=== PATIENT | male | born 1960 | race Caucasian/White ===

== ENCOUNTER 2017-10-22 02:28 | Inpatient (IN) | payer OTHER ==
[~2017-10-22] VITALS: Ht 177.8 cm; Wt 85.7 kg
--- NOTE | 2017-10-22 02:41 | PHYS DOC ---
Adult General Chief Complaint Chief Complaint: MECHANICAL FALL HPI HPI Patient is a 57-year-old male who presents with complaint of pain and injury to his right knee and hip after falling at home. Patient has obvious deformity to his right knee around the patella. Patient states that he has severe pain with motion of either the knee or the hip. He rates the pain currently an 8 out of 10. He denies any chest pain or shortness of breath. He also denies any nausea or vomiting. She indicates that he did not sustain a head injury and denies loss of consciousness. Review of Systems Review of Systems Constitutional: Denies fever or chills [] Respiratory: Denies cough or shortness of breath [] Cardiovascular: Denies chest pain[] GI: Denies abdominal pain, nausea, vomiting[] Musculoskeletal: Complains of right knee and hip pain[] Integument: Denies rash or skin lesions [] All other systems were reviewed and found to be within normal limits, except as documented in this note. Current Medications Current Medications Current Medications Medications (Trade) Dose Ordered Sig/Derrick Start Time Stop Time Status Last Admin Dose Admin Fentanyl Citrate (Fentanyl 2ml Vial) 50 mcg 1X ONCE 10/22/17 03:30 10/22/17 03:31 UNV Ondansetron HCl (Zofran) 4 mg 1X ONCE 10/22/17 02:45 10/22/17 02:46 DC 10/22/17 02:58 4 MG Allergies Allergies Allergies Coded Allergies Type Severity Reaction Last Updated Verified codeine Allergy Unknown 10/22/17 Yes Physical Exam Physical Exam Constitutional: Well developed, well nourished, appears uncomfortable. [] HENT: Normocephalic, atraumatic, bilateral external ears normal, oropharynx moist, no oral exudates, nose normal. [] Eyes: PERRLA, EOMI, conjunctiva normal, no discharge. [] Neck: Normal range of motion, no tenderness, supple, no stridor. [] Cardiovascular:Heart rate regular rhythm, no murmur [] Lungs & Thorax: Bilateral breath sounds clear to auscultation [] Abdomen: Bowel sounds normal, soft. [] Skin: Warm, dry, no erythema, no rash. [] Extremities: Right knee demonstrates deformity with lateral displacement of the patella. Unable to assess range of motion of right hip or knee due to pain. [] Neurologic: Alert and oriented X 3, normal motor function, normal sensory function, no focal deficits noted. [] Current Patient Data Vital Signs Vital Signs Date Time Temp Pulse Resp B/P (MAP) Pulse Ox O2 Delivery O2 Flow Rate FiO2 10/22/17 03:00 Room Air 10/22/17 02:28 98.8 108 20 183/84 (117) 96 98.8 EKG EKG [] Radiology/Procedures Radiology/Procedures [] Impressions: X-ray of the right knee demonstrates comminuted patellar fracture with hematoma. X-ray of the right hip demonstrates an intertrochanteric hip fracture Course & Med Decision Making Course & Med Decision Making Pertinent Labs and Imaging studies reviewed. (See chart for details) [] Dragon Disclaimer Dragon Disclaimer This electronic medical record was generated, in whole or in part, using a voice recognition dictation system. Departure Departure Impression: Primary Impression: Intertrochanteric fracture of right hip Additional Impression: Comminuted fracture of right patella Disposition: ADMITTED INPATIENT Admitting Physician: Xie. Rodriguez Condition: IMPROVED Problem Qualifiers Primary Impression: Intertrochanteric fracture of right hip Encounter type: initial encounter Fracture type: closed Fracture alignment : nondisplaced Qualified Codes: S72.144A - Nondisplaced intertrochanteric fracture of right femur, initial encounter for closed fracture Additional Impression: Comminuted fracture of right patella Encounter type: initial encounter Fracture type: closed Fracture alignment : displaced Qualified Codes: S82.041A - Displaced comminuted fracture of right patella, initial encounter for closed fracture MIRIAN VERGARA Jr. DO Oct 22, 2017 02:41
[2017-10-22] MEDS ORDERED: ONDANSETRON PF 4 MG/2 ML VIAL. IV ONE (02:45)
[2017-10-22] MEDS ORDERED: fentaNYL PF VIAL 100 MCG/2 ML VIAL IV ONE ×2 (02:45→03:30)
[2017-10-22] MEDS ORDERED: ONDANSETRON PF 4 MG/2 ML VIAL. IV PRN ×2 (03:45→08:00)
[2017-10-22] MEDS: IV NORMAL SALINE 1000ML BAG 1,000 ML IV SCH ×4 (03:57→22:48)
[2017-10-22 04:00] LABS: BASO % 0 % (0-3); EOS % 0 % (0-3); HEMATOCRIT 36.3 % (39.0-53.0); HEMOGLOBIN 12.8 g/dL (13.0-17.5); LYMPH % 13 % (24-48); MEAN CORPUSCULAR HEMOGLOBIN 35 pg (25-35); MEAN CORPUSCULAR HGB CONC 35 g/dL (31-37); MEAN CORPUSCULAR VOLUME 100 fL (79-100); MONO # 0.8 x10^3/uL (0.0-1.1); MONO % 10 % (0-9); NEUT # 5.9 x10^3uL (1.8-7.7); NEUT % 76 % (31-73); PLATELET COUNT 123 x10^3/uL (140-400); RED BLOOD COUNT 3.65 x10^6/uL (4.30-5.70); RED CELL DISTRIBUTION WIDTH 14.3 % (11.5-14.5); WHITE BLOOD COUNT 7.7 x10^3/uL (4.0-11.0)
[2017-10-22 04:05] LABS: CALCIUM 8.4 mg/dL (8.5-10.1); GFR 76.7; POTASSIUM 3.4 mmol/L (3.5-5.1)
[2017-10-22 04:06] LABS: PROTHROMBIN TIME PATIENT 14.2 SEC (11.7-14.0)
[2017-10-22 04:11] LABS: ALBUMIN 3.4 g/dL (3.4-5.0); TOTAL BILIRUBIN 0.6 mg/dL (0.2-1.0); TOTAL PROTEIN 6.9 g/dL (6.4-8.2)
[2017-10-22 04:38] VITALS: BP 159/80
[2017-10-22] MEDS: fentaNYL PF VIAL 100 MCG/2 ML VIAL IV PRN ×2 (06:17→09:17)
--- NOTE | 2017-10-22 06:41 | EKG ---
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
[2017-10-22 07:00] VITALS: BP 158/84
[2017-10-22] MEDS ORDERED: ACETAMINOPHEN 500 MG TABLET PO PRN (08:00)
[2017-10-22] MEDS ORDERED: POTASSIUM CHLORIDE 20 MEQ TABLET.ER. PO ONE (08:00)
[2017-10-22] MEDS ORDERED: LABETALOL 20 MG/4 ML DISP.SYRIN. IVP PRN (08:00)
[2017-10-22] MEDS ORDERED: magic mouthwash (08:14)
[2017-10-22] MEDS ORDERED: MULT1TAB52 PO (08:14)
[2017-10-22] MEDS ORDERED: CYCL10TA2 PO (08:14)
[2017-10-22] MEDS ORDERED: NALO0.4V14 IJ (08:14)
[2017-10-22] MEDS ORDERED: LACT20SO PO (08:14)
[2017-10-22] MEDS ORDERED: lidoderm (08:14)
[2017-10-22] MEDS ORDERED: MAG360OR24 PO (08:14)
[2017-10-22] MEDS ORDERED: TRAZ-86 PO (08:14)
[2017-10-22] MEDS ORDERED: GABA-585 PO (08:14)
[2017-10-22] MEDS ORDERED: SENN-82 PO (08:14)
[2017-10-22] MEDS ORDERED: MAGN400T22 PO (08:14)
[2017-10-22] MEDS ORDERED: LOPE2CAP88 PO (08:14)
[2017-10-22] MEDS ORDERED: CALC-304 PO (08:14)
[2017-10-22] MEDS ORDERED: ONDA8TAB9 PO (08:14)
[2017-10-22] MEDS ORDERED: DULO60CA6 PO (08:14)
[2017-10-22] MEDS ORDERED: METH10TA2 PO (08:14)
[2017-10-22] MEDS ORDERED: CYAN10005 PO (08:14)
[2017-10-22] MEDS ORDERED: HYDR-963 PO (08:14)
[2017-10-22] MEDS ORDERED: REGO40TA PO (08:14)
[2017-10-22] MEDS ORDERED: CYAN10005 SL (08:14)
--- NOTE | 2017-10-22 08:27 | RAD ---
AP portable chest radiograph 10/22/2017 Clinical History: Preoperative evaluation. Hip fracture. An AP erect portable digital radiograph of the chest was obtained. No previous studies are available for comparison. A left subclavian Mhenqe-a-Ymih catheter is seen extending to overlie the superior vena cava. The cardiac silhouette is normal in size. Atherosclerotic calcification of the thoracic aorta is seen. Patchy left lower lobe atelectasis and/or infiltrate is noted. No pneumothorax or pleural effusion is seen. Degenerative changes are seen involving the thoracic spine and both shoulders. IMPRESSION: Patchy left lower lobe atelectasis and/or infiltrate. Electronically signed by: Harjinder Pride MD (10/22/2017 8:24 AM) [id number]
--- NOTE | 2017-10-22 08:33 | RAD ---
Examination: 2 views of the right hip and 2 views of the right knee HISTORY: History of right hip pain, right knee pain after fall. COMPARISON: None available. FINDINGS: There is mild displaced oblique fracture of the intertrochanteric portion of the right femur. The femoral heads within the acetabulum. There is moderate joint space loss identified in the right hip joint. There is a faint subtle questionable lucency identified in the lateral aspect of the right acetabulum seen on the AP view. There is mild displaced midbody fracture of the right patella. Moderate soft tissue swelling identified anterior to the right patella. Small knee joint effusion is identified. IMPRESSION: 1. Mild displaced oblique intertrochanteric fracture of the right femur. 2. Questionable lucency identified in the lateral aspect of the right acetabulum could be due to osteophyte or fracture. Recommend CT for further evaluation. 3. Mild displaced midbody fracture of the right patella. Electronically signed by: Cristian Partida MD (10/22/2017 8:29 AM) [id number]
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
[2017-10-22] MEDS ORDERED: ROPIVacaine 0.75% PF 53.3 ML, EPINEPHrine 0.6 MG, MORPHINE PF 5 MG in IV NORMAL SALINE ... INT ART SCH (10:00)
[2017-10-22 11:00] VITALS: BP 138/76
[2017-10-22] MEDS: LOPERAMIDE 2 MG CAPSULE PO PRN ×3 (11:35→21:25)
[2017-10-22] MEDS: CYCLOBENZAPRINE 10 MG TABLET. PO PRN ×3 (11:36→22:44)
[2017-10-22] MEDS: cloNIDine HCL 0.1 MG TABLET PO SCH ×3 (11:36→20:53)
[2017-10-22] MEDS: HYDROcodone/APAP 10/325 1 TAB TABLET PO PRN ×3 (11:37→20:52)
[2017-10-22 15:00] VITALS: BP 131/84
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
[2017-10-22 19:00] VITALS: BP 125/82
[2017-10-22] MEDS ORDERED: traZODone 100 MG TABLET. PO ONE (22:45)
[2017-10-22 23:00] VITALS: BP 152/85
[2017-10-23] VITALS (12 sets, daily range): BP systolic 125–163; BP diastolic 75–89
[2017-10-23] MEDS: LOPERAMIDE 2 MG CAPSULE PO PRN (02:57)
[2017-10-23 04:21] LABS: BASO % 0 % (0-3); EOS % 0 % (0-3); HEMATOCRIT 32.1 % (39.0-53.0); HEMOGLOBIN 11.4 g/dL (13.0-17.5); LYMPH # 1.2 x10^3/uL (1.0-4.8); LYMPH % 16 % (24-48); MEAN CORPUSCULAR HEMOGLOBIN 35 pg (25-35); MEAN CORPUSCULAR HGB CONC 36 g/dL (31-37); MEAN CORPUSCULAR VOLUME 100 fL (79-100); MONO % 14 % (0-9); NEUT # 5.2 x10^3uL (1.8-7.7); NEUT % 70 % (31-73); PLATELET COUNT 101 x10^3/uL (140-400); RED BLOOD COUNT 3.22 x10^6/uL (4.30-5.70); RED CELL DISTRIBUTION WIDTH 14.8 % (11.5-14.5); WHITE BLOOD COUNT 7.4 x10^3/uL (4.0-11.0)
[2017-10-23 04:39] LABS: CALCIUM 8.3 mg/dL (8.5-10.1); CREATININE 0.8 mg/dL (0.7-1.3); GFR 99.3
[2017-10-23] MEDS: cloNIDine HCL 0.1 MG TABLET PO SCH ×3 (05:26→20:53)
[2017-10-23] MEDS ORDERED: LIDOCAINE 1% PF 2 ML VIAL. ID PRN (07:00)
[2017-10-23] MEDS ORDERED: fentaNYL PF VIAL 100 MCG/2 ML VIAL IV PRN ×2 (07:00→12:45)
[2017-10-23] MEDS ORDERED: IV RINGERS,LACTATED 1000ML 1,000 ML IV SCH (07:00)
[2017-10-23] MEDS ORDERED: PROCHLORPERAZINE 10 MG/2 ML VIAL. IV PRN (07:00)
[2017-10-23] MEDS: HYDROcodone/APAP 10/325 1 TAB TABLET PO PRN (07:58)
[2017-10-23] MEDS ORDERED: MIDAZOLAM HCL/PF 2 MG/2 ML VIAL. ONE (09:01)
[2017-10-23] MEDS ORDERED: PROPOFOL 20 ML IV ONE (09:01)
[2017-10-23] MEDS ORDERED: LIDOCAINE 2% PF Vial for OR 5 ML VIAL. ONE (09:01)
[2017-10-23] MEDS ORDERED: fentaNYL PF VIAL 100 MCG/2 ML VIAL ONE ×4 (09:01→13:40)
[2017-10-23] MEDS ORDERED: ROCURONIUM 50 MG/5 ML VIAL. ONE (09:04)
[2017-10-23] MEDS ORDERED: ePHEDrine PF IN SALINE 50 MG/5 ML DISP.SYRIN IV ONE (09:38)
[2017-10-23] MEDS ORDERED: PHENYLEPHRINE in 0.9% NACL PF 1 MG/10 ML SYRINGE. IV ONE (10:04)
[2017-10-23] MEDS ORDERED: ceFAZolin SODIUM 1 GM VIAL ONE (11:01)
[2017-10-23] MEDS ORDERED: ONDANSETRON PF 4 MG/2 ML VIAL. ONE (11:44)
[2017-10-23] MEDS ORDERED: SEVOFLURANE > 120 MINUTES. IH ONE (12:04)
[2017-10-23] MEDS ORDERED: MORPHINE SULFATE 4 MG/ML VIAL. IV PRN (12:45)
[2017-10-23] MEDS ORDERED: ceFAZolin SODIUM 1 GM in IV DEXTROSE 5% 50 ML IV SCH (12:45)
[2017-10-23] MEDS ORDERED: POLYETHYLENE GLYCOL 3350 17 GM PACKET. PO PRN (12:45)
[2017-10-23] MEDS ORDERED: MORPHINE SULFATE 2 MG/ML VIAL. IV PRN (12:45)
[2017-10-23] MEDS ORDERED: DEXTROSE 50% 25 GM / 50ML DISP.SYRIN. IV PRN (12:45)
[2017-10-23] MEDS ORDERED: ONDANSETRON PF 4 MG/2 ML VIAL. IV PRN (12:45)
[2017-10-23] MEDS ORDERED: HYDROcodone/APAP 7.5/325MG 1 TAB TABLET PO PRN ×2 (12:45)
[2017-10-23] MEDS ORDERED: CHOLECALCIFEROL (VITAMIN D3) 1,000 UNIT TABLET PO SCH (13:00)
--- NOTE | 2017-10-23 13:00 | PDOC ---
BRIEF OPERATIVE NOTE Date: Oct 23, 2017 Pre-Op Diagnosis Right hip fracture, right patella fracture Post-Op Diagnosis Same Procedure Performed Intramedullary nail right hip. ORIF right patella Surgeon Bryanna Smith Anesthesia Type: General Blood Loss 250 mL Specimens Obtained None Findings Tourniquet time 63 minutes Complications None AMAN RAMIREZ MD Oct 23, 2017 13:00
[2017-10-23] MEDS: fentaNYL PF VIAL 100 MCG/2 ML VIAL IV PRN ×4 (13:23→14:15)
[2017-10-23] MEDS: oxyCODONE/APAP 10/325 1 TAB TABLET PO PRN (15:33)
[2017-10-23] MEDS ORDERED: WARFARIN 7.5 MG TABLET. PO ONE (16:00)
[2017-10-23] MEDS: ceFAZolin SODIUM IV Push 1 GM VIAL. IVP SCH (16:48)
[2017-10-23] MEDS: traZODone 100 MG TABLET. PO SCH (20:46)
[2017-10-23] MEDS: CYCLOBENZAPRINE 10 MG TABLET. PO PRN (20:47)
--- NOTE | 2017-10-23 21:12 | EKG ---
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
[2017-10-24] MEDS: ceFAZolin SODIUM IV Push 1 GM VIAL. IVP SCH ×2 (00:29→09:10)
[2017-10-24] MEDS: oxyCODONE/APAP 10/325 1 TAB TABLET PO PRN ×5 (00:37→23:05)
[2017-10-24 03:00] VITALS: BP 141/79
[2017-10-24 05:17] LABS: HEMATOCRIT 25.1 % (39.0-53.0); HEMOGLOBIN 8.9 g/dL (13.0-17.5)
[2017-10-24] MEDS: cloNIDine HCL 0.1 MG TABLET PO SCH ×2 (05:54→14:09)
[2017-10-24] MEDS: CYCLOBENZAPRINE 10 MG TABLET. PO PRN (05:54)
[2017-10-24] MEDS ORDERED: MAGNESIUM HYDROXIDE 2,400 MG/30 ML ORAL.SUSP. PO PRN (06:00)
[2017-10-24 07:00] VITALS: BP 125/67
--- NOTE | 2017-10-24 08:21 | RAD ---
EXAM: 15 intraoperative fluoroscopic images of the right hip and right knee DATE: 10/23/2017 9:42 AM INDICATION: COMPARISON: No Prior FINDINGS/ IMPRESSION: 15 very limited intraoperative fluoroscopic views of the right hip and right knee submitted from the OR. Exam shows steps toward reduction and fixation of a patellar fracture as well as IM nail fixation of the right hip fracture. Note, this does not constitute a diagnostic quality exam. Please see operative report for full details. Electronically signed by: Chauncey Flores MD (10/24/2017 8:17 AM) [facility]
[2017-10-24] MEDS: SENNOSIDES/DOCUSATE 8.6/50MG TABLET. PO SCH (09:00)
[2017-10-24] MEDS: ERGOCALCIFEROL (VITAMIN D2) 50,000 UNIT CAPSULE. PO SCH (09:08)
[2017-10-24] MEDS ORDERED: MAG HYDROX/ALUMINUM HYD/SIMETH 30 ML ORAL.SUSP PO PRN (10:00)
[2017-10-24] MEDS: LIDOCAINE (700MG/PATCH) PATCH. TD SCH (10:00)
[2017-10-24] MEDS ORDERED: LOPERAMIDE 2 MG CAPSULE PO PRN (10:00)
[2017-10-24] MEDS ORDERED: LACTULOSE 20 GM/30 ML SOLUTION. PO PRN (10:00)
[2017-10-24] MEDS ORDERED: ALPRAZolam 0.25 MG TABLET PO PRN (10:00)
--- NOTE | 2017-10-24 10:03 | PDOC ---
PROGRESS NOTES Chief Complaint Chief Complaint RT Patellar fracture, traumatic, closed s/p sx 8/14 - POD # 1 Right hip fracture s/p sx 8/14 - POD # 1 Mechanical fall at home, Colon CA with mets to lungs on daily chemo ANemia of Cancer History of Present Illness History of Present Illness POD day #1 He came with a hemoglobin of 12, it did drop to 8 POD day #1 Seemingly no pain when not moving, but he does complain of electrical shocks on slight movement Cannot lay flat because of the pain Still has to work yet with PT OT He did fall prior to admission, he requests a CT of the head. But he cannot lay flat hence we will not do it and there are no FNDs or need to do it in my clinical opinion LOTS of requests today: First he did not want to take the warfarin because he did not like the inconvenience of getting an INR-after discussing with him that he will go to rehabilitation and nurses will do the INR check he seemed agreeable to take the warfarin today He requests Flexeril to be 20 mg, it is only when necessary, I stuck with a 10 mg dose and keep it 3 times a day scheduled He requests some Xanax when necessary I have reconciled home meds To hold his cancer meds up until October 29 as per his cancer doctor Plan: PT OT today Home meds have been reconciled Xanax when necessary No need for CT head Change Flexeril to schedule Discussed with RN at bedside and family Recheck HH ceferino, transfuse if < 7 time in room, 30 mins Vitals Vitals Vital Signs Date Time Temp Pulse Resp B/P (MAP) Pulse Ox O2 Delivery O2 Flow Rate FiO2 10/24/17 09:27 94 Room Air 10/24/17 07:00 97.5 107 18 125/67 (86) 97.5 10/23/17 21:22 3.0 Physical Exam General: Alert, Oriented X3, Cooperative, No acute distress Heart: Regular rate Lungs: Clear Abdomen: Soft Extremities: No clubbing, No cyanosis, Normal pulses Skin: No rashes, No breakdown, No significant lesion Labs LABS Laboratory Tests Test 10/24/17 03:40 Hemoglobin 8.9 g/dL (13.0-17.5) Hematocrit 25.1 % (39.0-53.0) Mean Corpuscular Hemoglobin Concent 36 g/dL (31-37) Review of Systems Review of Systems left hip pain otherwise ROS negative Assessment and Plan Assessmemt and Plan Problems Medical Problems: (1) Comminuted fracture of right patella Status: Acute (2) Intertrochanteric fracture of right hip Status: Acute Comment Review of Relevant I have reviewed the following items francisco (where applicable) has been applied. Labs Laboratory Tests Test 10/23/17 03:05 10/24/17 03:40 White Blood Count 7.4 x10^3/uL (4.0-11.0) Red Blood Count 3.22 x10^6/uL (4.30-5.70) Hemoglobin 11.4 g/dL (13.0-17.5) 8.9 g/dL (13.0-17.5) Hematocrit 32.1 % (39.0-53.0) 25.1 % (39.0-53.0) Mean Corpuscular Volume 100 fL (79-100) Mean Corpuscular Hemoglobin 35 pg (25-35) Mean Corpuscular Hemoglobin Concent 36 g/dL (31-37) 36 g/dL (31-37) Red Cell Distribution Width 14.8 % (11.5-14.5) Platelet Count 101 x10^3/uL (140-400) Neutrophils (%) (Auto) 70 % (31-73) Lymphocytes (%) (Auto) 16 % (24-48) Monocytes (%) (Auto) 14 % (0-9) Eosinophils (%) (Auto) 0 % (0-3) Basophils (%) (Auto) 0 % (0-3) Neutrophils # (Auto) 5.2 x10^3uL (1.8-7.7) Lymphocytes # (Auto) 1.2 x10^3/uL (1.0-4.8) Monocytes # (Auto) 1.0 x10^3/uL (0.0-1.1) Eosinophils # (Auto) 0.0 x10^3/uL (0.0-0.7) Basophils # (Auto) 0.0 x10^3/uL (0.0-0.2) Sodium Level 138 mmol/L (136-145) Potassium Level 4.0 mmol/L (3.5-5.1) Chloride Level 105 mmol/L (98-107) Carbon Dioxide Level 27 mmol/L (21-32) Anion Gap 6 (6-14) Blood Urea Nitrogen 11 mg/dL (8-26) Creatinine 0.8 mg/dL (0.7-1.3) Estimated GFR (Cockcroft-Gault) 99.3 Glucose Level 118 mg/dL (70-99) Calcium Level 8.3 mg/dL (8.5-10.1) Laboratory Tests Test 10/24/17 03:40 Hemoglobin 8.9 g/dL (13.0-17.5) Hematocrit 25.1 % (39.0-53.0) Mean Corpuscular Hemoglobin Concent 36 g/dL (31-37) Medications Current Medications Fentanyl Citrate (Fentanyl 2ml Vial) 75 mcg 1X ONCE IV Last administered on at 03:00; Start 10/22/17 at 02:45; Stop 10/22/17 at 02:46; Status DC Ondansetron HCl (Zofran) 4 mg 1X ONCE IV Last administered on 10/22/17at 02:58 ; Start 10/22/17 at 02:45; Stop 10/22/17 at 02:46; Status DC Fentanyl Citrate (Fentanyl 2ml Vial) 50 mcg 1X ONCE IV Last administered on at 03:48; Start 10/22/17 at 03:30; Stop 10/22/17 at 03:31; Status DC Ondansetron HCl (Zofran) 4 mg PRN Q8HRS PRN IV NAUSEA/VOMITING; Start 10/22/17 at 03:45; Stop 10/22/17 at 07:53; Status DC Fentanyl Citrate (Fentanyl 2ml Vial) 50 mcg PRN Q1HR PRN IV PAIN Last administered on 10/22/17at 09:17; Start 10/22/17 at 03:45; Stop 10/23/17 at 03:44 ; Status DC Sodium Chloride 1,000 ml @ 125 mls/hr Q8H IV Last administered on 10/22/17at 22 :48; Start 10/22/17 at 03:33; Stop 10/23/17 at 03:32; Status DC Ondansetron HCl (Zofran) 4 mg PRN Q6HRS PRN IV NAUSEA/VOMITING; Start 10/22/17 at 08:00; Stop 10/23/17 at 12:52; Status DC Acetaminophen (Tylenol) 500 mg PRN Q6HRS PRN PO MILD PAIN / TEMP Last administered on 10/22/17at 11:36; Start 10/22/17 at 08:00 Labetalol HCl (Normodyne) 10 mg PRN Q2HR PRN IVP HYPERTENSION, SEE COMMENTS; Start 10/22/17 at 08:00 Potassium Chloride (Klor-Con) 40 meq 1X ONCE PO Last administered on at 11:35; Start 10/22/17 at 08:00; Stop 10/22/17 at 08:19; Status DC Clonidine HCl (Catapres) 0.1 mg Q8HRS PO Last administered on 10/24/17at 05:54; Start 10/22/17 at 10:00 Ropivacaine 53.3 ml/Epinephrine HCl 0.6 mg/ Morphine Sulfate 5 mg/Sodium Chloride 100 ml @ 100 mls/hr 1X PERIOP INT ART Last administered on at 09:57; Start 10/22/17 at 10:00 Clonidine HCl (Catapres) 0.1 mg PRN Q1HR PRN PO HYPERTENSION, SEE COMMENTS; Start 10/22/17 at 11:00 Oxycodone/ Acetaminophen (Percocet 10/325) 1 tab PRN Q4HRS PRN PO SEVERE PAIN 1ST CHOICE Last administered on 10/24/17at 09:27; Start 10/22/17 at 11:00 Acetaminophen/ Hydrocodone Bitart (Lortab 10/325) 1 tab PRN Q4HRS PRN PO MODERATE PAIN Last administered on 10/23/17at 07:58; Start 10/22/17 at 11:00; Stop 10/23/17 at 13:45; Status DC Cyclobenzaprine HCl (Flexeril) 10 mg PRN TID PRN PO MUSCLE SPASMS Last administered on 10/24/17at 05:54; Start 10/22/17 at 11:00; Stop 10/24/17 at 09:55 ; Status DC Loperamide HCl (Imodium) 2 mg TID PRN PRN PO DIARRHEA Last administered on 10/23at 02:57; Start 10/22/17 at 11:00 Fentanyl Citrate (Fentanyl 2ml Vial) 25 mcg PRN Q5MIN PRN IV MILD PAIN; Start 10/23/17 at 07:00; Stop 10/23/17 at 18:00; Status DC Fentanyl Citrate (Fentanyl 2ml Vial) 50 mcg PRN Q5MIN PRN IV MODERATE TO SEVERE PAIN Last administered on 10/23/17at 14:15; Start 10/23/17 at 07:00; Stop 10/23/17 at 18:00; Status DC Ringer's Solution 1,000 ml @ 30 mls/hr Q24H IV ; Start 10/23/17 at 07:00; Stop 10/23/17 at 18:59; Status DC Lidocaine HCl (Xylocaine-Mpf 1% Vial) 2 ml PRN 1X PRN ID IV START; Start at 07:00; Stop 10/23/17 at 18:00; Status DC Prochlorperazine Edisylate (Compazine) 5 mg PACU PRN PRN IV NAUSEA, MRX1; Start 10/23/17 at 07:00; Stop 10/23/17 at 18:00; Status DC Trazodone HCl (Desyrel) 100 mg QHS PO Last administered on 10/23/17at 20:46; Start 10/23/17 at 21:00 Trazodone HCl (Desyrel) 100 mg 1X ONCE PO Last administered on 10/22/17at 22:44 ; Start 10/22/17 at 22:45; Stop 10/22/17 at 22:46; Status DC Cefazolin Sodium/ Dextrose 50 ml @ 100 mls/hr 1X PREOP IV Last administered on 10/23/17at 10:34; Start 10/23/17 at 09:00 Lidocaine HCl (Lidocaine Pf 2% Vial) 5 ml STK-MED ONCE .ROUTE ; Start 10/23/17 at 09:01; Stop 10/23/17 at 09:02; Status DC Propofol 20 ml @ As Directed STK-MED ONCE IV ; Start 10/23/17 at 09:01; Stop at 09:02; Status DC Midazolam HCl (Versed) 2 mg STK-MED ONCE .ROUTE ; Start 10/23/17 at 09:01; Stop 10/23/17 at 09:02; Status DC Fentanyl Citrate (Fentanyl 2ml Vial) 100 mcg STK-MED ONCE .ROUTE ; Start at 09:01; Stop 10/23/17 at 09:02; Status DC Rocuronium Mozier (Zemuron) 50 mg STK-MED ONCE .ROUTE ; Start 10/23/17 at 09:04 ; Stop 10/23/17 at 09:05; Status DC Ephedrine Sulfate (ePHEDrine PF IN SALINE SYRINGE) 50 mg STK-MED ONCE IV ; Start 10/23/17 at 09:38; Stop 10/23/17 at 09:39; Status DC Phenylephrine HCl (PHENYLEPHRINE in 0.9% NACL PF) 1 mg STK-MED ONCE IV ; Start 10/23/17 at 10:04; Stop 10/23/17 at 10:06; Status DC Cefazolin Sodium (Ancef) 1 gm STK-MED ONCE .ROUTE ; Start 10/23/17 at 11:01; Stop 10/23/17 at 11:03; Status DC Ondansetron HCl (Zofran) 4 mg STK-MED ONCE .ROUTE ; Start 10/23/17 at 11:44; Stop 10/23/17 at 11:45; Status DC Fentanyl Citrate (Fentanyl 2ml Vial) 100 mcg STK-MED ONCE .ROUTE ; Start at 11:58; Stop 10/23/17 at 11:59; Status DC Sevoflurane (Ultane) 90 ml STK-MED ONCE IH ; Start 10/23/17 at 12:04; Stop 10/23 at 12:05; Status DC Oxycodone HCl (Roxicodone) 5 mg PRN Q3HRS PRN PO MODERATE PAIN 1ST CHOICE; Start 10/23/17 at 12:45 Morphine Sulfate (Morphine Sulfate) 2 mg PRN Q1HR PRN IV PAIN Last administered on 10/23/17at 20:52; Start 10/23/17 at 12:45 Fentanyl Citrate (Fentanyl 2ml Vial) 25 mcg PRN Q1HR PRN IV PAIN Last administered on 10/23/17at 15:31; Start 10/23/17 at 12:45 Senna/Docusate Sodium (Senna Plus) 1 tab DAILY PO ; Start 10/24/17 at 09:00 Polyethylene Glycol (miraLAX PACKET) 17 gm PRN DAILY PRN PO CONSTIPATION; Start 10/23/17 at 12:45 Vitamin D (Vitamin D3) 5,000 unit DAILY PO Last administered on 10/23/17at 14:46 ; Start 10/23/17 at 13:00; Stop 10/24/17 at 08:39; Status DC Ondansetron HCl (Zofran) 4 mg PRN Q4HRS PRN IV NAUSEA/VOMITING; Start 10/23/17 at 12:45 Warfarin Sodium (Coumadin) 7.5 mg 1X ONCE PO ; Start 10/23/17 at 16:00; Stop at 16:01; Status DC Warfarin Sodium (Coumadin Per Pharmacy) 1 each PRN DAILY PRN MC SEE COMMENTS; Start 10/24/17 at 12:45 Magnesium Hydroxide (Milk Of Magnesia) 2,400 mg 1X PRN PRN PO CONSTIPATION; Start 10/24/17 at 06:00; Stop 10/25/17 at 05:59 Bisacodyl (Dulcolax Supp) 10 mg 1X PRN PRN MA CONSTIPATION; Start 10/24/17 at 16:00; Stop 10/25/17 at 15:59 Acetaminophen/ Hydrocodone Bitart (Lortab 7.5/325) 1 tab PRN Q4HRS PRN PO MODERATE PAIN 2ND CHOICE; Start 10/23/17 at 12:45 Morphine Sulfate (Morphine Sulfate) 4 mg PRN Q2HR PRN IV PAIN; Start 10/23/17 at 12:45 Acetaminophen/ Hydrocodone Bitart (Lortab 7.5/325) 2 tab PRN Q4HRS PRN PO SEVERE PAIN 2ND CHOICE; Start 10/23/17 at 12:45 Dextrose (Dextrose 50%-Water Syringe) 12.5 gm PRN Q15MIN PRN IV SEE COMMENTS; Start 10/23/17 at 12:45 Cefazolin Sodium 1 gm/Dextrose 50 ml @ 100 mls/hr Q6H IV ; Start 10/23/17 at 12 :45; Stop 10/23/17 at 12:54; Status DC Cefazolin Sodium (Ancef) 1 gm Q8H IVP Last administered on 10/24/17at 09:10; Start 10/23/17 at 16:00; Stop 10/24/17 at 08:01; Status DC Fentanyl Citrate (Fentanyl 2ml Vial) 100 mcg STK-MED ONCE .ROUTE ; Start at 13:19; Stop 10/23/17 at 13:20; Status DC Fentanyl Citrate (Fentanyl 2ml Vial) 100 mcg STK-MED ONCE .ROUTE ; Start at 13:40; Stop 10/23/17 at 13:41; Status DC Ergocalciferol (Vitamin D2) 50,000 unit WEEKLY PO Last administered on at 09:08; Start 10/24/17 at 09:00 Cyanocobalamin (Vitamin B-12) 1,000 mcg DAILY PO ; Start 10/24/17 at 11:00 Cyclobenzaprine HCl (Flexeril) 10 mg TID PO ; Start 10/24/17 at 14:00 Gabapentin (Neurontin) 100 mg Q8HRS PO ; Start 10/24/17 at 14:00 Duloxetine HCl (Cymbalta) 60 mg DAILY PO ; Start 10/24/17 at 11:00 Multivitamins (Thera M Plus) 1 tab DAILY PO ; Start 10/24/17 at 11:00 Cyclobenzaprine HCl (Flexeril) 10 mg TID PO ; Start 10/24/17 at 14:00 Cyanocobalamin (Vitamin B-12) 1,000 mcg DAILY PO ; Start 10/24/17 at 11:00 Active Scripts Active Reported Alum-Mag Hydroxide-Simeth Liq (Mag Hydrox/Al Hydrox/Simeth) 360 Ml Oral.susp 5 Ml PO PRN Vitamin B-12 (Cyanocobalamin (Vitamin B-12)) 1,000 Mcg Tablet 1,250 Mcg SL DAILY Vitamin B-12 (Cyanocobalamin (Vitamin B-12)) 1,000 Mcg Tablet 1,000 Mcg PO Trazodone Hcl 100 Mg Tablet 1 Tab PO QHS Stivarga (Regorafenib) 40 Mg Tablet 40 Mg PO DAILY Senna S Tablet (Sennosides/Docusate Sodium) 1 Each Tablet 1 Each PO Multivitamins (Multivitamin) 1 Each Tablet 1 Tab PO DAILY Zofran (Ondansetron Hcl) 8 Mg Tablet 1 Tab PO Q8HRS PRN Naloxone Hcl 0.4 Mg/1 Ml Vial 0.4 Mg IJ Methadone Hcl 10 Mg Tablet 1 Tab PO Q12HR Mag-Oxide (Magnesium Oxide) 400 Mg Tablet 250 Mg PO BID [lidoderm] 5 Q12HR Lactulose 20 Gm/30 Ml Solution 20 Gm PO PRN Q3HRS PRN Imodium A-D (Loperamide HCl) 2 Mg Capsule 2 Mg PO PRN [place] 10-325 Tablet (Acetaminophen/Hydrocodone Bitart) 1 Each Tablet 1-2 Tab PO Q4-6HRS PRN Gabapentin 100 Mg Capsule 100 Mg PO Q8HRS Cymbalta (Duloxetine Hcl) 60 Mg Capsule. 1 Cap PO DAILY [magic mouthwash] 30 Ml TID PRN Cyclobenzaprine Hcl 10 Mg Tablet 1 Tab PO TID [place] Calcium-Vit D Tab (Calcium Carbonate/Vitamin D2) 1 Each Tablet 1 Each PO BID Vitals/I & O Vital Sign - Last 24 Hours 10/23/17 10/23/17 10/23/17 10/23/17 12:33 12:48 12:48 13:03 Temp 99.7 99.7 Pulse 99 103 110 Resp 18 18 18 B/P (MAP) 113/62 120/69 140/77 Pulse Ox 97 100 96 O2 Delivery Simple Mask Room Air Nasal Cannula Room Air O2 Flow Rate 10 3 10/23/17 10/23/17 10/23/17 10/23/17 13:18 13:23 13:33 13:33 Temp 99.1 99.1 Pulse 107 105 Resp 18 18 18 18 B/P (MAP) 122/80 132/69 Pulse Ox 99 98 98 O2 Delivery Room Air Room Air Room Air 10/23/17 10/23/17 10/23/17 10/23/17 13:43 13:48 14:03 14:05 Pulse 105 104 Resp 18 16 18 B/P (MAP) 144/82 129/69 Pulse Ox 98 97 97 96 O2 Delivery Room Air Room Air Room Air Room Air 10/23/17 10/23/17 10/23/17 10/23/17 14:15 14:45 14:51 15:00 Pulse 119 119 123 Resp 18 B/P (MAP) 128/85 (99) 128/85 148/87 (107) Pulse Ox 96 96 96 O2 Delivery Room Air 10/23/17 10/23/17 10/23/17 10/23/17 15:15 15:30 15:31 15:33 Pulse 123 115 B/P (MAP) 153/87 (109) 156/84 (108) Pulse Ox 96 95 96 96 O2 Delivery Room Air Room Air 10/23/17 10/23/17 10/23/17 10/23/17 15:45 16:00 16:15 16:30 Pulse 116 117 117 B/P (MAP) 163/89 (113) 150/88 (108) 143/85 (104) Pulse Ox 95 96 96 96 O2 Delivery Room Air 10/23/17 10/23/17 10/23/17 10/23/17 17:00 18:00 20:00 20:52 Pulse 123 117 B/P (MAP) 147/77 (100) 144/86 (105) Pulse Ox 96 97 97 O2 Delivery Room Air Room Air O2 Flow Rate 3.0 10/23/17 10/23/17 10/23/17 10/24/17 20:53 21:22 23:00 03:00 Temp 97.1 97.5 97.1 97.5 Pulse 117 114 103 Resp 18 18 B/P (MAP) 144/86 128/75 (92) 141/79 (99) Pulse Ox 94 94 94 O2 Delivery Room Air Room Air Room Air O2 Flow Rate 3.0 10/24/17 10/24/17 10/24/17 10/24/17 05:54 07:00 07:11 09:27 Temp 97.5 97.5 Pulse 103 107 Resp 18 B/P (MAP) 141/79 125/67 (86) Pulse Ox 97 94 94 O2 Delivery Room Air Room Air Room Air Intake and Output 10/23/17 10/23/17 10/24/17 15:00 23:00 07:00 Intake Total 1860 ml 720 ml Output Total 900 ml 1500 ml Balance 1860 ml -900 ml -780 ml WES HAWKINS MD Oct 24, 2017 10:03
[2017-10-24] MEDS ORDERED: LIDO:MAALOX:BENADRYL 1:1:1 180 ML BOTTLE. PO PRN (10:30)
[2017-10-24] MEDS ORDERED: ONDANSETRON ODT 4 MG TAB.RAPDIS. PO PRN (10:30)
[2017-10-24 11:00] VITALS: BP 126/72
[2017-10-24] MEDS ORDERED: CYANOCOBALAMIN (VITAMIN B-12) 1,000 MCG TABLET. PO SCH (11:00)
[2017-10-24] MEDS ORDERED: SENNOSIDES/DOCUSATE 8.6/50MG TABLET. PO SCH (11:00)
[2017-10-24] MEDS: METHADONE 10 MG TABLET. PO SCH ×2 (11:00→21:00)
[2017-10-24] MEDS: MAGNESIUM OXIDE 400 MG TABLET PO SCH ×2 (11:40→21:05)
[2017-10-24] MEDS: CYANOCOBALAMIN (VITAMIN B-12) 1,000 MCG TABLET. PO SCH (11:40)
[2017-10-24] MEDS: DULoxetine HCL 30 MG CAPSULE.DR PO SCH (11:41)
[2017-10-24] MEDS: MULTIVITAMIN with MINERAL TABLET. PO SCH (11:41)
[2017-10-24 12:19] LABS: PROTHROMBIN TIME PATIENT 14.6 SEC (11.7-14.0)
--- NOTE | 2017-10-24 13:50 | PDOC ---
PROGRESS NOTES Subjective Subjective Better today. States pain is about a 5/10 now. He tried getting up with therapy but had a shooting pain and got lightheaded. He said Xanax was started, which helps. Objective Vital Signs Vital Signs Date Time Temp Pulse Resp B/P (MAP) Pulse Ox O2 Delivery O2 Flow Rate FiO2 10/24/17 11:00 97.7 110 18 126/72 (90) 97 Room Air 97.7 10/23/17 21:22 3.0 Physical Exam Lying in bed. Right hip and knee dressing c/d/i. Knee immobilizer intact. Thigh and calf soft and nontender with negative El's sign. Good df/pf at foot. NVI. Labs Laboratory Tests Test 10/23/17 03:05 10/24/17 03:40 10/24/17 12:00 White Blood Count 7.4 x10^3/uL (4.0-11.0) Red Blood Count 3.22 x10^6/uL (4.30-5.70) Hemoglobin 11.4 g/dL (13.0-17.5) 8.9 g/dL (13.0-17.5) Hematocrit 32.1 % (39.0-53.0) 25.1 % (39.0-53.0) Mean Corpuscular Volume 100 fL (79-100) Mean Corpuscular Hemoglobin 35 pg (25-35) Mean Corpuscular Hemoglobin Concent 36 g/dL (31-37) 36 g/dL (31-37) Red Cell Distribution Width 14.8 % (11.5-14.5) Platelet Count 101 x10^3/uL (140-400) Neutrophils (%) (Auto) 70 % (31-73) Lymphocytes (%) (Auto) 16 % (24-48) Monocytes (%) (Auto) 14 % (0-9) Eosinophils (%) (Auto) 0 % (0-3) Basophils (%) (Auto) 0 % (0-3) Neutrophils # (Auto) 5.2 x10^3uL (1.8-7.7) Lymphocytes # (Auto) 1.2 x10^3/uL (1.0-4.8) Monocytes # (Auto) 1.0 x10^3/uL (0.0-1.1) Eosinophils # (Auto) 0.0 x10^3/uL (0.0-0.7) Basophils # (Auto) 0.0 x10^3/uL (0.0-0.2) Sodium Level 138 mmol/L (136-145) Potassium Level 4.0 mmol/L (3.5-5.1) Chloride Level 105 mmol/L (98-107) Carbon Dioxide Level 27 mmol/L (21-32) Anion Gap 6 (6-14) Blood Urea Nitrogen 11 mg/dL (8-26) Creatinine 0.8 mg/dL (0.7-1.3) Estimated GFR (Cockcroft-Gault) 99.3 Glucose Level 118 mg/dL (70-99) Calcium Level 8.3 mg/dL (8.5-10.1) Prothrombin Time 14.6 SEC (11.7-14.0) Prothromb Time International Ratio 1.2 (0.8-1.1) Laboratory Tests Test 10/24/17 03:40 10/24/17 12:00 Hemoglobin 8.9 g/dL (13.0-17.5) Hematocrit 25.1 % (39.0-53.0) Mean Corpuscular Hemoglobin Concent 36 g/dL (31-37) Prothrombin Time 14.6 SEC (11.7-14.0) Prothromb Time International Ratio 1.2 (0.8-1.1) Assessment Assessment POD #1 right hip intramedullary nail and right patella ORIF Plan Plan of Care I provided education about the surgical procedure. Continue PT/OT and DVT ppx with warfarin. He may WBAT with a walker with the knee immobilizer intact. SUSHIL TAYLOR Oct 24, 2017 13:50
[2017-10-24] MEDS ORDERED: CYCLOBENZAPRINE 10 MG TABLET. PO SCH (14:00)
[2017-10-24] MEDS: GABAPENTIN 100 MG CAPSULE. PO SCH ×2 (14:09→22:08)
[2017-10-24] MEDS: CYCLOBENZAPRINE 10 MG TABLET. PO SCH ×2 (14:09→21:05)
[2017-10-24 15:00] VITALS: BP 118/57
[2017-10-24] MEDS ORDERED: WARFARIN 5 MG TABLET. PO ONE (16:00)
[2017-10-24] MEDS ORDERED: BISACODYL 10 MG SUPP.RECT. PR PRN (16:00)
--- NOTE | 2017-10-24 16:10 | PDOC4 ---
Operative Note Operative Note Date of Procedure: October 23, 2017 Pre-Op Diagnosis: 1. closed right intertrochanteric hip fracture 2. closed right comminuted patella fracture Post-Op Diagnosis: same Procedure/Anesthesia: 1. Treatment of intertrochanteric right femur fracture with intramedullary implant (CPT 50824) 2. Open treatment of patella fracture with internal fixation (CPT 49788) Surgeon: Aman Gould MD Basket Grader: Lyly Smith PA-C Anesthesia Type: General EBL: 250 mL Specimens Obtained: none Complications: None Implant: 1. Heaters Gamma Nail 2. Synthes 4.0 mm cannulated screws in the patella bone, Synthes 4.5 mm cancellous screws in the tibia for cerclage fixation INDICATION FOR PROCEDURE: The patient is a 57 Year old, who fell, sustaining a right hip fracture and right patella fracture, both of which are displaced. He has a history of cancer and is on chemotherapy. We discussed the risks benefits and alternatives of surgical treatment of his patella fracture and hip fracture. We discussed the increased surgical risk due to recent chemotherapy. He has low vitamin D and probable poor bone quality due to chemotherapy. The alternative for treatment is bedrest until the hip fracture feels, which is generally not well tolerated due to the risks of bedsores, blood clots, pneumonia and deconditioning. The patella fracture could possibly be treated nonoperatively in extension with bracing or casting but would likely lose extension power and cause permanent limping. I recommended intramedullary nailing of hip fracture and internal fixation of the patella fracture, and I talked to him about the potential risks of this including risks of bleeding, infection, blood clots, malunion, nonunion, need for further surgery, possible need for hardware removal particularly at the patella, or other potential surgical or anesthetic complications. We discussed the increased risks of poor healing, infection, nonunion, due to his chemotherapy, and he is in agreement. The chemotherapy for a few weeks to help lessen those risks. All of his questions were answered about surgery and they desired to proceed. A written consent was obtained. PROCEDURE IN DETAIL: The patient was identified in the preoperative holding area. The correct right hip was marked by me. The patient was taken to the operating room, where a general anesthetic was used. Preoperative antibiotics were given intravenously. The HANA table was used and the well leg was placed in a padded lithotomy leg sanford while the foot of the fractured right leg was placed in a traction foot boot. A time-out procedure was performed. The image intensifier was used, and a preliminary reduction performed and the fracture site confirmed. The image intensifier large C-arm was used The hip area was prepped sterilely with ChloraPrep solution and a sterile barrier Ioban hip drape was used. A periarticular injection of ropivacaine, epinephrine and morphine was used. An incision was made over the superior aspect of the greater trochanter. A guide pin was placed at the tip of the greater trochanter, and an entry reamer was used. Reaming was performed over the guide wire, for preparation of the canal for insertion of the nail. The intramedullary nail was attached to a guide and then was placed down the canal, and positioned using the image intensifier. A second incision was now used over the lower part of the greater trochanter, to place a guide pin through the guide and the sleeves, close to the center-center position of the femoral head, and the guide wire was measured. The tunnel for the lag screw was reamed. The lag screw was placed through the nail using the guide. A proximal locking screw was now placed to lock the lag screw. Finally, a distal cross lock screw was placed using the triple sleeve device through the guide. Screw position was confirmed with the image intensifier. Satisfactory reduction and fixation was confirmed using image intensifier views in multiple planes. Copious irrigation was used and the incision was now closed in layers by Ms. Smith, with #2 Vicryl, 2-0 Vicryl and corinna. A bulky sterile dressing was applied. The surgical drapes from the hip surgery were removed. The patient was gently transferred from [facility] to a standard operating table with diving board extension for later visualization of the patella using the large C-arm. The patient was completely repositioned and redraped. A tourniquet was placed on the upper thigh by Lyly. The limb was prepared in sterile fashion circumferentially, and sterile drapes were applied. An impervious stockinette was used over the lower limb. The lower limb was exsanguinated with an Esmarch bandage and the tourniquet was inflated to 350 mmHg. A midline longitudinal incision was performed. Extensive fracture hematoma was noted. Careful dissection was performed at the level of the patella, to expose the fracture. This was a more comminuted fracture than I had initially appreciated on x-rays, and includes the upper portion of the patella being broken and two fragments in a vertical fashion involving the articular surface. The lower portion also has some comminution, but the lower portion comminution does not involve the articular surface. Copious irrigation was used. Fracture hematoma was cleared with threads, rongeurs, and irrigation. A small medial arthrotomy was performed for palpation of the articular surface. I had Lyly hold the superior pole reduced with a bone clamp, and I used the 4.0 mm cannulated screw set to place a guidewire transversely through the upper two fragments, and then applied a screw to achieve compression across the upper pole vertical fracture site. The upper pole joint surface remained anatomically reduced. Next the upper pole to the lower pole repair was performed. Guidewires were placed into the fracture site, antegrade through the tip of the distal patella, and then retrograde back into the patella, with repositioning of the guidewires needed to avoid the previously placed transverse screw. The large image intensifier was used, and all of the images were interpreted intraoperatively by me. AP and lateral planes were used, to confirm satisfactory positioning of the guidewires. A cannulated drill bit was used, for preparation of the bone for accepting the screw, and then partially threaded cannulated cancellous screws were placed from inferior to superior, with a washer on each, achieving compression across the horizontal portion of the fracture. Finally a #5 FiberWire suture was placed in a pursestring fashion around the patella for additional cerclage fixation. Image intensifier views in AP lateral plane showed satisfactory reduction and fixation, and digital palpation of the articular surface showed anatomic reduction. Despite uncomplicated screw fixation, I'm concerned that the bone quality would not tolerate weightbearing. I believe I could have easily stripped the screws due to the poor bone quality. I did augmentation fixation due to the poor bone quality, so that most of the stress of the weightbearing will be held away from the patella. I used two #5 FiberWire sutures in a Krakw fashion in the distal quadriceps tendon, above the patella fracture. I then brought all four tails down to the tibia, two medial and two lateral, and placed screws in the tibia, below the fracture, which I used as posts to secure the fiber wire. Each of these is a 4.5 mm cancellous screw with a washer, and secure fixation was obtained with both of those screws, so that most of the tension of weightbearing or knee flexion is distributed to the quadriceps tendon and the tibia, with much less stress across the patella fracture. This should allow the patella to heal without displacement during weightbearing or flexion. The knee was taken through a range of motion to confirm that the augmentation fixation was not too tight, and at the patella fracture did not displace. All of the fixation appears satisfactory. The tourniquet was released. Bovie electrocautery was used for hemostasis. Needle and sponge counts were correct. Deep subcutaneous tissue was closed with #1 Vicryl [id number] sutures. I had Lyly closed subcutaneous tissue with 2-0 Vicryl, and placed corinna in the skin. She then applied and knee immobilizer. The patient will be allowed to weight bear with the knee in full extension in the knee immobilizer. There were no apparent complications. AMAN GOULD MD Oct 24, 2017 16:10
[2017-10-24] MEDS: CALCIUM CARB/VIT D3 500/200 TABLET. PO SCH (16:52)
[2017-10-24] MEDS: ALPRAZolam 0.5 MG TABLET PO SCH (16:53)
[2017-10-24 19:00] VITALS: BP 110/66
[2017-10-24] MEDS: traZODone 100 MG TABLET. PO SCH (21:05)
[2017-10-24] MEDS: cloNIDine HCL 0.2 MG TABLET PO SCH (21:06)
[2017-10-24] MEDS ORDERED: cloNIDine HCL 0.2 MG TABLET PO SCH (22:00)
[2017-10-24 23:00] VITALS: BP 111/57
[2017-10-25] VITALS (9 sets, daily range): BP systolic 85–118; BP diastolic 56–66
[2017-10-25 04:51] LABS: HEMOGLOBIN 7.4 g/dL (13.0-17.5)
[2017-10-25 05:01] LABS: PROTHROMBIN TIME PATIENT 17.1 SEC (11.7-14.0)
[2017-10-25] MEDS: GABAPENTIN 100 MG CAPSULE. PO SCH ×3 (06:09→22:12)
[2017-10-25] MEDS: oxyCODONE/APAP 10/325 1 TAB TABLET PO PRN ×2 (06:09→15:45)
[2017-10-25] MEDS: cloNIDine HCL 0.2 MG TABLET PO SCH ×3 (06:10→22:13)
[2017-10-25] MEDS: CALCIUM CARB/VIT D3 500/200 TABLET. PO SCH ×2 (07:46→16:54)
[2017-10-25] MEDS: MAGNESIUM OXIDE 400 MG TABLET PO SCH ×2 (08:53→21:04)
[2017-10-25] MEDS: DULoxetine HCL 30 MG CAPSULE.DR PO SCH (08:53)
[2017-10-25] MEDS: SENNOSIDES/DOCUSATE 8.6/50MG TABLET. PO SCH (08:53)
[2017-10-25] MEDS: MULTIVITAMIN with MINERAL TABLET. PO SCH (08:53)
[2017-10-25] MEDS: LIDOCAINE (700MG/PATCH) PATCH. TD SCH (08:54)
[2017-10-25] MEDS: CYCLOBENZAPRINE 10 MG TABLET. PO SCH ×3 (08:54→21:04)
[2017-10-25] MEDS: METHADONE 10 MG TABLET. PO SCH ×2 (08:54→21:00)
[2017-10-25] MEDS: ALPRAZolam 0.5 MG TABLET PO SCH ×2 (08:54→21:05)
[2017-10-25] MEDS: CYANOCOBALAMIN (VITAMIN B-12) 1,000 MCG TABLET. PO SCH (08:54)
--- NOTE | 2017-10-25 09:54 | PDOC ---
PROGRESS NOTES Chief Complaint Chief Complaint RT Patellar fracture, traumatic, closed s/p sx 814 - POD # 1 Right hip fracture s/p sx 8 - POD # 1 Mechanical fall at home, Colon CA with mets to lungs on daily chemo ANemia of Cancer History of Present Illness History of Present Illness Pt seen and examined, resting in bed NAD Receiving blood transfusion for low Hgb Said that his heart rate had been high earlier, likely due to anemia, fluids + transfusion should ameliorate discussed treatment plan with pt and he requested rehab at [facility] upon DC also requested a CEA level and follow-up with oncology for Colon CA DW RN Vitals Vitals Vital Signs Date Time Temp Pulse Resp B/P (MAP) Pulse Ox O2 Delivery O2 Flow Rate FiO2 10/25/17 09:05 98.9 100 16 100/58 98.9 10/25/17 07:09 Room Air 10/25/17 07:00 98 Physical Exam General: Alert, Oriented X3, Cooperative, No acute distress Heart: Regular rate Lungs: Clear Abdomen: Soft Extremities: No clubbing, No cyanosis, Normal pulses Skin: No rashes, No breakdown, No significant lesion Labs LABS Laboratory Tests Test 10/24/17 12:00 10/25/17 04:05 Prothrombin Time 14.6 SEC (11.7-14.0) 17.1 SEC (11.7-14.0) Prothromb Time International Ratio 1.2 (0.8-1.1) 1.5 (0.8-1.1) Hemoglobin 7.4 g/dL (13.0-17.5) Hematocrit 21.0 % (39.0-53.0) Mean Corpuscular Hemoglobin Concent 35 g/dL (31-37) Thyroid Stimulating Hormone (TSH) 0.945 uIU/mL (0.358-3.74) Review of Systems Review of Systems CO of hip pain Denies N/V Assessment and Plan Assessmemt and Plan RT Patellar fracture, traumatic, closed s/p sx 814 - POD # 1 Right hip fracture s/p sx 814 - POD # 1 Mechanical fall at home, Colon CA with mets to lungs on daily chemo ANemia of Cancer Plan: IVF Labs, continue to monitor Hgb levels PT/OT Continue home meds Oncology consult Probable DC to SNU in AM Comment Review of Relevant I have reviewed the following items francisco (where applicable) has been applied. Labs Laboratory Tests Test 10/24/17 03:40 10/24/17 12:00 10/25/17 04:05 Hemoglobin 8.9 g/dL (13.0-17.5) 7.4 g/dL (13.0-17.5) Hematocrit 25.1 % (39.0-53.0) 21.0 % (39.0-53.0) Mean Corpuscular Hemoglobin Concent 36 g/dL (31-37) 35 g/dL (31-37) Prothrombin Time 14.6 SEC (11.7-14.0) 17.1 SEC (11.7-14.0) Prothromb Time International Ratio 1.2 (0.8-1.1) 1.5 (0.8-1.1) Thyroid Stimulating Hormone (TSH) 0.945 uIU/mL (0.358-3.74) Laboratory Tests Test 10/24/17 12:00 10/25/17 04:05 Prothrombin Time 14.6 SEC (11.7-14.0) 17.1 SEC (11.7-14.0) Prothromb Time International Ratio 1.2 (0.8-1.1) 1.5 (0.8-1.1) Hemoglobin 7.4 g/dL (13.0-17.5) Hematocrit 21.0 % (39.0-53.0) Mean Corpuscular Hemoglobin Concent 35 g/dL (31-37) Thyroid Stimulating Hormone (TSH) 0.945 uIU/mL (0.358-3.74) Medications Current Medications Fentanyl Citrate (Fentanyl 2ml Vial) 75 mcg 1X ONCE IV Last administered on at 03:00; Start 10/22/17 at 02:45; Stop 10/22/17 at 02:46; Status DC Ondansetron HCl (Zofran) 4 mg 1X ONCE IV Last administered on 10/22/17at 02:58 ; Start 10/22/17 at 02:45; Stop 10/22/17 at 02:46; Status DC Fentanyl Citrate (Fentanyl 2ml Vial) 50 mcg 1X ONCE IV Last administered on at 03:48; Start 10/22/17 at 03:30; Stop 10/22/17 at 03:31; Status DC Ondansetron HCl (Zofran) 4 mg PRN Q8HRS PRN IV NAUSEA/VOMITING; Start 10/22/17 at 03:45; Stop 10/22/17 at 07:53; Status DC Fentanyl Citrate (Fentanyl 2ml Vial) 50 mcg PRN Q1HR PRN IV PAIN Last administered on 10/22/17at 09:17; Start 10/22/17 at 03:45; Stop 10/23/17 at 03:44 ; Status DC Sodium Chloride 1,000 ml @ 125 mls/hr Q8H IV Last administered on 10/22/17at 22 :48; Start 10/22/17 at 03:33; Stop 10/23/17 at 03:32; Status DC Ondansetron HCl (Zofran) 4 mg PRN Q6HRS PRN IV NAUSEA/VOMITING; Start 10/22/17 at 08:00; Stop 10/23/17 at 12:52; Status DC Acetaminophen (Tylenol) 500 mg PRN Q6HRS PRN PO MILD PAIN / TEMP Last administered on 10/22/17at 11:36; Start 10/22/17 at 08:00 Labetalol HCl (Normodyne) 10 mg PRN Q2HR PRN IVP HYPERTENSION, SEE COMMENTS; Start 10/22/17 at 08:00 Potassium Chloride (Klor-Con) 40 meq 1X ONCE PO Last administered on at 11:35; Start 10/22/17 at 08:00; Stop 10/22/17 at 08:19; Status DC Clonidine HCl (Catapres) 0.1 mg Q8HRS PO Last administered on 10/24/17at 14:09; Start 10/22/17 at 10:00; Stop 10/24/17 at 15:22; Status DC Ropivacaine 53.3 ml/Epinephrine HCl 0.6 mg/ Morphine Sulfate 5 mg/Sodium Chloride 100 ml @ 100 mls/hr 1X PERIOP INT ART Last administered on at 09:57; Start 10/22/17 at 10:00 Clonidine HCl (Catapres) 0.1 mg PRN Q1HR PRN PO HYPERTENSION, SEE COMMENTS; Start 10/22/17 at 11:00 Oxycodone/ Acetaminophen (Percocet 10/325) 1 tab PRN Q4HRS PRN PO SEVERE PAIN 1ST CHOICE Last administered on 10/25/17at 06:09; Start 10/22/17 at 11:00 Acetaminophen/ Hydrocodone Bitart (Lortab 10/325) 1 tab PRN Q4HRS PRN PO MODERATE PAIN Last administered on 10/23/17at 07:58; Start 10/22/17 at 11:00; Stop 10/23/17 at 13:45; Status DC Cyclobenzaprine HCl (Flexeril) 10 mg PRN TID PRN PO MUSCLE SPASMS Last administered on 10/24/17at 05:54; Start 10/22/17 at 11:00; Stop 10/24/17 at 09:55 ; Status DC Loperamide HCl (Imodium) 2 mg TID PRN PRN PO DIARRHEA Last administered on 10/23at 02:57; Start 10/22/17 at 11:00; Stop 10/24/17 at 10:10; Status DC Fentanyl Citrate (Fentanyl 2ml Vial) 25 mcg PRN Q5MIN PRN IV MILD PAIN; Start 10/23/17 at 07:00; Stop 10/23/17 at 18:00; Status DC Fentanyl Citrate (Fentanyl 2ml Vial) 50 mcg PRN Q5MIN PRN IV MODERATE TO SEVERE PAIN Last administered on 10/23/17at 14:15; Start 10/23/17 at 07:00; Stop 10/23/17 at 18:00; Status DC Ringer's Solution 1,000 ml @ 30 mls/hr Q24H IV ; Start 10/23/17 at 07:00; Stop 10/23/17 at 18:59; Status DC Lidocaine HCl (Xylocaine-Mpf 1% Vial) 2 ml PRN 1X PRN ID IV START; Start at 07:00; Stop 10/23/17 at 18:00; Status DC Prochlorperazine Edisylate (Compazine) 5 mg PACU PRN PRN IV NAUSEA, MRX1; Start 10/23/17 at 07:00; Stop 10/23/17 at 18:00; Status DC Trazodone HCl (Desyrel) 100 mg QHS PO Last administered on 10/24/17at 21:05; Start 10/23/17 at 21:00 Trazodone HCl (Desyrel) 100 mg 1X ONCE PO Last administered on 10/22/17at 22:44 ; Start 10/22/17 at 22:45; Stop 10/22/17 at 22:46; Status DC Cefazolin Sodium/ Dextrose 50 ml @ 100 mls/hr 1X PREOP IV Last administered on 10/23/17at 10:34; Start 10/23/17 at 09:00 Lidocaine HCl (Lidocaine Pf 2% Vial) 5 ml STK-MED ONCE .ROUTE ; Start 10/23/17 at 09:01; Stop 10/23/17 at 09:02; Status DC Propofol 20 ml @ As Directed STK-MED ONCE IV ; Start 10/23/17 at 09:01; Stop at 09:02; Status DC Midazolam HCl (Versed) 2 mg STK-MED ONCE .ROUTE ; Start 10/23/17 at 09:01; Stop 10/23/17 at 09:02; Status DC Fentanyl Citrate (Fentanyl 2ml Vial) 100 mcg STK-MED ONCE .ROUTE ; Start at 09:01; Stop 10/23/17 at 09:02; Status DC Rocuronium [place] (Zemuron) 50 mg STK-MED ONCE .ROUTE ; Start 10/23/17 at 09:04 ; Stop 10/23/17 at 09:05; Status DC Ephedrine Sulfate (ePHEDrine PF IN SALINE SYRINGE) 50 mg STK-MED ONCE IV ; Start 10/23/17 at 09:38; Stop 10/23/17 at 09:39; Status DC Phenylephrine HCl (PHENYLEPHRINE in 0.9% NACL PF) 1 mg STK-MED ONCE IV ; Start 10/23/17 at 10:04; Stop 10/23/17 at 10:06; Status DC Cefazolin Sodium (Ancef) 1 gm STK-MED ONCE .ROUTE ; Start 10/23/17 at 11:01; Stop 10/23/17 at 11:03; Status DC Ondansetron HCl (Zofran) 4 mg STK-MED ONCE .ROUTE ; Start 10/23/17 at 11:44; Stop 10/23/17 at 11:45; Status DC Fentanyl Citrate (Fentanyl 2ml Vial) 100 mcg STK-MED ONCE .ROUTE ; Start at 11:58; Stop 10/23/17 at 11:59; Status DC Sevoflurane (Ultane) 90 ml STK-MED ONCE IH ; Start 10/23/17 at 12:04; Stop 10/23 at 12:05; Status DC Oxycodone HCl (Roxicodone) 5 mg PRN Q3HRS PRN PO MODERATE PAIN 1ST CHOICE; Start 10/23/17 at 12:45 Morphine Sulfate (Morphine Sulfate) 2 mg PRN Q1HR PRN IV PAIN SEVERE 1ST CHOICE Last administered on 10/23/17at 20:52; Start 10/23/17 at 12:45 Fentanyl Citrate (Fentanyl 2ml Vial) 25 mcg PRN Q1HR PRN IV PAIN SEVERE 3RD CHOICE Last administered on 10/23/17at 15:31; Start 10/23/17 at 12:45 Senna/Docusate Sodium (Senna Plus) 1 tab DAILY PO ; Start 10/24/17 at 09:00 Polyethylene Glycol (miraLAX PACKET) 17 gm PRN DAILY PRN PO CONSTIPATION; Start 10/23/17 at 12:45 Vitamin D (Vitamin D3) 5,000 unit DAILY PO Last administered on 10/23/17at 14:46 ; Start 10/23/17 at 13:00; Stop 10/24/17 at 08:39; Status DC Ondansetron HCl (Zofran) 4 mg PRN Q4HRS PRN IV NAUSEA/VOMITING; Start 10/23/17 at 12:45 Warfarin Sodium (Coumadin) 7.5 mg 1X ONCE PO ; Start 10/23/17 at 16:00; Stop at 16:01; Status DC Warfarin Sodium (Coumadin Per Pharmacy) 1 each PRN DAILY PRN MC SEE COMMENTS Last administered on 10/24/17at 13:37; Start 10/24/17 at 12:45 Magnesium Hydroxide (Milk Of Magnesia) 2,400 mg 1X PRN PRN PO CONSTIPATION; Start 10/24/17 at 06:00; Stop 10/25/17 at 05:59; Status DC Bisacodyl (Dulcolax Supp) 10 mg 1X PRN PRN DC CONSTIPATION; Start 10/24/17 at 16:00; Stop 10/25/17 at 15:59 Acetaminophen/ Hydrocodone Bitart (Lortab 7.5/325) 1 tab PRN Q4HRS PRN PO MODERATE PAIN 2ND CHOICE; Start 10/23/17 at 12:45 Morphine Sulfate (Morphine Sulfate) 4 mg PRN Q2HR PRN IV PAIN SEVERE 2ND CHOICE Last administered on 10/24/17at 14:08; Start 10/23/17 at 12:45 Acetaminophen/ Hydrocodone Bitart (Lortab 7.5/325) 2 tab PRN Q4HRS PRN PO SEVERE PAIN 2ND CHOICE; Start 10/23/17 at 12:45 Dextrose (Dextrose 50%-Water Syringe) 12.5 gm PRN Q15MIN PRN IV SEE COMMENTS; Start 10/23/17 at 12:45 Cefazolin Sodium 1 gm/Dextrose 50 ml @ 100 mls/hr Q6H IV ; Start 10/23/17 at 12 :45; Stop 10/23/17 at 12:54; Status DC Cefazolin Sodium (Ancef) 1 gm Q8H IVP Last administered on 10/24/17at 09:10; Start 10/23/17 at 16:00; Stop 10/24/17 at 08:01; Status DC Fentanyl Citrate (Fentanyl 2ml Vial) 100 mcg STK-MED ONCE .ROUTE ; Start at 13:19; Stop 10/23/17 at 13:20; Status DC Fentanyl Citrate (Fentanyl 2ml Vial) 100 mcg STK-MED ONCE .ROUTE ; Start at 13:40; Stop 10/23/17 at 13:41; Status DC Ergocalciferol (Vitamin D2) 50,000 unit WEEKLY PO Last administered on at 09:08; Start 10/24/17 at 09:00 Cyanocobalamin (Vitamin B-12) 1,000 mcg DAILY PO ; Start 10/24/17 at 11:00; Stop 10/24/17 at 11:00; Status DC Cyclobenzaprine HCl (Flexeril) 10 mg TID PO ; Start 10/24/17 at 14:00; Stop at 14:00; Status DC Gabapentin (Neurontin) 100 mg Q8HRS PO Last administered on 10/25/17at 06:09; Start 10/24/17 at 14:00 Duloxetine HCl (Cymbalta) 60 mg DAILY PO Last administered on 10/25/17at 08:53; Start 10/24/17 at 11:00 Multivitamins (Thera M Plus) 1 tab DAILY PO Last administered on 10/25/17at 08: 53; Start 10/24/17 at 11:00 Cyclobenzaprine HCl (Flexeril) 10 mg TID PO Last administered on 10/25/17at 08: 54; Start 10/24/17 at 14:00 Cyanocobalamin (Vitamin B-12) 1,000 mcg DAILY PO Last administered on at 08:54; Start 10/24/17 at 11:00 Lactulose (Lactulose) 20 gm PRN Q3HRS PRN PO CONSTIPATION; Start 10/24/17 at 10 :00 Senna/Docusate Sodium (Senna Plus) 1 tab DAILY PO ; Start 10/24/17 at 11:00; Stop 10/24/17 at 13:41; Status DC Calcium/Vitamin D (Oscal D 500mg/ 200uts) 1 tab BIDWMEALS PO Last administered on 10/25/17at 07:46; Start 10/24/17 at 17:00 Acetaminophen/ Hydrocodone Bitart (Lortab 10/325) 1 tab PRN Q4HRS PRN PO SEVERE PAIN, 3RD CHOICE; Start 10/24/17 at 10:15 Magnesium Oxide (Magnesium Oxide) 400 mg BID PO Last administered on 10/25/17at 08:53; Start 10/24/17 at 11:00 Methadone HCl (Dolophine) 10 mg BID PO ; Start 10/24/17 at 11:00 Ondansetron HCl (Zofran Odt) 8 mg PRN Q8HRS PRN PO NAUSEA/VOMITING; Start 10/24 at 10:30 Lidocaine (Lidoderm) 1 patch DAILY TD ; Start 10/24/17 at 10:00 Multi-Ingredient Mouthwash/Gargle (Magic Mouthwash) 30 ml PRN TID PRN PO MOUTH PAIN; Start 10/24/17 at 10:30 Loperamide HCl (Imodium) 2 mg PRN Q15MIN PRN PO DIARRHEA; Start 10/24/17 at 10: 00 Al Hydroxide/Mg Hydroxide (Mylanta Plus Xs) 30 ml PRN Q2HR PRN PO HEARTBURN / GAS; Start 10/24/17 at 10:00 Alprazolam (Xanax) 0.25 mg PRN Q8HRS PRN PO ANXIETY / AGITATION Last administered on 10/24/17at 11:41; Start 10/24/17 at 10:00 Warfarin Sodium (Coumadin) 5 mg 1X WARF ONCE PO Last administered on at 16:52; Start 10/24/17 at 16:00; Stop 10/24/17 at 16:01; Status DC Clonidine HCl (Catapres) 0.2 mg Q8HRS PO ; Start 10/24/17 at 22:00; Stop at 22:00; Status DC Alprazolam (Xanax) 0.5 mg BID PO Last administered on 10/25/17at 08:54; Start at 16:00 Clonidine HCl (Catapres) 0.2 mg Q8HRS PO Last administered on 10/25/17at 06:10; Start 10/24/17 at 20:35 Active Scripts Active Reported Alum-Mag Hydroxide-Simeth Liq (Mag Hydrox/Al Hydrox/Simeth) 360 Ml Oral.susp 5 Ml PO PRN Vitamin B-12 (Cyanocobalamin (Vitamin B-12)) 1,000 Mcg Tablet 1,250 Mcg SL DAILY Vitamin B-12 (Cyanocobalamin (Vitamin B-12)) 1,000 Mcg Tablet 1,000 Mcg PO Trazodone Hcl 100 Mg Tablet 1 Tab PO QHS Stivarga (Regorafenib) 40 Mg Tablet 40 Mg PO DAILY Senna S Tablet (Sennosides/Docusate Sodium) 1 Each Tablet 1 Each PO Multivitamins (Multivitamin) 1 Each Tablet 1 Tab PO DAILY Zofran (Ondansetron Hcl) 8 Mg Tablet 1 Tab PO Q8HRS PRN Naloxone Hcl 0.4 Mg/1 Ml Vial 0.4 Mg IJ Methadone Hcl 10 Mg Tablet 1 Tab PO Q12HR Mag-Oxide (Magnesium Oxide) 400 Mg Tablet 250 Mg PO BID [lidoderm] 5 Q12HR Lactulose 20 Gm/30 Ml Solution 20 Gm PO PRN Q3HRS PRN Imodium A-D (Loperamide HCl) 2 Mg Capsule 2 Mg PO PRN [place] 10-325 Tablet (Acetaminophen/Hydrocodone Bitart) 1 Each Tablet 1-2 Tab PO Q4-6HRS PRN Gabapentin 100 Mg Capsule 100 Mg PO Q8HRS Cymbalta (Duloxetine Hcl) 60 Mg Capsule. 1 Cap PO DAILY [magic mouthwash] 30 Ml TID PRN Cyclobenzaprine Hcl 10 Mg Tablet 1 Tab PO TID Oyster Shell Calcium-Vit D Tab (Calcium Carbonate/Vitamin D2) 1 Each Tablet 1 Each PO BID Vitals/I & O Vital Sign - Last 24 Hours 10/24/17 10/24/17 10/24/17 10/24/17 11:00 14:08 14:09 15:00 Temp 97.7 99.0 97.7 99.0 Pulse 110 110 113 Resp 18 18 B/P (MAP) 126/72 (90) 126/72 118/57 (77) Pulse Ox 97 97 97 O2 Delivery Room Air Room Air Room Air 10/24/17 10/24/17 10/24/17 10/24/17 15:01 15:03 19:00 20:00 Temp 97.9 97.9 Pulse 100 Resp 18 B/P (MAP) 110/66 (81) Pulse Ox 97 97 99 O2 Delivery Room Air Room Air Room Air Room Air 10/24/17 10/24/17 10/24/17 10/25/17 21:06 23:00 23:05 00:05 Temp 97.9 97.9 Pulse 101 97 Resp 18 20 B/P (MAP) 134/58 111/57 (75) Pulse Ox 98 99 99 O2 Delivery Room Air Room Air 10/25/17 10/25/17 10/25/17 10/25/17 03:00 06:09 06:10 07:00 Temp 97.7 98.8 97.7 98.8 Pulse 94 97 113 Resp 18 20 18 B/P (MAP) 112/57 (75) 100/63 100/57 (71) Pulse Ox 97 97 98 O2 Delivery Room Air Room Air Room Air 10/25/17 10/25/17 10/25/17 07:09 08:49 09:05 Temp 97.8 98.9 97.8 98.9 Pulse 90 100 Resp 18 16 16 B/P (MAP) 98/57 100/58 O2 Delivery Room Air Intake and Output 10/24/17 10/24/17 10/25/17 15:00 23:00 07:00 Intake Total 120 ml Output Total 100 ml 700 ml Balance -100 ml -580 ml MARY DELGADILLO III DO Oct 25, 2017 09:54
[2017-10-25] MEDS ORDERED: WARFARIN 4 MG TABLET. PO ONE (16:00)
[2017-10-25] MEDS: traZODone 100 MG TABLET. PO SCH (21:05)
[2017-10-26 02:58] VITALS: BP 109/69
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
[2017-10-26] MEDS: cloNIDine HCL 0.2 MG TABLET PO SCH ×3 (06:00→21:17)
[2017-10-26] MEDS: GABAPENTIN 100 MG CAPSULE. PO SCH ×3 (06:23→21:16)
[2017-10-26 07:00] VITALS: BP 103/63
[2017-10-26 07:37] LABS: BASO % 1 % (0-3); EOS # 0.1 x10^3/uL (0.0-0.7); EOS % 1 % (0-3); HEMATOCRIT 23.8 % (39.0-53.0); HEMOGLOBIN 8.5 g/dL (13.0-17.5); LYMPH # 1.4 x10^3/uL (1.0-4.8); LYMPH % 17 % (24-48); MEAN CORPUSCULAR HEMOGLOBIN 34 pg (25-35); MEAN CORPUSCULAR HGB CONC 36 g/dL (31-37); MEAN CORPUSCULAR VOLUME 94 fL (79-100); MONO # 1.1 x10^3/uL (0.0-1.1); MONO % 13 % (0-9); NEUT # 5.5 x10^3uL (1.8-7.7); NEUT % 69 % (31-73); PLATELET COUNT 125 x10^3/uL (140-400); RED BLOOD COUNT 2.53 x10^6/uL (4.30-5.70); RED CELL DISTRIBUTION WIDTH 17.8 % (11.5-14.5)
[2017-10-26 07:59] LABS: CALCIUM 7.9 mg/dL (8.5-10.1); CREATININE 0.8 mg/dL (0.7-1.3); GFR 99.3
[2017-10-26 08:05] LABS: PROTHROMBIN TIME PATIENT 30.1 SEC (11.7-14.0)
[2017-10-26] MEDS: MAGNESIUM OXIDE 400 MG TABLET PO SCH ×2 (08:49→21:16)
[2017-10-26] MEDS: CALCIUM CARB/VIT D3 500/200 TABLET. PO SCH ×2 (08:49→17:22)
[2017-10-26] MEDS: DULoxetine HCL 30 MG CAPSULE.DR PO SCH (08:49)
[2017-10-26] MEDS: CYANOCOBALAMIN (VITAMIN B-12) 1,000 MCG TABLET. PO SCH (08:49)
[2017-10-26] MEDS: CYCLOBENZAPRINE 10 MG TABLET. PO SCH ×3 (08:50→21:15)
--- NOTE | 2017-10-26 08:50 | PDOC ---
PROGRESS NOTES Subjective Subjective HPI - f/u of Stage 4 colon cancer ROS - leg pain better Objective Objective Vital Signs Date Time Temp Pulse Resp B/P (MAP) Pulse Ox O2 Delivery O2 Flow Rate FiO2 10/26/17 07:00 98.3 95 16 103/63 (76) 99 Room Air 98.3 10/23/17 21:22 3.0 Intake and Output 10/26/17 07:00 Intake Total 874 ml Output Total 3550 ml Balance -2676 ml Intake Oral 180 ml Blood Product IV Normal Saline Flush 694 ml Output Urine Total 3550 ml # Voids 3 Physical Exam Heart: Normal S1, Normal S2 General: Alert, Oriented X3, No acute distress Lungs: Clear to auscultation Neuro: Normal speech Psych/Mental Status: Mental status NL Assessment Assessment Problems Medical Problems: (1) Comminuted fracture of right patella Status: Acute (2) Intertrochanteric fracture of right hip Status: Acute IMPRESSION AND PLAN: 1. Stage 4 colon cancer with progressively worsening lung metastases. He was recently started on a new medication called regorafenib on 10/15/2017 at 80 mg daily. He took it until 10/22/2017 and then he stopped because of a fall acquiring fracture as described above. I have advised him to continue to hold this medication until he recovers from the recent surgery. I have advised him to follow up with Dr. Cortney Harris who is his primary oncologist upon discharge. I have notified Dr Harris. 2. Anemia due to malignancy. Continue to monitor hemoglobin, currently worse due to recent surgery. Hb 8.5 today. 3. Right hip and right patellar fracture, status post surgery on 10/23/2017. Continue management per Orthopedics. Comment Review of Relevant I have reviewed the following items francisco (where applicable) has been applied. Labs Laboratory Tests Test 10/24/17 12:00 10/25/17 04:05 10/26/17 06:10 Prothrombin Time 14.6 SEC (11.7-14.0) 17.1 SEC (11.7-14.0) 30.1 SEC (11.7-14.0) Prothromb Time International Ratio 1.2 (0.8-1.1) 1.5 (0.8-1.1) 3.0 (0.8-1.1) Hemoglobin 7.4 g/dL (13.0-17.5) 8.5 g/dL (13.0-17.5) Hematocrit 21.0 % (39.0-53.0) 23.8 % (39.0-53.0) Mean Corpuscular Hemoglobin Concent 35 g/dL (31-37) 36 g/dL (31-37) Thyroid Stimulating Hormone (TSH) 0.945 uIU/mL (0.358-3.74) White Blood Count 8.0 x10^3/uL (4.0-11.0) Red Blood Count 2.53 x10^6/uL (4.30-5.70) Mean Corpuscular Volume 94 fL (79-100) Mean Corpuscular Hemoglobin 34 pg (25-35) Red Cell Distribution Width 17.8 % (11.5-14.5) Platelet Count 125 x10^3/uL (140-400) Neutrophils (%) (Auto) 69 % (31-73) Lymphocytes (%) (Auto) 17 % (24-48) Monocytes (%) (Auto) 13 % (0-9) Eosinophils (%) (Auto) 1 % (0-3) Basophils (%) (Auto) 1 % (0-3) Neutrophils # (Auto) 5.5 x10^3uL (1.8-7.7) Lymphocytes # (Auto) 1.4 x10^3/uL (1.0-4.8) Monocytes # (Auto) 1.1 x10^3/uL (0.0-1.1) Eosinophils # (Auto) 0.1 x10^3/uL (0.0-0.7) Basophils # (Auto) 0.0 x10^3/uL (0.0-0.2) Sodium Level 138 mmol/L (136-145) Potassium Level 4.0 mmol/L (3.5-5.1) Chloride Level 104 mmol/L (98-107) Carbon Dioxide Level 31 mmol/L (21-32) Anion Gap 3 (6-14) Blood Urea Nitrogen 12 mg/dL (8-26) Creatinine 0.8 mg/dL (0.7-1.3) Estimated GFR (Cockcroft-Gault) 99.3 Glucose Level 119 mg/dL (70-99) Calcium Level 7.9 mg/dL (8.5-10.1) Laboratory Tests Test 10/26/17 06:10 White Blood Count 8.0 x10^3/uL (4.0-11.0) Red Blood Count 2.53 x10^6/uL (4.30-5.70) Hemoglobin 8.5 g/dL (13.0-17.5) Hematocrit 23.8 % (39.0-53.0) Mean Corpuscular Volume 94 fL (79-100) Mean Corpuscular Hemoglobin 34 pg (25-35) Mean Corpuscular Hemoglobin Concent 36 g/dL (31-37) Red Cell Distribution Width 17.8 % (11.5-14.5) Platelet Count 125 x10^3/uL (140-400) Neutrophils (%) (Auto) 69 % (31-73) Lymphocytes (%) (Auto) 17 % (24-48) Monocytes (%) (Auto) 13 % (0-9) Eosinophils (%) (Auto) 1 % (0-3) Basophils (%) (Auto) 1 % (0-3) Neutrophils # (Auto) 5.5 x10^3uL (1.8-7.7) Lymphocytes # (Auto) 1.4 x10^3/uL (1.0-4.8) Monocytes # (Auto) 1.1 x10^3/uL (0.0-1.1) Eosinophils # (Auto) 0.1 x10^3/uL (0.0-0.7) Basophils # (Auto) 0.0 x10^3/uL (0.0-0.2) Prothrombin Time 30.1 SEC (11.7-14.0) Prothromb Time International Ratio 3.0 (0.8-1.1) Sodium Level 138 mmol/L (136-145) Potassium Level 4.0 mmol/L (3.5-5.1) Chloride Level 104 mmol/L (98-107) Carbon Dioxide Level 31 mmol/L (21-32) Anion Gap 3 (6-14) Blood Urea Nitrogen 12 mg/dL (8-26) Creatinine 0.8 mg/dL (0.7-1.3) Estimated GFR (Cockcroft-Gault) 99.3 Glucose Level 119 mg/dL (70-99) Calcium Level 7.9 mg/dL (8.5-10.1) Medications Current Medications Fentanyl Citrate (Fentanyl 2ml Vial) 75 mcg 1X ONCE IV Last administered on at 03:00; Start 10/22/17 at 02:45; Stop 10/22/17 at 02:46; Status DC Ondansetron HCl (Zofran) 4 mg 1X ONCE IV Last administered on 10/22/17at 02:58 ; Start 10/22/17 at 02:45; Stop 10/22/17 at 02:46; Status DC Fentanyl Citrate (Fentanyl 2ml Vial) 50 mcg 1X ONCE IV Last administered on at 03:48; Start 10/22/17 at 03:30; Stop 10/22/17 at 03:31; Status DC Ondansetron HCl (Zofran) 4 mg PRN Q8HRS PRN IV NAUSEA/VOMITING; Start 10/22/17 at 03:45; Stop 10/22/17 at 07:53; Status DC Fentanyl Citrate (Fentanyl 2ml Vial) 50 mcg PRN Q1HR PRN IV PAIN Last administered on 10/22/17at 09:17; Start 10/22/17 at 03:45; Stop 10/23/17 at 03:44 ; Status DC Sodium Chloride 1,000 ml @ 125 mls/hr Q8H IV Last administered on 10/22/17at 22 :48; Start 10/22/17 at 03:33; Stop 10/23/17 at 03:32; Status DC Ondansetron HCl (Zofran) 4 mg PRN Q6HRS PRN IV NAUSEA/VOMITING; Start 10/22/17 at 08:00; Stop 10/23/17 at 12:52; Status DC Acetaminophen (Tylenol) 500 mg PRN Q6HRS PRN PO MILD PAIN / TEMP Last administered on 10/22/17at 11:36; Start 10/22/17 at 08:00 Labetalol HCl (Normodyne) 10 mg PRN Q2HR PRN IVP HYPERTENSION, SEE COMMENTS; Start 10/22/17 at 08:00 Potassium Chloride (Klor-Con) 40 meq 1X ONCE PO Last administered on at 11:35; Start 10/22/17 at 08:00; Stop 10/22/17 at 08:19; Status DC Clonidine HCl (Catapres) 0.1 mg Q8HRS PO Last administered on 10/24/17at 14:09; Start 10/22/17 at 10:00; Stop 10/24/17 at 15:22; Status DC Ropivacaine 53.3 ml/Epinephrine HCl 0.6 mg/ Morphine Sulfate 5 mg/Sodium Chloride 100 ml @ 100 mls/hr 1X PERIOP INT ART Last administered on at 09:57; Start 10/22/17 at 10:00; Stop 10/25/17 at 13:43; Status DC Clonidine HCl (Catapres) 0.1 mg PRN Q1HR PRN PO HYPERTENSION, SEE COMMENTS; Start 10/22/17 at 11:00 Oxycodone/ Acetaminophen (Percocet 10/325) 1 tab PRN Q4HRS PRN PO SEVERE PAIN 1ST CHOICE Last administered on 10/25/17at 15:45; Start 10/22/17 at 11:00 Acetaminophen/ Hydrocodone Bitart (Lortab 10/325) 1 tab PRN Q4HRS PRN PO MODERATE PAIN Last administered on 10/23/17at 07:58; Start 10/22/17 at 11:00; Stop 10/23/17 at 13:45; Status DC Cyclobenzaprine HCl (Flexeril) 10 mg PRN TID PRN PO MUSCLE SPASMS Last administered on 10/24/17at 05:54; Start 10/22/17 at 11:00; Stop 10/24/17 at 09:55 ; Status DC Loperamide HCl (Imodium) 2 mg TID PRN PRN PO DIARRHEA Last administered on 10/23at 02:57; Start 10/22/17 at 11:00; Stop 10/24/17 at 10:10; Status DC Fentanyl Citrate (Fentanyl 2ml Vial) 25 mcg PRN Q5MIN PRN IV MILD PAIN; Start 10/23/17 at 07:00; Stop 10/23/17 at 18:00; Status DC Fentanyl Citrate (Fentanyl 2ml Vial) 50 mcg PRN Q5MIN PRN IV MODERATE TO SEVERE PAIN Last administered on 10/23/17at 14:15; Start 10/23/17 at 07:00; Stop 10/23/17 at 18:00; Status DC Ringer's Solution 1,000 ml @ 30 mls/hr Q24H IV ; Start 10/23/17 at 07:00; Stop 10/23/17 at 18:59; Status DC Lidocaine HCl (Xylocaine-Mpf 1% Vial) 2 ml PRN 1X PRN ID IV START; Start at 07:00; Stop 10/23/17 at 18:00; Status DC Prochlorperazine Edisylate (Compazine) 5 mg PACU PRN PRN IV NAUSEA, MRX1; Start 10/23/17 at 07:00; Stop 10/23/17 at 18:00; Status DC Trazodone HCl (Desyrel) 100 mg QHS PO Last administered on 10/25/17at 21:05; Start 10/23/17 at 21:00 Trazodone HCl (Desyrel) 100 mg 1X ONCE PO Last administered on 10/22/17at 22:44 ; Start 10/22/17 at 22:45; Stop 10/22/17 at 22:46; Status DC Cefazolin Sodium/ Dextrose 50 ml @ 100 mls/hr 1X PREOP IV Last administered on 10/23/17at 10:34; Start 10/23/17 at 09:00; Stop 10/25/17 at 13:30; Status DC Lidocaine HCl (Lidocaine Pf 2% Vial) 5 ml STK-MED ONCE .ROUTE ; Start 10/23/17 at 09:01; Stop 10/23/17 at 09:02; Status DC Propofol 20 ml @ As Directed STK-MED ONCE IV ; Start 10/23/17 at 09:01; Stop at 09:02; Status DC Midazolam HCl (Versed) 2 mg STK-MED ONCE .ROUTE ; Start 10/23/17 at 09:01; Stop 10/23/17 at 09:02; Status DC Fentanyl Citrate (Fentanyl 2ml Vial) 100 mcg STK-MED ONCE .ROUTE ; Start at 09:01; Stop 10/23/17 at 09:02; Status DC Rocuronium [place] (Zemuron) 50 mg STK-MED ONCE .ROUTE ; Start 10/23/17 at 09:04 ; Stop 10/23/17 at 09:05; Status DC Ephedrine Sulfate (ePHEDrine PF IN SALINE SYRINGE) 50 mg STK-MED ONCE IV ; Start 10/23/17 at 09:38; Stop 10/23/17 at 09:39; Status DC Phenylephrine HCl (PHENYLEPHRINE in 0.9% NACL PF) 1 mg STK-MED ONCE IV ; Start 10/23/17 at 10:04; Stop 10/23/17 at 10:06; Status DC Cefazolin Sodium (Ancef) 1 gm STK-MED ONCE .ROUTE ; Start 10/23/17 at 11:01; Stop 10/23/17 at 11:03; Status DC Ondansetron HCl (Zofran) 4 mg STK-MED ONCE .ROUTE ; Start 10/23/17 at 11:44; Stop 10/23/17 at 11:45; Status DC Fentanyl Citrate (Fentanyl 2ml Vial) 100 mcg STK-MED ONCE .ROUTE ; Start at 11:58; Stop 10/23/17 at 11:59; Status DC Sevoflurane (Ultane) 90 ml STK-MED ONCE IH ; Start 10/23/17 at 12:04; Stop 10/23 at 12:05; Status DC Oxycodone HCl (Roxicodone) 5 mg PRN Q3HRS PRN PO MODERATE PAIN 1ST CHOICE; Start 10/23/17 at 12:45 Morphine Sulfate (Morphine Sulfate) 2 mg PRN Q1HR PRN IV PAIN SEVERE 1ST CHOICE Last administered on 10/23/17at 20:52; Start 10/23/17 at 12:45 Fentanyl Citrate (Fentanyl 2ml Vial) 25 mcg PRN Q1HR PRN IV PAIN SEVERE 3RD CHOICE Last administered on 10/23/17at 15:31; Start 10/23/17 at 12:45 Senna/Docusate Sodium (Senna Plus) 1 tab DAILY PO ; Start 10/24/17 at 09:00 Polyethylene Glycol (miraLAX PACKET) 17 gm PRN DAILY PRN PO CONSTIPATION, 1ST CHOICE; Start 10/23/17 at 12:45 Vitamin D (Vitamin D3) 5,000 unit DAILY PO Last administered on 10/23/17at 14:46 ; Start 10/23/17 at 13:00; Stop 10/24/17 at 08:39; Status DC Ondansetron HCl (Zofran) 4 mg PRN Q4HRS PRN IV NAUSEA/VOMITING; Start 10/23/17 at 12:45 Warfarin Sodium (Coumadin) 7.5 mg 1X ONCE PO ; Start 10/23/17 at 16:00; Stop at 16:01; Status DC Warfarin Sodium (Coumadin Per Pharmacy) 1 each PRN DAILY PRN MC SEE COMMENTS Last administered on 10/25/17at 13:31; Start 10/24/17 at 12:45 Magnesium Hydroxide (Milk Of Magnesia) 2,400 mg 1X PRN PRN PO CONSTIPATION; Start 10/24/17 at 06:00; Stop 10/25/17 at 05:59; Status DC Bisacodyl (Dulcolax Supp) 10 mg 1X PRN PRN MO CONSTIPATION; Start 10/24/17 at 16:00; Stop 10/25/17 at 15:59; Status DC Acetaminophen/ Hydrocodone Bitart (Lortab 7.5/325) 1 tab PRN Q4HRS PRN PO MODERATE PAIN 2ND CHOICE; Start 10/23/17 at 12:45 Morphine Sulfate (Morphine Sulfate) 4 mg PRN Q2HR PRN IV PAIN SEVERE 2ND CHOICE Last administered on 10/24/17at 14:08; Start 10/23/17 at 12:45 Acetaminophen/ Hydrocodone Bitart (Lortab 7.5/325) 2 tab PRN Q4HRS PRN PO SEVERE PAIN 2ND CHOICE; Start 10/23/17 at 12:45 Dextrose (Dextrose 50%-Water Syringe) 12.5 gm PRN Q15MIN PRN IV SEE COMMENTS; Start 10/23/17 at 12:45 Cefazolin Sodium 1 gm/Dextrose 50 ml @ 100 mls/hr Q6H IV ; Start 10/23/17 at 12 :45; Stop 10/23/17 at 12:54; Status DC Cefazolin Sodium (Ancef) 1 gm Q8H IVP Last administered on 10/24/17at 09:10; Start 10/23/17 at 16:00; Stop 10/24/17 at 08:01; Status DC Fentanyl Citrate (Fentanyl 2ml Vial) 100 mcg STK-MED ONCE .ROUTE ; Start at 13:19; Stop 10/23/17 at 13:20; Status DC Fentanyl Citrate (Fentanyl 2ml Vial) 100 mcg STK-MED ONCE .ROUTE ; Start at 13:40; Stop 10/23/17 at 13:41; Status DC Ergocalciferol (Vitamin D2) 50,000 unit WEEKLY PO Last administered on at 09:08; Start 10/24/17 at 09:00 Cyanocobalamin (Vitamin B-12) 1,000 mcg DAILY PO ; Start 10/24/17 at 11:00; Stop 10/24/17 at 11:00; Status DC Cyclobenzaprine HCl (Flexeril) 10 mg TID PO ; Start 10/24/17 at 14:00; Stop at 14:00; Status DC Gabapentin (Neurontin) 100 mg Q8HRS PO Last administered on 10/26/17at 06:23; Start 10/24/17 at 14:00 Duloxetine HCl (Cymbalta) 60 mg DAILY PO Last administered on 10/25/17at 08:53; Start 10/24/17 at 11:00 Multivitamins (Thera M Plus) 1 tab DAILY PO Last administered on 10/25/17at 08: 53; Start 10/24/17 at 11:00 Cyclobenzaprine HCl (Flexeril) 10 mg TID PO Last administered on 10/25/17at 21: 04; Start 10/24/17 at 14:00 Cyanocobalamin (Vitamin B-12) 1,000 mcg DAILY PO Last administered on at 08:54; Start 10/24/17 at 11:00 Lactulose (Lactulose) 20 gm PRN Q3HRS PRN PO CONSTIPATION, 2ND CHOICE; Start at 10:00 Senna/Docusate Sodium (Senna Plus) 1 tab DAILY PO ; Start 10/24/17 at 11:00; Stop 10/24/17 at 13:41; Status DC Calcium/Vitamin D (Oscal D 500mg/ 200uts) 1 tab BIDWMEALS PO Last administered on 10/25/17at 16:54; Start 10/24/17 at 17:00 Acetaminophen/ Hydrocodone Bitart (Lortab 10/325) 1 tab PRN Q4HRS PRN PO SEVERE PAIN, 3RD CHOICE; Start 10/24/17 at 10:15 Magnesium Oxide (Magnesium Oxide) 400 mg BID PO Last administered on 10/25/17at 21:04; Start 10/24/17 at 11:00 Methadone HCl (Dolophine) 10 mg BID PO ; Start 10/24/17 at 11:00 Ondansetron HCl (Zofran Odt) 8 mg PRN Q8HRS PRN PO NAUSEA/VOMITING; Start 10/24 at 10:30 Lidocaine (Lidoderm) 1 patch DAILY TD ; Start 10/24/17 at 10:00 Multi-Ingredient Mouthwash/Gargle (Magic Mouthwash) 30 ml PRN TID PRN PO MOUTH PAIN; Start 10/24/17 at 10:30 Loperamide HCl (Imodium) 2 mg PRN Q15MIN PRN PO DIARRHEA; Start 10/24/17 at 10: 00 Al Hydroxide/Mg Hydroxide (Mylanta Plus Xs) 30 ml PRN Q2HR PRN PO HEARTBURN / GAS; Start 10/24/17 at 10:00 Alprazolam (Xanax) 0.25 mg PRN Q8HRS PRN PO ANXIETY / AGITATION Last administered on 10/24/17at 11:41; Start 10/24/17 at 10:00 Warfarin Sodium (Coumadin) 5 mg 1X WARF ONCE PO Last administered on at 16:52; Start 10/24/17 at 16:00; Stop 10/24/17 at 16:01; Status DC Clonidine HCl (Catapres) 0.2 mg Q8HRS PO ; Start 10/24/17 at 22:00; Stop at 22:00; Status DC Alprazolam (Xanax) 0.5 mg BID PO Last administered on 10/25/17at 21:05; Start at 16:00 Clonidine HCl (Catapres) 0.2 mg Q8HRS PO Last administered on 10/25/17at 22:13; Start 10/24/17 at 20:35 Warfarin Sodium (Coumadin) 4 mg 1X WARF ONCE PO Last administered on at 16:54; Start 10/25/17 at 16:00; Stop 10/25/17 at 16:01; Status DC Active Scripts Active Reported Alum-Mag Hydroxide-Simeth Liq (Mag Hydrox/Al Hydrox/Simeth) 360 Ml Oral.susp 5 Ml PO PRN Vitamin B-12 (Cyanocobalamin (Vitamin B-12)) 1,000 Mcg Tablet 1,250 Mcg SL DAILY Vitamin B-12 (Cyanocobalamin (Vitamin B-12)) 1,000 Mcg Tablet 1,000 Mcg PO Trazodone Hcl 100 Mg Tablet 1 Tab PO QHS Stivarga (Regorafenib) 40 Mg Tablet 40 Mg PO DAILY Senna S Tablet (Sennosides/Docusate Sodium) 1 Each Tablet 1 Each PO Multivitamins (Multivitamin) 1 Each Tablet 1 Tab PO DAILY Zofran (Ondansetron Hcl) 8 Mg Tablet 1 Tab PO Q8HRS PRN Naloxone Hcl 0.4 Mg/1 Ml Vial 0.4 Mg IJ Methadone Hcl 10 Mg Tablet 1 Tab PO Q12HR Mag-Oxide (Magnesium Oxide) 400 Mg Tablet 250 Mg PO BID [lidoderm] 5 Q12HR Lactulose 20 Gm/30 Ml Solution 20 Gm PO PRN Q3HRS PRN Imodium A-D (Loperamide HCl) 2 Mg Capsule 2 Mg PO PRN [place] 10-325 Tablet (Acetaminophen/Hydrocodone Bitart) 1 Each Tablet 1-2 Tab PO Q4-6HRS PRN Gabapentin 100 Mg Capsule 100 Mg PO Q8HRS Cymbalta (Duloxetine Hcl) 60 Mg Capsule.dr 1 Cap PO DAILY [magic mouthwash] 30 Ml TID PRN Cyclobenzaprine Hcl 10 Mg Tablet 1 Tab PO TID Oyster [place] Calcium-Vit D Tab (Calcium Carbonate/Vitamin D2) 1 Each Tablet 1 Each PO BID Vitals/I & O Vital Sign - Last 24 Hours 10/25/17 10/25/17 10/25/17 10/25/17 08:49 09:05 10:05 11:00 Temp 97.8 98.9 97.7 98.1 97.8 98.9 97.7 98.1 Pulse 90 100 95 85 Resp 16 16 16 16 B/P (MAP) 98/57 100/58 94/56 85/60 (68) Pulse Ox 97 O2 Delivery Room Air 10/25/17 10/25/17 10/25/17 10/25/17 11:00 15:00 15:45 16:00 Temp 98.1 97.9 98.1 97.9 Pulse 87 98 98 Resp 16 16 16 B/P (MAP) 85/60 118/63 (81) 111/65 Pulse Ox 99 O2 Delivery Room Air Room Air 10/25/17 10/25/17 10/25/17 10/25/17 16:55 19:00 20:00 22:13 Temp 97.7 97.7 Pulse 99 93 Resp 16 16 B/P (MAP) 117/66 (83) 121/64 Pulse Ox 100 O2 Delivery Room Air Room Air Room Air 10/25/17 10/26/17 10/26/17 10/26/17 23:00 02:58 06:00 07:00 Temp 98.1 98.9 98.3 98.1 98.9 98.3 Pulse 98 99 85 95 Resp 16 16 16 B/P (MAP) 104/56 (72) 109/69 (82) 114/64 103/63 (76) Pulse Ox 100 100 99 O2 Delivery Room Air Room Air Room Air Intake and Output 10/25/17 10/25/17 10/26/17 15:00 23:00 07:00 Intake Total 694 ml 180 ml Output Total 2000 ml 1550 ml Balance 694 ml -2000 ml -1370 ml HALYEY LESTER MD Oct 26, 2017 08:50
[2017-10-26] MEDS: MULTIVITAMIN with MINERAL TABLET. PO SCH (08:51)
[2017-10-26] MEDS: METHADONE 10 MG TABLET. PO SCH ×2 (09:04→21:00)
[2017-10-26] MEDS: SENNOSIDES/DOCUSATE 8.6/50MG TABLET. PO SCH (09:04)
[2017-10-26] MEDS: LIDOCAINE (700MG/PATCH) PATCH. TD SCH (09:05)
[2017-10-26] MEDS: ALPRAZolam 0.5 MG TABLET PO SCH ×2 (09:13→21:16)
[2017-10-26] MEDS: HYDROcodone/APAP 10/325 1 TAB TABLET PO PRN (10:53)
[2017-10-26 11:00] VITALS: BP 120/67
--- NOTE | 2017-10-26 13:08 | PDOC ---
PROGRESS NOTES Chief Complaint Chief Complaint RT Patellar fracture, traumatic, closed s/p sx 814 - POD # 3 Right hip fracture s/p sx 10/23 - POD # 3 Mechanical fall at home, Colon CA with mets to lungs on daily chemo Anemia of Cancer History of Present Illness History of Present Illness Pt seen and examined, resting in bed NAD pt looks better clinically today VSS DW RN Vitals Vitals Vital Signs Date Time Temp Pulse Resp B/P (MAP) Pulse Ox O2 Delivery O2 Flow Rate FiO2 10/26/17 11:00 98.8 105 18 120/67 (84) 98 Room Air 98.8 Physical Exam General: Alert, Oriented X3, No acute distress Heart: Regular rate, Normal S1, Normal S2, No murmurs Lungs: Clear Abdomen: Soft Extremities: No clubbing, No cyanosis, Normal pulses Skin: No rashes, No breakdown, No significant lesion Labs LABS Laboratory Tests Test 10/26/17 06:10 White Blood Count 8.0 x10^3/uL (4.0-11.0) Red Blood Count 2.53 x10^6/uL (4.30-5.70) Hemoglobin 8.5 g/dL (13.0-17.5) Hematocrit 23.8 % (39.0-53.0) Mean Corpuscular Volume 94 fL (79-100) Mean Corpuscular Hemoglobin 34 pg (25-35) Mean Corpuscular Hemoglobin Concent 36 g/dL (31-37) Red Cell Distribution Width 17.8 % (11.5-14.5) Platelet Count 125 x10^3/uL (140-400) Neutrophils (%) (Auto) 69 % (31-73) Lymphocytes (%) (Auto) 17 % (24-48) Monocytes (%) (Auto) 13 % (0-9) Eosinophils (%) (Auto) 1 % (0-3) Basophils (%) (Auto) 1 % (0-3) Neutrophils # (Auto) 5.5 x10^3uL (1.8-7.7) Lymphocytes # (Auto) 1.4 x10^3/uL (1.0-4.8) Monocytes # (Auto) 1.1 x10^3/uL (0.0-1.1) Eosinophils # (Auto) 0.1 x10^3/uL (0.0-0.7) Basophils # (Auto) 0.0 x10^3/uL (0.0-0.2) Prothrombin Time 30.1 SEC (11.7-14.0) Prothromb Time International Ratio 3.0 (0.8-1.1) Sodium Level 138 mmol/L (136-145) Potassium Level 4.0 mmol/L (3.5-5.1) Chloride Level 104 mmol/L (98-107) Carbon Dioxide Level 31 mmol/L (21-32) Anion Gap 3 (6-14) Blood Urea Nitrogen 12 mg/dL (8-26) Creatinine 0.8 mg/dL (0.7-1.3) Estimated GFR (Cockcroft-Gault) 99.3 Glucose Level 119 mg/dL (70-99) Calcium Level 7.9 mg/dL (8.5-10.1) Review of Systems Review of Systems no co SOB no co HANEY Assessment and Plan Assessmemt and Plan Assessment: RT Patellar fracture, traumatic, closed s/p sx 8/14 - POD # 3 Right hip fracture s/p sx 8/14 - POD # 3 Mechanical fall at home, Colon CA with mets to lungs on daily chemo Anemia of Cancer Plan: fluids labs home meds consult with Heme/Onc Probable DC today if ok with subspecialist Comment Review of Relevant I have reviewed the following items francisco (where applicable) has been applied. Labs Laboratory Tests Test 10/25/17 04:05 10/26/17 06:10 Hemoglobin 7.4 g/dL (13.0-17.5) 8.5 g/dL (13.0-17.5) Hematocrit 21.0 % (39.0-53.0) 23.8 % (39.0-53.0) Mean Corpuscular Hemoglobin Concent 35 g/dL (31-37) 36 g/dL (31-37) Prothrombin Time 17.1 SEC (11.7-14.0) 30.1 SEC (11.7-14.0) Prothromb Time International Ratio 1.5 (0.8-1.1) 3.0 (0.8-1.1) Thyroid Stimulating Hormone (TSH) 0.945 uIU/mL (0.358-3.74) White Blood Count 8.0 x10^3/uL (4.0-11.0) Red Blood Count 2.53 x10^6/uL (4.30-5.70) Mean Corpuscular Volume 94 fL (79-100) Mean Corpuscular Hemoglobin 34 pg (25-35) Red Cell Distribution Width 17.8 % (11.5-14.5) Platelet Count 125 x10^3/uL (140-400) Neutrophils (%) (Auto) 69 % (31-73) Lymphocytes (%) (Auto) 17 % (24-48) Monocytes (%) (Auto) 13 % (0-9) Eosinophils (%) (Auto) 1 % (0-3) Basophils (%) (Auto) 1 % (0-3) Neutrophils # (Auto) 5.5 x10^3uL (1.8-7.7) Lymphocytes # (Auto) 1.4 x10^3/uL (1.0-4.8) Monocytes # (Auto) 1.1 x10^3/uL (0.0-1.1) Eosinophils # (Auto) 0.1 x10^3/uL (0.0-0.7) Basophils # (Auto) 0.0 x10^3/uL (0.0-0.2) Sodium Level 138 mmol/L (136-145) Potassium Level 4.0 mmol/L (3.5-5.1) Chloride Level 104 mmol/L (98-107) Carbon Dioxide Level 31 mmol/L (21-32) Anion Gap 3 (6-14) Blood Urea Nitrogen 12 mg/dL (8-26) Creatinine 0.8 mg/dL (0.7-1.3) Estimated GFR (Cockcroft-Gault) 99.3 Glucose Level 119 mg/dL (70-99) Calcium Level 7.9 mg/dL (8.5-10.1) Laboratory Tests Test 10/26/17 06:10 White Blood Count 8.0 x10^3/uL (4.0-11.0) Red Blood Count 2.53 x10^6/uL (4.30-5.70) Hemoglobin 8.5 g/dL (13.0-17.5) Hematocrit 23.8 % (39.0-53.0) Mean Corpuscular Volume 94 fL (79-100) Mean Corpuscular Hemoglobin 34 pg (25-35) Mean Corpuscular Hemoglobin Concent 36 g/dL (31-37) Red Cell Distribution Width 17.8 % (11.5-14.5) Platelet Count 125 x10^3/uL (140-400) Neutrophils (%) (Auto) 69 % (31-73) Lymphocytes (%) (Auto) 17 % (24-48) Monocytes (%) (Auto) 13 % (0-9) Eosinophils (%) (Auto) 1 % (0-3) Basophils (%) (Auto) 1 % (0-3) Neutrophils # (Auto) 5.5 x10^3uL (1.8-7.7) Lymphocytes # (Auto) 1.4 x10^3/uL (1.0-4.8) Monocytes # (Auto) 1.1 x10^3/uL (0.0-1.1) Eosinophils # (Auto) 0.1 x10^3/uL (0.0-0.7) Basophils # (Auto) 0.0 x10^3/uL (0.0-0.2) Prothrombin Time 30.1 SEC (11.7-14.0) Prothromb Time International Ratio 3.0 (0.8-1.1) Sodium Level 138 mmol/L (136-145) Potassium Level 4.0 mmol/L (3.5-5.1) Chloride Level 104 mmol/L (98-107) Carbon Dioxide Level 31 mmol/L (21-32) Anion Gap 3 (6-14) Blood Urea Nitrogen 12 mg/dL (8-26) Creatinine 0.8 mg/dL (0.7-1.3) Estimated GFR (Cockcroft-Gault) 99.3 Glucose Level 119 mg/dL (70-99) Calcium Level 7.9 mg/dL (8.5-10.1) Medications Current Medications Fentanyl Citrate (Fentanyl 2ml Vial) 75 mcg 1X ONCE IV Last administered on at 03:00; Start 10/22/17 at 02:45; Stop 10/22/17 at 02:46; Status DC Ondansetron HCl (Zofran) 4 mg 1X ONCE IV Last administered on 10/22/17at 02:58 ; Start 10/22/17 at 02:45; Stop 10/22/17 at 02:46; Status DC Fentanyl Citrate (Fentanyl 2ml Vial) 50 mcg 1X ONCE IV Last administered on at 03:48; Start 10/22/17 at 03:30; Stop 10/22/17 at 03:31; Status DC Ondansetron HCl (Zofran) 4 mg PRN Q8HRS PRN IV NAUSEA/VOMITING; Start 10/22/17 at 03:45; Stop 10/22/17 at 07:53; Status DC Fentanyl Citrate (Fentanyl 2ml Vial) 50 mcg PRN Q1HR PRN IV PAIN Last administered on 10/22/17at 09:17; Start 10/22/17 at 03:45; Stop 10/23/17 at 03:44 ; Status DC Sodium Chloride 1,000 ml @ 125 mls/hr Q8H IV Last administered on 10/22/17at 22 :48; Start 10/22/17 at 03:33; Stop 10/23/17 at 03:32; Status DC Ondansetron HCl (Zofran) 4 mg PRN Q6HRS PRN IV NAUSEA/VOMITING; Start 10/22/17 at 08:00; Stop 10/23/17 at 12:52; Status DC Acetaminophen (Tylenol) 500 mg PRN Q6HRS PRN PO MILD PAIN / TEMP Last administered on 10/22/17at 11:36; Start 10/22/17 at 08:00 Labetalol HCl (Normodyne) 10 mg PRN Q2HR PRN IVP HYPERTENSION, SEE COMMENTS; Start 10/22/17 at 08:00 Potassium Chloride (Klor-Con) 40 meq 1X ONCE PO Last administered on at 11:35; Start 10/22/17 at 08:00; Stop 10/22/17 at 08:19; Status DC Clonidine HCl (Catapres) 0.1 mg Q8HRS PO Last administered on 10/24/17at 14:09; Start 10/22/17 at 10:00; Stop 10/24/17 at 15:22; Status DC Ropivacaine 53.3 ml/Epinephrine HCl 0.6 mg/ Morphine Sulfate 5 mg/Sodium Chloride 100 ml @ 100 mls/hr 1X PERIOP INT ART Last administered on at 09:57; Start 10/22/17 at 10:00; Stop 10/25/17 at 13:43; Status DC Clonidine HCl (Catapres) 0.1 mg PRN Q1HR PRN PO HYPERTENSION, SEE COMMENTS; Start 10/22/17 at 11:00 Oxycodone/ Acetaminophen (Percocet 10/325) 1 tab PRN Q4HRS PRN PO SEVERE PAIN 1ST CHOICE Last administered on 10/25/17at 15:45; Start 10/22/17 at 11:00 Acetaminophen/ Hydrocodone Bitart (Lortab 10/325) 1 tab PRN Q4HRS PRN PO MODERATE PAIN Last administered on 10/23/17at 07:58; Start 10/22/17 at 11:00; Stop 10/23/17 at 13:45; Status DC Cyclobenzaprine HCl (Flexeril) 10 mg PRN TID PRN PO MUSCLE SPASMS Last administered on 10/24/17at 05:54; Start 10/22/17 at 11:00; Stop 10/24/17 at 09:55 ; Status DC Loperamide HCl (Imodium) 2 mg TID PRN PRN PO DIARRHEA Last administered on 10/23at 02:57; Start 10/22/17 at 11:00; Stop 10/24/17 at 10:10; Status DC Fentanyl Citrate (Fentanyl 2ml Vial) 25 mcg PRN Q5MIN PRN IV MILD PAIN; Start 10/23/17 at 07:00; Stop 10/23/17 at 18:00; Status DC Fentanyl Citrate (Fentanyl 2ml Vial) 50 mcg PRN Q5MIN PRN IV MODERATE TO SEVERE PAIN Last administered on 10/23/17at 14:15; Start 10/23/17 at 07:00; Stop 10/23/17 at 18:00; Status DC Ringer's Solution 1,000 ml @ 30 mls/hr Q24H IV ; Start 10/23/17 at 07:00; Stop 10/23/17 at 18:59; Status DC Lidocaine HCl (Xylocaine-Mpf 1% Vial) 2 ml PRN 1X PRN ID IV START; Start at 07:00; Stop 10/23/17 at 18:00; Status DC Prochlorperazine Edisylate (Compazine) 5 mg PACU PRN PRN IV NAUSEA, MRX1; Start 10/23/17 at 07:00; Stop 10/23/17 at 18:00; Status DC Trazodone HCl (Desyrel) 100 mg QHS PO Last administered on 10/25/17at 21:05; Start 10/23/17 at 21:00 Trazodone HCl (Desyrel) 100 mg 1X ONCE PO Last administered on 10/22/17at 22:44 ; Start 10/22/17 at 22:45; Stop 10/22/17 at 22:46; Status DC Cefazolin Sodium/ Dextrose 50 ml @ 100 mls/hr 1X PREOP IV Last administered on 10/23/17at 10:34; Start 10/23/17 at 09:00; Stop 10/25/17 at 13:30; Status DC Lidocaine HCl (Lidocaine Pf 2% Vial) 5 ml STK-MED ONCE .ROUTE ; Start 10/23/17 at 09:01; Stop 10/23/17 at 09:02; Status DC Propofol 20 ml @ As Directed STK-MED ONCE IV ; Start 10/23/17 at 09:01; Stop at 09:02; Status DC Midazolam HCl (Versed) 2 mg STK-MED ONCE .ROUTE ; Start 10/23/17 at 09:01; Stop 10/23/17 at 09:02; Status DC Fentanyl Citrate (Fentanyl 2ml Vial) 100 mcg STK-MED ONCE .ROUTE ; Start at 09:01; Stop 10/23/17 at 09:02; Status DC Rocuronium [place] (Zemuron) 50 mg STK-MED ONCE .ROUTE ; Start 10/23/17 at 09:04 ; Stop 10/23/17 at 09:05; Status DC Ephedrine Sulfate (ePHEDrine PF IN SALINE SYRINGE) 50 mg STK-MED ONCE IV ; Start 10/23/17 at 09:38; Stop 10/23/17 at 09:39; Status DC Phenylephrine HCl (PHENYLEPHRINE in 0.9% NACL PF) 1 mg STK-MED ONCE IV ; Start 10/23/17 at 10:04; Stop 10/23/17 at 10:06; Status DC Cefazolin Sodium (Ancef) 1 gm STK-MED ONCE .ROUTE ; Start 10/23/17 at 11:01; Stop 10/23/17 at 11:03; Status DC Ondansetron HCl (Zofran) 4 mg STK-MED ONCE .ROUTE ; Start 10/23/17 at 11:44; Stop 10/23/17 at 11:45; Status DC Fentanyl Citrate (Fentanyl 2ml Vial) 100 mcg STK-MED ONCE .ROUTE ; Start at 11:58; Stop 10/23/17 at 11:59; Status DC Sevoflurane (Ultane) 90 ml STK-MED ONCE IH ; Start 10/23/17 at 12:04; Stop 10/23 at 12:05; Status DC Oxycodone HCl (Roxicodone) 5 mg PRN Q3HRS PRN PO MODERATE PAIN 1ST CHOICE; Start 10/23/17 at 12:45 Morphine Sulfate (Morphine Sulfate) 2 mg PRN Q1HR PRN IV PAIN SEVERE 1ST CHOICE Last administered on 10/23/17at 20:52; Start 10/23/17 at 12:45 Fentanyl Citrate (Fentanyl 2ml Vial) 25 mcg PRN Q1HR PRN IV PAIN SEVERE 3RD CHOICE Last administered on 10/23/17at 15:31; Start 10/23/17 at 12:45 Senna/Docusate Sodium (Senna Plus) 1 tab DAILY PO ; Start 10/24/17 at 09:00 Polyethylene Glycol (miraLAX PACKET) 17 gm PRN DAILY PRN PO CONSTIPATION, 1ST CHOICE; Start 10/23/17 at 12:45 Vitamin D (Vitamin D3) 5,000 unit DAILY PO Last administered on 10/23/17at 14:46 ; Start 10/23/17 at 13:00; Stop 10/24/17 at 08:39; Status DC Ondansetron HCl (Zofran) 4 mg PRN Q4HRS PRN IV NAUSEA/VOMITING; Start 10/23/17 at 12:45 Warfarin Sodium (Coumadin) 7.5 mg 1X ONCE PO ; Start 10/23/17 at 16:00; Stop at 16:01; Status DC Warfarin Sodium (Coumadin Per Pharmacy) 1 each PRN DAILY PRN MC SEE COMMENTS Last administered on 10/26/17at 11:26; Start 10/24/17 at 12:45 Magnesium Hydroxide (Milk Of Magnesia) 2,400 mg 1X PRN PRN PO CONSTIPATION; Start 10/24/17 at 06:00; Stop 10/25/17 at 05:59; Status DC Bisacodyl (Dulcolax Supp) 10 mg 1X PRN PRN ME CONSTIPATION; Start 10/24/17 at 16:00; Stop 10/25/17 at 15:59; Status DC Acetaminophen/ Hydrocodone Bitart (Lortab 7.5/325) 1 tab PRN Q4HRS PRN PO MODERATE PAIN 2ND CHOICE; Start 10/23/17 at 12:45 Morphine Sulfate (Morphine Sulfate) 4 mg PRN Q2HR PRN IV PAIN SEVERE 2ND CHOICE Last administered on 10/24/17at 14:08; Start 10/23/17 at 12:45 Acetaminophen/ Hydrocodone Bitart (Lortab 7.5/325) 2 tab PRN Q4HRS PRN PO SEVERE PAIN 2ND CHOICE; Start 10/23/17 at 12:45 Dextrose (Dextrose 50%-Water Syringe) 12.5 gm PRN Q15MIN PRN IV SEE COMMENTS; Start 10/23/17 at 12:45 Cefazolin Sodium 1 gm/Dextrose 50 ml @ 100 mls/hr Q6H IV ; Start 10/23/17 at 12 :45; Stop 10/23/17 at 12:54; Status DC Cefazolin Sodium (Ancef) 1 gm Q8H IVP Last administered on 10/24/17at 09:10; Start 10/23/17 at 16:00; Stop 10/24/17 at 08:01; Status DC Fentanyl Citrate (Fentanyl 2ml Vial) 100 mcg STK-MED ONCE .ROUTE ; Start at 13:19; Stop 10/23/17 at 13:20; Status DC Fentanyl Citrate (Fentanyl 2ml Vial) 100 mcg STK-MED ONCE .ROUTE ; Start at 13:40; Stop 10/23/17 at 13:41; Status DC Ergocalciferol (Vitamin D2) 50,000 unit WEEKLY PO Last administered on at 09:08; Start 10/24/17 at 09:00 Cyanocobalamin (Vitamin B-12) 1,000 mcg DAILY PO ; Start 10/24/17 at 11:00; Stop 10/24/17 at 11:00; Status DC Cyclobenzaprine HCl (Flexeril) 10 mg TID PO ; Start 10/24/17 at 14:00; Stop at 14:00; Status DC Gabapentin (Neurontin) 100 mg Q8HRS PO Last administered on 10/26/17at 06:23; Start 10/24/17 at 14:00 Duloxetine HCl (Cymbalta) 60 mg DAILY PO Last administered on 10/26/17at 08:49; Start 10/24/17 at 11:00 Multivitamins (Thera M Plus) 1 tab DAILY PO Last administered on 10/26/17 08: 51; Start 10/24/17 at 11:00 Cyclobenzaprine HCl (Flexeril) 10 mg TID PO Last administered on 10/26/17at 08: 50; Start 10/24/17 at 14:00 Cyanocobalamin (Vitamin B-12) 1,000 mcg DAILY PO Last administered on at 08:49; Start 10/24/17 at 11:00 Lactulose (Lactulose) 20 gm PRN Q3HRS PRN PO CONSTIPATION, 2ND CHOICE; Start at 10:00 Senna/Docusate Sodium (Senna Plus) 1 tab DAILY PO ; Start 10/24/17 at 11:00; Stop 10/24/17 at 13:41; Status DC Calcium/Vitamin D (Oscal D 500mg/ 200uts) 1 tab BIDWMEALS PO Last administered on 10/26/17at 08:49; Start 10/24/17 at 17:00 Acetaminophen/ Hydrocodone Bitart (Lortab 10/325) 1 tab PRN Q4HRS PRN PO SEVERE PAIN, 3RD CHOICE Last administered on 10/26/17at 10:53; Start 10/24/17 at 10:15 Magnesium Oxide (Magnesium Oxide) 400 mg BID PO Last administered on 10/26/17 08:49; Start 10/24/17 at 11:00 Methadone HCl (Dolophine) 10 mg BID PO ; Start 10/24/17 at 11:00 Ondansetron HCl (Zofran Odt) 8 mg PRN Q8HRS PRN PO NAUSEA/VOMITING; Start 10/24 at 10:30 Lidocaine (Lidoderm) 1 patch DAILY TD ; Start 10/24/17 at 10:00 Multi-Ingredient Mouthwash/Gargle (Magic Mouthwash) 30 ml PRN TID PRN PO MOUTH PAIN; Start 10/24/17 at 10:30 Loperamide HCl (Imodium) 2 mg PRN Q15MIN PRN PO DIARRHEA; Start 10/24/17 at 10: 00 Al Hydroxide/Mg Hydroxide (Mylanta Plus Xs) 30 ml PRN Q2HR PRN PO HEARTBURN / GAS; Start 10/24/17 at 10:00 Alprazolam (Xanax) 0.25 mg PRN Q8HRS PRN PO ANXIETY / AGITATION Last administered on 10/24/17at 11:41; Start 10/24/17 at 10:00 Warfarin Sodium (Coumadin) 5 mg 1X WARF ONCE PO Last administered on at 16:52; Start 10/24/17 at 16:00; Stop 10/24/17 at 16:01; Status DC Clonidine HCl (Catapres) 0.2 mg Q8HRS PO ; Start 10/24/17 at 22:00; Stop at 22:00; Status DC Alprazolam (Xanax) 0.5 mg BID PO Last administered on 10/26/17at 09:13; Start at 16:00 Clonidine HCl (Catapres) 0.2 mg Q8HRS PO Last administered on 10/25/17at 22:13; Start 10/24/17 at 20:35 Warfarin Sodium (Coumadin) 4 mg 1X WARF ONCE PO Last administered on at 16:54; Start 10/25/17 at 16:00; Stop 10/25/17 at 16:01; Status DC Warfarin Sodium (Coumadin - No Dose Today) 1 each 1X WARF ONCE MC ; Start 10/26 at 16:00; Stop 10/26/17 at 16:01 Active Scripts Active Reported Alum-Mag Hydroxide-Simeth Liq (Mag Hydrox/Al Hydrox/Simeth) 360 Ml Oral.susp 5 Ml PO PRN Vitamin B-12 (Cyanocobalamin (Vitamin B-12)) 1,000 Mcg Tablet 1,250 Mcg SL DAILY Vitamin B-12 (Cyanocobalamin (Vitamin B-12)) 1,000 Mcg Tablet 1,000 Mcg PO Trazodone Hcl 100 Mg Tablet 1 Tab PO QHS Stivarga (Regorafenib) 40 Mg Tablet 40 Mg PO DAILY Senna S Tablet (Sennosides/Docusate Sodium) 1 Each Tablet 1 Each PO Multivitamins (Multivitamin) 1 Each Tablet 1 Tab PO DAILY Zofran (Ondansetron Hcl) 8 Mg Tablet 1 Tab PO Q8HRS PRN Naloxone Hcl 0.4 Mg/1 Ml Vial 0.4 Mg IJ Methadone Hcl 10 Mg Tablet 1 Tab PO Q12HR Mag-Oxide (Magnesium Oxide) 400 Mg Tablet 250 Mg PO BID [lidoderm] 5 Q12HR Lactulose 20 Gm/30 Ml Solution 20 Gm PO PRN Q3HRS PRN Imodium A-D (Loperamide HCl) 2 Mg Capsule 2 Mg PO PRN [place] 10-325 Tablet (Acetaminophen/Hydrocodone Bitart) 1 Each Tablet 1-2 Tab PO Q4-6HRS PRN Gabapentin 100 Mg Capsule 100 Mg PO Q8HRS Cymbalta (Duloxetine Hcl) 60 Mg Capsule.dr 1 Cap PO DAILY [magic mouthwash] 30 Ml TID PRN Cyclobenzaprine Hcl 10 Mg Tablet 1 Tab PO TID Oyster Shell Calcium-Vit D Tab (Calcium Carbonate/Vitamin D2) 1 Each Tablet 1 Each PO BID Vitals/I & O Vital Sign - Last 24 Hours 10/25/17 10/25/17 10/25/17 10/25/17 15:00 15:45 16:00 16:55 Temp 97.9 97.9 Pulse 98 98 Resp 16 16 16 B/P (MAP) 118/63 (81) 111/65 Pulse Ox 99 O2 Delivery Room Air Room Air Room Air 10/25/17 10/25/17 10/25/17 10/25/17 19:00 20:00 22:13 23:00 Temp 97.7 98.1 97.7 98.1 Pulse 99 93 98 Resp 16 16 B/P (MAP) 117/66 (83) 121/64 104/56 (72) Pulse Ox 100 100 O2 Delivery Room Air Room Air Room Air 10/26/17 10/26/17 10/26/17 10/26/17 02:58 06:00 07:00 07:55 Temp 98.9 98.3 98.9 98.3 Pulse 99 85 95 Resp 16 16 B/P (MAP) 109/69 (82) 114/64 103/63 (76) Pulse Ox 100 99 O2 Delivery Room Air Room Air Room Air 10/26/17 10/26/17 10:53 11:00 Temp 98.8 98.8 Pulse 105 Resp 18 18 B/P (MAP) 120/67 (84) Pulse Ox 98 O2 Delivery Room Air Room Air Intake and Output 10/25/17 10/25/17 10/26/17 15:00 23:00 07:00 Intake Total 694 ml 180 ml Output Total 2000 ml 1550 ml Balance 694 ml -2000 ml -1370 ml MARY DELGADILLO III DO Oct 26, 2017 13:08
--- NOTE | 2017-10-26 13:11 | PDOC ---
PROGRESS NOTES Subjective Subjective Hip pain and knee pain controlled and gradually improving Objective Vital Signs Vital Signs Date Time Temp Pulse Resp B/P (MAP) Pulse Ox O2 Delivery O2 Flow Rate FiO2 10/26/17 11:00 98.8 105 18 120/67 (84) 98 Room Air 98.8 10/23/17 21:22 3.0 Physical Exam dressing dry right hip and right knee. Immobilizer in place. Good AROM ankle and intact LT sensation. Overall alignment of RLE is normal. Labs Laboratory Tests Test 10/25/17 04:05 10/26/17 06:10 Hemoglobin 7.4 g/dL (13.0-17.5) 8.5 g/dL (13.0-17.5) Hematocrit 21.0 % (39.0-53.0) 23.8 % (39.0-53.0) Mean Corpuscular Hemoglobin Concent 35 g/dL (31-37) 36 g/dL (31-37) Prothrombin Time 17.1 SEC (11.7-14.0) 30.1 SEC (11.7-14.0) Prothromb Time International Ratio 1.5 (0.8-1.1) 3.0 (0.8-1.1) Thyroid Stimulating Hormone (TSH) 0.945 uIU/mL (0.358-3.74) White Blood Count 8.0 x10^3/uL (4.0-11.0) Red Blood Count 2.53 x10^6/uL (4.30-5.70) Mean Corpuscular Volume 94 fL (79-100) Mean Corpuscular Hemoglobin 34 pg (25-35) Red Cell Distribution Width 17.8 % (11.5-14.5) Platelet Count 125 x10^3/uL (140-400) Neutrophils (%) (Auto) 69 % (31-73) Lymphocytes (%) (Auto) 17 % (24-48) Monocytes (%) (Auto) 13 % (0-9) Eosinophils (%) (Auto) 1 % (0-3) Basophils (%) (Auto) 1 % (0-3) Neutrophils # (Auto) 5.5 x10^3uL (1.8-7.7) Lymphocytes # (Auto) 1.4 x10^3/uL (1.0-4.8) Monocytes # (Auto) 1.1 x10^3/uL (0.0-1.1) Eosinophils # (Auto) 0.1 x10^3/uL (0.0-0.7) Basophils # (Auto) 0.0 x10^3/uL (0.0-0.2) Sodium Level 138 mmol/L (136-145) Potassium Level 4.0 mmol/L (3.5-5.1) Chloride Level 104 mmol/L (98-107) Carbon Dioxide Level 31 mmol/L (21-32) Anion Gap 3 (6-14) Blood Urea Nitrogen 12 mg/dL (8-26) Creatinine 0.8 mg/dL (0.7-1.3) Estimated GFR (Cockcroft-Gault) 99.3 Glucose Level 119 mg/dL (70-99) Calcium Level 7.9 mg/dL (8.5-10.1) Laboratory Tests Test 10/26/17 06:10 White Blood Count 8.0 x10^3/uL (4.0-11.0) Red Blood Count 2.53 x10^6/uL (4.30-5.70) Hemoglobin 8.5 g/dL (13.0-17.5) Hematocrit 23.8 % (39.0-53.0) Mean Corpuscular Volume 94 fL (79-100) Mean Corpuscular Hemoglobin 34 pg (25-35) Mean Corpuscular Hemoglobin Concent 36 g/dL (31-37) Red Cell Distribution Width 17.8 % (11.5-14.5) Platelet Count 125 x10^3/uL (140-400) Neutrophils (%) (Auto) 69 % (31-73) Lymphocytes (%) (Auto) 17 % (24-48) Monocytes (%) (Auto) 13 % (0-9) Eosinophils (%) (Auto) 1 % (0-3) Basophils (%) (Auto) 1 % (0-3) Neutrophils # (Auto) 5.5 x10^3uL (1.8-7.7) Lymphocytes # (Auto) 1.4 x10^3/uL (1.0-4.8) Monocytes # (Auto) 1.1 x10^3/uL (0.0-1.1) Eosinophils # (Auto) 0.1 x10^3/uL (0.0-0.7) Basophils # (Auto) 0.0 x10^3/uL (0.0-0.2) Prothrombin Time 30.1 SEC (11.7-14.0) Prothromb Time International Ratio 3.0 (0.8-1.1) Sodium Level 138 mmol/L (136-145) Potassium Level 4.0 mmol/L (3.5-5.1) Chloride Level 104 mmol/L (98-107) Carbon Dioxide Level 31 mmol/L (21-32) Anion Gap 3 (6-14) Blood Urea Nitrogen 12 mg/dL (8-26) Creatinine 0.8 mg/dL (0.7-1.3) Estimated GFR (Cockcroft-Gault) 99.3 Glucose Level 119 mg/dL (70-99) Calcium Level 7.9 mg/dL (8.5-10.1) Assessment Assessment s/p IMN right hip fx and ORIF right patella fx, doing as expected Plan Plan of Care Continue DVT prophylaxis and PT. WBAT in knee immobilizer. Agree with plan for rehab. Office followup in 2 weeks. AMAN RAMIREZ MD Oct 26, 2017 13:11
[2017-10-26] MEDS: cloNIDine HCL 0.1 MG TABLET PO PRN (14:29)
[2017-10-26] MEDS: oxyCODONE/APAP 10/325 1 TAB TABLET PO PRN ×2 (14:30→21:15)
[2017-10-26 15:00] VITALS: BP 109/64
[2017-10-26 19:20] VITALS: BP 107/58
[2017-10-26] MEDS: traZODone 100 MG TABLET. PO SCH (21:16)
[2017-10-26 23:14] VITALS: BP 134/54
[2017-10-27 03:24] VITALS: BP 110/61
[2017-10-27 04:19] LABS: BASO % 0 % (0-3); EOS # 0.1 x10^3/uL (0.0-0.7); EOS % 1 % (0-3); HEMATOCRIT 23.3 % (39.0-53.0); HEMOGLOBIN 8.3 g/dL (13.0-17.5); LYMPH # 1.4 x10^3/uL (1.0-4.8); LYMPH % 18 % (24-48); MEAN CORPUSCULAR HEMOGLOBIN 34 pg (25-35); MEAN CORPUSCULAR HGB CONC 36 g/dL (31-37); MEAN CORPUSCULAR VOLUME 94 fL (79-100); MONO # 1.2 x10^3/uL (0.0-1.1); MONO % 15 % (0-9); NEUT # 5.1 x10^3uL (1.8-7.7); NEUT % 65 % (31-73); PLATELET COUNT 135 x10^3/uL (140-400); RED BLOOD COUNT 2.46 x10^6/uL (4.30-5.70); RED CELL DISTRIBUTION WIDTH 17.5 % (11.5-14.5); WHITE BLOOD COUNT 7.8 x10^3/uL (4.0-11.0)
[2017-10-27 04:40] LABS: CREATININE 0.8 mg/dL (0.7-1.3); GFR 99.3; POTASSIUM 3.6 mmol/L (3.5-5.1)
[2017-10-27 04:43] LABS: PROTHROMBIN TIME PATIENT 26.4 SEC (11.7-14.0)
[2017-10-27] MEDS: GABAPENTIN 100 MG CAPSULE. PO SCH ×3 (06:00→20:32)
[2017-10-27] MEDS: cloNIDine HCL 0.2 MG TABLET PO SCH ×3 (06:00→20:32)
[2017-10-27 07:00] VITALS: BP 124/61
[2017-10-27] MEDS: METHADONE 10 MG TABLET. PO SCH ×2 (09:00→20:28)
[2017-10-27] MEDS: LIDOCAINE (700MG/PATCH) PATCH. TD SCH (09:00)
[2017-10-27] MEDS: oxyCODONE/APAP 10/325 1 TAB TABLET PO PRN ×2 (09:52→20:31)
[2017-10-27] MEDS: oxyCODONE IR 5 MG TABLET PO PRN (09:52)
[2017-10-27] MEDS: MULTIVITAMIN with MINERAL TABLET. PO SCH (09:52)
[2017-10-27] MEDS: CYANOCOBALAMIN (VITAMIN B-12) 1,000 MCG TABLET. PO SCH (09:53)
[2017-10-27] MEDS: SENNOSIDES/DOCUSATE 8.6/50MG TABLET. PO SCH (09:53)
[2017-10-27] MEDS: MAGNESIUM OXIDE 400 MG TABLET PO SCH ×2 (09:53→20:31)
[2017-10-27] MEDS: CALCIUM CARB/VIT D3 500/200 TABLET. PO SCH ×2 (09:53→17:52)
[2017-10-27] MEDS: DULoxetine HCL 30 MG CAPSULE.DR PO SCH (09:53)
[2017-10-27] MEDS: ALPRAZolam 0.5 MG TABLET PO SCH ×2 (09:54→20:31)
[2017-10-27] MEDS: CYCLOBENZAPRINE 10 MG TABLET. PO SCH ×3 (09:54→20:32)
[2017-10-27 11:00] VITALS: BP 110/72
--- NOTE | 2017-10-27 11:20 | PDOC ---
PROGRESS NOTES Chief Complaint Chief Complaint RT Patellar fracture, traumatic, closed s/p sx 8 - POD # 3 Right hip fracture s/p sx 10/23 - POD # 3 Mechanical fall at home, Colon CA with mets to lungs on daily chemo Anemia of Cancer History of Present Illness History of Present Illness Visited and examined pt Resting in bed NAD His CEA level came in at 7.5, lower than he predicted, but care will be followed by oncology DW RN Vitals Vitals Vital Signs Date Time Temp Pulse Resp B/P (MAP) Pulse Ox O2 Delivery O2 Flow Rate FiO2 10/27/17 09:52 20 Room Air 10/27/17 07:00 98.4 98 124/61 (82) 100 98.4 10/26/17 20:22 3.0 Physical Exam General: Alert, Oriented X3, No acute distress Heart: Regular rate, Normal S1, Normal S2, No murmurs Lungs: Clear Abdomen: Soft Extremities: No clubbing, No cyanosis, Normal pulses Skin: No rashes, No breakdown, No significant lesion Labs LABS Laboratory Tests Test 10/27/17 03:25 White Blood Count 7.8 x10^3/uL (4.0-11.0) Red Blood Count 2.46 x10^6/uL (4.30-5.70) Hemoglobin 8.3 g/dL (13.0-17.5) Hematocrit 23.3 % (39.0-53.0) Mean Corpuscular Volume 94 fL (79-100) Mean Corpuscular Hemoglobin 34 pg (25-35) Mean Corpuscular Hemoglobin Concent 36 g/dL (31-37) Red Cell Distribution Width 17.5 % (11.5-14.5) Platelet Count 135 x10^3/uL (140-400) Neutrophils (%) (Auto) 65 % (31-73) Lymphocytes (%) (Auto) 18 % (24-48) Monocytes (%) (Auto) 15 % (0-9) Eosinophils (%) (Auto) 1 % (0-3) Basophils (%) (Auto) 0 % (0-3) Neutrophils # (Auto) 5.1 x10^3uL (1.8-7.7) Lymphocytes # (Auto) 1.4 x10^3/uL (1.0-4.8) Monocytes # (Auto) 1.2 x10^3/uL (0.0-1.1) Eosinophils # (Auto) 0.1 x10^3/uL (0.0-0.7) Basophils # (Auto) 0.0 x10^3/uL (0.0-0.2) Prothrombin Time 26.4 SEC (11.7-14.0) Prothromb Time International Ratio 2.5 (0.8-1.1) Sodium Level 139 mmol/L (136-145) Potassium Level 3.6 mmol/L (3.5-5.1) Chloride Level 105 mmol/L (98-107) Carbon Dioxide Level 33 mmol/L (21-32) Anion Gap 1 (6-14) Blood Urea Nitrogen 12 mg/dL (8-26) Creatinine 0.8 mg/dL (0.7-1.3) Estimated GFR (Cockcroft-Gault) 99.3 Glucose Level 123 mg/dL (70-99) Calcium Level 8.0 mg/dL (8.5-10.1) Review of Systems Review of Systems Denied N/V CO leg and hip pain Assessment and Plan Assessmemt and Plan RT Patellar fracture, traumatic, closed s/p sx 8/14 - POD # 3 Right hip fracture s/p sx 8/14 - POD # 3 Mechanical fall at home, Colon CA with mets to lungs on daily chemo Anemia of Cancer Plan: Labs PT/OT home meds anticoagulation management per Pharmacy Analgesics PRN Discharge disposition pending Comment Review of Relevant I have reviewed the following items francisco (where applicable) has been applied. Labs Laboratory Tests Test 10/26/17 06:10 10/27/17 03:25 White Blood Count 8.0 x10^3/uL (4.0-11.0) 7.8 x10^3/uL (4.0-11.0) Red Blood Count 2.53 x10^6/uL (4.30-5.70) 2.46 x10^6/uL (4.30-5.70) Hemoglobin 8.5 g/dL (13.0-17.5) 8.3 g/dL (13.0-17.5) Hematocrit 23.8 % (39.0-53.0) 23.3 % (39.0-53.0) Mean Corpuscular Volume 94 fL (79-100) 94 fL (79-100) Mean Corpuscular Hemoglobin 34 pg (25-35) 34 pg (25-35) Mean Corpuscular Hemoglobin Concent 36 g/dL (31-37) 36 g/dL (31-37) Red Cell Distribution Width 17.8 % (11.5-14.5) 17.5 % (11.5-14.5) Platelet Count 125 x10^3/uL (140-400) 135 x10^3/uL (140-400) Neutrophils (%) (Auto) 69 % (31-73) 65 % (31-73) Lymphocytes (%) (Auto) 17 % (24-48) 18 % (24-48) Monocytes (%) (Auto) 13 % (0-9) 15 % (0-9) Eosinophils (%) (Auto) 1 % (0-3) 1 % (0-3) Basophils (%) (Auto) 1 % (0-3) 0 % (0-3) Neutrophils # (Auto) 5.5 x10^3uL (1.8-7.7) 5.1 x10^3uL (1.8-7.7) Lymphocytes # (Auto) 1.4 x10^3/uL (1.0-4.8) 1.4 x10^3/uL (1.0-4.8) Monocytes # (Auto) 1.1 x10^3/uL (0.0-1.1) 1.2 x10^3/uL (0.0-1.1) Eosinophils # (Auto) 0.1 x10^3/uL (0.0-0.7) 0.1 x10^3/uL (0.0-0.7) Basophils # (Auto) 0.0 x10^3/uL (0.0-0.2) 0.0 x10^3/uL (0.0-0.2) Prothrombin Time 30.1 SEC (11.7-14.0) 26.4 SEC (11.7-14.0) Prothromb Time International Ratio 3.0 (0.8-1.1) 2.5 (0.8-1.1) Sodium Level 138 mmol/L (136-145) 139 mmol/L (136-145) Potassium Level 4.0 mmol/L (3.5-5.1) 3.6 mmol/L (3.5-5.1) Chloride Level 104 mmol/L (98-107) 105 mmol/L (98-107) Carbon Dioxide Level 31 mmol/L (21-32) 33 mmol/L (21-32) Anion Gap 3 (6-14) 1 (6-14) Blood Urea Nitrogen 12 mg/dL (8-26) 12 mg/dL (8-26) Creatinine 0.8 mg/dL (0.7-1.3) 0.8 mg/dL (0.7-1.3) Estimated GFR (Cockcroft-Gault) 99.3 99.3 Glucose Level 119 mg/dL (70-99) 123 mg/dL (70-99) Calcium Level 7.9 mg/dL (8.5-10.1) 8.0 mg/dL (8.5-10.1) Laboratory Tests Test 10/27/17 03:25 White Blood Count 7.8 x10^3/uL (4.0-11.0) Red Blood Count 2.46 x10^6/uL (4.30-5.70) Hemoglobin 8.3 g/dL (13.0-17.5) Hematocrit 23.3 % (39.0-53.0) Mean Corpuscular Volume 94 fL (79-100) Mean Corpuscular Hemoglobin 34 pg (25-35) Mean Corpuscular Hemoglobin Concent 36 g/dL (31-37) Red Cell Distribution Width 17.5 % (11.5-14.5) Platelet Count 135 x10^3/uL (140-400) Neutrophils (%) (Auto) 65 % (31-73) Lymphocytes (%) (Auto) 18 % (24-48) Monocytes (%) (Auto) 15 % (0-9) Eosinophils (%) (Auto) 1 % (0-3) Basophils (%) (Auto) 0 % (0-3) Neutrophils # (Auto) 5.1 x10^3uL (1.8-7.7) Lymphocytes # (Auto) 1.4 x10^3/uL (1.0-4.8) Monocytes # (Auto) 1.2 x10^3/uL (0.0-1.1) Eosinophils # (Auto) 0.1 x10^3/uL (0.0-0.7) Basophils # (Auto) 0.0 x10^3/uL (0.0-0.2) Prothrombin Time 26.4 SEC (11.7-14.0) Prothromb Time International Ratio 2.5 (0.8-1.1) Sodium Level 139 mmol/L (136-145) Potassium Level 3.6 mmol/L (3.5-5.1) Chloride Level 105 mmol/L (98-107) Carbon Dioxide Level 33 mmol/L (21-32) Anion Gap 1 (6-14) Blood Urea Nitrogen 12 mg/dL (8-26) Creatinine 0.8 mg/dL (0.7-1.3) Estimated GFR (Cockcroft-Gault) 99.3 Glucose Level 123 mg/dL (70-99) Calcium Level 8.0 mg/dL (8.5-10.1) Medications Current Medications Fentanyl Citrate (Fentanyl 2ml Vial) 75 mcg 1X ONCE IV Last administered on at 03:00; Start 10/22/17 at 02:45; Stop 10/22/17 at 02:46; Status DC Ondansetron HCl (Zofran) 4 mg 1X ONCE IV Last administered on 10/22/17at 02:58 ; Start 10/22/17 at 02:45; Stop 10/22/17 at 02:46; Status DC Fentanyl Citrate (Fentanyl 2ml Vial) 50 mcg 1X ONCE IV Last administered on 03:48; Start 10/22/17 at 03:30; Stop 10/22/17 at 03:31; Status DC Ondansetron HCl (Zofran) 4 mg PRN Q8HRS PRN IV NAUSEA/VOMITING; Start 10/22/17 at 03:45; Stop 10/22/17 at 07:53; Status DC Fentanyl Citrate (Fentanyl 2ml Vial) 50 mcg PRN Q1HR PRN IV PAIN Last administered on 10/22/17at 09:17; Start 10/22/17 at 03:45; Stop 10/23/17 at 03:44 ; Status DC Sodium Chloride 1,000 ml @ 125 mls/hr Q8H IV Last administered on 10/22/17at 22 :48; Start 10/22/17 at 03:33; Stop 10/23/17 at 03:32; Status DC Ondansetron HCl (Zofran) 4 mg PRN Q6HRS PRN IV NAUSEA/VOMITING; Start 10/22/17 at 08:00; Stop 10/23/17 at 12:52; Status DC Acetaminophen (Tylenol) 500 mg PRN Q6HRS PRN PO MILD PAIN / TEMP Last administered on 10/22/17at 11:36; Start 10/22/17 at 08:00 Labetalol HCl (Normodyne) 10 mg PRN Q2HR PRN IVP HYPERTENSION, SEE COMMENTS; Start 10/22/17 at 08:00 Potassium Chloride (Klor-Con) 40 meq 1X ONCE PO Last administered on at 11:35; Start 10/22/17 at 08:00; Stop 10/22/17 at 08:19; Status DC Clonidine HCl (Catapres) 0.1 mg Q8HRS PO Last administered on 10/24/17at 14:09; Start 10/22/17 at 10:00; Stop 10/24/17 at 15:22; Status DC Ropivacaine 53.3 ml/Epinephrine HCl 0.6 mg/ Morphine Sulfate 5 mg/Sodium Chloride 100 ml @ 100 mls/hr 1X PERIOP INT ART Last administered on at 09:57; Start 10/22/17 at 10:00; Stop 10/25/17 at 13:43; Status DC Clonidine HCl (Catapres) 0.1 mg PRN Q1HR PRN PO HYPERTENSION, SEE COMMENTS Last administered on 10/26/17at 14:29; Start 10/22/17 at 11:00 Oxycodone/ Acetaminophen (Percocet 10/325) 1 tab PRN Q4HRS PRN PO SEVERE PAIN 1ST CHOICE Last administered on 10/27/17at 09:52; Start 10/22/17 at 11:00 Acetaminophen/ Hydrocodone Bitart (Lortab 10/325) 1 tab PRN Q4HRS PRN PO MODERATE PAIN Last administered on 10/23/17at 07:58; Start 10/22/17 at 11:00; Stop 10/23/17 at 13:45; Status DC Cyclobenzaprine HCl (Flexeril) 10 mg PRN TID PRN PO MUSCLE SPASMS Last administered on 10/24/17at 05:54; Start 10/22/17 at 11:00; Stop 10/24/17 at 09:55 ; Status DC Loperamide HCl (Imodium) 2 mg TID PRN PRN PO DIARRHEA Last administered on 10/23at 02:57; Start 10/22/17 at 11:00; Stop 10/24/17 at 10:10; Status DC Fentanyl Citrate (Fentanyl 2ml Vial) 25 mcg PRN Q5MIN PRN IV MILD PAIN; Start 10/23/17 at 07:00; Stop 10/23/17 at 18:00; Status DC Fentanyl Citrate (Fentanyl 2ml Vial) 50 mcg PRN Q5MIN PRN IV MODERATE TO SEVERE PAIN Last administered on 10/23/17at 14:15; Start 10/23/17 at 07:00; Stop 10/23/17 at 18:00; Status DC Ringer's Solution 1,000 ml @ 30 mls/hr Q24H IV ; Start 10/23/17 at 07:00; Stop 10/23/17 at 18:59; Status DC Lidocaine HCl (Xylocaine-Mpf 1% Vial) 2 ml PRN 1X PRN ID IV START; Start at 07:00; Stop 10/23/17 at 18:00; Status DC Prochlorperazine Edisylate (Compazine) 5 mg PACU PRN PRN IV NAUSEA, MRX1; Start 10/23/17 at 07:00; Stop 10/23/17 at 18:00; Status DC Trazodone HCl (Desyrel) 100 mg QHS PO Last administered on 10/26/17at 21:16; Start 10/23/17 at 21:00 Trazodone HCl (Desyrel) 100 mg 1X ONCE PO Last administered on 10/22/17at 22:44 ; Start 10/22/17 at 22:45; Stop 10/22/17 at 22:46; Status DC Cefazolin Sodium/ Dextrose 50 ml @ 100 mls/hr 1X PREOP IV Last administered on 10/23/17at 10:34; Start 10/23/17 at 09:00; Stop 10/25/17 at 13:30; Status DC Lidocaine HCl (Lidocaine Pf 2% Vial) 5 ml STK-MED ONCE .ROUTE ; Start 10/23/17 at 09:01; Stop 10/23/17 at 09:02; Status DC Propofol 20 ml @ As Directed STK-MED ONCE IV ; Start 10/23/17 at 09:01; Stop at 09:02; Status DC Midazolam HCl (Versed) 2 mg STK-MED ONCE .ROUTE ; Start 10/23/17 at 09:01; Stop 10/23/17 at 09:02; Status DC Fentanyl Citrate (Fentanyl 2ml Vial) 100 mcg STK-MED ONCE .ROUTE ; Start at 09:01; Stop 10/23/17 at 09:02; Status DC Rocuronium Mccoy (Zemuron) 50 mg STK-MED ONCE .ROUTE ; Start 10/23/17 at 09:04 ; Stop 10/23/17 at 09:05; Status DC Ephedrine Sulfate (ePHEDrine PF IN SALINE SYRINGE) 50 mg STK-MED ONCE IV ; Start 10/23/17 at 09:38; Stop 10/23/17 at 09:39; Status DC Phenylephrine HCl (PHENYLEPHRINE in 0.9% NACL PF) 1 mg STK-MED ONCE IV ; Start 10/23/17 at 10:04; Stop 10/23/17 at 10:06; Status DC Cefazolin Sodium (Ancef) 1 gm STK-MED ONCE .ROUTE ; Start 10/23/17 at 11:01; Stop 10/23/17 at 11:03; Status DC Ondansetron HCl (Zofran) 4 mg STK-MED ONCE .ROUTE ; Start 10/23/17 at 11:44; Stop 10/23/17 at 11:45; Status DC Fentanyl Citrate (Fentanyl 2ml Vial) 100 mcg STK-MED ONCE .ROUTE ; Start at 11:58; Stop 10/23/17 at 11:59; Status DC Sevoflurane (Ultane) 90 ml STK-MED ONCE IH ; Start 10/23/17 at 12:04; Stop 10/23 at 12:05; Status DC Oxycodone HCl (Roxicodone) 5 mg PRN Q3HRS PRN PO MODERATE PAIN 1ST CHOICE Last administered on 10/27/17at 09:52; Start 10/23/17 at 12:45 Morphine Sulfate (Morphine Sulfate) 2 mg PRN Q1HR PRN IV PAIN SEVERE 1ST CHOICE Last administered on 10/23/17at 20:52; Start 10/23/17 at 12:45 Fentanyl Citrate (Fentanyl 2ml Vial) 25 mcg PRN Q1HR PRN IV PAIN SEVERE 3RD CHOICE Last administered on 10/23/17at 15:31; Start 10/23/17 at 12:45 Senna/Docusate Sodium (Senna Plus) 1 tab DAILY PO Last administered on at 09:53; Start 10/24/17 at 09:00 Polyethylene Glycol (miraLAX PACKET) 17 gm PRN DAILY PRN PO CONSTIPATION, 1ST CHOICE; Start 10/23/17 at 12:45 Vitamin D (Vitamin D3) 5,000 unit DAILY PO Last administered on 10/23/17at 14:46 ; Start 10/23/17 at 13:00; Stop 10/24/17 at 08:39; Status DC Ondansetron HCl (Zofran) 4 mg PRN Q4HRS PRN IV NAUSEA/VOMITING; Start 10/23/17 at 12:45 Warfarin Sodium (Coumadin) 7.5 mg 1X ONCE PO ; Start 10/23/17 at 16:00; Stop at 16:01; Status DC Warfarin Sodium (Coumadin Per Pharmacy) 1 each PRN DAILY PRN MC SEE COMMENTS Last administered on 10/26/17at 11:26; Start 10/24/17 at 12:45 Magnesium Hydroxide (Milk Of Magnesia) 2,400 mg 1X PRN PRN PO CONSTIPATION; Start 10/24/17 at 06:00; Stop 10/25/17 at 05:59; Status DC Bisacodyl (Dulcolax Supp) 10 mg 1X PRN PRN [place] CONSTIPATION; Start 10/24/17 at 16:00; Stop 10/25/17 at 15:59; Status DC Acetaminophen/ Hydrocodone Bitart (Lortab 7.5/325) 1 tab PRN Q4HRS PRN PO MODERATE PAIN 2ND CHOICE; Start 10/23/17 at 12:45 Morphine Sulfate (Morphine Sulfate) 4 mg PRN Q2HR PRN IV PAIN SEVERE 2ND CHOICE Last administered on 10/24/17at 14:08; Start 10/23/17 at 12:45 Acetaminophen/ Hydrocodone Bitart (Lortab 7.5/325) 2 tab PRN Q4HRS PRN PO SEVERE PAIN 2ND CHOICE; Start 10/23/17 at 12:45 Dextrose (Dextrose 50%-Water Syringe) 12.5 gm PRN Q15MIN PRN IV SEE COMMENTS; Start 10/23/17 at 12:45 Cefazolin Sodium 1 gm/Dextrose 50 ml @ 100 mls/hr Q6H IV ; Start 10/23/17 at 12 :45; Stop 10/23/17 at 12:54; Status DC Cefazolin Sodium (Ancef) 1 gm Q8H IVP Last administered on 10/24/17at 09:10; Start 10/23/17 at 16:00; Stop 10/24/17 at 08:01; Status DC Fentanyl Citrate (Fentanyl 2ml Vial) 100 mcg STK-MED ONCE .ROUTE ; Start at 13:19; Stop 10/23/17 at 13:20; Status DC Fentanyl Citrate (Fentanyl 2ml Vial) 100 mcg STK-MED ONCE .ROUTE ; Start at 13:40; Stop 10/23/17 at 13:41; Status DC Ergocalciferol (Vitamin D2) 50,000 unit WEEKLY PO Last administered on at 09:08; Start 10/24/17 at 09:00 Cyanocobalamin (Vitamin B-12) 1,000 mcg DAILY PO ; Start 10/24/17 at 11:00; Stop 10/24/17 at 11:00; Status DC Cyclobenzaprine HCl (Flexeril) 10 mg TID PO ; Start 10/24/17 at 14:00; Stop at 14:00; Status DC Gabapentin (Neurontin) 100 mg Q8HRS PO Last administered on 10/27/17at 06:00; Start 10/24/17 at 14:00 Duloxetine HCl (Cymbalta) 60 mg DAILY PO Last administered on 10/27/17at 09:53; Start 10/24/17 at 11:00 Multivitamins (Thera M Plus) 1 tab DAILY PO Last administered on 10/27/17at 09: 52; Start 10/24/17 at 11:00 Cyclobenzaprine HCl (Flexeril) 10 mg TID PO Last administered on 10/27/17 09: 54; Start 10/24/17 at 14:00 Cyanocobalamin (Vitamin B-12) 1,000 mcg DAILY PO Last administered on 09:53; Start 10/24/17 at 11:00 Lactulose (Lactulose) 20 gm PRN Q3HRS PRN PO CONSTIPATION, 2ND CHOICE; Start at 10:00 Senna/Docusate Sodium (Senna Plus) 1 tab DAILY PO ; Start 10/24/17 at 11:00; Stop 10/24/17 at 13:41; Status DC Calcium/Vitamin D (Oscal D 500mg/ 200uts) 1 tab BIDWMEALS PO Last administered on 10/27/17 09:53; Start 10/24/17 at 17:00 Acetaminophen/ Hydrocodone Bitart (Lortab 10/325) 1 tab PRN Q4HRS PRN PO SEVERE PAIN, 3RD CHOICE Last administered on 10/26/17at 10:53; Start 10/24/17 at 10:15 Magnesium Oxide (Magnesium Oxide) 400 mg BID PO Last administered on 10/27/17 09:53; Start 10/24/17 at 11:00 Methadone HCl (Dolophine) 10 mg BID PO ; Start 10/24/17 at 11:00 Ondansetron HCl (Zofran Odt) 8 mg PRN Q8HRS PRN PO NAUSEA/VOMITING; Start 10/24 at 10:30 Lidocaine (Lidoderm) 1 patch DAILY TD ; Start 10/24/17 at 10:00 Multi-Ingredient Mouthwash/Gargle (Magic Mouthwash) 30 ml PRN TID PRN PO MOUTH PAIN; Start 10/24/17 at 10:30 Loperamide HCl (Imodium) 2 mg PRN Q15MIN PRN PO DIARRHEA; Start 10/24/17 at 10: 00 Al Hydroxide/Mg Hydroxide (Mylanta Plus Xs) 30 ml PRN Q2HR PRN PO HEARTBURN / GAS; Start 10/24/17 at 10:00 Alprazolam (Xanax) 0.25 mg PRN Q8HRS PRN PO ANXIETY / AGITATION Last administered on 10/24/17at 11:41; Start 10/24/17 at 10:00 Warfarin Sodium (Coumadin) 5 mg 1X WARF ONCE PO Last administered on at 16:52; Start 10/24/17 at 16:00; Stop 10/24/17 at 16:01; Status DC Clonidine HCl (Catapres) 0.2 mg Q8HRS PO ; Start 10/24/17 at 22:00; Stop at 22:00; Status DC Alprazolam (Xanax) 0.5 mg BID PO Last administered on 10/27/17at 09:54; Start at 16:00 Clonidine HCl (Catapres) 0.2 mg Q8HRS PO Last administered on 10/25/17at 22:13; Start 10/24/17 at 20:35 Warfarin Sodium (Coumadin) 4 mg 1X WARF ONCE PO Last administered on at 16:54; Start 10/25/17 at 16:00; Stop 10/25/17 at 16:01; Status DC Warfarin Sodium (Coumadin - No Dose Today) 1 each 1X WARF ONCE MC Last administered on 10/26/17at 16:00; Start 10/26/17 at 16:00; Stop 10/26/17 at 16:01 ; Status DC Active Scripts Active Reported Alum-Mag Hydroxide-Simeth Liq (Mag Hydrox/Al Hydrox/Simeth) 360 Ml Oral.susp 5 Ml PO PRN Vitamin B-12 (Cyanocobalamin (Vitamin B-12)) 1,000 Mcg Tablet 1,250 Mcg SL DAILY Vitamin B-12 (Cyanocobalamin (Vitamin B-12)) 1,000 Mcg Tablet 1,000 Mcg PO Trazodone Hcl 100 Mg Tablet 1 Tab PO QHS Stivarga (Regorafenib) 40 Mg Tablet 40 Mg PO DAILY Senna S Tablet (Sennosides/Docusate Sodium) 1 Each Tablet 1 Each PO Multivitamins (Multivitamin) 1 Each Tablet 1 Tab PO DAILY Zofran (Ondansetron Hcl) 8 Mg Tablet 1 Tab PO Q8HRS PRN Naloxone Hcl 0.4 Mg/1 Ml Vial 0.4 Mg IJ Methadone Hcl 10 Mg Tablet 1 Tab PO Q12HR Mag-Oxide (Magnesium Oxide) 400 Mg Tablet 250 Mg PO BID [lidoderm] 5 Q12HR Lactulose 20 Gm/30 Ml Solution 20 Gm PO PRN Q3HRS PRN Imodium A-D (Loperamide HCl) 2 Mg Capsule 2 Mg PO PRN Pyatt 10-325 Tablet (Acetaminophen/Hydrocodone Bitart) 1 Each Tablet 1-2 Tab PO Q4-6HRS PRN Gabapentin 100 Mg Capsule 100 Mg PO Q8HRS Cymbalta (Duloxetine Hcl) 60 Mg Capsule. 1 Cap PO DAILY [magic mouthwash] 30 Ml TID PRN Cyclobenzaprine Hcl 10 Mg Tablet 1 Tab PO TID Oyster Shell Calcium-Vit D Tab (Calcium Carbonate/Vitamin D2) 1 Each Tablet 1 Each PO BID Vitals/I & O Vital Sign - Last 24 Hours 10/26/17 10/26/17 10/26/17 10/26/17 11:55 14:29 14:30 15:00 Temp 98.3 98.3 Pulse 100 100 Resp 16 16 16 B/P (MAP) 123/64 109/64 (79) Pulse Ox 99 O2 Delivery Room Air Room Air Room Air 10/26/17 10/26/17 10/26/17 10/26/17 19:20 20:22 21:17 22:15 Temp 98.4 98.4 Pulse 92 92 Resp 18 B/P (MAP) 107/58 (74) 107/58 Pulse Ox 99 99 O2 Delivery Room Air Room Air Room Air O2 Flow Rate 3.0 10/26/17 10/27/17 10/27/17 10/27/17 23:14 03:24 06:00 07:00 Temp 98.2 98.0 98.4 98.2 98.0 98.4 Pulse 91 85 85 98 Resp 18 16 16 B/P (MAP) 134/54 (80) 110/61 (77) 110/61 124/61 (82) Pulse Ox 98 98 100 O2 Delivery Room Air Room Air Room Air 10/27/17 10/27/17 09:52 09:52 Resp 20 20 O2 Delivery Room Air Room Air Intake and Output 10/26/17 10/26/17 10/27/17 15:00 23:00 07:00 Intake Total 680 ml 920 ml Output Total 1225 ml Balance 680 ml -305 ml MARY DELGADILLO III DO Oct 27, 2017 11:20
[2017-10-27 15:00] VITALS: BP 113/65
[2017-10-27] MEDS ORDERED: WARFARIN 3 MG TABLET. PO ONE (16:00)
[2017-10-27 19:00] VITALS: BP 114/52
[2017-10-27] MEDS: traZODone 100 MG TABLET. PO SCH (20:32)
[2017-10-27 23:00] VITALS: BP 96/54
[2017-10-28 03:00] VITALS: BP 101/61
[2017-10-28] MEDS: cloNIDine HCL 0.2 MG TABLET PO SCH ×3 (06:00→21:25)
[2017-10-28] MEDS: GABAPENTIN 100 MG CAPSULE. PO SCH ×3 (06:06→21:25)
[2017-10-28 07:00] VITALS: BP 109/64
[2017-10-28 07:00] LABS: CALCIUM 8.1 mg/dL (8.5-10.1); CREATININE 0.9 mg/dL (0.7-1.3); GFR 86.7; POTASSIUM 3.3 mmol/L (3.5-5.1)
[2017-10-28 07:07] LABS: BASO % 1 % (0-3); EOS # 0.1 x10^3/uL (0.0-0.7); EOS % 2 % (0-3); HEMATOCRIT 23.1 % (39.0-53.0); HEMOGLOBIN 7.9 g/dL (13.0-17.5); LYMPH # 1.1 x10^3/uL (1.0-4.8); LYMPH % 17 % (24-48); MEAN CORPUSCULAR HEMOGLOBIN 32 pg (25-35); MEAN CORPUSCULAR HGB CONC 35 g/dL (31-37); MEAN CORPUSCULAR VOLUME 94 fL (79-100); MONO % 15 % (0-9); NEUT # 4.4 x10^3uL (1.8-7.7); NEUT % 66 % (31-73); PLATELET COUNT 169 x10^3/uL (140-400); RED BLOOD COUNT 2.45 x10^6/uL (4.30-5.70); RED CELL DISTRIBUTION WIDTH 17.4 % (11.5-14.5); WHITE BLOOD COUNT 6.7 x10^3/uL (4.0-11.0)
[2017-10-28 07:40] LABS: PROTHROMBIN TIME PATIENT 24.6 SEC (11.7-14.0)
[2017-10-28] MEDS: CYCLOBENZAPRINE 10 MG TABLET. PO SCH ×3 (08:08→21:26)
[2017-10-28] MEDS: MAGNESIUM OXIDE 400 MG TABLET PO SCH ×2 (08:08→21:25)
[2017-10-28] MEDS: CYANOCOBALAMIN (VITAMIN B-12) 1,000 MCG TABLET. PO SCH (08:08)
[2017-10-28] MEDS: HYDROcodone/APAP 10/325 1 TAB TABLET PO PRN (08:08)
[2017-10-28] MEDS: ALPRAZolam 0.5 MG TABLET PO SCH ×2 (08:09→21:26)
[2017-10-28] MEDS: SENNOSIDES/DOCUSATE 8.6/50MG TABLET. PO SCH (08:09)
[2017-10-28] MEDS: CALCIUM CARB/VIT D3 500/200 TABLET. PO SCH ×2 (08:09→17:23)
[2017-10-28] MEDS: MULTIVITAMIN with MINERAL TABLET. PO SCH (08:09)
[2017-10-28] MEDS: DULoxetine HCL 30 MG CAPSULE.DR PO SCH (08:09)
[2017-10-28] MEDS: LIDOCAINE (700MG/PATCH) PATCH. TD SCH (08:10)
[2017-10-28] MEDS: METHADONE 10 MG TABLET. PO SCH (08:10)
[2017-10-28 11:00] VITALS: BP 110/63
--- NOTE | 2017-10-28 13:35 | PDOC ---
PROGRESS NOTES Chief Complaint Chief Complaint RT Patellar fracture, traumatic, closed s/p sx 814 - POD # 3 Right hip fracture s/p sx 10/23 - POD # 3 Mechanical fall at home, Colon CA with mets to lungs on daily chemo Anemia of Cancer History of Present Illness History of Present Illness Pt seen and examined He was in good spirits and looked good He was sitting in his chair with leg elevated and wearing braces Discussed treatment plan with patient and children at bedside Pt asked to have some of his pain meds D/C'd until he could meet with is pain management Dr. after discharge Vitals Vitals Vital Signs Date Time Temp Pulse Resp B/P (MAP) Pulse Ox O2 Delivery O2 Flow Rate FiO2 10/28/17 11:00 98.8 100 16 110/63 (79) 96 Room Air 98.8 10/27/17 20:08 3.0 Physical Exam General: Alert, Oriented X3, No acute distress Heart: Regular rate, Normal S1, Normal S2, No murmurs Lungs: Clear Abdomen: Soft Extremities: No clubbing, No cyanosis, Normal pulses Skin: No rashes, No breakdown, No significant lesion Labs LABS Laboratory Tests Test 10/28/17 06:30 White Blood Count 6.7 x10^3/uL (4.0-11.0) Red Blood Count 2.45 x10^6/uL (4.30-5.70) Hemoglobin 7.9 g/dL (13.0-17.5) Hematocrit 23.1 % (39.0-53.0) Mean Corpuscular Volume 94 fL (79-100) Mean Corpuscular Hemoglobin 32 pg (25-35) Mean Corpuscular Hemoglobin Concent 35 g/dL (31-37) Red Cell Distribution Width 17.4 % (11.5-14.5) Platelet Count 169 x10^3/uL (140-400) Neutrophils (%) (Auto) 66 % (31-73) Lymphocytes (%) (Auto) 17 % (24-48) Monocytes (%) (Auto) 15 % (0-9) Eosinophils (%) (Auto) 2 % (0-3) Basophils (%) (Auto) 1 % (0-3) Neutrophils # (Auto) 4.4 x10^3uL (1.8-7.7) Lymphocytes # (Auto) 1.1 x10^3/uL (1.0-4.8) Monocytes # (Auto) 1.0 x10^3/uL (0.0-1.1) Eosinophils # (Auto) 0.1 x10^3/uL (0.0-0.7) Basophils # (Auto) 0.0 x10^3/uL (0.0-0.2) Prothrombin Time 24.6 SEC (11.7-14.0) Prothromb Time International Ratio 2.3 (0.8-1.1) Sodium Level 139 mmol/L (136-145) Potassium Level 3.3 mmol/L (3.5-5.1) Chloride Level 102 mmol/L (98-107) Carbon Dioxide Level 31 mmol/L (21-32) Anion Gap 6 (6-14) Blood Urea Nitrogen 13 mg/dL (8-26) Creatinine 0.9 mg/dL (0.7-1.3) Estimated GFR (Cockcroft-Gault) 86.7 Glucose Level 141 mg/dL (70-99) Calcium Level 8.1 mg/dL (8.5-10.1) Review of Systems Review of Systems CO hip and leg pain Denies N/V denies HANEY Assessment and Plan Assessmemt and Plan RT Patellar fracture, traumatic, closed s/p sx 8/14 - POD # 3 Right hip fracture s/p sx 8/14 - POD # 3 Mechanical fall at home, Colon CA with mets to lungs on daily chemo Anemia of Cancer Plan: Labs PT/OT home meds Analgesics PRN Probable DC to SNU in AM Comment Review of Relevant I have reviewed the following items francisco (where applicable) has been applied. Labs Laboratory Tests Test 10/27/17 03:25 10/28/17 06:30 White Blood Count 7.8 x10^3/uL (4.0-11.0) 6.7 x10^3/uL (4.0-11.0) Red Blood Count 2.46 x10^6/uL (4.30-5.70) 2.45 x10^6/uL (4.30-5.70) Hemoglobin 8.3 g/dL (13.0-17.5) 7.9 g/dL (13.0-17.5) Hematocrit 23.3 % (39.0-53.0) 23.1 % (39.0-53.0) Mean Corpuscular Volume 94 fL (79-100) 94 fL (79-100) Mean Corpuscular Hemoglobin 34 pg (25-35) 32 pg (25-35) Mean Corpuscular Hemoglobin Concent 36 g/dL (31-37) 35 g/dL (31-37) Red Cell Distribution Width 17.5 % (11.5-14.5) 17.4 % (11.5-14.5) Platelet Count 135 x10^3/uL (140-400) 169 x10^3/uL (140-400) Neutrophils (%) (Auto) 65 % (31-73) 66 % (31-73) Lymphocytes (%) (Auto) 18 % (24-48) 17 % (24-48) Monocytes (%) (Auto) 15 % (0-9) 15 % (0-9) Eosinophils (%) (Auto) 1 % (0-3) 2 % (0-3) Basophils (%) (Auto) 0 % (0-3) 1 % (0-3) Neutrophils # (Auto) 5.1 x10^3uL (1.8-7.7) 4.4 x10^3uL (1.8-7.7) Lymphocytes # (Auto) 1.4 x10^3/uL (1.0-4.8) 1.1 x10^3/uL (1.0-4.8) Monocytes # (Auto) 1.2 x10^3/uL (0.0-1.1) 1.0 x10^3/uL (0.0-1.1) Eosinophils # (Auto) 0.1 x10^3/uL (0.0-0.7) 0.1 x10^3/uL (0.0-0.7) Basophils # (Auto) 0.0 x10^3/uL (0.0-0.2) 0.0 x10^3/uL (0.0-0.2) Prothrombin Time 26.4 SEC (11.7-14.0) 24.6 SEC (11.7-14.0) Prothromb Time International Ratio 2.5 (0.8-1.1) 2.3 (0.8-1.1) Sodium Level 139 mmol/L (136-145) 139 mmol/L (136-145) Potassium Level 3.6 mmol/L (3.5-5.1) 3.3 mmol/L (3.5-5.1) Chloride Level 105 mmol/L (98-107) 102 mmol/L (98-107) Carbon Dioxide Level 33 mmol/L (21-32) 31 mmol/L (21-32) Anion Gap 1 (6-14) 6 (6-14) Blood Urea Nitrogen 12 mg/dL (8-26) 13 mg/dL (8-26) Creatinine 0.8 mg/dL (0.7-1.3) 0.9 mg/dL (0.7-1.3) Estimated GFR (Cockcroft-Gault) 99.3 86.7 Glucose Level 123 mg/dL (70-99) 141 mg/dL (70-99) Calcium Level 8.0 mg/dL (8.5-10.1) 8.1 mg/dL (8.5-10.1) Laboratory Tests Test 10/28/17 06:30 White Blood Count 6.7 x10^3/uL (4.0-11.0) Red Blood Count 2.45 x10^6/uL (4.30-5.70) Hemoglobin 7.9 g/dL (13.0-17.5) Hematocrit 23.1 % (39.0-53.0) Mean Corpuscular Volume 94 fL (79-100) Mean Corpuscular Hemoglobin 32 pg (25-35) Mean Corpuscular Hemoglobin Concent 35 g/dL (31-37) Red Cell Distribution Width 17.4 % (11.5-14.5) Platelet Count 169 x10^3/uL (140-400) Neutrophils (%) (Auto) 66 % (31-73) Lymphocytes (%) (Auto) 17 % (24-48) Monocytes (%) (Auto) 15 % (0-9) Eosinophils (%) (Auto) 2 % (0-3) Basophils (%) (Auto) 1 % (0-3) Neutrophils # (Auto) 4.4 x10^3uL (1.8-7.7) Lymphocytes # (Auto) 1.1 x10^3/uL (1.0-4.8) Monocytes # (Auto) 1.0 x10^3/uL (0.0-1.1) Eosinophils # (Auto) 0.1 x10^3/uL (0.0-0.7) Basophils # (Auto) 0.0 x10^3/uL (0.0-0.2) Prothrombin Time 24.6 SEC (11.7-14.0) Prothromb Time International Ratio 2.3 (0.8-1.1) Sodium Level 139 mmol/L (136-145) Potassium Level 3.3 mmol/L (3.5-5.1) Chloride Level 102 mmol/L (98-107) Carbon Dioxide Level 31 mmol/L (21-32) Anion Gap 6 (6-14) Blood Urea Nitrogen 13 mg/dL (8-26) Creatinine 0.9 mg/dL (0.7-1.3) Estimated GFR (Cockcroft-Gault) 86.7 Glucose Level 141 mg/dL (70-99) Calcium Level 8.1 mg/dL (8.5-10.1) Medications Current Medications Fentanyl Citrate (Fentanyl 2ml Vial) 75 mcg 1X ONCE IV Last administered on at 03:00; Start 10/22/17 at 02:45; Stop 10/22/17 at 02:46; Status DC Ondansetron HCl (Zofran) 4 mg 1X ONCE IV Last administered on 10/22/17at 02:58 ; Start 10/22/17 at 02:45; Stop 10/22/17 at 02:46; Status DC Fentanyl Citrate (Fentanyl 2ml Vial) 50 mcg 1X ONCE IV Last administered on at 03:48; Start 10/22/17 at 03:30; Stop 10/22/17 at 03:31; Status DC Ondansetron HCl (Zofran) 4 mg PRN Q8HRS PRN IV NAUSEA/VOMITING; Start 10/22/17 at 03:45; Stop 10/22/17 at 07:53; Status DC Fentanyl Citrate (Fentanyl 2ml Vial) 50 mcg PRN Q1HR PRN IV PAIN Last administered on 10/22/17at 09:17; Start 10/22/17 at 03:45; Stop 10/23/17 at 03:44 ; Status DC Sodium Chloride 1,000 ml @ 125 mls/hr Q8H IV Last administered on 10/22/17at 22 :48; Start 10/22/17 at 03:33; Stop 10/23/17 at 03:32; Status DC Ondansetron HCl (Zofran) 4 mg PRN Q6HRS PRN IV NAUSEA/VOMITING; Start 10/22/17 at 08:00; Stop 10/23/17 at 12:52; Status DC Acetaminophen (Tylenol) 500 mg PRN Q6HRS PRN PO MILD PAIN / TEMP Last administered on 10/22/17at 11:36; Start 10/22/17 at 08:00 Labetalol HCl (Normodyne) 10 mg PRN Q2HR PRN IVP HYPERTENSION, SEE COMMENTS; Start 10/22/17 at 08:00 Potassium Chloride (Klor-Con) 40 meq 1X ONCE PO Last administered on at 11:35; Start 10/22/17 at 08:00; Stop 10/22/17 at 08:19; Status DC Clonidine HCl (Catapres) 0.1 mg Q8HRS PO Last administered on 10/24/17at 14:09; Start 10/22/17 at 10:00; Stop 10/24/17 at 15:22; Status DC Ropivacaine 53.3 ml/Epinephrine HCl 0.6 mg/ Morphine Sulfate 5 mg/Sodium Chloride 100 ml @ 100 mls/hr 1X PERIOP INT ART Last administered on at 09:57; Start 10/22/17 at 10:00; Stop 10/25/17 at 13:43; Status DC Clonidine HCl (Catapres) 0.1 mg PRN Q1HR PRN PO HYPERTENSION, SEE COMMENTS Last administered on 10/26/17at 14:29; Start 10/22/17 at 11:00 Oxycodone/ Acetaminophen (Percocet 10/325) 1 tab PRN Q4HRS PRN PO SEVERE PAIN 1ST CHOICE Last administered on 10/27/17at 20:31; Start 10/22/17 at 11:00 Acetaminophen/ Hydrocodone Bitart (Lortab 10/325) 1 tab PRN Q4HRS PRN PO MODERATE PAIN Last administered on 10/23/17at 07:58; Start 10/22/17 at 11:00; Stop 10/23/17 at 13:45; Status DC Cyclobenzaprine HCl (Flexeril) 10 mg PRN TID PRN PO MUSCLE SPASMS Last administered on 10/24/17at 05:54; Start 10/22/17 at 11:00; Stop 10/24/17 at 09:55 ; Status DC Loperamide HCl (Imodium) 2 mg TID PRN PRN PO DIARRHEA Last administered on 10/23at 02:57; Start 10/22/17 at 11:00; Stop 10/24/17 at 10:10; Status DC Fentanyl Citrate (Fentanyl 2ml Vial) 25 mcg PRN Q5MIN PRN IV MILD PAIN; Start 10/23/17 at 07:00; Stop 10/23/17 at 18:00; Status DC Fentanyl Citrate (Fentanyl 2ml Vial) 50 mcg PRN Q5MIN PRN IV MODERATE TO SEVERE PAIN Last administered on 10/23/17at 14:15; Start 10/23/17 at 07:00; Stop 10/23/17 at 18:00; Status DC Ringer's Solution 1,000 ml @ 30 mls/hr Q24H IV ; Start 10/23/17 at 07:00; Stop 10/23/17 at 18:59; Status DC Lidocaine HCl (Xylocaine-Mpf 1% Vial) 2 ml PRN 1X PRN ID IV START; Start at 07:00; Stop 10/23/17 at 18:00; Status DC Prochlorperazine Edisylate (Compazine) 5 mg PACU PRN PRN IV NAUSEA, MRX1; Start 10/23/17 at 07:00; Stop 10/23/17 at 18:00; Status DC Trazodone HCl (Desyrel) 100 mg QHS PO Last administered on 10/27/17at 20:32; Start 10/23/17 at 21:00 Trazodone HCl (Desyrel) 100 mg 1X ONCE PO Last administered on 10/22/17at 22:44 ; Start 10/22/17 at 22:45; Stop 10/22/17 at 22:46; Status DC Cefazolin Sodium/ Dextrose 50 ml @ 100 mls/hr 1X PREOP IV Last administered on 10/23/17at 10:34; Start 10/23/17 at 09:00; Stop 10/25/17 at 13:30; Status DC Lidocaine HCl (Lidocaine Pf 2% Vial) 5 ml STK-MED ONCE .ROUTE ; Start 10/23/17 at 09:01; Stop 10/23/17 at 09:02; Status DC Propofol 20 ml @ As Directed STK-MED ONCE IV ; Start 10/23/17 at 09:01; Stop at 09:02; Status DC Midazolam HCl (Versed) 2 mg STK-MED ONCE .ROUTE ; Start 10/23/17 at 09:01; Stop 10/23/17 at 09:02; Status DC Fentanyl Citrate (Fentanyl 2ml Vial) 100 mcg STK-MED ONCE .ROUTE ; Start at 09:01; Stop 10/23/17 at 09:02; Status DC Rocuronium [place] (Zemuron) 50 mg STK-MED ONCE .ROUTE ; Start 10/23/17 at 09:04 ; Stop 10/23/17 at 09:05; Status DC Ephedrine Sulfate (ePHEDrine PF IN SALINE SYRINGE) 50 mg STK-MED ONCE IV ; Start 10/23/17 at 09:38; Stop 10/23/17 at 09:39; Status DC Phenylephrine HCl (PHENYLEPHRINE in 0.9% NACL PF) 1 mg STK-MED ONCE IV ; Start 10/23/17 at 10:04; Stop 10/23/17 at 10:06; Status DC Cefazolin Sodium (Ancef) 1 gm STK-MED ONCE .ROUTE ; Start 10/23/17 at 11:01; Stop 10/23/17 at 11:03; Status DC Ondansetron HCl (Zofran) 4 mg STK-MED ONCE .ROUTE ; Start 10/23/17 at 11:44; Stop 10/23/17 at 11:45; Status DC Fentanyl Citrate (Fentanyl 2ml Vial) 100 mcg STK-MED ONCE .ROUTE ; Start at 11:58; Stop 10/23/17 at 11:59; Status DC Sevoflurane (Ultane) 90 ml STK-MED ONCE IH ; Start 10/23/17 at 12:04; Stop 10/23 at 12:05; Status DC Oxycodone HCl (Roxicodone) 5 mg PRN Q3HRS PRN PO MODERATE PAIN 1ST CHOICE Last administered on 10/27/17at 09:52; Start 10/23/17 at 12:45 Morphine Sulfate (Morphine Sulfate) 2 mg PRN Q1HR PRN IV PAIN SEVERE 1ST CHOICE Last administered on 10/23/17at 20:52; Start 10/23/17 at 12:45 Fentanyl Citrate (Fentanyl 2ml Vial) 25 mcg PRN Q1HR PRN IV PAIN SEVERE 3RD CHOICE Last administered on 10/23/17at 15:31; Start 10/23/17 at 12:45 Senna/Docusate Sodium (Senna Plus) 1 tab DAILY PO Last administered on at 08:09; Start 10/24/17 at 09:00 Polyethylene Glycol (miraLAX PACKET) 17 gm PRN DAILY PRN PO CONSTIPATION, 1ST CHOICE; Start 10/23/17 at 12:45 Vitamin D (Vitamin D3) 5,000 unit DAILY PO Last administered on 10/23/17at 14:46 ; Start 10/23/17 at 13:00; Stop 10/24/17 at 08:39; Status DC Ondansetron HCl (Zofran) 4 mg PRN Q4HRS PRN IV NAUSEA/VOMITING; Start 10/23/17 at 12:45 Warfarin Sodium (Coumadin) 7.5 mg 1X ONCE PO ; Start 10/23/17 at 16:00; Stop at 16:01; Status DC Warfarin Sodium (Coumadin Per Pharmacy) 1 each PRN DAILY PRN MC SEE COMMENTS Last administered on 10/28/17at 11:35; Start 10/24/17 at 12:45 Magnesium Hydroxide (Milk Of Magnesia) 2,400 mg 1X PRN PRN PO CONSTIPATION; Start 10/24/17 at 06:00; Stop 10/25/17 at 05:59; Status DC Bisacodyl (Dulcolax Supp) 10 mg 1X PRN PRN [place] CONSTIPATION; Start 10/24/17 at 16:00; Stop 10/25/17 at 15:59; Status DC Acetaminophen/ Hydrocodone Bitart (Lortab 7.5/325) 1 tab PRN Q4HRS PRN PO MODERATE PAIN 2ND CHOICE; Start 10/23/17 at 12:45 Morphine Sulfate (Morphine Sulfate) 4 mg PRN Q2HR PRN IV PAIN SEVERE 2ND CHOICE Last administered on 10/24/17at 14:08; Start 10/23/17 at 12:45 Acetaminophen/ Hydrocodone Bitart (Lortab 7.5/325) 2 tab PRN Q4HRS PRN PO SEVERE PAIN 2ND CHOICE; Start 10/23/17 at 12:45 Dextrose (Dextrose 50%-Water Syringe) 12.5 gm PRN Q15MIN PRN IV SEE COMMENTS; Start 10/23/17 at 12:45 Cefazolin Sodium 1 gm/Dextrose 50 ml @ 100 mls/hr Q6H IV ; Start 10/23/17 at 12 :45; Stop 10/23/17 at 12:54; Status DC Cefazolin Sodium (Ancef) 1 gm Q8H IVP Last administered on 10/24/17at 09:10; Start 10/23/17 at 16:00; Stop 10/24/17 at 08:01; Status DC Fentanyl Citrate (Fentanyl 2ml Vial) 100 mcg STK-MED ONCE .ROUTE ; Start at 13:19; Stop 10/23/17 at 13:20; Status DC Fentanyl Citrate (Fentanyl 2ml Vial) 100 mcg STK-MED ONCE .ROUTE ; Start at 13:40; Stop 10/23/17 at 13:41; Status DC Ergocalciferol (Vitamin D2) 50,000 unit WEEKLY PO Last administered on at 09:08; Start 10/24/17 at 09:00 Cyanocobalamin (Vitamin B-12) 1,000 mcg DAILY PO ; Start 10/24/17 at 11:00; Stop 10/24/17 at 11:00; Status DC Cyclobenzaprine HCl (Flexeril) 10 mg TID PO ; Start 10/24/17 at 14:00; Stop at 14:00; Status DC Gabapentin (Neurontin) 100 mg Q8HRS PO Last administered on 10/28/17at 06:06; Start 10/24/17 at 14:00 Duloxetine HCl (Cymbalta) 60 mg DAILY PO Last administered on 10/28/17at 08:09; Start 10/24/17 at 11:00 Multivitamins (Thera M Plus) 1 tab DAILY PO Last administered on 10/28/17at 08: 09; Start 10/24/17 at 11:00 Cyclobenzaprine HCl (Flexeril) 10 mg TID PO Last administered on 10/28/17 08: 08; Start 10/24/17 at 14:00 Cyanocobalamin (Vitamin B-12) 1,000 mcg DAILY PO Last administered on at 08:08; Start 10/24/17 at 11:00 Lactulose (Lactulose) 20 gm PRN Q3HRS PRN PO CONSTIPATION, 2ND CHOICE; Start at 10:00 Senna/Docusate Sodium (Senna Plus) 1 tab DAILY PO ; Start 10/24/17 at 11:00; Stop 10/24/17 at 13:41; Status DC Calcium/Vitamin D (Oscal D 500mg/ 200uts) 1 tab BIDWMEALS PO Last administered on 10/28/17at 08:09; Start 10/24/17 at 17:00 Acetaminophen/ Hydrocodone Bitart (Lortab 10/325) 1 tab PRN Q4HRS PRN PO SEVERE PAIN, 3RD CHOICE Last administered on 10/28/17at 08:08; Start 10/24/17 at 10:15 Magnesium Oxide (Magnesium Oxide) 400 mg BID PO Last administered on 10/28/17at 08:08; Start 10/24/17 at 11:00 Methadone HCl (Dolophine) 10 mg BID PO ; Start 10/24/17 at 11:00 Ondansetron HCl (Zofran Odt) 8 mg PRN Q8HRS PRN PO NAUSEA/VOMITING; Start 10/24 at 10:30 Lidocaine (Lidoderm) 1 patch DAILY TD ; Start 10/24/17 at 10:00 Multi-Ingredient Mouthwash/Gargle (Magic Mouthwash) 30 ml PRN TID PRN PO MOUTH PAIN; Start 10/24/17 at 10:30 Loperamide HCl (Imodium) 2 mg PRN Q15MIN PRN PO DIARRHEA; Start 10/24/17 at 10: 00 Al Hydroxide/Mg Hydroxide (Mylanta Plus Xs) 30 ml PRN Q2HR PRN PO HEARTBURN / GAS; Start 10/24/17 at 10:00 Alprazolam (Xanax) 0.25 mg PRN Q8HRS PRN PO ANXIETY / AGITATION Last administered on 10/24/17at 11:41; Start 10/24/17 at 10:00 Warfarin Sodium (Coumadin) 5 mg 1X WARF ONCE PO Last administered on at 16:52; Start 10/24/17 at 16:00; Stop 10/24/17 at 16:01; Status DC Clonidine HCl (Catapres) 0.2 mg Q8HRS PO ; Start 10/24/17 at 22:00; Stop at 22:00; Status DC Alprazolam (Xanax) 0.5 mg BID PO Last administered on 10/28/17at 08:09; Start at 16:00 Clonidine HCl (Catapres) 0.2 mg Q8HRS PO Last administered on 10/27/17at 20:32; Start 10/24/17 at 20:35 Warfarin Sodium (Coumadin) 4 mg 1X WARF ONCE PO Last administered on at 16:54; Start 10/25/17 at 16:00; Stop 10/25/17 at 16:01; Status DC Warfarin Sodium (Coumadin - No Dose Today) 1 each 1X WARF ONCE MC Last administered on 10/26/17at 16:00; Start 10/26/17 at 16:00; Stop 10/26/17 at 16:01 ; Status DC Warfarin Sodium (Coumadin) 3 mg 1X WARF ONCE PO Last administered on at 15:08; Start 10/27/17 at 16:00; Stop 10/27/17 at 16:01; Status DC Warfarin Sodium (Coumadin) 3 mg 1X WARF ONCE PO ; Start 10/28/17 at 16:00; Stop 10/28/17 at 16:01 Active Scripts Active Reported Alum-Mag Hydroxide-Simeth Liq (Mag Hydrox/Al Hydrox/Simeth) 360 Ml Oral.susp 5 Ml PO PRN Vitamin B-12 (Cyanocobalamin (Vitamin B-12)) 1,000 Mcg Tablet 1,250 Mcg SL DAILY Vitamin B-12 (Cyanocobalamin (Vitamin B-12)) 1,000 Mcg Tablet 1,000 Mcg PO Trazodone Hcl 100 Mg Tablet 1 Tab PO QHS Stivarga (Regorafenib) 40 Mg Tablet 40 Mg PO DAILY Senna S Tablet (Sennosides/Docusate Sodium) 1 Each Tablet 1 Each PO Multivitamins (Multivitamin) 1 Each Tablet 1 Tab PO DAILY Zofran (Ondansetron Hcl) 8 Mg Tablet 1 Tab PO Q8HRS PRN Naloxone Hcl 0.4 Mg/1 Ml Vial 0.4 Mg IJ Methadone Hcl 10 Mg Tablet 1 Tab PO Q12HR Mag-Oxide (Magnesium Oxide) 400 Mg Tablet 250 Mg PO BID [lidoderm] 5 Q12HR Lactulose 20 Gm/30 Ml Solution 20 Gm PO PRN Q3HRS PRN Imodium A-D (Loperamide HCl) 2 Mg Capsule 2 Mg PO PRN [place] 10-325 Tablet (Acetaminophen/Hydrocodone Bitart) 1 Each Tablet 1-2 Tab PO Q4-6HRS PRN Gabapentin 100 Mg Capsule 100 Mg PO Q8HRS Cymbalta (Duloxetine Hcl) 60 Mg Capsule.dr 1 Cap PO DAILY [magic mouthwash] 30 Ml TID PRN Cyclobenzaprine Hcl 10 Mg Tablet 1 Tab PO TID Oyster Shell Calcium-Vit D Tab (Calcium Carbonate/Vitamin D2) 1 Each Tablet 1 Each PO BID Vitals/I & O Vital Sign - Last 24 Hours 10/27/17 10/27/17 10/27/17 10/27/17 14:00 15:00 19:00 20:08 Temp 98.1 99.0 98.1 99.0 Pulse 104 98 104 Resp 18 18 B/P (MAP) 110/72 113/65 (81) 114/52 (72) Pulse Ox 99 98 O2 Delivery Room Air Room Air Room Air O2 Flow Rate 3.0 10/27/17 10/27/17 10/27/17 10/27/17 20:31 20:32 21:31 23:00 Pulse 98 98 Resp 18 B/P (MAP) 113/65 96/54 (68) Pulse Ox 98 98 O2 Delivery Room Air Room Air Room Air 10/28/17 10/28/17 10/28/17 10/28/17 03:00 06:00 07:00 08:00 Temp 98.2 96.7 98.2 96.7 Pulse 81 81 98 Resp 18 16 B/P (MAP) 101/61 (74) 101/61 109/64 (79) Pulse Ox 98 98 O2 Delivery Room Air Room Air Room Air 10/28/17 10/28/17 10/28/17 08:08 09:08 11:00 Temp 98.8 98.8 Pulse 100 Resp 20 20 16 B/P (MAP) 110/63 (79) Pulse Ox 96 O2 Delivery Room Air Room Air Room Air Intake and Output 10/27/17 10/27/17 10/28/17 15:00 23:00 07:00 Output Total 1514 ml 500 ml Balance -1514 ml -500 ml MARY DELGADILLO III DO Oct 28, 2017 13:35
[2017-10-28 14:00] VITALS: BP 134/51
[2017-10-28] MEDS ORDERED: WARFARIN 3 MG TABLET. PO ONE (16:00)
[2017-10-28] MEDS: oxyCODONE/APAP 10/325 1 TAB TABLET PO PRN (17:23)
[2017-10-28] MEDS: cloNIDine HCL 0.1 MG TABLET PO PRN (17:24)
[2017-10-28 19:00] VITALS: BP 96/55
[2017-10-28] MEDS: traZODone 100 MG TABLET. PO SCH (21:25)
[2017-10-28 23:00] VITALS: BP 89/46
[2017-10-29] VITALS (7 sets, daily range): BP systolic 88–127; BP diastolic 56–67
[2017-10-29] MEDS: cloNIDine HCL 0.2 MG TABLET PO SCH ×3 (05:12→21:36)
[2017-10-29] MEDS: GABAPENTIN 100 MG CAPSULE. PO SCH ×3 (05:12→21:36)
[2017-10-29 05:23] LABS: BASO % 1 % (0-3); EOS # 0.2 x10^3/uL (0.0-0.7); EOS % 2 % (0-3); HEMOGLOBIN 7.8 g/dL (13.0-17.5); LYMPH # 1.2 x10^3/uL (1.0-4.8); LYMPH % 16 % (24-48); MEAN CORPUSCULAR HEMOGLOBIN 33 pg (25-35); MEAN CORPUSCULAR HGB CONC 36 g/dL (31-37); MEAN CORPUSCULAR VOLUME 94 fL (79-100); MONO # 1.1 x10^3/uL (0.0-1.1); MONO % 15 % (0-9); NEUT % 67 % (31-73); PLATELET COUNT 165 x10^3/uL (140-400); RED BLOOD COUNT 2.34 x10^6/uL (4.30-5.70); RED CELL DISTRIBUTION WIDTH 16.7 % (11.5-14.5); WHITE BLOOD COUNT 7.5 x10^3/uL (4.0-11.0)
[2017-10-29 05:32] LABS: PROTHROMBIN TIME PATIENT 26.6 SEC (11.7-14.0)
[2017-10-29 06:01] LABS: CALCIUM 8.4 mg/dL (8.5-10.1); CREATININE 0.9 mg/dL (0.7-1.3); GFR 86.7; POTASSIUM 3.6 mmol/L (3.5-5.1)
[2017-10-29] MEDS: SENNOSIDES/DOCUSATE 8.6/50MG TABLET. PO SCH (08:32)
[2017-10-29] MEDS: CYCLOBENZAPRINE 10 MG TABLET. PO SCH ×3 (08:32→20:21)
[2017-10-29] MEDS: ALPRAZolam 0.5 MG TABLET PO SCH ×2 (08:32→20:27)
[2017-10-29] MEDS: MAGNESIUM OXIDE 400 MG TABLET PO SCH ×2 (08:32→20:21)
[2017-10-29] MEDS: CALCIUM CARB/VIT D3 500/200 TABLET. PO SCH ×2 (08:33→17:03)
[2017-10-29] MEDS: oxyCODONE/APAP 10/325 1 TAB TABLET PO PRN ×3 (08:33→21:37)
[2017-10-29] MEDS: DULoxetine HCL 30 MG CAPSULE.DR PO SCH (08:33)
[2017-10-29] MEDS: CYANOCOBALAMIN (VITAMIN B-12) 1,000 MCG TABLET. PO SCH (08:33)
[2017-10-29] MEDS: MULTIVITAMIN with MINERAL TABLET. PO SCH (08:34)
--- NOTE | 2017-10-29 08:52 | PDOC ---
PROGRESS NOTES Subjective Subjective HPI - f/u of Stage 4 colon cancer ROS - pain stable Objective Objective Vital Signs Date Time Temp Pulse Resp B/P (MAP) Pulse Ox O2 Delivery O2 Flow Rate FiO2 10/29/17 08:33 96 Room Air 10/29/17 08:27 88/62 (71) 10/29/17 05:12 83 10/29/17 03:00 98.5 18 98.5 10/27/17 20:08 3.0 Intake and Output 10/29/17 07:01 Intake Total 600 ml Output Total 1000 ml Balance -400 ml Intake Oral 600 ml Output Urine Total 1000 ml Physical Exam Heart: Normal S1, Normal S2 General: Alert, Oriented X3, No acute distress Lungs: Clear to auscultation Neuro: Normal speech Psych/Mental Status: Mental status NL Assessment Assessment Problems Medical Problems: (1) Comminuted fracture of right patella Status: Acute (2) Intertrochanteric fracture of right hip Status: Acute IMPRESSION AND PLAN: 1. Stage 4 colon cancer with progressively worsening lung metastases. He was recently started on a new medication called regorafenib on 10/15/2017 at 80 mg daily. He took it until 10/22/2017 and then he stopped because of a fall acquiring fracture as described above. I have advised him to continue to hold this medication until he recovers from the recent surgery. I have advised him to follow up with Dr. Cortney Harris who is his primary oncologist upon discharge. I have notified Dr Harris. CEA better at 7.5 on 10/25/17. 2. Anemia due to malignancy. Continue to monitor hemoglobin, currently worse due to recent surgery. Hb worse at 7.8 today. Monitor CBC. 3. Right hip and right patellar fracture, status post surgery on 10/23/2017. Continue management per Orthopedics. Comment Review of Relevant I have reviewed the following items francisco (where applicable) has been applied. Labs Laboratory Tests Test 10/28/17 06:30 10/29/17 04:40 White Blood Count 6.7 x10^3/uL (4.0-11.0) 7.5 x10^3/uL (4.0-11.0) Red Blood Count 2.45 x10^6/uL (4.30-5.70) 2.34 x10^6/uL (4.30-5.70) Hemoglobin 7.9 g/dL (13.0-17.5) 7.8 g/dL (13.0-17.5) Hematocrit 23.1 % (39.0-53.0) 22.0 % (39.0-53.0) Mean Corpuscular Volume 94 fL (79-100) 94 fL (79-100) Mean Corpuscular Hemoglobin 32 pg (25-35) 33 pg (25-35) Mean Corpuscular Hemoglobin Concent 35 g/dL (31-37) 36 g/dL (31-37) Red Cell Distribution Width 17.4 % (11.5-14.5) 16.7 % (11.5-14.5) Platelet Count 169 x10^3/uL (140-400) 165 x10^3/uL (140-400) Neutrophils (%) (Auto) 66 % (31-73) 67 % (31-73) Lymphocytes (%) (Auto) 17 % (24-48) 16 % (24-48) Monocytes (%) (Auto) 15 % (0-9) 15 % (0-9) Eosinophils (%) (Auto) 2 % (0-3) 2 % (0-3) Basophils (%) (Auto) 1 % (0-3) 1 % (0-3) Neutrophils # (Auto) 4.4 x10^3uL (1.8-7.7) 5.0 x10^3uL (1.8-7.7) Lymphocytes # (Auto) 1.1 x10^3/uL (1.0-4.8) 1.2 x10^3/uL (1.0-4.8) Monocytes # (Auto) 1.0 x10^3/uL (0.0-1.1) 1.1 x10^3/uL (0.0-1.1) Eosinophils # (Auto) 0.1 x10^3/uL (0.0-0.7) 0.2 x10^3/uL (0.0-0.7) Basophils # (Auto) 0.0 x10^3/uL (0.0-0.2) 0.0 x10^3/uL (0.0-0.2) Prothrombin Time 24.6 SEC (11.7-14.0) 26.6 SEC (11.7-14.0) Prothromb Time International Ratio 2.3 (0.8-1.1) 2.5 (0.8-1.1) Sodium Level 139 mmol/L (136-145) 141 mmol/L (136-145) Potassium Level 3.3 mmol/L (3.5-5.1) 3.6 mmol/L (3.5-5.1) Chloride Level 102 mmol/L (98-107) 104 mmol/L (98-107) Carbon Dioxide Level 31 mmol/L (21-32) 32 mmol/L (21-32) Anion Gap 6 (6-14) 5 (6-14) Blood Urea Nitrogen 13 mg/dL (8-26) 12 mg/dL (8-26) Creatinine 0.9 mg/dL (0.7-1.3) 0.9 mg/dL (0.7-1.3) Estimated GFR (Cockcroft-Gault) 86.7 86.7 Glucose Level 141 mg/dL (70-99) 131 mg/dL (70-99) Calcium Level 8.1 mg/dL (8.5-10.1) 8.4 mg/dL (8.5-10.1) Laboratory Tests Test 10/29/17 04:40 White Blood Count 7.5 x10^3/uL (4.0-11.0) Red Blood Count 2.34 x10^6/uL (4.30-5.70) Hemoglobin 7.8 g/dL (13.0-17.5) Hematocrit 22.0 % (39.0-53.0) Mean Corpuscular Volume 94 fL (79-100) Mean Corpuscular Hemoglobin 33 pg (25-35) Mean Corpuscular Hemoglobin Concent 36 g/dL (31-37) Red Cell Distribution Width 16.7 % (11.5-14.5) Platelet Count 165 x10^3/uL (140-400) Neutrophils (%) (Auto) 67 % (31-73) Lymphocytes (%) (Auto) 16 % (24-48) Monocytes (%) (Auto) 15 % (0-9) Eosinophils (%) (Auto) 2 % (0-3) Basophils (%) (Auto) 1 % (0-3) Neutrophils # (Auto) 5.0 x10^3uL (1.8-7.7) Lymphocytes # (Auto) 1.2 x10^3/uL (1.0-4.8) Monocytes # (Auto) 1.1 x10^3/uL (0.0-1.1) Eosinophils # (Auto) 0.2 x10^3/uL (0.0-0.7) Basophils # (Auto) 0.0 x10^3/uL (0.0-0.2) Prothrombin Time 26.6 SEC (11.7-14.0) Prothromb Time International Ratio 2.5 (0.8-1.1) Sodium Level 141 mmol/L (136-145) Potassium Level 3.6 mmol/L (3.5-5.1) Chloride Level 104 mmol/L (98-107) Carbon Dioxide Level 32 mmol/L (21-32) Anion Gap 5 (6-14) Blood Urea Nitrogen 12 mg/dL (8-26) Creatinine 0.9 mg/dL (0.7-1.3) Estimated GFR (Cockcroft-Gault) 86.7 Glucose Level 131 mg/dL (70-99) Calcium Level 8.4 mg/dL (8.5-10.1) Medications Current Medications Fentanyl Citrate (Fentanyl 2ml Vial) 75 mcg 1X ONCE IV Last administered on at 03:00; Start 10/22/17 at 02:45; Stop 10/22/17 at 02:46; Status DC Ondansetron HCl (Zofran) 4 mg 1X ONCE IV Last administered on 10/22/17at 02:58 ; Start 10/22/17 at 02:45; Stop 10/22/17 at 02:46; Status DC Fentanyl Citrate (Fentanyl 2ml Vial) 50 mcg 1X ONCE IV Last administered on at 03:48; Start 10/22/17 at 03:30; Stop 10/22/17 at 03:31; Status DC Ondansetron HCl (Zofran) 4 mg PRN Q8HRS PRN IV NAUSEA/VOMITING; Start 10/22/17 at 03:45; Stop 10/22/17 at 07:53; Status DC Fentanyl Citrate (Fentanyl 2ml Vial) 50 mcg PRN Q1HR PRN IV PAIN Last administered on 10/22/17 09:17; Start 10/22/17 at 03:45; Stop 10/23/17 at 03:44 ; Status DC Sodium Chloride 1,000 ml @ 125 mls/hr Q8H IV Last administered on 10/22/17at 22 :48; Start 10/22/17 at 03:33; Stop 10/23/17 at 03:32; Status DC Ondansetron HCl (Zofran) 4 mg PRN Q6HRS PRN IV NAUSEA/VOMITING; Start 10/22/17 at 08:00; Stop 10/23/17 at 12:52; Status DC Acetaminophen (Tylenol) 500 mg PRN Q6HRS PRN PO MILD PAIN / TEMP Last administered on 10/22/17at 11:36; Start 10/22/17 at 08:00 Labetalol HCl (Normodyne) 10 mg PRN Q2HR PRN IVP HYPERTENSION, SEE COMMENTS; Start 10/22/17 at 08:00 Potassium Chloride (Klor-Con) 40 meq 1X ONCE PO Last administered on at 11:35; Start 10/22/17 at 08:00; Stop 10/22/17 at 08:19; Status DC Clonidine HCl (Catapres) 0.1 mg Q8HRS PO Last administered on 10/24/17at 14:09; Start 10/22/17 at 10:00; Stop 10/24/17 at 15:22; Status DC Ropivacaine 53.3 ml/Epinephrine HCl 0.6 mg/ Morphine Sulfate 5 mg/Sodium Chloride 100 ml @ 100 mls/hr 1X PERIOP INT ART Last administered on at 09:57; Start 10/22/17 at 10:00; Stop 10/25/17 at 13:43; Status DC Clonidine HCl (Catapres) 0.1 mg PRN Q1HR PRN PO HYPERTENSION, SEE COMMENTS Last administered on 10/26/17at 14:29; Start 10/22/17 at 11:00 Oxycodone/ Acetaminophen (Percocet 10/325) 1 tab PRN Q4HRS PRN PO SEVERE PAIN 1ST CHOICE Last administered on 10/29/17at 08:33; Start 10/22/17 at 11:00 Acetaminophen/ Hydrocodone Bitart (Lortab 10/325) 1 tab PRN Q4HRS PRN PO MODERATE PAIN Last administered on 10/23/17at 07:58; Start 10/22/17 at 11:00; Stop 10/23/17 at 13:45; Status DC Cyclobenzaprine HCl (Flexeril) 10 mg PRN TID PRN PO MUSCLE SPASMS Last administered on 10/24/17at 05:54; Start 10/22/17 at 11:00; Stop 10/24/17 at 09:55 ; Status DC Loperamide HCl (Imodium) 2 mg TID PRN PRN PO DIARRHEA Last administered on 10/23at 02:57; Start 10/22/17 at 11:00; Stop 10/24/17 at 10:10; Status DC Fentanyl Citrate (Fentanyl 2ml Vial) 25 mcg PRN Q5MIN PRN IV MILD PAIN; Start 10/23/17 at 07:00; Stop 10/23/17 at 18:00; Status DC Fentanyl Citrate (Fentanyl 2ml Vial) 50 mcg PRN Q5MIN PRN IV MODERATE TO SEVERE PAIN Last administered on 10/23/17at 14:15; Start 10/23/17 at 07:00; Stop 10/23/17 at 18:00; Status DC Ringer's Solution 1,000 ml @ 30 mls/hr Q24H IV ; Start 10/23/17 at 07:00; Stop 10/23/17 at 18:59; Status DC Lidocaine HCl (Xylocaine-Mpf 1% Vial) 2 ml PRN 1X PRN ID IV START; Start at 07:00; Stop 10/23/17 at 18:00; Status DC Prochlorperazine Edisylate (Compazine) 5 mg PACU PRN PRN IV NAUSEA, MRX1; Start 10/23/17 at 07:00; Stop 10/23/17 at 18:00; Status DC Trazodone HCl (Desyrel) 100 mg QHS PO Last administered on 10/28/17at 21:25; Start 10/23/17 at 21:00 Trazodone HCl (Desyrel) 100 mg 1X ONCE PO Last administered on 10/22/17at 22:44 ; Start 10/22/17 at 22:45; Stop 10/22/17 at 22:46; Status DC Cefazolin Sodium/ Dextrose 50 ml @ 100 mls/hr 1X PREOP IV Last administered on 10/23/17at 10:34; Start 10/23/17 at 09:00; Stop 10/25/17 at 13:30; Status DC Lidocaine HCl (Lidocaine Pf 2% Vial) 5 ml STK-MED ONCE .ROUTE ; Start 10/23/17 at 09:01; Stop 10/23/17 at 09:02; Status DC Propofol 20 ml @ As Directed STK-MED ONCE IV ; Start 10/23/17 at 09:01; Stop at 09:02; Status DC Midazolam HCl (Versed) 2 mg STK-MED ONCE .ROUTE ; Start 10/23/17 at 09:01; Stop 10/23/17 at 09:02; Status DC Fentanyl Citrate (Fentanyl 2ml Vial) 100 mcg STK-MED ONCE .ROUTE ; Start at 09:01; Stop 10/23/17 at 09:02; Status DC Rocuronium Kim (Zemuron) 50 mg STK-MED ONCE .ROUTE ; Start 10/23/17 at 09:04 ; Stop 10/23/17 at 09:05; Status DC Ephedrine Sulfate (ePHEDrine PF IN SALINE SYRINGE) 50 mg STK-MED ONCE IV ; Start 10/23/17 at 09:38; Stop 10/23/17 at 09:39; Status DC Phenylephrine HCl (PHENYLEPHRINE in 0.9% NACL PF) 1 mg STK-MED ONCE IV ; Start 10/23/17 at 10:04; Stop 10/23/17 at 10:06; Status DC Cefazolin Sodium (Ancef) 1 gm STK-MED ONCE .ROUTE ; Start 10/23/17 at 11:01; Stop 10/23/17 at 11:03; Status DC Ondansetron HCl (Zofran) 4 mg STK-MED ONCE .ROUTE ; Start 10/23/17 at 11:44; Stop 10/23/17 at 11:45; Status DC Fentanyl Citrate (Fentanyl 2ml Vial) 100 mcg STK-MED ONCE .ROUTE ; Start at 11:58; Stop 10/23/17 at 11:59; Status DC Sevoflurane (Ultane) 90 ml STK-MED ONCE IH ; Start 10/23/17 at 12:04; Stop 10/23 at 12:05; Status DC Oxycodone HCl (Roxicodone) 5 mg PRN Q3HRS PRN PO MODERATE PAIN 1ST CHOICE Last administered on 10/27/17at 09:52; Start 10/23/17 at 12:45 Morphine Sulfate (Morphine Sulfate) 2 mg PRN Q1HR PRN IV PAIN SEVERE 1ST CHOICE Last administered on 10/23/17at 20:52; Start 10/23/17 at 12:45 Fentanyl Citrate (Fentanyl 2ml Vial) 25 mcg PRN Q1HR PRN IV PAIN SEVERE 3RD CHOICE Last administered on 10/23/17at 15:31; Start 10/23/17 at 12:45 Senna/Docusate Sodium (Senna Plus) 1 tab DAILY PO Last administered on at 08:32; Start 10/24/17 at 09:00 Polyethylene Glycol (miraLAX PACKET) 17 gm PRN DAILY PRN PO CONSTIPATION, 1ST CHOICE Last administered on 10/29/17at 08:32; Start 10/23/17 at 12:45 Vitamin D (Vitamin D3) 5,000 unit DAILY PO Last administered on 10/23/17at 14:46 ; Start 10/23/17 at 13:00; Stop 10/24/17 at 08:39; Status DC Ondansetron HCl (Zofran) 4 mg PRN Q4HRS PRN IV NAUSEA/VOMITING; Start 10/23/17 at 12:45 Warfarin Sodium (Coumadin) 7.5 mg 1X ONCE PO ; Start 10/23/17 at 16:00; Stop at 16:01; Status DC Warfarin Sodium (Coumadin Per Pharmacy) 1 each PRN DAILY PRN MC SEE COMMENTS Last administered on 10/28/17at 11:35; Start 10/24/17 at 12:45 Magnesium Hydroxide (Milk Of Magnesia) 2,400 mg 1X PRN PRN PO CONSTIPATION; Start 10/24/17 at 06:00; Stop 10/25/17 at 05:59; Status DC Bisacodyl (Dulcolax Supp) 10 mg 1X PRN PRN MI CONSTIPATION; Start 10/24/17 at 16:00; Stop 10/25/17 at 15:59; Status DC Acetaminophen/ Hydrocodone Bitart (Lortab 7.5/325) 1 tab PRN Q4HRS PRN PO MODERATE PAIN 2ND CHOICE; Start 10/23/17 at 12:45 Morphine Sulfate (Morphine Sulfate) 4 mg PRN Q2HR PRN IV PAIN SEVERE 2ND CHOICE Last administered on 10/24/17at 14:08; Start 10/23/17 at 12:45 Acetaminophen/ Hydrocodone Bitart (Lortab 7.5/325) 2 tab PRN Q4HRS PRN PO SEVERE PAIN 2ND CHOICE; Start 10/23/17 at 12:45 Dextrose (Dextrose 50%-Water Syringe) 12.5 gm PRN Q15MIN PRN IV SEE COMMENTS; Start 10/23/17 at 12:45 Cefazolin Sodium 1 gm/Dextrose 50 ml @ 100 mls/hr Q6H IV ; Start 10/23/17 at 12 :45; Stop 10/23/17 at 12:54; Status DC Cefazolin Sodium (Ancef) 1 gm Q8H IVP Last administered on 10/24/17at 09:10; Start 10/23/17 at 16:00; Stop 10/24/17 at 08:01; Status DC Fentanyl Citrate (Fentanyl 2ml Vial) 100 mcg STK-MED ONCE .ROUTE ; Start at 13:19; Stop 10/23/17 at 13:20; Status DC Fentanyl Citrate (Fentanyl 2ml Vial) 100 mcg STK-MED ONCE .ROUTE ; Start at 13:40; Stop 10/23/17 at 13:41; Status DC Ergocalciferol (Vitamin D2) 50,000 unit WEEKLY PO Last administered on at 09:08; Start 10/24/17 at 09:00 Cyanocobalamin (Vitamin B-12) 1,000 mcg DAILY PO ; Start 10/24/17 at 11:00; Stop 10/24/17 at 11:00; Status DC Cyclobenzaprine HCl (Flexeril) 10 mg TID PO ; Start 10/24/17 at 14:00; Stop at 14:00; Status DC Gabapentin (Neurontin) 100 mg Q8HRS PO Last administered on 10/29/17at 05:12; Start 10/24/17 at 14:00 Duloxetine HCl (Cymbalta) 60 mg DAILY PO Last administered on 10/29/17 08:33; Start 10/24/17 at 11:00 Multivitamins (Thera M Plus) 1 tab DAILY PO Last administered on 10/29/17 08: 34; Start 10/24/17 at 11:00 Cyclobenzaprine HCl (Flexeril) 10 mg TID PO Last administered on 10/29/17 08: 32; Start 10/24/17 at 14:00 Cyanocobalamin (Vitamin B-12) 1,000 mcg DAILY PO Last administered on 08:33; Start 10/24/17 at 11:00 Lactulose (Lactulose) 20 gm PRN Q3HRS PRN PO CONSTIPATION, 2ND CHOICE; Start at 10:00 Senna/Docusate Sodium (Senna Plus) 1 tab DAILY PO ; Start 10/24/17 at 11:00; Stop 10/24/17 at 13:41; Status DC Calcium/Vitamin D (Oscal D 500mg/ 200uts) 1 tab BIDWMEALS PO Last administered on 10/29/17 08:33; Start 10/24/17 at 17:00 Acetaminophen/ Hydrocodone Bitart (Lortab 10/325) 1 tab PRN Q4HRS PRN PO SEVERE PAIN, 3RD CHOICE Last administered on 10/28/17 08:08; Start 10/24/17 at 10:15 Magnesium Oxide (Magnesium Oxide) 400 mg BID PO Last administered on 10/29/17at 08:32; Start 10/24/17 at 11:00 Methadone HCl (Dolophine) 10 mg BID PO ; Start 10/24/17 at 11:00; Stop 10/28/17 at 13:37; Status DC Ondansetron HCl (Zofran Odt) 8 mg PRN Q8HRS PRN PO NAUSEA/VOMITING; Start 10/24 at 10:30 Lidocaine (Lidoderm) 1 patch DAILY TD ; Start 10/24/17 at 10:00; Stop 10/28/17 at 13:37; Status DC Multi-Ingredient Mouthwash/Gargle (Magic Mouthwash) 30 ml PRN TID PRN PO MOUTH PAIN; Start 10/24/17 at 10:30 Loperamide HCl (Imodium) 2 mg PRN Q15MIN PRN PO DIARRHEA; Start 10/24/17 at 10: 00 Al Hydroxide/Mg Hydroxide (Mylanta Plus Xs) 30 ml PRN Q2HR PRN PO HEARTBURN / GAS; Start 10/24/17 at 10:00 Alprazolam (Xanax) 0.25 mg PRN Q8HRS PRN PO ANXIETY / AGITATION Last administered on 10/24/17at 11:41; Start 10/24/17 at 10:00 Warfarin Sodium (Coumadin) 5 mg 1X WARF ONCE PO Last administered on at 16:52; Start 10/24/17 at 16:00; Stop 10/24/17 at 16:01; Status DC Clonidine HCl (Catapres) 0.2 mg Q8HRS PO ; Start 10/24/17 at 22:00; Stop at 22:00; Status DC Alprazolam (Xanax) 0.5 mg BID PO Last administered on 10/29/17at 08:32; Start at 16:00 Clonidine HCl (Catapres) 0.2 mg Q8HRS PO Last administered on 10/28/17at 17:29; Start 10/24/17 at 20:35 Warfarin Sodium (Coumadin) 4 mg 1X WARF ONCE PO Last administered on at 16:54; Start 10/25/17 at 16:00; Stop 10/25/17 at 16:01; Status DC Warfarin Sodium (Coumadin - No Dose Today) 1 each 1X WARF ONCE MC Last administered on 10/26/17 16:00; Start 10/26/17 at 16:00; Stop 10/26/17 at 16:01 ; Status DC Warfarin Sodium (Coumadin) 3 mg 1X WARF ONCE PO Last administered on at 15:08; Start 10/27/17 at 16:00; Stop 10/27/17 at 16:01; Status DC Warfarin Sodium (Coumadin) 3 mg 1X WARF ONCE PO Last administered on at 17:23; Start 10/28/17 at 16:00; Stop 10/28/17 at 16:01; Status DC Active Scripts Active Reported Alum-Mag Hydroxide-Simeth Liq (Mag Hydrox/Al Hydrox/Simeth) 360 Ml Oral.susp 5 Ml PO PRN Vitamin B-12 (Cyanocobalamin (Vitamin B-12)) 1,000 Mcg Tablet 1,250 Mcg SL DAILY Vitamin B-12 (Cyanocobalamin (Vitamin B-12)) 1,000 Mcg Tablet 1,000 Mcg PO Trazodone Hcl 100 Mg Tablet 1 Tab PO QHS Stivarga (Regorafenib) 40 Mg Tablet 40 Mg PO DAILY Senna S Tablet (Sennosides/Docusate Sodium) 1 Each Tablet 1 Each PO Multivitamins (Multivitamin) 1 Each Tablet 1 Tab PO DAILY Zofran (Ondansetron Hcl) 8 Mg Tablet 1 Tab PO Q8HRS PRN Naloxone Hcl 0.4 Mg/1 Ml Vial 0.4 Mg IJ Methadone Hcl 10 Mg Tablet 1 Tab PO Q12HR Mag-Oxide (Magnesium Oxide) 400 Mg Tablet 250 Mg PO BID [lidoderm] 5 Q12HR Lactulose 20 Gm/30 Ml Solution 20 Gm PO PRN Q3HRS PRN Imodium A-D (Loperamide HCl) 2 Mg Capsule 2 Mg PO PRN Sabin 10-325 Tablet (Acetaminophen/Hydrocodone Bitart) 1 Each Tablet 1-2 Tab PO Q4-6HRS PRN Gabapentin 100 Mg Capsule 100 Mg PO Q8HRS Cymbalta (Duloxetine Hcl) 60 Mg Capsule.dr 1 Cap PO DAILY [magic mouthwash] 30 Ml TID PRN Cyclobenzaprine Hcl 10 Mg Tablet 1 Tab PO TID Oyster Shell Calcium-Vit D Tab (Calcium Carbonate/Vitamin D2) 1 Each Tablet 1 Each PO BID Vitals/I & O Vital Sign - Last 24 Hours 10/28/17 10/28/17 10/28/17 10/28/17 09:08 11:00 14:00 17:23 Temp 98.8 97.5 98.8 97.5 Pulse 100 113 Resp 20 16 18 20 B/P (MAP) 110/63 (79) 134/51 (78) Pulse Ox 96 100 O2 Delivery Room Air Room Air Room Air Room Air 10/28/17 10/28/17 10/28/17 10/28/17 17:29 18:23 19:00 20:00 Temp 98.6 98.6 Pulse 113 85 Resp 20 18 B/P (MAP) 134/51 96/55 (69) Pulse Ox 95 O2 Delivery Room Air Room Air Room Air 8/1910/28/17 10/29/17 10/29/17 21:25 23:00 03:00 05:12 Temp 97.7 98.5 97.7 98.5 Pulse 85 80 83 83 Resp 18 18 B/P (MAP) 96/55 89/46 (60) 97/56 (70) 97/56 Pulse Ox 98 96 O2 Delivery Room Air Room Air 10/29/17 10/29/17 08:27 08:33 B/P (MAP) 88/62 (71) Pulse Ox 96 O2 Delivery Room Air Intake and Output 10/28/17 10/28/17 10/29/17 15:01 23:01 07:01 Intake Total 400 ml 200 ml Output Total 1000 ml Balance -600 ml 200 ml HAYLEY LESTER MD Oct 29, 2017 08:52
--- NOTE | 2017-10-29 11:19 | PDOC ---
PROGRESS NOTES Chief Complaint Chief Complaint RT Patellar fracture, traumatic, closed s/p sx 10/23 - Right hip fracture s/p sx 10/23 Mechanical fall at home, Colon CA with mets to lungs on daily chemo Anemia of malignancy History of Present Illness History of Present Illness Pt seen and examined He was in good spirits and looked good He was sitting in his chair with leg elevated and wearing braces Discussed treatment plan with patient and children at bedside Pt asked to have some of his pain meds D/C'd until he could meet with is pain management DrKvng after discharge Vitals Vitals Vital Signs Date Time Temp Pulse Resp B/P (MAP) Pulse Ox O2 Delivery O2 Flow Rate FiO2 10/29/17 08:33 96 Room Air 10/29/17 08:27 88/62 (71) 10/29/17 07:00 98.4 92 16 98.4 Physical Exam General: Alert, Oriented X3, No acute distress Heart: Normal S1, Normal S2 Lungs: Clear Abdomen: Soft Extremities: No clubbing, No cyanosis, Normal pulses Skin: No rashes, No breakdown, No significant lesion Labs LABS Laboratory Tests Test 10/29/17 04:40 White Blood Count 7.5 x10^3/uL (4.0-11.0) Red Blood Count 2.34 x10^6/uL (4.30-5.70) Hemoglobin 7.8 g/dL (13.0-17.5) Hematocrit 22.0 % (39.0-53.0) Mean Corpuscular Volume 94 fL (79-100) Mean Corpuscular Hemoglobin 33 pg (25-35) Mean Corpuscular Hemoglobin Concent 36 g/dL (31-37) Red Cell Distribution Width 16.7 % (11.5-14.5) Platelet Count 165 x10^3/uL (140-400) Neutrophils (%) (Auto) 67 % (31-73) Lymphocytes (%) (Auto) 16 % (24-48) Monocytes (%) (Auto) 15 % (0-9) Eosinophils (%) (Auto) 2 % (0-3) Basophils (%) (Auto) 1 % (0-3) Neutrophils # (Auto) 5.0 x10^3uL (1.8-7.7) Lymphocytes # (Auto) 1.2 x10^3/uL (1.0-4.8) Monocytes # (Auto) 1.1 x10^3/uL (0.0-1.1) Eosinophils # (Auto) 0.2 x10^3/uL (0.0-0.7) Basophils # (Auto) 0.0 x10^3/uL (0.0-0.2) Prothrombin Time 26.6 SEC (11.7-14.0) Prothromb Time International Ratio 2.5 (0.8-1.1) Sodium Level 141 mmol/L (136-145) Potassium Level 3.6 mmol/L (3.5-5.1) Chloride Level 104 mmol/L (98-107) Carbon Dioxide Level 32 mmol/L (21-32) Anion Gap 5 (6-14) Blood Urea Nitrogen 12 mg/dL (8-26) Creatinine 0.9 mg/dL (0.7-1.3) Estimated GFR (Cockcroft-Gault) 86.7 Glucose Level 131 mg/dL (70-99) Calcium Level 8.4 mg/dL (8.5-10.1) Assessment and Plan Assessmemt and Plan Problems Medical Problems: (1) Comminuted fracture of right patella Status: Acute (2) Intertrochanteric fracture of right hip Status: Acute Comment Review of Relevant I have reviewed the following items francisco (where applicable) has been applied. Labs Laboratory Tests Test 10/28/17 06:30 10/29/17 04:40 White Blood Count 6.7 x10^3/uL (4.0-11.0) 7.5 x10^3/uL (4.0-11.0) Red Blood Count 2.45 x10^6/uL (4.30-5.70) 2.34 x10^6/uL (4.30-5.70) Hemoglobin 7.9 g/dL (13.0-17.5) 7.8 g/dL (13.0-17.5) Hematocrit 23.1 % (39.0-53.0) 22.0 % (39.0-53.0) Mean Corpuscular Volume 94 fL (79-100) 94 fL (79-100) Mean Corpuscular Hemoglobin 32 pg (25-35) 33 pg (25-35) Mean Corpuscular Hemoglobin Concent 35 g/dL (31-37) 36 g/dL (31-37) Red Cell Distribution Width 17.4 % (11.5-14.5) 16.7 % (11.5-14.5) Platelet Count 169 x10^3/uL (140-400) 165 x10^3/uL (140-400) Neutrophils (%) (Auto) 66 % (31-73) 67 % (31-73) Lymphocytes (%) (Auto) 17 % (24-48) 16 % (24-48) Monocytes (%) (Auto) 15 % (0-9) 15 % (0-9) Eosinophils (%) (Auto) 2 % (0-3) 2 % (0-3) Basophils (%) (Auto) 1 % (0-3) 1 % (0-3) Neutrophils # (Auto) 4.4 x10^3uL (1.8-7.7) 5.0 x10^3uL (1.8-7.7) Lymphocytes # (Auto) 1.1 x10^3/uL (1.0-4.8) 1.2 x10^3/uL (1.0-4.8) Monocytes # (Auto) 1.0 x10^3/uL (0.0-1.1) 1.1 x10^3/uL (0.0-1.1) Eosinophils # (Auto) 0.1 x10^3/uL (0.0-0.7) 0.2 x10^3/uL (0.0-0.7) Basophils # (Auto) 0.0 x10^3/uL (0.0-0.2) 0.0 x10^3/uL (0.0-0.2) Prothrombin Time 24.6 SEC (11.7-14.0) 26.6 SEC (11.7-14.0) Prothromb Time International Ratio 2.3 (0.8-1.1) 2.5 (0.8-1.1) Sodium Level 139 mmol/L (136-145) 141 mmol/L (136-145) Potassium Level 3.3 mmol/L (3.5-5.1) 3.6 mmol/L (3.5-5.1) Chloride Level 102 mmol/L (98-107) 104 mmol/L (98-107) Carbon Dioxide Level 31 mmol/L (21-32) 32 mmol/L (21-32) Anion Gap 6 (6-14) 5 (6-14) Blood Urea Nitrogen 13 mg/dL (8-26) 12 mg/dL (8-26) Creatinine 0.9 mg/dL (0.7-1.3) 0.9 mg/dL (0.7-1.3) Estimated GFR (Cockcroft-Gault) 86.7 86.7 Glucose Level 141 mg/dL (70-99) 131 mg/dL (70-99) Calcium Level 8.1 mg/dL (8.5-10.1) 8.4 mg/dL (8.5-10.1) Laboratory Tests Test 10/29/17 04:40 White Blood Count 7.5 x10^3/uL (4.0-11.0) Red Blood Count 2.34 x10^6/uL (4.30-5.70) Hemoglobin 7.8 g/dL (13.0-17.5) Hematocrit 22.0 % (39.0-53.0) Mean Corpuscular Volume 94 fL (79-100) Mean Corpuscular Hemoglobin 33 pg (25-35) Mean Corpuscular Hemoglobin Concent 36 g/dL (31-37) Red Cell Distribution Width 16.7 % (11.5-14.5) Platelet Count 165 x10^3/uL (140-400) Neutrophils (%) (Auto) 67 % (31-73) Lymphocytes (%) (Auto) 16 % (24-48) Monocytes (%) (Auto) 15 % (0-9) Eosinophils (%) (Auto) 2 % (0-3) Basophils (%) (Auto) 1 % (0-3) Neutrophils # (Auto) 5.0 x10^3uL (1.8-7.7) Lymphocytes # (Auto) 1.2 x10^3/uL (1.0-4.8) Monocytes # (Auto) 1.1 x10^3/uL (0.0-1.1) Eosinophils # (Auto) 0.2 x10^3/uL (0.0-0.7) Basophils # (Auto) 0.0 x10^3/uL (0.0-0.2) Prothrombin Time 26.6 SEC (11.7-14.0) Prothromb Time International Ratio 2.5 (0.8-1.1) Sodium Level 141 mmol/L (136-145) Potassium Level 3.6 mmol/L (3.5-5.1) Chloride Level 104 mmol/L (98-107) Carbon Dioxide Level 32 mmol/L (21-32) Anion Gap 5 (6-14) Blood Urea Nitrogen 12 mg/dL (8-26) Creatinine 0.9 mg/dL (0.7-1.3) Estimated GFR (Cockcroft-Gault) 86.7 Glucose Level 131 mg/dL (70-99) Calcium Level 8.4 mg/dL (8.5-10.1) Medications Current Medications Fentanyl Citrate (Fentanyl 2ml Vial) 75 mcg 1X ONCE IV Last administered on at 03:00; Start 10/22/17 at 02:45; Stop 10/22/17 at 02:46; Status DC Ondansetron HCl (Zofran) 4 mg 1X ONCE IV Last administered on 10/22/17at 02:58 ; Start 10/22/17 at 02:45; Stop 10/22/17 at 02:46; Status DC Fentanyl Citrate (Fentanyl 2ml Vial) 50 mcg 1X ONCE IV Last administered on at 03:48; Start 10/22/17 at 03:30; Stop 10/22/17 at 03:31; Status DC Ondansetron HCl (Zofran) 4 mg PRN Q8HRS PRN IV NAUSEA/VOMITING; Start 10/22/17 at 03:45; Stop 10/22/17 at 07:53; Status DC Fentanyl Citrate (Fentanyl 2ml Vial) 50 mcg PRN Q1HR PRN IV PAIN Last administered on 10/22/17at 09:17; Start 10/22/17 at 03:45; Stop 10/23/17 at 03:44 ; Status DC Sodium Chloride 1,000 ml @ 125 mls/hr Q8H IV Last administered on 10/22/17at 22 :48; Start 10/22/17 at 03:33; Stop 10/23/17 at 03:32; Status DC Ondansetron HCl (Zofran) 4 mg PRN Q6HRS PRN IV NAUSEA/VOMITING; Start 10/22/17 at 08:00; Stop 10/23/17 at 12:52; Status DC Acetaminophen (Tylenol) 500 mg PRN Q6HRS PRN PO MILD PAIN / TEMP Last administered on 10/22/17at 11:36; Start 10/22/17 at 08:00 Labetalol HCl (Normodyne) 10 mg PRN Q2HR PRN IVP HYPERTENSION, SEE COMMENTS; Start 10/22/17 at 08:00 Potassium Chloride (Klor-Con) 40 meq 1X ONCE PO Last administered on at 11:35; Start 10/22/17 at 08:00; Stop 10/22/17 at 08:19; Status DC Clonidine HCl (Catapres) 0.1 mg Q8HRS PO Last administered on 10/24/17at 14:09; Start 10/22/17 at 10:00; Stop 10/24/17 at 15:22; Status DC Ropivacaine 53.3 ml/Epinephrine HCl 0.6 mg/ Morphine Sulfate 5 mg/Sodium Chloride 100 ml @ 100 mls/hr 1X PERIOP INT ART Last administered on at 09:57; Start 10/22/17 at 10:00; Stop 10/25/17 at 13:43; Status DC Clonidine HCl (Catapres) 0.1 mg PRN Q1HR PRN PO HYPERTENSION, SEE COMMENTS Last administered on 10/26/17at 14:29; Start 10/22/17 at 11:00 Oxycodone/ Acetaminophen (Percocet 10/325) 1 tab PRN Q4HRS PRN PO SEVERE PAIN 1ST CHOICE Last administered on 10/29/17at 08:33; Start 10/22/17 at 11:00 Acetaminophen/ Hydrocodone Bitart (Lortab 10/325) 1 tab PRN Q4HRS PRN PO MODERATE PAIN Last administered on 10/23/17at 07:58; Start 10/22/17 at 11:00; Stop 10/23/17 at 13:45; Status DC Cyclobenzaprine HCl (Flexeril) 10 mg PRN TID PRN PO MUSCLE SPASMS Last administered on 10/24/17at 05:54; Start 10/22/17 at 11:00; Stop 10/24/17 at 09:55 ; Status DC Loperamide HCl (Imodium) 2 mg TID PRN PRN PO DIARRHEA Last administered on 10/23at 02:57; Start 10/22/17 at 11:00; Stop 10/24/17 at 10:10; Status DC Fentanyl Citrate (Fentanyl 2ml Vial) 25 mcg PRN Q5MIN PRN IV MILD PAIN; Start 10/23/17 at 07:00; Stop 10/23/17 at 18:00; Status DC Fentanyl Citrate (Fentanyl 2ml Vial) 50 mcg PRN Q5MIN PRN IV MODERATE TO SEVERE PAIN Last administered on 10/23/17at 14:15; Start 10/23/17 at 07:00; Stop 10/23/17 at 18:00; Status DC Ringer's Solution 1,000 ml @ 30 mls/hr Q24H IV ; Start 10/23/17 at 07:00; Stop 10/23/17 at 18:59; Status DC Lidocaine HCl (Xylocaine-Mpf 1% Vial) 2 ml PRN 1X PRN ID IV START; Start at 07:00; Stop 10/23/17 at 18:00; Status DC Prochlorperazine Edisylate (Compazine) 5 mg PACU PRN PRN IV NAUSEA, MRX1; Start 10/23/17 at 07:00; Stop 10/23/17 at 18:00; Status DC Trazodone HCl (Desyrel) 100 mg QHS PO Last administered on 10/28/17at 21:25; Start 10/23/17 at 21:00 Trazodone HCl (Desyrel) 100 mg 1X ONCE PO Last administered on 10/22/17at 22:44 ; Start 10/22/17 at 22:45; Stop 10/22/17 at 22:46; Status DC Cefazolin Sodium/ Dextrose 50 ml @ 100 mls/hr 1X PREOP IV Last administered on 10/23/17at 10:34; Start 10/23/17 at 09:00; Stop 10/25/17 at 13:30; Status DC Lidocaine HCl (Lidocaine Pf 2% Vial) 5 ml STK-MED ONCE .ROUTE ; Start 10/23/17 at 09:01; Stop 10/23/17 at 09:02; Status DC Propofol 20 ml @ As Directed STK-MED ONCE IV ; Start 10/23/17 at 09:01; Stop at 09:02; Status DC Midazolam HCl (Versed) 2 mg STK-MED ONCE .ROUTE ; Start 10/23/17 at 09:01; Stop 10/23/17 at 09:02; Status DC Fentanyl Citrate (Fentanyl 2ml Vial) 100 mcg STK-MED ONCE .ROUTE ; Start at 09:01; Stop 10/23/17 at 09:02; Status DC Rocuronium [place] (Zemuron) 50 mg STK-MED ONCE .ROUTE ; Start 10/23/17 at 09:04 ; Stop 10/23/17 at 09:05; Status DC Ephedrine Sulfate (ePHEDrine PF IN SALINE SYRINGE) 50 mg STK-MED ONCE IV ; Start 10/23/17 at 09:38; Stop 10/23/17 at 09:39; Status DC Phenylephrine HCl (PHENYLEPHRINE in 0.9% NACL PF) 1 mg STK-MED ONCE IV ; Start 10/23/17 at 10:04; Stop 10/23/17 at 10:06; Status DC Cefazolin Sodium (Ancef) 1 gm STK-MED ONCE .ROUTE ; Start 10/23/17 at 11:01; Stop 10/23/17 at 11:03; Status DC Ondansetron HCl (Zofran) 4 mg STK-MED ONCE .ROUTE ; Start 10/23/17 at 11:44; Stop 10/23/17 at 11:45; Status DC Fentanyl Citrate (Fentanyl 2ml Vial) 100 mcg STK-MED ONCE .ROUTE ; Start at 11:58; Stop 10/23/17 at 11:59; Status DC Sevoflurane (Ultane) 90 ml STK-MED ONCE IH ; Start 10/23/17 at 12:04; Stop 10/23 at 12:05; Status DC Oxycodone HCl (Roxicodone) 5 mg PRN Q3HRS PRN PO MODERATE PAIN 1ST CHOICE Last administered on 10/27/17at 09:52; Start 10/23/17 at 12:45 Morphine Sulfate (Morphine Sulfate) 2 mg PRN Q1HR PRN IV PAIN SEVERE 1ST CHOICE Last administered on 10/23/17at 20:52; Start 10/23/17 at 12:45 Fentanyl Citrate (Fentanyl 2ml Vial) 25 mcg PRN Q1HR PRN IV PAIN SEVERE 3RD CHOICE Last administered on 10/23/17at 15:31; Start 10/23/17 at 12:45 Senna/Docusate Sodium (Senna Plus) 1 tab DAILY PO Last administered on at 08:32; Start 10/24/17 at 09:00 Polyethylene Glycol (miraLAX PACKET) 17 gm PRN DAILY PRN PO CONSTIPATION, 1ST CHOICE Last administered on 10/29/17at 08:32; Start 10/23/17 at 12:45 Vitamin D (Vitamin D3) 5,000 unit DAILY PO Last administered on 10/23/17at 14:46 ; Start 10/23/17 at 13:00; Stop 10/24/17 at 08:39; Status DC Ondansetron HCl (Zofran) 4 mg PRN Q4HRS PRN IV NAUSEA/VOMITING; Start 10/23/17 at 12:45 Warfarin Sodium (Coumadin) 7.5 mg 1X ONCE PO ; Start 10/23/17 at 16:00; Stop at 16:01; Status DC Warfarin Sodium (Coumadin Per Pharmacy) 1 each PRN DAILY PRN MC SEE COMMENTS Last administered on 10/28/17at 11:35; Start 10/24/17 at 12:45 Magnesium Hydroxide (Milk Of Magnesia) 2,400 mg 1X PRN PRN PO CONSTIPATION; Start 10/24/17 at 06:00; Stop 10/25/17 at 05:59; Status DC Bisacodyl (Dulcolax Supp) 10 mg 1X PRN PRN SC CONSTIPATION; Start 10/24/17 at 16:00; Stop 10/25/17 at 15:59; Status DC Acetaminophen/ Hydrocodone Bitart (Lortab 7.5/325) 1 tab PRN Q4HRS PRN PO MODERATE PAIN 2ND CHOICE; Start 10/23/17 at 12:45 Morphine Sulfate (Morphine Sulfate) 4 mg PRN Q2HR PRN IV PAIN SEVERE 2ND CHOICE Last administered on 10/24/17at 14:08; Start 10/23/17 at 12:45 Acetaminophen/ Hydrocodone Bitart (Lortab 7.5/325) 2 tab PRN Q4HRS PRN PO SEVERE PAIN 2ND CHOICE; Start 10/23/17 at 12:45 Dextrose (Dextrose 50%-Water Syringe) 12.5 gm PRN Q15MIN PRN IV SEE COMMENTS; Start 10/23/17 at 12:45 Cefazolin Sodium 1 gm/Dextrose 50 ml @ 100 mls/hr Q6H IV ; Start 10/23/17 at 12 :45; Stop 10/23/17 at 12:54; Status DC Cefazolin Sodium (Ancef) 1 gm Q8H IVP Last administered on 10/24/17at 09:10; Start 10/23/17 at 16:00; Stop 10/24/17 at 08:01; Status DC Fentanyl Citrate (Fentanyl 2ml Vial) 100 mcg STK-MED ONCE .ROUTE ; Start at 13:19; Stop 10/23/17 at 13:20; Status DC Fentanyl Citrate (Fentanyl 2ml Vial) 100 mcg STK-MED ONCE .ROUTE ; Start at 13:40; Stop 10/23/17 at 13:41; Status DC Ergocalciferol (Vitamin D2) 50,000 unit WEEKLY PO Last administered on at 09:08; Start 10/24/17 at 09:00 Cyanocobalamin (Vitamin B-12) 1,000 mcg DAILY PO ; Start 10/24/17 at 11:00; Stop 10/24/17 at 11:00; Status DC Cyclobenzaprine HCl (Flexeril) 10 mg TID PO ; Start 10/24/17 at 14:00; Stop at 14:00; Status DC Gabapentin (Neurontin) 100 mg Q8HRS PO Last administered on 10/29/17at 05:12; Start 10/24/17 at 14:00 Duloxetine HCl (Cymbalta) 60 mg DAILY PO Last administered on 10/29/17at 08:33; Start 10/24/17 at 11:00 Multivitamins (Thera M Plus) 1 tab DAILY PO Last administered on 10/29/17at 08: 34; Start 10/24/17 at 11:00 Cyclobenzaprine HCl (Flexeril) 10 mg TID PO Last administered on 10/29/17at 08: 32; Start 10/24/17 at 14:00 Cyanocobalamin (Vitamin B-12) 1,000 mcg DAILY PO Last administered on at 08:33; Start 10/24/17 at 11:00 Lactulose (Lactulose) 20 gm PRN Q3HRS PRN PO CONSTIPATION, 2ND CHOICE; Start at 10:00 Senna/Docusate Sodium (Senna Plus) 1 tab DAILY PO ; Start 10/24/17 at 11:00; Stop 10/24/17 at 13:41; Status DC Calcium/Vitamin D (Oscal D 500mg/ 200uts) 1 tab BIDWMEALS PO Last administered on 10/29/17at 08:33; Start 10/24/17 at 17:00 Acetaminophen/ Hydrocodone Bitart (Lortab 10/325) 1 tab PRN Q4HRS PRN PO SEVERE PAIN, 3RD CHOICE Last administered on 10/28/17at 08:08; Start 10/24/17 at 10:15 Magnesium Oxide (Magnesium Oxide) 400 mg BID PO Last administered on 10/29/17at 08:32; Start 10/24/17 at 11:00 Methadone HCl (Dolophine) 10 mg BID PO ; Start 10/24/17 at 11:00; Stop 10/28/17 at 13:37; Status DC Ondansetron HCl (Zofran Odt) 8 mg PRN Q8HRS PRN PO NAUSEA/VOMITING; Start 10/24 at 10:30 Lidocaine (Lidoderm) 1 patch DAILY TD ; Start 10/24/17 at 10:00; Stop 10/28/17 at 13:37; Status DC Multi-Ingredient Mouthwash/Gargle (Magic Mouthwash) 30 ml PRN TID PRN PO MOUTH PAIN; Start 10/24/17 at 10:30 Loperamide HCl (Imodium) 2 mg PRN Q15MIN PRN PO DIARRHEA; Start 10/24/17 at 10: 00 Al Hydroxide/Mg Hydroxide (Mylanta Plus Xs) 30 ml PRN Q2HR PRN PO HEARTBURN / GAS; Start 10/24/17 at 10:00 Alprazolam (Xanax) 0.25 mg PRN Q8HRS PRN PO ANXIETY / AGITATION Last administered on 10/24/17at 11:41; Start 10/24/17 at 10:00 Warfarin Sodium (Coumadin) 5 mg 1X WARF ONCE PO Last administered on at 16:52; Start 10/24/17 at 16:00; Stop 10/24/17 at 16:01; Status DC Clonidine HCl (Catapres) 0.2 mg Q8HRS PO ; Start 10/24/17 at 22:00; Stop at 22:00; Status DC Alprazolam (Xanax) 0.5 mg BID PO Last administered on 10/29/17at 08:32; Start at 16:00 Clonidine HCl (Catapres) 0.2 mg Q8HRS PO Last administered on 10/28/17at 17:29; Start 10/24/17 at 20:35 Warfarin Sodium (Coumadin) 4 mg 1X WARF ONCE PO Last administered on at 16:54; Start 10/25/17 at 16:00; Stop 10/25/17 at 16:01; Status DC Warfarin Sodium (Coumadin - No Dose Today) 1 each 1X WARF ONCE MC Last administered on 10/26/17at 16:00; Start 10/26/17 at 16:00; Stop 10/26/17 at 16:01 ; Status DC Warfarin Sodium (Coumadin) 3 mg 1X WARF ONCE PO Last administered on at 15:08; Start 10/27/17 at 16:00; Stop 10/27/17 at 16:01; Status DC Warfarin Sodium (Coumadin) 3 mg 1X WARF ONCE PO Last administered on at 17:23; Start 10/28/17 at 16:00; Stop 10/28/17 at 16:01; Status DC Active Scripts Active Reported Alum-Mag Hydroxide-Simeth Liq (Mag Hydrox/Al Hydrox/Simeth) 360 Ml Oral.susp 5 Ml PO PRN Vitamin B-12 (Cyanocobalamin (Vitamin B-12)) 1,000 Mcg Tablet 1,250 Mcg SL DAILY Vitamin B-12 (Cyanocobalamin (Vitamin B-12)) 1,000 Mcg Tablet 1,000 Mcg PO Trazodone Hcl 100 Mg Tablet 1 Tab PO QHS Stivarga (Regorafenib) 40 Mg Tablet 40 Mg PO DAILY Senna S Tablet (Sennosides/Docusate Sodium) 1 Each Tablet 1 Each PO Multivitamins (Multivitamin) 1 Each Tablet 1 Tab PO DAILY Zofran (Ondansetron Hcl) 8 Mg Tablet 1 Tab PO Q8HRS PRN Naloxone Hcl 0.4 Mg/1 Ml Vial 0.4 Mg IJ Methadone Hcl 10 Mg Tablet 1 Tab PO Q12HR Mag-Oxide (Magnesium Oxide) 400 Mg Tablet 250 Mg PO BID [lidoderm] 5 Q12HR Lactulose 20 Gm/30 Ml Solution 20 Gm PO PRN Q3HRS PRN Imodium A-D (Loperamide HCl) 2 Mg Capsule 2 Mg PO PRN [place] 10-325 Tablet (Acetaminophen/Hydrocodone Bitart) 1 Each Tablet 1-2 Tab PO Q4-6HRS PRN Gabapentin 100 Mg Capsule 100 Mg PO Q8HRS Cymbalta (Duloxetine Hcl) 60 Mg Capsule.dr 1 Cap PO DAILY [magic mouthwash] 30 Ml TID PRN Cyclobenzaprine Hcl 10 Mg Tablet 1 Tab PO TID [place] Calcium-Vit D Tab (Calcium Carbonate/Vitamin D2) 1 Each Tablet 1 Each PO BID Vitals/I & O Vital Sign - Last 24 Hours 10/28/17 10/28/17 10/28/17 10/28/17 14:00 17:23 17:29 18:23 Temp 97.5 97.5 Pulse 113 113 Resp 18 20 20 B/P (MAP) 134/51 (78) 134/51 Pulse Ox 100 O2 Delivery Room Air Room Air Room Air 10/28/17 10/28/17 10/28/17 10/28/17 19:00 20:00 21:25 23:00 Temp 98.6 97.7 98.6 97.7 Pulse 85 85 80 Resp 18 18 B/P (MAP) 96/55 (69) 96/55 89/46 (60) Pulse Ox 95 98 O2 Delivery Room Air Room Air Room Air 10/29/17 10/29/17 10/29/17 10/29/17 03:00 05:12 07:00 08:10 Temp 98.5 98.4 98.5 98.4 Pulse 83 83 92 Resp 18 16 B/P (MAP) 97/56 (70) 97/56 116/63 (80) Pulse Ox 96 98 O2 Delivery Room Air Room Air Room Air 10/29/17 10/29/17 08:27 08:33 B/P (MAP) 88/62 (71) Pulse Ox 96 O2 Delivery Room Air Intake and Output 10/28/17 10/28/17 10/29/17 15:01 23:01 07:01 Intake Total 400 ml 200 ml Output Total 1000 ml Balance -600 ml 200 ml JERAMIE TAYLOR MD Oct 29, 2017 11:19
[2017-10-29] MEDS ORDERED: WARFARIN 2 MG TABLET. PO ONE (16:00)
[2017-10-29] MEDS: oxyCODONE IR 5 MG TABLET PO PRN (17:02)
[2017-10-29] MEDS: traZODone 100 MG TABLET. PO SCH (20:20)
[2017-10-30] VITALS (7 sets, daily range): BP systolic 90–144; BP diastolic 53–68
[2017-10-30 05:03] LABS: BASO % 1 % (0-3); EOS # 0.2 x10^3/uL (0.0-0.7); EOS % 3 % (0-3); HEMATOCRIT 21.8 % (39.0-53.0); HEMOGLOBIN 7.5 g/dL (13.0-17.5); LYMPH # 1.5 x10^3/uL (1.0-4.8); LYMPH % 23 % (24-48); MEAN CORPUSCULAR HEMOGLOBIN 33 pg (25-35); MEAN CORPUSCULAR HGB CONC 35 g/dL (31-37); MEAN CORPUSCULAR VOLUME 95 fL (79-100); MONO % 16 % (0-9); NEUT # 3.8 x10^3uL (1.8-7.7); NEUT % 58 % (31-73); PLATELET COUNT 171 x10^3/uL (140-400); RED CELL DISTRIBUTION WIDTH 16.6 % (11.5-14.5); WHITE BLOOD COUNT 6.6 x10^3/uL (4.0-11.0)
[2017-10-30 05:36] LABS: CALCIUM 8.5 mg/dL (8.5-10.1); CREATININE 0.9 mg/dL (0.7-1.3); GFR 86.7; POTASSIUM 3.6 mmol/L (3.5-5.1)
[2017-10-30] MEDS: cloNIDine HCL 0.2 MG TABLET PO SCH ×3 (06:00→20:38)
[2017-10-30] MEDS: GABAPENTIN 100 MG CAPSULE. PO SCH ×3 (06:22→20:38)
--- NOTE | 2017-10-30 08:35 | PDOC ---
PROGRESS NOTES Subjective Subjective HPI - f/u of Stage 4 colon cancer ROS - pain at 3/10 Objective Objective Vital Signs Date Time Temp Pulse Resp B/P (MAP) Pulse Ox O2 Delivery O2 Flow Rate FiO2 10/30/17 06:29 82 96/59 (71) Room Air 10/30/17 03:00 98.1 18 95 98.1 10/29/17 11:59 3.0 Intake and Output 10/30/17 07:00 Intake Total 1250 ml Output Total 2000 ml Balance -750 ml Intake Oral 1250 ml Output Urine Total 2000 ml Physical Exam Heart: Normal S1, Normal S2 General: Alert, Oriented X3, No acute distress Lungs: Clear to auscultation Neuro: Normal speech Psych/Mental Status: Mental status NL Assessment Assessment Problems Medical Problems: (1) Comminuted fracture of right patella Status: Acute (2) Intertrochanteric fracture of right hip Status: Acute IMPRESSION AND PLAN: 1. Stage 4 colon cancer with progressively worsening lung metastases. He was recently started on a new medication called regorafenib on 10/15/2017 at 80 mg daily. He took it until 10/22/2017 and then he stopped because of a fall acquiring fracture as described above. I have advised him to continue to hold this medication until he recovers from the recent surgery. I have advised him to follow up with Dr. Cortney Harris who is his primary oncologist upon discharge. I have notified Dr Harris. CEA better at 7.5 on 10/25/17. 2. Anemia due to malignancy. Continue to monitor hemoglobin, currently worse due to recent surgery. Hb worse at 7.5 today. Monitor CBC. 3. Right hip and right patellar fracture, status post surgery on 10/23/2017. Continue management per Orthopedics. Pain under control. Comment Review of Relevant I have reviewed the following items francisco (where applicable) has been applied. Labs Laboratory Tests Test 10/29/17 04:40 10/30/17 03:55 White Blood Count 7.5 x10^3/uL (4.0-11.0) 6.6 x10^3/uL (4.0-11.0) Red Blood Count 2.34 x10^6/uL (4.30-5.70) 2.30 x10^6/uL (4.30-5.70) Hemoglobin 7.8 g/dL (13.0-17.5) 7.5 g/dL (13.0-17.5) Hematocrit 22.0 % (39.0-53.0) 21.8 % (39.0-53.0) Mean Corpuscular Volume 94 fL (79-100) 95 fL (79-100) Mean Corpuscular Hemoglobin 33 pg (25-35) 33 pg (25-35) Mean Corpuscular Hemoglobin Concent 36 g/dL (31-37) 35 g/dL (31-37) Red Cell Distribution Width 16.7 % (11.5-14.5) 16.6 % (11.5-14.5) Platelet Count 165 x10^3/uL (140-400) 171 x10^3/uL (140-400) Neutrophils (%) (Auto) 67 % (31-73) 58 % (31-73) Lymphocytes (%) (Auto) 16 % (24-48) 23 % (24-48) Monocytes (%) (Auto) 15 % (0-9) 16 % (0-9) Eosinophils (%) (Auto) 2 % (0-3) 3 % (0-3) Basophils (%) (Auto) 1 % (0-3) 1 % (0-3) Neutrophils # (Auto) 5.0 x10^3uL (1.8-7.7) 3.8 x10^3uL (1.8-7.7) Lymphocytes # (Auto) 1.2 x10^3/uL (1.0-4.8) 1.5 x10^3/uL (1.0-4.8) Monocytes # (Auto) 1.1 x10^3/uL (0.0-1.1) 1.0 x10^3/uL (0.0-1.1) Eosinophils # (Auto) 0.2 x10^3/uL (0.0-0.7) 0.2 x10^3/uL (0.0-0.7) Basophils # (Auto) 0.0 x10^3/uL (0.0-0.2) 0.0 x10^3/uL (0.0-0.2) Prothrombin Time 26.6 SEC (11.7-14.0) Prothromb Time International Ratio 2.5 (0.8-1.1) Sodium Level 141 mmol/L (136-145) 142 mmol/L (136-145) Potassium Level 3.6 mmol/L (3.5-5.1) 3.6 mmol/L (3.5-5.1) Chloride Level 104 mmol/L (98-107) 106 mmol/L (98-107) Carbon Dioxide Level 32 mmol/L (21-32) 33 mmol/L (21-32) Anion Gap 5 (6-14) 3 (6-14) Blood Urea Nitrogen 12 mg/dL (8-26) 15 mg/dL (8-26) Creatinine 0.9 mg/dL (0.7-1.3) 0.9 mg/dL (0.7-1.3) Estimated GFR (Cockcroft-Gault) 86.7 86.7 Glucose Level 131 mg/dL (70-99) 123 mg/dL (70-99) Calcium Level 8.4 mg/dL (8.5-10.1) 8.5 mg/dL (8.5-10.1) Laboratory Tests Test 10/30/17 03:55 White Blood Count 6.6 x10^3/uL (4.0-11.0) Red Blood Count 2.30 x10^6/uL (4.30-5.70) Hemoglobin 7.5 g/dL (13.0-17.5) Hematocrit 21.8 % (39.0-53.0) Mean Corpuscular Volume 95 fL (79-100) Mean Corpuscular Hemoglobin 33 pg (25-35) Mean Corpuscular Hemoglobin Concent 35 g/dL (31-37) Red Cell Distribution Width 16.6 % (11.5-14.5) Platelet Count 171 x10^3/uL (140-400) Neutrophils (%) (Auto) 58 % (31-73) Lymphocytes (%) (Auto) 23 % (24-48) Monocytes (%) (Auto) 16 % (0-9) Eosinophils (%) (Auto) 3 % (0-3) Basophils (%) (Auto) 1 % (0-3) Neutrophils # (Auto) 3.8 x10^3uL (1.8-7.7) Lymphocytes # (Auto) 1.5 x10^3/uL (1.0-4.8) Monocytes # (Auto) 1.0 x10^3/uL (0.0-1.1) Eosinophils # (Auto) 0.2 x10^3/uL (0.0-0.7) Basophils # (Auto) 0.0 x10^3/uL (0.0-0.2) Sodium Level 142 mmol/L (136-145) Potassium Level 3.6 mmol/L (3.5-5.1) Chloride Level 106 mmol/L (98-107) Carbon Dioxide Level 33 mmol/L (21-32) Anion Gap 3 (6-14) Blood Urea Nitrogen 15 mg/dL (8-26) Creatinine 0.9 mg/dL (0.7-1.3) Estimated GFR (Cockcroft-Gault) 86.7 Glucose Level 123 mg/dL (70-99) Calcium Level 8.5 mg/dL (8.5-10.1) Medications Current Medications Fentanyl Citrate (Fentanyl 2ml Vial) 75 mcg 1X ONCE IV Last administered on at 03:00; Start 10/22/17 at 02:45; Stop 10/22/17 at 02:46; Status DC Ondansetron HCl (Zofran) 4 mg 1X ONCE IV Last administered on 10/22/17at 02:58 ; Start 10/22/17 at 02:45; Stop 10/22/17 at 02:46; Status DC Fentanyl Citrate (Fentanyl 2ml Vial) 50 mcg 1X ONCE IV Last administered on at 03:48; Start 10/22/17 at 03:30; Stop 10/22/17 at 03:31; Status DC Ondansetron HCl (Zofran) 4 mg PRN Q8HRS PRN IV NAUSEA/VOMITING; Start 10/22/17 at 03:45; Stop 10/22/17 at 07:53; Status DC Fentanyl Citrate (Fentanyl 2ml Vial) 50 mcg PRN Q1HR PRN IV PAIN Last administered on 10/22/17at 09:17; Start 10/22/17 at 03:45; Stop 10/23/17 at 03:44 ; Status DC Sodium Chloride 1,000 ml @ 125 mls/hr Q8H IV Last administered on 10/22/17at 22 :48; Start 10/22/17 at 03:33; Stop 10/23/17 at 03:32; Status DC Ondansetron HCl (Zofran) 4 mg PRN Q6HRS PRN IV NAUSEA/VOMITING; Start 10/22/17 at 08:00; Stop 10/23/17 at 12:52; Status DC Acetaminophen (Tylenol) 500 mg PRN Q6HRS PRN PO MILD PAIN / TEMP Last administered on 10/22/17at 11:36; Start 10/22/17 at 08:00 Labetalol HCl (Normodyne) 10 mg PRN Q2HR PRN IVP HYPERTENSION, SEE COMMENTS; Start 10/22/17 at 08:00 Potassium Chloride (Klor-Con) 40 meq 1X ONCE PO Last administered on at 11:35; Start 10/22/17 at 08:00; Stop 10/22/17 at 08:19; Status DC Clonidine HCl (Catapres) 0.1 mg Q8HRS PO Last administered on 10/24/17at 14:09; Start 10/22/17 at 10:00; Stop 10/24/17 at 15:22; Status DC Ropivacaine 53.3 ml/Epinephrine HCl 0.6 mg/ Morphine Sulfate 5 mg/Sodium Chloride 100 ml @ 100 mls/hr 1X PERIOP INT ART Last administered on at 09:57; Start 10/22/17 at 10:00; Stop 10/25/17 at 13:43; Status DC Clonidine HCl (Catapres) 0.1 mg PRN Q1HR PRN PO HYPERTENSION, SEE COMMENTS Last administered on 10/26/17at 14:29; Start 10/22/17 at 11:00 Oxycodone/ Acetaminophen (Percocet 10/325) 1 tab PRN Q4HRS PRN PO SEVERE PAIN 1ST CHOICE Last administered on 10/29/17at 21:37; Start 10/22/17 at 11:00 Acetaminophen/ Hydrocodone Bitart (Lortab 10/325) 1 tab PRN Q4HRS PRN PO MODERATE PAIN Last administered on 10/23/17at 07:58; Start 10/22/17 at 11:00; Stop 10/23/17 at 13:45; Status DC Cyclobenzaprine HCl (Flexeril) 10 mg PRN TID PRN PO MUSCLE SPASMS Last administered on 10/24/17at 05:54; Start 10/22/17 at 11:00; Stop 10/24/17 at 09:55 ; Status DC Loperamide HCl (Imodium) 2 mg TID PRN PRN PO DIARRHEA Last administered on 10/23at 02:57; Start 10/22/17 at 11:00; Stop 10/24/17 at 10:10; Status DC Fentanyl Citrate (Fentanyl 2ml Vial) 25 mcg PRN Q5MIN PRN IV MILD PAIN; Start 10/23/17 at 07:00; Stop 10/23/17 at 18:00; Status DC Fentanyl Citrate (Fentanyl 2ml Vial) 50 mcg PRN Q5MIN PRN IV MODERATE TO SEVERE PAIN Last administered on 10/23/17at 14:15; Start 10/23/17 at 07:00; Stop 10/23/17 at 18:00; Status DC Ringer's Solution 1,000 ml @ 30 mls/hr Q24H IV ; Start 10/23/17 at 07:00; Stop 10/23/17 at 18:59; Status DC Lidocaine HCl (Xylocaine-Mpf 1% Vial) 2 ml PRN 1X PRN ID IV START; Start at 07:00; Stop 10/23/17 at 18:00; Status DC Prochlorperazine Edisylate (Compazine) 5 mg PACU PRN PRN IV NAUSEA, MRX1; Start 10/23/17 at 07:00; Stop 10/23/17 at 18:00; Status DC Trazodone HCl (Desyrel) 100 mg QHS PO Last administered on 10/29/17at 20:20; Start 10/23/17 at 21:00 Trazodone HCl (Desyrel) 100 mg 1X ONCE PO Last administered on 10/22/17at 22:44 ; Start 10/22/17 at 22:45; Stop 10/22/17 at 22:46; Status DC Cefazolin Sodium/ Dextrose 50 ml @ 100 mls/hr 1X PREOP IV Last administered on 10/23/17at 10:34; Start 10/23/17 at 09:00; Stop 10/25/17 at 13:30; Status DC Lidocaine HCl (Lidocaine Pf 2% Vial) 5 ml [facility] ONCE .ROUTE ; Start 10/23/17 at 09:01; Stop 10/23/17 at 09:02; Status DC Propofol 20 ml @ As Directed STK-MED ONCE IV ; Start 10/23/17 at 09:01; Stop at 09:02; Status DC Midazolam HCl (Versed) 2 mg STK-MED ONCE .ROUTE ; Start 10/23/17 at 09:01; Stop 10/23/17 at 09:02; Status DC Fentanyl Citrate (Fentanyl 2ml Vial) 100 mcg STK-MED ONCE .ROUTE ; Start at 09:01; Stop 10/23/17 at 09:02; Status DC Rocuronium Bartelso (Zemuron) 50 mg STK-MED ONCE .ROUTE ; Start 10/23/17 at 09:04 ; Stop 10/23/17 at 09:05; Status DC Ephedrine Sulfate (ePHEDrine PF IN SALINE SYRINGE) 50 mg STK-MED ONCE IV ; Start 10/23/17 at 09:38; Stop 10/23/17 at 09:39; Status DC Phenylephrine HCl (PHENYLEPHRINE in 0.9% NACL PF) 1 mg STK-MED ONCE IV ; Start 10/23/17 at 10:04; Stop 10/23/17 at 10:06; Status DC Cefazolin Sodium (Ancef) 1 gm STK-MED ONCE .ROUTE ; Start 10/23/17 at 11:01; Stop 10/23/17 at 11:03; Status DC Ondansetron HCl (Zofran) 4 mg STK-MED ONCE .ROUTE ; Start 10/23/17 at 11:44; Stop 10/23/17 at 11:45; Status DC Fentanyl Citrate (Fentanyl 2ml Vial) 100 mcg STK-MED ONCE .ROUTE ; Start at 11:58; Stop 10/23/17 at 11:59; Status DC Sevoflurane (Ultane) 90 ml STK-MED ONCE IH ; Start 10/23/17 at 12:04; Stop 10/23 at 12:05; Status DC Oxycodone HCl (Roxicodone) 5 mg PRN Q3HRS PRN PO MODERATE PAIN 1ST CHOICE Last administered on 10/29/17at 17:02; Start 10/23/17 at 12:45 Morphine Sulfate (Morphine Sulfate) 2 mg PRN Q1HR PRN IV PAIN SEVERE 1ST CHOICE Last administered on 10/23/17at 20:52; Start 10/23/17 at 12:45 Fentanyl Citrate (Fentanyl 2ml Vial) 25 mcg PRN Q1HR PRN IV PAIN SEVERE 3RD CHOICE Last administered on 10/23/17at 15:31; Start 10/23/17 at 12:45 Senna/Docusate Sodium (Senna Plus) 1 tab DAILY PO Last administered on at 08:32; Start 10/24/17 at 09:00 Polyethylene Glycol (miraLAX PACKET) 17 gm PRN DAILY PRN PO CONSTIPATION, 1ST CHOICE Last administered on 10/29/17 08:32; Start 10/23/17 at 12:45 Vitamin D (Vitamin D3) 5,000 unit DAILY PO Last administered on 10/23/17at 14:46 ; Start 10/23/17 at 13:00; Stop 10/24/17 at 08:39; Status DC Ondansetron HCl (Zofran) 4 mg PRN Q4HRS PRN IV NAUSEA/VOMITING; Start 10/23/17 at 12:45 Warfarin Sodium (Coumadin) 7.5 mg 1X ONCE PO ; Start 10/23/17 at 16:00; Stop at 16:01; Status DC Warfarin Sodium (Coumadin Per Pharmacy) 1 each PRN DAILY PRN MC SEE COMMENTS Last administered on 10/29/17at 13:07; Start 10/24/17 at 12:45 Magnesium Hydroxide (Milk Of Magnesia) 2,400 mg 1X PRN PRN PO CONSTIPATION; Start 10/24/17 at 06:00; Stop 10/25/17 at 05:59; Status DC Bisacodyl (Dulcolax Supp) 10 mg 1X PRN PRN [place] CONSTIPATION; Start 10/24/17 at 16:00; Stop 10/25/17 at 15:59; Status DC Acetaminophen/ Hydrocodone Bitart (Lortab 7.5/325) 1 tab PRN Q4HRS PRN PO MODERATE PAIN 2ND CHOICE; Start 10/23/17 at 12:45 Morphine Sulfate (Morphine Sulfate) 4 mg PRN Q2HR PRN IV PAIN SEVERE 2ND CHOICE Last administered on 10/24/17at 14:08; Start 10/23/17 at 12:45 Acetaminophen/ Hydrocodone Bitart (Lortab 7.5/325) 2 tab PRN Q4HRS PRN PO SEVERE PAIN 2ND CHOICE Last administered on 10/29/17at 19:19; Start 10/23/17 at 12:45 Dextrose (Dextrose 50%-Water Syringe) 12.5 gm PRN Q15MIN PRN IV SEE COMMENTS; Start 10/23/17 at 12:45 Cefazolin Sodium 1 gm/Dextrose 50 ml @ 100 mls/hr Q6H IV ; Start 10/23/17 at 12 :45; Stop 10/23/17 at 12:54; Status DC Cefazolin Sodium (Ancef) 1 gm Q8H IVP Last administered on 10/24/17at 09:10; Start 10/23/17 at 16:00; Stop 10/24/17 at 08:01; Status DC Fentanyl Citrate (Fentanyl 2ml Vial) 100 mcg STK-MED ONCE .ROUTE ; Start at 13:19; Stop 10/23/17 at 13:20; Status DC Fentanyl Citrate (Fentanyl 2ml Vial) 100 mcg STK-MED ONCE .ROUTE ; Start at 13:40; Stop 10/23/17 at 13:41; Status DC Ergocalciferol (Vitamin D2) 50,000 unit WEEKLY PO Last administered on at 09:08; Start 10/24/17 at 09:00 Cyanocobalamin (Vitamin B-12) 1,000 mcg DAILY PO ; Start 10/24/17 at 11:00; Stop 10/24/17 at 11:00; Status DC Cyclobenzaprine HCl (Flexeril) 10 mg TID PO ; Start 10/24/17 at 14:00; Stop at 14:00; Status DC Gabapentin (Neurontin) 100 mg Q8HRS PO Last administered on 10/30/17at 06:22; Start 10/24/17 at 14:00 Duloxetine HCl (Cymbalta) 60 mg DAILY PO Last administered on 10/29/17at 08:33; Start 10/24/17 at 11:00 Multivitamins (Thera M Plus) 1 tab DAILY PO Last administered on 10/29/17at 08: 34; Start 10/24/17 at 11:00 Cyclobenzaprine HCl (Flexeril) 10 mg TID PO Last administered on 10/29/17at 20: 21; Start 10/24/17 at 14:00 Cyanocobalamin (Vitamin B-12) 1,000 mcg DAILY PO Last administered on at 08:33; Start 10/24/17 at 11:00 Lactulose (Lactulose) 20 gm PRN Q3HRS PRN PO CONSTIPATION, 2ND CHOICE; Start at 10:00 Senna/Docusate Sodium (Senna Plus) 1 tab DAILY PO ; Start 10/24/17 at 11:00; Stop 10/24/17 at 13:41; Status DC Calcium/Vitamin D (Oscal D 500mg/ 200uts) 1 tab BIDWMEALS PO Last administered on 10/29/17at 17:03; Start 10/24/17 at 17:00 Acetaminophen/ Hydrocodone Bitart (Lortab 10/325) 1 tab PRN Q4HRS PRN PO SEVERE PAIN, 3RD CHOICE Last administered on 10/28/17at 08:08; Start 10/24/17 at 10:15 Magnesium Oxide (Magnesium Oxide) 400 mg BID PO Last administered on 10/29/17at 20:21; Start 10/24/17 at 11:00 Methadone HCl (Dolophine) 10 mg BID PO ; Start 10/24/17 at 11:00; Stop 10/28/17 at 13:37; Status DC Ondansetron HCl (Zofran Odt) 8 mg PRN Q8HRS PRN PO NAUSEA/VOMITING; Start 10/24 at 10:30 Lidocaine (Lidoderm) 1 patch DAILY TD ; Start 10/24/17 at 10:00; Stop 10/28/17 at 13:37; Status DC Multi-Ingredient Mouthwash/Gargle (Magic Mouthwash) 30 ml PRN TID PRN PO MOUTH PAIN; Start 10/24/17 at 10:30 Loperamide HCl (Imodium) 2 mg PRN Q15MIN PRN PO DIARRHEA; Start 10/24/17 at 10: 00 Al Hydroxide/Mg Hydroxide (Mylanta Plus Xs) 30 ml PRN Q2HR PRN PO HEARTBURN / GAS; Start 10/24/17 at 10:00 Alprazolam (Xanax) 0.25 mg PRN Q8HRS PRN PO ANXIETY / AGITATION Last administered on 10/24/17at 11:41; Start 10/24/17 at 10:00 Warfarin Sodium (Coumadin) 5 mg 1X WARF ONCE PO Last administered on at 16:52; Start 10/24/17 at 16:00; Stop 10/24/17 at 16:01; Status DC Clonidine HCl (Catapres) 0.2 mg Q8HRS PO ; Start 10/24/17 at 22:00; Stop at 22:00; Status DC Alprazolam (Xanax) 0.5 mg BID PO Last administered on 10/29/17 20:27; Start at 16:00 Clonidine HCl (Catapres) 0.2 mg Q8HRS PO Last administered on 10/29/17at 21:36; Start 10/24/17 at 20:35 Warfarin Sodium (Coumadin) 4 mg 1X WARF ONCE PO Last administered on at 16:54; Start 10/25/17 at 16:00; Stop 10/25/17 at 16:01; Status DC Warfarin Sodium (Coumadin - No Dose Today) 1 each 1X WARF ONCE MC Last administered on 10/26/17at 16:00; Start 10/26/17 at 16:00; Stop 10/26/17 at 16:01 ; Status DC Warfarin Sodium (Coumadin) 3 mg 1X WARF ONCE PO Last administered on at 15:08; Start 10/27/17 at 16:00; Stop 10/27/17 at 16:01; Status DC Warfarin Sodium (Coumadin) 3 mg 1X WARF ONCE PO Last administered on at 17:23; Start 10/28/17 at 16:00; Stop 10/28/17 at 16:01; Status DC Warfarin Sodium (Coumadin) 2 mg 1X WARF ONCE PO Last administered on at 17:03; Start 10/29/17 at 16:00; Stop 10/29/17 at 16:01; Status DC Active Scripts Active Reported Alum-Mag Hydroxide-Simeth Liq (Mag Hydrox/Al Hydrox/Simeth) 360 Ml Oral.susp 5 Ml PO PRN Vitamin B-12 (Cyanocobalamin (Vitamin B-12)) 1,000 Mcg Tablet 1,250 Mcg SL DAILY Vitamin B-12 (Cyanocobalamin (Vitamin B-12)) 1,000 Mcg Tablet 1,000 Mcg PO Trazodone Hcl 100 Mg Tablet 1 Tab PO QHS Stivarga (Regorafenib) 40 Mg Tablet 40 Mg PO DAILY Senna S Tablet (Sennosides/Docusate Sodium) 1 Each Tablet 1 Each PO Multivitamins (Multivitamin) 1 Each Tablet 1 Tab PO DAILY Zofran (Ondansetron Hcl) 8 Mg Tablet 1 Tab PO Q8HRS PRN Naloxone Hcl 0.4 Mg/1 Ml Vial 0.4 Mg IJ Methadone Hcl 10 Mg Tablet 1 Tab PO Q12HR Mag-Oxide (Magnesium Oxide) 400 Mg Tablet 250 Mg PO BID [lidoderm] 5 Q12HR Lactulose 20 Gm/30 Ml Solution 20 Gm PO PRN Q3HRS PRN Imodium A-D (Loperamide HCl) 2 Mg Capsule 2 Mg PO PRN [place] 10-325 Tablet (Acetaminophen/Hydrocodone Bitart) 1 Each Tablet 1-2 Tab PO Q4-6HRS PRN Gabapentin 100 Mg Capsule 100 Mg PO Q8HRS Cymbalta (Duloxetine Hcl) 60 Mg Capsule.dr 1 Cap PO DAILY [magic mouthwash] 30 Ml TID PRN Cyclobenzaprine Hcl 10 Mg Tablet 1 Tab PO TID Oyster Shell Calcium-Vit D Tab (Calcium Carbonate/Vitamin D2) 1 Each Tablet 1 Each PO BID Vitals/I & O Vital Sign - Last 24 Hours 10/29/17 10/29/17 10/29/17 10/29/17 11:00 11:59 12:43 15:00 Temp 97.9 98.0 97.9 98.0 Pulse 95 108 Resp 18 18 B/P (MAP) 108/63 (78) 127/65 (85) Pulse Ox 96 96 100 O2 Delivery Room Air Room Air Room Air O2 Flow Rate 3.0 10/29/17 10/29/17 10/29/17 10/29/17 17:02 18:45 18:46 19:00 Temp 98.1 98.1 Pulse 75 Resp 18 B/P (MAP) 105/66 (79) Pulse Ox 93 O2 Delivery Room Air Room Air Room Air Room Air 10/29/17 10/29/17 10/29/1720/18 19:19 20:00 20:19 21:36 Pulse 75 Resp 18 B/P (MAP) 105/66 O2 Delivery Room Air Room Air Room Air 10/29/17 10/29/17 10/29/17 10/30/17 21:37 22:47 23:00 03:00 Temp 98.6 98.1 98.6 98.1 Pulse 77 70 Resp 18 16 18 18 B/P (MAP) 110/67 (81) 116/68 (84) Pulse Ox 95 95 O2 Delivery Room Air Room Air Room Air 10/30/17 10/30/17 06:00 06:29 Pulse 82 82 B/P (MAP) 96/59 96/59 (71) O2 Delivery Room Air Intake and Output 10/29/17 10/29/17 10/30/17 15:00 23:00 07:00 Intake Total 1000 ml 250 ml Output Total 1600 ml 400 ml Balance -600 ml -150 ml HAYLEY LESTER MD Oct 30, 2017 08:35
[2017-10-30] MEDS: oxyCODONE/APAP 10/325 1 TAB TABLET PO PRN ×5 (09:25→22:15)
[2017-10-30 11:11] LABS: % BASOS 2 % (0-3); % EOS 1 % (0-5); % LYMPHS 19 % (24-48); % MONOS 8 % (0-10); % SEGS 70 % (35-66); PLT ESTIMATE ADEQUATE (ADEQUATE)
[2017-10-30 11:12] LABS: ANISOCYTOSIS SLIGHT; HYPOCHROMIA SLIGHT
[2017-10-30 11:14] LABS: SPHEROCYTES OCC
[2017-10-30 11:21] LABS: PROTHROMBIN TIME PATIENT 25.2 SEC (11.7-14.0)
--- NOTE | 2017-10-30 11:31 | DS ---
DATE OF DISCHARGE: 10/26/2017 ADMISSION DIAGNOSES: Fall with right hip fracture and right patellar fracture. DISCHARGE DIAGNOSIS: Postop open reduction and internal fixation. HOSPITAL COURSE: The patient is a pleasant [id number] who presented with right patellar and right hip fracture after falling. He was admitted. We consulted with for ORIF. Post procedure, he did well. We discharged to skilled. DISPOSITION: Skilled. ACTIVITY: As tolerated. DIET: Low sodium. MEDICATIONS: Please see the MRAD. TOTAL TIME: 36 minutes. MARY DELGADILLO DO DR: STACY/asha JOB#: [id number] / [id number]
[2017-10-30] MEDS: MULTIVITAMIN with MINERAL TABLET. PO SCH (11:55)
[2017-10-30] MEDS: MAGNESIUM OXIDE 400 MG TABLET PO SCH ×2 (11:55→20:38)
[2017-10-30] MEDS: CYANOCOBALAMIN (VITAMIN B-12) 1,000 MCG TABLET. PO SCH (11:55)
[2017-10-30] MEDS: CYCLOBENZAPRINE 10 MG TABLET. PO SCH ×3 (11:56→20:38)
[2017-10-30] MEDS: ALPRAZolam 0.5 MG TABLET PO SCH ×2 (11:56→20:39)
[2017-10-30] MEDS: DULoxetine HCL 30 MG CAPSULE.DR PO SCH (11:56)
[2017-10-30] MEDS: SENNOSIDES/DOCUSATE 8.6/50MG TABLET. PO SCH (11:56)
[2017-10-30] MEDS: CALCIUM CARB/VIT D3 500/200 TABLET. PO SCH ×2 (11:57→17:58)
--- NOTE | 2017-10-30 15:08 | PDOC ---
PROGRESS NOTES Chief Complaint Chief Complaint RT Patellar fracture, traumatic, closed s/p sx 10/23 - Right hip fracture s/p sx 10/23 Mechanical fall at home, Colon CA with mets to lungs on chemo Anemia of malignancy History of Present Illness History of Present Illness He was in good spirits and looked good walking the [place]rez with some trouble using a walker, needs to rest after 50 feet. cont symptoms control, pain meds as needed, cont current Vitals Vitals Vital Signs Date Time Temp Pulse Resp B/P (MAP) Pulse Ox O2 Delivery O2 Flow Rate FiO2 10/30/17 13:51 105 99/53 10/30/17 13:50 97 Room Air 10/30/17 11:06 98.3 20 98.3 10/29/17 11:59 3.0 Physical Exam General: Alert, Oriented X3, No acute distress Heart: Normal S1, Normal S2 Lungs: Clear Abdomen: Soft Extremities: No clubbing, No cyanosis, Normal pulses Skin: No rashes, No breakdown, No significant lesion Labs LABS Laboratory Tests Test 10/30/17 03:55 White Blood Count 6.6 x10^3/uL (4.0-11.0) Red Blood Count 2.30 x10^6/uL (4.30-5.70) Hemoglobin 7.5 g/dL (13.0-17.5) Hematocrit 21.8 % (39.0-53.0) Mean Corpuscular Volume 95 fL (79-100) Mean Corpuscular Hemoglobin 33 pg (25-35) Mean Corpuscular Hemoglobin Concent 35 g/dL (31-37) Red Cell Distribution Width 16.6 % (11.5-14.5) Platelet Count 171 x10^3/uL (140-400) Neutrophils (%) (Auto) 58 % (31-73) Lymphocytes (%) (Auto) 23 % (24-48) Monocytes (%) (Auto) 16 % (0-9) Eosinophils (%) (Auto) 3 % (0-3) Basophils (%) (Auto) 1 % (0-3) Neutrophils # (Auto) 3.8 x10^3uL (1.8-7.7) Lymphocytes # (Auto) 1.5 x10^3/uL (1.0-4.8) Monocytes # (Auto) 1.0 x10^3/uL (0.0-1.1) Eosinophils # (Auto) 0.2 x10^3/uL (0.0-0.7) Basophils # (Auto) 0.0 x10^3/uL (0.0-0.2) Segmented Neutrophils % 70 % (35-66) Lymphocytes % 19 % (24-48) Monocytes % 8 % (0-10) Eosinophils % 1 % (0-5) Basophils % 2 % (0-3) Platelet Estimate Adequate (ADEQUATE) Hypochromasia Slight Anisocytosis Slight Spherocytes Occ Prothrombin Time 25.2 SEC (11.7-14.0) Prothromb Time International Ratio 2.4 (0.8-1.1) Sodium Level 142 mmol/L (136-145) Potassium Level 3.6 mmol/L (3.5-5.1) Chloride Level 106 mmol/L (98-107) Carbon Dioxide Level 33 mmol/L (21-32) Anion Gap 3 (6-14) Blood Urea Nitrogen 15 mg/dL (8-26) Creatinine 0.9 mg/dL (0.7-1.3) Estimated GFR (Cockcroft-Gault) 86.7 Glucose Level 123 mg/dL (70-99) Calcium Level 8.5 mg/dL (8.5-10.1) Assessment and Plan Assessmemt and Plan Problems Medical Problems: (1) Comminuted fracture of right patella Status: Acute (2) Intertrochanteric fracture of right hip Status: Acute Comment Review of Relevant I have reviewed the following items francisco (where applicable) has been applied. Labs Laboratory Tests Test 10/29/17 04:40 10/30/17 03:55 White Blood Count 7.5 x10^3/uL (4.0-11.0) 6.6 x10^3/uL (4.0-11.0) Red Blood Count 2.34 x10^6/uL (4.30-5.70) 2.30 x10^6/uL (4.30-5.70) Hemoglobin 7.8 g/dL (13.0-17.5) 7.5 g/dL (13.0-17.5) Hematocrit 22.0 % (39.0-53.0) 21.8 % (39.0-53.0) Mean Corpuscular Volume 94 fL (79-100) 95 fL (79-100) Mean Corpuscular Hemoglobin 33 pg (25-35) 33 pg (25-35) Mean Corpuscular Hemoglobin Concent 36 g/dL (31-37) 35 g/dL (31-37) Red Cell Distribution Width 16.7 % (11.5-14.5) 16.6 % (11.5-14.5) Platelet Count 165 x10^3/uL (140-400) 171 x10^3/uL (140-400) Neutrophils (%) (Auto) 67 % (31-73) 58 % (31-73) Lymphocytes (%) (Auto) 16 % (24-48) 23 % (24-48) Monocytes (%) (Auto) 15 % (0-9) 16 % (0-9) Eosinophils (%) (Auto) 2 % (0-3) 3 % (0-3) Basophils (%) (Auto) 1 % (0-3) 1 % (0-3) Neutrophils # (Auto) 5.0 x10^3uL (1.8-7.7) 3.8 x10^3uL (1.8-7.7) Lymphocytes # (Auto) 1.2 x10^3/uL (1.0-4.8) 1.5 x10^3/uL (1.0-4.8) Monocytes # (Auto) 1.1 x10^3/uL (0.0-1.1) 1.0 x10^3/uL (0.0-1.1) Eosinophils # (Auto) 0.2 x10^3/uL (0.0-0.7) 0.2 x10^3/uL (0.0-0.7) Basophils # (Auto) 0.0 x10^3/uL (0.0-0.2) 0.0 x10^3/uL (0.0-0.2) Prothrombin Time 26.6 SEC (11.7-14.0) 25.2 SEC (11.7-14.0) Prothromb Time International Ratio 2.5 (0.8-1.1) 2.4 (0.8-1.1) Sodium Level 141 mmol/L (136-145) 142 mmol/L (136-145) Potassium Level 3.6 mmol/L (3.5-5.1) 3.6 mmol/L (3.5-5.1) Chloride Level 104 mmol/L (98-107) 106 mmol/L (98-107) Carbon Dioxide Level 32 mmol/L (21-32) 33 mmol/L (21-32) Anion Gap 5 (6-14) 3 (6-14) Blood Urea Nitrogen 12 mg/dL (8-26) 15 mg/dL (8-26) Creatinine 0.9 mg/dL (0.7-1.3) 0.9 mg/dL (0.7-1.3) Estimated GFR (Cockcroft-Gault) 86.7 86.7 Glucose Level 131 mg/dL (70-99) 123 mg/dL (70-99) Calcium Level 8.4 mg/dL (8.5-10.1) 8.5 mg/dL (8.5-10.1) Segmented Neutrophils % 70 % (35-66) Lymphocytes % 19 % (24-48) Monocytes % 8 % (0-10) Eosinophils % 1 % (0-5) Basophils % 2 % (0-3) Platelet Estimate Adequate (ADEQUATE) Hypochromasia Slight Anisocytosis Slight Spherocytes Occ Laboratory Tests Test 10/30/17 03:55 White Blood Count 6.6 x10^3/uL (4.0-11.0) Red Blood Count 2.30 x10^6/uL (4.30-5.70) Hemoglobin 7.5 g/dL (13.0-17.5) Hematocrit 21.8 % (39.0-53.0) Mean Corpuscular Volume 95 fL (79-100) Mean Corpuscular Hemoglobin 33 pg (25-35) Mean Corpuscular Hemoglobin Concent 35 g/dL (31-37) Red Cell Distribution Width 16.6 % (11.5-14.5) Platelet Count 171 x10^3/uL (140-400) Neutrophils (%) (Auto) 58 % (31-73) Lymphocytes (%) (Auto) 23 % (24-48) Monocytes (%) (Auto) 16 % (0-9) Eosinophils (%) (Auto) 3 % (0-3) Basophils (%) (Auto) 1 % (0-3) Neutrophils # (Auto) 3.8 x10^3uL (1.8-7.7) Lymphocytes # (Auto) 1.5 x10^3/uL (1.0-4.8) Monocytes # (Auto) 1.0 x10^3/uL (0.0-1.1) Eosinophils # (Auto) 0.2 x10^3/uL (0.0-0.7) Basophils # (Auto) 0.0 x10^3/uL (0.0-0.2) Segmented Neutrophils % 70 % (35-66) Lymphocytes % 19 % (24-48) Monocytes % 8 % (0-10) Eosinophils % 1 % (0-5) Basophils % 2 % (0-3) Platelet Estimate Adequate (ADEQUATE) Hypochromasia Slight Anisocytosis Slight Spherocytes Occ Prothrombin Time 25.2 SEC (11.7-14.0) Prothromb Time International Ratio 2.4 (0.8-1.1) Sodium Level 142 mmol/L (136-145) Potassium Level 3.6 mmol/L (3.5-5.1) Chloride Level 106 mmol/L (98-107) Carbon Dioxide Level 33 mmol/L (21-32) Anion Gap 3 (6-14) Blood Urea Nitrogen 15 mg/dL (8-26) Creatinine 0.9 mg/dL (0.7-1.3) Estimated GFR (Cockcroft-Gault) 86.7 Glucose Level 123 mg/dL (70-99) Calcium Level 8.5 mg/dL (8.5-10.1) Medications Current Medications Fentanyl Citrate (Fentanyl 2ml Vial) 75 mcg 1X ONCE IV Last administered on at 03:00; Start 10/22/17 at 02:45; Stop 10/22/17 at 02:46; Status DC Ondansetron HCl (Zofran) 4 mg 1X ONCE IV Last administered on 10/22/17at 02:58 ; Start 10/22/17 at 02:45; Stop 10/22/17 at 02:46; Status DC Fentanyl Citrate (Fentanyl 2ml Vial) 50 mcg 1X ONCE IV Last administered on at 03:48; Start 10/22/17 at 03:30; Stop 10/22/17 at 03:31; Status DC Ondansetron HCl (Zofran) 4 mg PRN Q8HRS PRN IV NAUSEA/VOMITING; Start 10/22/17 at 03:45; Stop 10/22/17 at 07:53; Status DC Fentanyl Citrate (Fentanyl 2ml Vial) 50 mcg PRN Q1HR PRN IV PAIN Last administered on 10/22/17at 09:17; Start 10/22/17 at 03:45; Stop 10/23/17 at 03:44 ; Status DC Sodium Chloride 1,000 ml @ 125 mls/hr Q8H IV Last administered on 10/22/17at 22 :48; Start 10/22/17 at 03:33; Stop 10/23/17 at 03:32; Status DC Ondansetron HCl (Zofran) 4 mg PRN Q6HRS PRN IV NAUSEA/VOMITING; Start 10/22/17 at 08:00; Stop 10/23/17 at 12:52; Status DC Acetaminophen (Tylenol) 500 mg PRN Q6HRS PRN PO MILD PAIN / TEMP Last administered on 10/22/17at 11:36; Start 10/22/17 at 08:00 Labetalol HCl (Normodyne) 10 mg PRN Q2HR PRN IVP HYPERTENSION, SEE COMMENTS; Start 10/22/17 at 08:00 Potassium Chloride (Klor-Con) 40 meq 1X ONCE PO Last administered on at 11:35; Start 10/22/17 at 08:00; Stop 10/22/17 at 08:19; Status DC Clonidine HCl (Catapres) 0.1 mg Q8HRS PO Last administered on 10/24/17at 14:09; Start 10/22/17 at 10:00; Stop 10/24/17 at 15:22; Status DC Ropivacaine 53.3 ml/Epinephrine HCl 0.6 mg/ Morphine Sulfate 5 mg/Sodium Chloride 100 ml @ 100 mls/hr 1X PERIOP INT ART Last administered on at 09:57; Start 10/22/17 at 10:00; Stop 10/25/17 at 13:43; Status DC Clonidine HCl (Catapres) 0.1 mg PRN Q1HR PRN PO HYPERTENSION, SEE COMMENTS Last administered on 10/26/17at 14:29; Start 10/22/17 at 11:00 Oxycodone/ Acetaminophen (Percocet 10/325) 1 tab PRN Q4HRS PRN PO SEVERE PAIN 1ST CHOICE Last administered on 10/30/17at 13:50; Start 10/22/17 at 11:00 Acetaminophen/ Hydrocodone Bitart (Lortab 10/325) 1 tab PRN Q4HRS PRN PO MODERATE PAIN Last administered on 10/23/17at 07:58; Start 10/22/17 at 11:00; Stop 10/23/17 at 13:45; Status DC Cyclobenzaprine HCl (Flexeril) 10 mg PRN TID PRN PO MUSCLE SPASMS Last administered on 10/24/17at 05:54; Start 10/22/17 at 11:00; Stop 10/24/17 at 09:55 ; Status DC Loperamide HCl (Imodium) 2 mg TID PRN PRN PO DIARRHEA Last administered on 10/23at 02:57; Start 10/22/17 at 11:00; Stop 10/24/17 at 10:10; Status DC Fentanyl Citrate (Fentanyl 2ml Vial) 25 mcg PRN Q5MIN PRN IV MILD PAIN; Start 10/23/17 at 07:00; Stop 10/23/17 at 18:00; Status DC Fentanyl Citrate (Fentanyl 2ml Vial) 50 mcg PRN Q5MIN PRN IV MODERATE TO SEVERE PAIN Last administered on 10/23/17at 14:15; Start 10/23/17 at 07:00; Stop 10/23/17 at 18:00; Status DC Ringer's Solution 1,000 ml @ 30 mls/hr Q24H IV ; Start 10/23/17 at 07:00; Stop 10/23/17 at 18:59; Status DC Lidocaine HCl (Xylocaine-Mpf 1% Vial) 2 ml PRN 1X PRN ID IV START; Start at 07:00; Stop 10/23/17 at 18:00; Status DC Prochlorperazine Edisylate (Compazine) 5 mg PACU PRN PRN IV NAUSEA, MRX1; Start 10/23/17 at 07:00; Stop 10/23/17 at 18:00; Status DC Trazodone HCl (Desyrel) 100 mg QHS PO Last administered on 10/29/17at 20:20; Start 10/23/17 at 21:00 Trazodone HCl (Desyrel) 100 mg 1X ONCE PO Last administered on 10/22/17at 22:44 ; Start 10/22/17 at 22:45; Stop 10/22/17 at 22:46; Status DC Cefazolin Sodium/ Dextrose 50 ml @ 100 mls/hr 1X PREOP IV Last administered on 10/23/17at 10:34; Start 10/23/17 at 09:00; Stop 10/25/17 at 13:30; Status DC Lidocaine HCl (Lidocaine Pf 2% Vial) 5 ml STK-MED ONCE .ROUTE ; Start 10/23/17 at 09:01; Stop 10/23/17 at 09:02; Status DC Propofol 20 ml @ As Directed STK-MED ONCE IV ; Start 10/23/17 at 09:01; Stop at 09:02; Status DC Midazolam HCl (Versed) 2 mg STK-MED ONCE .ROUTE ; Start 10/23/17 at 09:01; Stop 10/23/17 at 09:02; Status DC Fentanyl Citrate (Fentanyl 2ml Vial) 100 mcg STK-MED ONCE .ROUTE ; Start at 09:01; Stop 10/23/17 at 09:02; Status DC Rocuronium Ovid (Zemuron) 50 mg STK-MED ONCE .ROUTE ; Start 10/23/17 at 09:04 ; Stop 10/23/17 at 09:05; Status DC Ephedrine Sulfate (ePHEDrine PF IN SALINE SYRINGE) 50 mg STK-MED ONCE IV ; Start 10/23/17 at 09:38; Stop 10/23/17 at 09:39; Status DC Phenylephrine HCl (PHENYLEPHRINE in 0.9% NACL PF) 1 mg STK-MED ONCE IV ; Start 10/23/17 at 10:04; Stop 10/23/17 at 10:06; Status DC Cefazolin Sodium (Ancef) 1 gm STK-MED ONCE .ROUTE ; Start 10/23/17 at 11:01; Stop 10/23/17 at 11:03; Status DC Ondansetron HCl (Zofran) 4 mg STK-MED ONCE .ROUTE ; Start 10/23/17 at 11:44; Stop 10/23/17 at 11:45; Status DC Fentanyl Citrate (Fentanyl 2ml Vial) 100 mcg STK-MED ONCE .ROUTE ; Start at 11:58; Stop 10/23/17 at 11:59; Status DC Sevoflurane (Ultane) 90 ml STK-MED ONCE IH ; Start 10/23/17 at 12:04; Stop 10/23 at 12:05; Status DC Oxycodone HCl (Roxicodone) 5 mg PRN Q3HRS PRN PO MODERATE PAIN 1ST CHOICE Last administered on 10/29/17at 17:02; Start 10/23/17 at 12:45 Morphine Sulfate (Morphine Sulfate) 2 mg PRN Q1HR PRN IV PAIN SEVERE 1ST CHOICE Last administered on 10/23/17at 20:52; Start 10/23/17 at 12:45 Fentanyl Citrate (Fentanyl 2ml Vial) 25 mcg PRN Q1HR PRN IV PAIN SEVERE 3RD CHOICE Last administered on 10/23/17at 15:31; Start 10/23/17 at 12:45 Senna/Docusate Sodium (Senna Plus) 1 tab DAILY PO Last administered on at 11:56; Start 10/24/17 at 09:00 Polyethylene Glycol (miraLAX PACKET) 17 gm PRN DAILY PRN PO CONSTIPATION, 1ST CHOICE Last administered on 10/29/17at 08:32; Start 10/23/17 at 12:45 Vitamin D (Vitamin D3) 5,000 unit DAILY PO Last administered on 10/23/17at 14:46 ; Start 10/23/17 at 13:00; Stop 10/24/17 at 08:39; Status DC Ondansetron HCl (Zofran) 4 mg PRN Q4HRS PRN IV NAUSEA/VOMITING; Start 10/23/17 at 12:45 Warfarin Sodium (Coumadin) 7.5 mg 1X ONCE PO ; Start 10/23/17 at 16:00; Stop at 16:01; Status DC Warfarin Sodium (Coumadin Per Pharmacy) 1 each PRN DAILY PRN MC SEE COMMENTS Last administered on 10/30/17at 12:54; Start 10/24/17 at 12:45 Magnesium Hydroxide (Milk Of Magnesia) 2,400 mg 1X PRN PRN PO CONSTIPATION; Start 10/24/17 at 06:00; Stop 10/25/17 at 05:59; Status DC Bisacodyl (Dulcolax Supp) 10 mg 1X PRN PRN [place] CONSTIPATION; Start 10/24/17 at 16:00; Stop 10/25/17 at 15:59; Status DC Acetaminophen/ Hydrocodone Bitart (Lortab 7.5/325) 1 tab PRN Q4HRS PRN PO MODERATE PAIN 2ND CHOICE; Start 10/23/17 at 12:45 Morphine Sulfate (Morphine Sulfate) 4 mg PRN Q2HR PRN IV PAIN SEVERE 2ND CHOICE Last administered on 10/24/17at 14:08; Start 10/23/17 at 12:45 Acetaminophen/ Hydrocodone Bitart (Lortab 7.5/325) 2 tab PRN Q4HRS PRN PO SEVERE PAIN 2ND CHOICE Last administered on 10/29/17at 19:19; Start 10/23/17 at 12:45 Dextrose (Dextrose 50%-Water Syringe) 12.5 gm PRN Q15MIN PRN IV SEE COMMENTS; Start 10/23/17 at 12:45 Cefazolin Sodium 1 gm/Dextrose 50 ml @ 100 mls/hr Q6H IV ; Start 10/23/17 at 12 :45; Stop 10/23/17 at 12:54; Status DC Cefazolin Sodium (Ancef) 1 gm Q8H IVP Last administered on 10/24/17at 09:10; Start 10/23/17 at 16:00; Stop 10/24/17 at 08:01; Status DC Fentanyl Citrate (Fentanyl 2ml Vial) 100 mcg STK-MED ONCE .ROUTE ; Start at 13:19; Stop 10/23/17 at 13:20; Status DC Fentanyl Citrate (Fentanyl 2ml Vial) 100 mcg STK-MED ONCE .ROUTE ; Start at 13:40; Stop 10/23/17 at 13:41; Status DC Ergocalciferol (Vitamin D2) 50,000 unit WEEKLY PO Last administered on at 09:08; Start 10/24/17 at 09:00 Cyanocobalamin (Vitamin B-12) 1,000 mcg DAILY PO ; Start 10/24/17 at 11:00; Stop 10/24/17 at 11:00; Status DC Cyclobenzaprine HCl (Flexeril) 10 mg TID PO ; Start 10/24/17 at 14:00; Stop at 14:00; Status DC Gabapentin (Neurontin) 100 mg Q8HRS PO Last administered on 10/30/17 13:50; Start 10/24/17 at 14:00 Duloxetine HCl (Cymbalta) 60 mg DAILY PO Last administered on 10/30/17 11:56; Start 10/24/17 at 11:00 Multivitamins (Thera M Plus) 1 tab DAILY PO Last administered on 10/30/17 11: 55; Start 10/24/17 at 11:00 Cyclobenzaprine HCl (Flexeril) 10 mg TID PO Last administered on 10/30/17 13: 50; Start 10/24/17 at 14:00 Cyanocobalamin (Vitamin B-12) 1,000 mcg DAILY PO Last administered on at 11:55; Start 10/24/17 at 11:00 Lactulose (Lactulose) 20 gm PRN Q3HRS PRN PO CONSTIPATION, 2ND CHOICE; Start at 10:00 Senna/Docusate Sodium (Senna Plus) 1 tab DAILY PO ; Start 10/24/17 at 11:00; Stop 10/24/17 at 13:41; Status DC Calcium/Vitamin D (Oscal D 500mg/ 200uts) 1 tab BIDWMEALS PO Last administered on 10/30/17at 11:57; Start 10/24/17 at 17:00 Acetaminophen/ Hydrocodone Bitart (Lortab 10/325) 1 tab PRN Q4HRS PRN PO SEVERE PAIN, 3RD CHOICE Last administered on 10/28/17at 08:08; Start 10/24/17 at 10:15 Magnesium Oxide (Magnesium Oxide) 400 mg BID PO Last administered on 10/30/17 11:55; Start 10/24/17 at 11:00 Methadone HCl (Dolophine) 10 mg BID PO ; Start 10/24/17 at 11:00; Stop 10/28/17 at 13:37; Status DC Ondansetron HCl (Zofran Odt) 8 mg PRN Q8HRS PRN PO NAUSEA/VOMITING; Start 10/24 at 10:30 Lidocaine (Lidoderm) 1 patch DAILY TD ; Start 10/24/17 at 10:00; Stop 10/28/17 at 13:37; Status DC Multi-Ingredient Mouthwash/Gargle (Magic Mouthwash) 30 ml PRN TID PRN PO MOUTH PAIN; Start 10/24/17 at 10:30 Loperamide HCl (Imodium) 2 mg PRN Q15MIN PRN PO DIARRHEA; Start 10/24/17 at 10: 00 Al Hydroxide/Mg Hydroxide (Mylanta Plus Xs) 30 ml PRN Q2HR PRN PO HEARTBURN / GAS; Start 10/24/17 at 10:00 Alprazolam (Xanax) 0.25 mg PRN Q8HRS PRN PO ANXIETY / AGITATION Last administered on 10/24/17at 11:41; Start 10/24/17 at 10:00 Warfarin Sodium (Coumadin) 5 mg 1X WARF ONCE PO Last administered on at 16:52; Start 10/24/17 at 16:00; Stop 10/24/17 at 16:01; Status DC Clonidine HCl (Catapres) 0.2 mg Q8HRS PO ; Start 10/24/17 at 22:00; Stop at 22:00; Status DC Alprazolam (Xanax) 0.5 mg BID PO Last administered on 10/30/17at 11:56; Start at 16:00 Clonidine HCl (Catapres) 0.2 mg Q8HRS PO Last administered on 10/29/17at 21:36; Start 10/24/17 at 20:35 Warfarin Sodium (Coumadin) 4 mg 1X WARF ONCE PO Last administered on at 16:54; Start 10/25/17 at 16:00; Stop 10/25/17 at 16:01; Status DC Warfarin Sodium (Coumadin - No Dose Today) 1 each 1X WARF ONCE MC Last administered on 10/26/17at 16:00; Start 10/26/17 at 16:00; Stop 10/26/17 at 16:01 ; Status DC Warfarin Sodium (Coumadin) 3 mg 1X WARF ONCE PO Last administered on at 15:08; Start 10/27/17 at 16:00; Stop 10/27/17 at 16:01; Status DC Warfarin Sodium (Coumadin) 3 mg 1X WARF ONCE PO Last administered on at 17:23; Start 10/28/17 at 16:00; Stop 10/28/17 at 16:01; Status DC Warfarin Sodium (Coumadin) 2 mg 1X WARF ONCE PO Last administered on at 17:03; Start 10/29/17 at 16:00; Stop 10/29/17 at 16:01; Status DC Warfarin Sodium (Coumadin) 2 mg 1X WARF ONCE PO ; Start 10/30/17 at 16:00; Stop 10/30/17 at 16:01 Active Scripts Active Reported Alum-Mag Hydroxide-Simeth Liq (Mag Hydrox/Al Hydrox/Simeth) 360 Ml Oral.susp 5 Ml PO PRN Vitamin B-12 (Cyanocobalamin (Vitamin B-12)) 1,000 Mcg Tablet 1,250 Mcg SL DAILY Vitamin B-12 (Cyanocobalamin (Vitamin B-12)) 1,000 Mcg Tablet 1,000 Mcg PO Trazodone Hcl 100 Mg Tablet 1 Tab PO QHS Stivarga (Regorafenib) 40 Mg Tablet 40 Mg PO DAILY Senna S Tablet (Sennosides/Docusate Sodium) 1 Each Tablet 1 Each PO Multivitamins (Multivitamin) 1 Each Tablet 1 Tab PO DAILY Zofran (Ondansetron Hcl) 8 Mg Tablet 1 Tab PO Q8HRS PRN Naloxone Hcl 0.4 Mg/1 Ml Vial 0.4 Mg IJ Methadone Hcl 10 Mg Tablet 1 Tab PO Q12HR Mag-Oxide (Magnesium Oxide) 400 Mg Tablet 250 Mg PO BID [lidoderm] 5 Q12HR Lactulose 20 Gm/30 Ml Solution 20 Gm PO PRN Q3HRS PRN Imodium A-D (Loperamide HCl) 2 Mg Capsule 2 Mg PO PRN [place] 10-325 Tablet (Acetaminophen/Hydrocodone Bitart) 1 Each Tablet 1-2 Tab PO Q4-6HRS PRN Gabapentin 100 Mg Capsule 100 Mg PO Q8HRS Cymbalta (Duloxetine Hcl) 60 Mg Capsule.dr 1 Cap PO DAILY [magic mouthwash] 30 Ml TID PRN Cyclobenzaprine Hcl 10 Mg Tablet 1 Tab PO TID Oyster Shell Calcium-Vit D Tab (Calcium Carbonate/Vitamin D2) 1 Each Tablet 1 Each PO BID Vitals/I & O Vital Sign - Last 24 Hours 10/29/17 10/29/17 10/29/17 10/29/17 17:02 18:46 19:00 19:19 Temp 98.1 98.1 Pulse 75 Resp 18 B/P (MAP) 105/66 (79) Pulse Ox 93 O2 Delivery Room Air Room Air Room Air Room Air 10/29/17 10/29/17 10/29/17 10/29/17 20:00 20:19 21:36 21:37 Pulse 75 Resp 18 18 B/P (MAP) 105/66 O2 Delivery Room Air Room Air Room Air 10/29/17 10/29/17 10/30/17 10/30/17 22:47 23:00 03:00 06:00 Temp 98.6 98.1 98.6 98.1 Pulse 77 70 82 Resp 16 18 18 B/P (MAP) 110/67 (81) 116/68 (84) 96/59 Pulse Ox 95 95 O2 Delivery Room Air Room Air 10/30/17 10/30/17 10/30/17 10/30/17 06:29 07:15 08:00 09:25 Temp 98.3 98.3 Pulse 82 85 Resp 20 B/P (MAP) 96/59 (71) 144/61 (88) Pulse Ox 96 97 O2 Delivery Room Air Room Air Room Air Room Air 10/30/17 10/30/17 10/30/17 10/30/17 10:30 11:06 13:50 13:51 Temp 98.3 98.3 Pulse 105 105 Resp 20 B/P (MAP) 99/53 (68) 99/53 Pulse Ox 97 97 97 O2 Delivery Room Air Room Air Room Air Intake and Output 10/29/17 10/29/17 10/30/17 15:00 23:00 07:00 Intake Total 1000 ml 250 ml Output Total 1600 ml 400 ml Balance -600 ml -150 ml JERAMIE TAYLOR MD Oct 30, 2017 15:08
[2017-10-30] MEDS ORDERED: WARFARIN 2 MG TABLET. PO ONE (16:00)
[2017-10-30] MEDS: traZODone 100 MG TABLET. PO SCH (22:14)
[2017-10-31 03:13] VITALS: BP 110/60
[2017-10-31] MEDS: GABAPENTIN 100 MG CAPSULE. PO SCH ×3 (06:19→20:45)
[2017-10-31] MEDS: cloNIDine HCL 0.2 MG TABLET PO SCH (06:20)
[2017-10-31 07:00] VITALS: BP 90/58
[2017-10-31 07:23] LABS: BASO % 1 % (0-3); EOS # 0.1 x10^3/uL (0.0-0.7); EOS % 2 % (0-3); HEMATOCRIT 23.1 % (39.0-53.0); HEMOGLOBIN 7.9 g/dL (13.0-17.5); LYMPH # 1.1 x10^3/uL (1.0-4.8); LYMPH % 16 % (24-48); MEAN CORPUSCULAR HEMOGLOBIN 33 pg (25-35); MEAN CORPUSCULAR HGB CONC 34 g/dL (31-37); MEAN CORPUSCULAR VOLUME 95 fL (79-100); MONO # 0.9 x10^3/uL (0.0-1.1); MONO % 12 % (0-9); NEUT # 4.9 x10^3uL (1.8-7.7); NEUT % 70 % (31-73); PLATELET COUNT 190 x10^3/uL (140-400); RED BLOOD COUNT 2.44 x10^6/uL (4.30-5.70); RED CELL DISTRIBUTION WIDTH 17.1 % (11.5-14.5)
[2017-10-31 07:33] LABS: CALCIUM 8.2 mg/dL (8.5-10.1); CREATININE 1.1 mg/dL (0.7-1.3); GFR 68.8; POTASSIUM 3.9 mmol/L (3.5-5.1)
[2017-10-31] MEDS: DULoxetine HCL 30 MG CAPSULE.DR PO SCH (09:53)
[2017-10-31] MEDS: MAGNESIUM OXIDE 400 MG TABLET PO SCH ×2 (09:53→20:45)
[2017-10-31] MEDS: ALPRAZolam 0.5 MG TABLET PO SCH ×2 (09:54→20:45)
[2017-10-31] MEDS: CALCIUM CARB/VIT D3 500/200 TABLET. PO SCH ×2 (09:54→16:08)
[2017-10-31] MEDS: CYANOCOBALAMIN (VITAMIN B-12) 1,000 MCG TABLET. PO SCH (09:54)
[2017-10-31] MEDS: SENNOSIDES/DOCUSATE 8.6/50MG TABLET. PO SCH ×3 (09:54→20:45)
[2017-10-31] MEDS: oxyCODONE/APAP 10/325 1 TAB TABLET PO PRN ×2 (09:54→18:34)
[2017-10-31] MEDS: MULTIVITAMIN with MINERAL TABLET. PO SCH (09:54)
[2017-10-31] MEDS: ERGOCALCIFEROL (VITAMIN D2) 50,000 UNIT CAPSULE. PO SCH (09:58)
[2017-10-31] MEDS: CYCLOBENZAPRINE 10 MG TABLET. PO SCH ×3 (10:02→20:45)
[2017-10-31 11:00] VITALS: BP 135/70
[2017-10-31] MEDS ORDERED: LACTULOSE 20 GM/30 ML SOLUTION. PO PRN (12:00)
[2017-10-31] MEDS ORDERED: BISACODYL 10 MG SUPP.RECT. PR PRN (12:00)
[2017-10-31] MEDS: DOCUSATE SODIUM 100 MG CAPSULE. PO SCH ×2 (14:16→20:45)
[2017-10-31] MEDS: MAGNESIUM HYDROXIDE 2,400 MG/30 ML ORAL.SUSP. PO SCH ×2 (14:16→20:45)
--- NOTE | 2017-10-31 14:18 | PDOC ---
PROGRESS NOTES Chief Complaint Chief Complaint RT Patellar fracture, traumatic, closed s/p sx 10/23 - Right hip fracture s/p sx 10/23 Mechanical fall at home, Colon CA with mets to lungs on chemo held now Anemia of malignancy and post sx constipation plan: fu with onco, chemo held since fx, will fu with own onco fu with ortho, can do wbat pain controlled ok with percocet check anemia panel cont warfarin for dvt ppx, INR daily talked to PT ,SW, pt has insurance pending for rehab, dc in 1-2 ds, otherwise home with HH. add stool softner History of Present Illness History of Present Illness He was in good spirits and looked good pt walks ok with a walker with PT cont symptoms control, pain meds as needed, cont current last BM was 10ds ago, had diarrhea 10ds ago with chemo meds. Vitals Vitals Vital Signs Date Time Temp Pulse Resp B/P (MAP) Pulse Ox O2 Delivery O2 Flow Rate FiO2 10/31/17 11:00 97.7 104 19 135/70 (91) 99 Room Air 97.7 10/30/17 18:45 3.0 Physical Exam General: Alert, Oriented X3, No acute distress Heart: Normal S1, Normal S2 Lungs: Clear Abdomen: Normal bowel sounds, Soft, No tenderness Extremities: No clubbing, No cyanosis, Normal pulses Skin: No rashes, No breakdown, No significant lesion Labs LABS Laboratory Tests Test 10/31/17 05:50 White Blood Count 7.0 x10^3/uL (4.0-11.0) Red Blood Count 2.44 x10^6/uL (4.30-5.70) Hemoglobin 7.9 g/dL (13.0-17.5) Hematocrit 23.1 % (39.0-53.0) Mean Corpuscular Volume 95 fL (79-100) Mean Corpuscular Hemoglobin 33 pg (25-35) Mean Corpuscular Hemoglobin Concent 34 g/dL (31-37) Red Cell Distribution Width 17.1 % (11.5-14.5) Platelet Count 190 x10^3/uL (140-400) Neutrophils (%) (Auto) 70 % (31-73) Lymphocytes (%) (Auto) 16 % (24-48) Monocytes (%) (Auto) 12 % (0-9) Eosinophils (%) (Auto) 2 % (0-3) Basophils (%) (Auto) 1 % (0-3) Neutrophils # (Auto) 4.9 x10^3uL (1.8-7.7) Lymphocytes # (Auto) 1.1 x10^3/uL (1.0-4.8) Monocytes # (Auto) 0.9 x10^3/uL (0.0-1.1) Eosinophils # (Auto) 0.1 x10^3/uL (0.0-0.7) Basophils # (Auto) 0.0 x10^3/uL (0.0-0.2) Sodium Level 140 mmol/L (136-145) Potassium Level 3.9 mmol/L (3.5-5.1) Chloride Level 105 mmol/L (98-107) Carbon Dioxide Level 30 mmol/L (21-32) Anion Gap 5 (6-14) Blood Urea Nitrogen 16 mg/dL (8-26) Creatinine 1.1 mg/dL (0.7-1.3) Estimated GFR (Cockcroft-Gault) 68.8 Glucose Level 113 mg/dL (70-99) Calcium Level 8.2 mg/dL (8.5-10.1) Assessment and Plan Assessmemt and Plan Problems Medical Problems: (1) Comminuted fracture of right patella Status: Acute (2) Intertrochanteric fracture of right hip Status: Acute Comment Review of Relevant I have reviewed the following items francisco (where applicable) has been applied. Labs Laboratory Tests Test 10/30/17 03:55 10/31/17 05:50 White Blood Count 6.6 x10^3/uL (4.0-11.0) 7.0 x10^3/uL (4.0-11.0) Red Blood Count 2.30 x10^6/uL (4.30-5.70) 2.44 x10^6/uL (4.30-5.70) Hemoglobin 7.5 g/dL (13.0-17.5) 7.9 g/dL (13.0-17.5) Hematocrit 21.8 % (39.0-53.0) 23.1 % (39.0-53.0) Mean Corpuscular Volume 95 fL (79-100) 95 fL (79-100) Mean Corpuscular Hemoglobin 33 pg (25-35) 33 pg (25-35) Mean Corpuscular Hemoglobin Concent 35 g/dL (31-37) 34 g/dL (31-37) Red Cell Distribution Width 16.6 % (11.5-14.5) 17.1 % (11.5-14.5) Platelet Count 171 x10^3/uL (140-400) 190 x10^3/uL (140-400) Neutrophils (%) (Auto) 58 % (31-73) 70 % (31-73) Lymphocytes (%) (Auto) 23 % (24-48) 16 % (24-48) Monocytes (%) (Auto) 16 % (0-9) 12 % (0-9) Eosinophils (%) (Auto) 3 % (0-3) 2 % (0-3) Basophils (%) (Auto) 1 % (0-3) 1 % (0-3) Neutrophils # (Auto) 3.8 x10^3uL (1.8-7.7) 4.9 x10^3uL (1.8-7.7) Lymphocytes # (Auto) 1.5 x10^3/uL (1.0-4.8) 1.1 x10^3/uL (1.0-4.8) Monocytes # (Auto) 1.0 x10^3/uL (0.0-1.1) 0.9 x10^3/uL (0.0-1.1) Eosinophils # (Auto) 0.2 x10^3/uL (0.0-0.7) 0.1 x10^3/uL (0.0-0.7) Basophils # (Auto) 0.0 x10^3/uL (0.0-0.2) 0.0 x10^3/uL (0.0-0.2) Segmented Neutrophils % 70 % (35-66) Lymphocytes % 19 % (24-48) Monocytes % 8 % (0-10) Eosinophils % 1 % (0-5) Basophils % 2 % (0-3) Platelet Estimate Adequate (ADEQUATE) Hypochromasia Slight Anisocytosis Slight Spherocytes Occ Prothrombin Time 25.2 SEC (11.7-14.0) Prothromb Time International Ratio 2.4 (0.8-1.1) Sodium Level 142 mmol/L (136-145) 140 mmol/L (136-145) Potassium Level 3.6 mmol/L (3.5-5.1) 3.9 mmol/L (3.5-5.1) Chloride Level 106 mmol/L (98-107) 105 mmol/L (98-107) Carbon Dioxide Level 33 mmol/L (21-32) 30 mmol/L (21-32) Anion Gap 3 (6-14) 5 (6-14) Blood Urea Nitrogen 15 mg/dL (8-26) 16 mg/dL (8-26) Creatinine 0.9 mg/dL (0.7-1.3) 1.1 mg/dL (0.7-1.3) Estimated GFR (Cockcroft-Gault) 86.7 68.8 Glucose Level 123 mg/dL (70-99) 113 mg/dL (70-99) Calcium Level 8.5 mg/dL (8.5-10.1) 8.2 mg/dL (8.5-10.1) Laboratory Tests Test 10/31/17 05:50 White Blood Count 7.0 x10^3/uL (4.0-11.0) Red Blood Count 2.44 x10^6/uL (4.30-5.70) Hemoglobin 7.9 g/dL (13.0-17.5) Hematocrit 23.1 % (39.0-53.0) Mean Corpuscular Volume 95 fL (79-100) Mean Corpuscular Hemoglobin 33 pg (25-35) Mean Corpuscular Hemoglobin Concent 34 g/dL (31-37) Red Cell Distribution Width 17.1 % (11.5-14.5) Platelet Count 190 x10^3/uL (140-400) Neutrophils (%) (Auto) 70 % (31-73) Lymphocytes (%) (Auto) 16 % (24-48) Monocytes (%) (Auto) 12 % (0-9) Eosinophils (%) (Auto) 2 % (0-3) Basophils (%) (Auto) 1 % (0-3) Neutrophils # (Auto) 4.9 x10^3uL (1.8-7.7) Lymphocytes # (Auto) 1.1 x10^3/uL (1.0-4.8) Monocytes # (Auto) 0.9 x10^3/uL (0.0-1.1) Eosinophils # (Auto) 0.1 x10^3/uL (0.0-0.7) Basophils # (Auto) 0.0 x10^3/uL (0.0-0.2) Sodium Level 140 mmol/L (136-145) Potassium Level 3.9 mmol/L (3.5-5.1) Chloride Level 105 mmol/L (98-107) Carbon Dioxide Level 30 mmol/L (21-32) Anion Gap 5 (6-14) Blood Urea Nitrogen 16 mg/dL (8-26) Creatinine 1.1 mg/dL (0.7-1.3) Estimated GFR (Cockcroft-Gault) 68.8 Glucose Level 113 mg/dL (70-99) Calcium Level 8.2 mg/dL (8.5-10.1) Medications Current Medications Fentanyl Citrate (Fentanyl 2ml Vial) 75 mcg 1X ONCE IV Last administered on at 03:00; Start 10/22/17 at 02:45; Stop 10/22/17 at 02:46; Status DC Ondansetron HCl (Zofran) 4 mg 1X ONCE IV Last administered on 10/22/17at 02:58 ; Start 10/22/17 at 02:45; Stop 10/22/17 at 02:46; Status DC Fentanyl Citrate (Fentanyl 2ml Vial) 50 mcg 1X ONCE IV Last administered on 03:48; Start 10/22/17 at 03:30; Stop 10/22/17 at 03:31; Status DC Ondansetron HCl (Zofran) 4 mg PRN Q8HRS PRN IV NAUSEA/VOMITING; Start 10/22/17 at 03:45; Stop 10/22/17 at 07:53; Status DC Fentanyl Citrate (Fentanyl 2ml Vial) 50 mcg PRN Q1HR PRN IV PAIN Last administered on 10/22/17at 09:17; Start 10/22/17 at 03:45; Stop 10/23/17 at 03:44 ; Status DC Sodium Chloride 1,000 ml @ 125 mls/hr Q8H IV Last administered on 10/22/17at 22 :48; Start 10/22/17 at 03:33; Stop 10/23/17 at 03:32; Status DC Ondansetron HCl (Zofran) 4 mg PRN Q6HRS PRN IV NAUSEA/VOMITING; Start 10/22/17 at 08:00; Stop 10/23/17 at 12:52; Status DC Acetaminophen (Tylenol) 500 mg PRN Q6HRS PRN PO MILD PAIN / TEMP Last administered on 10/22/17at 11:36; Start 10/22/17 at 08:00 Labetalol HCl (Normodyne) 10 mg PRN Q2HR PRN IVP HYPERTENSION, SEE COMMENTS; Start 10/22/17 at 08:00 Potassium Chloride (Klor-Con) 40 meq 1X ONCE PO Last administered on at 11:35; Start 10/22/17 at 08:00; Stop 10/22/17 at 08:19; Status DC Clonidine HCl (Catapres) 0.1 mg Q8HRS PO Last administered on 10/24/17at 14:09; Start 10/22/17 at 10:00; Stop 10/24/17 at 15:22; Status DC Ropivacaine 53.3 ml/Epinephrine HCl 0.6 mg/ Morphine Sulfate 5 mg/Sodium Chloride 100 ml @ 100 mls/hr 1X PERIOP INT ART Last administered on at 09:57; Start 10/22/17 at 10:00; Stop 10/25/17 at 13:43; Status DC Clonidine HCl (Catapres) 0.1 mg PRN Q1HR PRN PO HYPERTENSION, SEE COMMENTS Last administered on 10/26/17at 14:29; Start 10/22/17 at 11:00 Oxycodone/ Acetaminophen (Percocet 10/325) 1 tab PRN Q4HRS PRN PO SEVERE PAIN 1ST CHOICE Last administered on 10/31/17at 09:54; Start 10/22/17 at 11:00 Acetaminophen/ Hydrocodone Bitart (Lortab 10/325) 1 tab PRN Q4HRS PRN PO MODERATE PAIN Last administered on 10/23/17at 07:58; Start 10/22/17 at 11:00; Stop 10/23/17 at 13:45; Status DC Cyclobenzaprine HCl (Flexeril) 10 mg PRN TID PRN PO MUSCLE SPASMS Last administered on 10/24/17at 05:54; Start 10/22/17 at 11:00; Stop 10/24/17 at 09:55 ; Status DC Loperamide HCl (Imodium) 2 mg TID PRN PRN PO DIARRHEA Last administered on 10/23at 02:57; Start 10/22/17 at 11:00; Stop 10/24/17 at 10:10; Status DC Fentanyl Citrate (Fentanyl 2ml Vial) 25 mcg PRN Q5MIN PRN IV MILD PAIN; Start 10/23/17 at 07:00; Stop 10/23/17 at 18:00; Status DC Fentanyl Citrate (Fentanyl 2ml Vial) 50 mcg PRN Q5MIN PRN IV MODERATE TO SEVERE PAIN Last administered on 10/23/17at 14:15; Start 10/23/17 at 07:00; Stop 10/23/17 at 18:00; Status DC Ringer's Solution 1,000 ml @ 30 mls/hr Q24H IV ; Start 10/23/17 at 07:00; Stop 10/23/17 at 18:59; Status DC Lidocaine HCl (Xylocaine-Mpf 1% Vial) 2 ml PRN 1X PRN ID IV START; Start at 07:00; Stop 10/23/17 at 18:00; Status DC Prochlorperazine Edisylate (Compazine) 5 mg PACU PRN PRN IV NAUSEA, MRX1; Start 10/23/17 at 07:00; Stop 10/23/17 at 18:00; Status DC Trazodone HCl (Desyrel) 100 mg QHS PO Last administered on 10/30/17at 22:14; Start 10/23/17 at 21:00 Trazodone HCl (Desyrel) 100 mg 1X ONCE PO Last administered on 10/22/17at 22:44 ; Start 10/22/17 at 22:45; Stop 10/22/17 at 22:46; Status DC Cefazolin Sodium/ Dextrose 50 ml @ 100 mls/hr 1X PREOP IV Last administered on 10/23/17at 10:34; Start 10/23/17 at 09:00; Stop 10/25/17 at 13:30; Status DC Lidocaine HCl (Lidocaine Pf 2% Vial) 5 ml STK-MED ONCE .ROUTE ; Start 10/23/17 at 09:01; Stop 10/23/17 at 09:02; Status DC Propofol 20 ml @ As Directed STK-MED ONCE IV ; Start 10/23/17 at 09:01; Stop at 09:02; Status DC Midazolam HCl (Versed) 2 mg STK-MED ONCE .ROUTE ; Start 10/23/17 at 09:01; Stop 10/23/17 at 09:02; Status DC Fentanyl Citrate (Fentanyl 2ml Vial) 100 mcg STK-MED ONCE .ROUTE ; Start at 09:01; Stop 10/23/17 at 09:02; Status DC Rocuronium [place] (Zemuron) 50 mg STK-MED ONCE .ROUTE ; Start 10/23/17 at 09:04 ; Stop 10/23/17 at 09:05; Status DC Ephedrine Sulfate (ePHEDrine PF IN SALINE SYRINGE) 50 mg STK-MED ONCE IV ; Start 10/23/17 at 09:38; Stop 10/23/17 at 09:39; Status DC Phenylephrine HCl (PHENYLEPHRINE in 0.9% NACL PF) 1 mg STK-MED ONCE IV ; Start 10/23/17 at 10:04; Stop 10/23/17 at 10:06; Status DC Cefazolin Sodium (Ancef) 1 gm STK-MED ONCE .ROUTE ; Start 10/23/17 at 11:01; Stop 10/23/17 at 11:03; Status DC Ondansetron HCl (Zofran) 4 mg STK-MED ONCE .ROUTE ; Start 10/23/17 at 11:44; Stop 10/23/17 at 11:45; Status DC Fentanyl Citrate (Fentanyl 2ml Vial) 100 mcg STK-MED ONCE .ROUTE ; Start at 11:58; Stop 10/23/17 at 11:59; Status DC Sevoflurane (Ultane) 90 ml STK-MED ONCE IH ; Start 10/23/17 at 12:04; Stop 10/23 at 12:05; Status DC Oxycodone HCl (Roxicodone) 5 mg PRN Q3HRS PRN PO MODERATE PAIN 1ST CHOICE Last administered on 10/29/17at 17:02; Start 10/23/17 at 12:45 Morphine Sulfate (Morphine Sulfate) 2 mg PRN Q1HR PRN IV PAIN SEVERE 1ST CHOICE Last administered on 10/23/17at 20:52; Start 10/23/17 at 12:45 Fentanyl Citrate (Fentanyl 2ml Vial) 25 mcg PRN Q1HR PRN IV PAIN SEVERE 3RD CHOICE Last administered on 10/23/17at 15:31; Start 10/23/17 at 12:45 Senna/Docusate Sodium (Senna Plus) 1 tab DAILY PO Last administered on at 09:54; Start 10/24/17 at 09:00; Stop 10/31/17 at 11:51; Status DC Polyethylene Glycol (miraLAX PACKET) 17 gm PRN DAILY PRN PO CONSTIPATION, 1ST CHOICE Last administered on 10/29/17at 08:32; Start 10/23/17 at 12:45 Vitamin D (Vitamin D3) 5,000 unit DAILY PO Last administered on 10/23/17at 14:46 ; Start 10/23/17 at 13:00; Stop 10/24/17 at 08:39; Status DC Ondansetron HCl (Zofran) 4 mg PRN Q4HRS PRN IV NAUSEA/VOMITING; Start 10/23/17 at 12:45 Warfarin Sodium (Coumadin) 7.5 mg 1X ONCE PO ; Start 10/23/17 at 16:00; Stop at 16:01; Status DC Warfarin Sodium (Coumadin Per Pharmacy) 1 each PRN DAILY PRN MC SEE COMMENTS Last administered on 10/30/17at 12:54; Start 10/24/17 at 12:45 Magnesium Hydroxide (Milk Of Magnesia) 2,400 mg 1X PRN PRN PO CONSTIPATION; Start 10/24/17 at 06:00; Stop 10/25/17 at 05:59; Status DC Bisacodyl (Dulcolax Supp) 10 mg 1X PRN PRN AL CONSTIPATION; Start 10/24/17 at 16:00; Stop 10/25/17 at 15:59; Status DC Acetaminophen/ Hydrocodone Bitart (Lortab 7.5/325) 1 tab PRN Q4HRS PRN PO MODERATE PAIN 2ND CHOICE; Start 10/23/17 at 12:45; Stop 10/31/17 at 11:51; Status DC Morphine Sulfate (Morphine Sulfate) 4 mg PRN Q2HR PRN IV PAIN SEVERE 2ND CHOICE Last administered on 10/24/17at 14:08; Start 10/23/17 at 12:45 Acetaminophen/ Hydrocodone Bitart (Lortab 7.5/325) 2 tab PRN Q4HRS PRN PO SEVERE PAIN 2ND CHOICE Last administered on 10/29/17at 19:19; Start 10/23/17 at 12:45; Stop 10/31/17 at 11:51; Status DC Dextrose (Dextrose 50%-Water Syringe) 12.5 gm PRN Q15MIN PRN IV SEE COMMENTS; Start 10/23/17 at 12:45 Cefazolin Sodium 1 gm/Dextrose 50 ml @ 100 mls/hr Q6H IV ; Start 10/23/17 at 12 :45; Stop 10/23/17 at 12:54; Status DC Cefazolin Sodium (Ancef) 1 gm Q8H IVP Last administered on 10/24/17at 09:10; Start 10/23/17 at 16:00; Stop 10/24/17 at 08:01; Status DC Fentanyl Citrate (Fentanyl 2ml Vial) 100 mcg STK-MED ONCE .ROUTE ; Start at 13:19; Stop 10/23/17 at 13:20; Status DC Fentanyl Citrate (Fentanyl 2ml Vial) 100 mcg STK-MED ONCE .ROUTE ; Start at 13:40; Stop 10/23/17 at 13:41; Status DC Ergocalciferol (Vitamin D2) 50,000 unit WEEKLY PO Last administered on at 09:58; Start 10/24/17 at 09:00 Cyanocobalamin (Vitamin B-12) 1,000 mcg DAILY PO ; Start 10/24/17 at 11:00; Stop 10/24/17 at 11:00; Status DC Cyclobenzaprine HCl (Flexeril) 10 mg TID PO ; Start 10/24/17 at 14:00; Stop at 14:00; Status DC Gabapentin (Neurontin) 100 mg Q8HRS PO Last administered on 10/31/17at 06:19; Start 10/24/17 at 14:00 Duloxetine HCl (Cymbalta) 60 mg DAILY PO Last administered on 10/31/17at 09:53; Start 10/24/17 at 11:00 Multivitamins (Thera M Plus) 1 tab DAILY PO Last administered on 10/31/17 09: 54; Start 10/24/17 at 11:00 Cyclobenzaprine HCl (Flexeril) 10 mg TID PO Last administered on 10/31/17at 10: 02; Start 10/24/17 at 14:00 Cyanocobalamin (Vitamin B-12) 1,000 mcg DAILY PO Last administered on at 09:54; Start 10/24/17 at 11:00 Lactulose (Lactulose) 20 gm PRN Q3HRS PRN PO CONSTIPATION, 2ND CHOICE; Start at 10:00 Senna/Docusate Sodium (Senna Plus) 1 tab DAILY PO ; Start 10/24/17 at 11:00; Stop 10/24/17 at 13:41; Status DC Calcium/Vitamin D (Oscal D 500mg/ 200uts) 1 tab BIDWMEALS PO Last administered on 10/31/17at 09:54; Start 10/24/17 at 17:00 Acetaminophen/ Hydrocodone Bitart (Lortab 10/325) 1 tab PRN Q4HRS PRN PO SEVERE PAIN, 3RD CHOICE Last administered on 10/28/17at 08:08; Start 10/24/17 at 10:15; Stop 10/31/17 at 11:51; Status DC Magnesium Oxide (Magnesium Oxide) 400 mg BID PO Last administered on 10/31/17at 09:53; Start 10/24/17 at 11:00 Methadone HCl (Dolophine) 10 mg BID PO ; Start 10/24/17 at 11:00; Stop 10/28/17 at 13:37; Status DC Ondansetron HCl (Zofran Odt) 8 mg PRN Q8HRS PRN PO NAUSEA/VOMITING; Start 10/24 at 10:30 Lidocaine (Lidoderm) 1 patch DAILY TD ; Start 10/24/17 at 10:00; Stop 10/28/17 at 13:37; Status DC Multi-Ingredient Mouthwash/Gargle (Magic Mouthwash) 30 ml PRN TID PRN PO MOUTH PAIN; Start 10/24/17 at 10:30 Loperamide HCl (Imodium) 2 mg PRN Q15MIN PRN PO DIARRHEA; Start 10/24/17 at 10: 00 Al Hydroxide/Mg Hydroxide (Mylanta Plus Xs) 30 ml PRN Q2HR PRN PO HEARTBURN / GAS; Start 10/24/17 at 10:00 Alprazolam (Xanax) 0.25 mg PRN Q8HRS PRN PO ANXIETY / AGITATION Last administered on 10/24/17at 11:41; Start 10/24/17 at 10:00 Warfarin Sodium (Coumadin) 5 mg 1X WARF ONCE PO Last administered on at 16:52; Start 10/24/17 at 16:00; Stop 10/24/17 at 16:01; Status DC Clonidine HCl (Catapres) 0.2 mg Q8HRS PO ; Start 10/24/17 at 22:00; Stop at 22:00; Status DC Alprazolam (Xanax) 0.5 mg BID PO Last administered on 10/31/17at 09:54; Start at 16:00 Clonidine HCl (Catapres) 0.2 mg Q8HRS PO Last administered on 10/31/17at 06:20; Start 10/24/17 at 20:35; Stop 10/31/17 at 11:51; Status DC Warfarin Sodium (Coumadin) 4 mg 1X WARF ONCE PO Last administered on at 16:54; Start 10/25/17 at 16:00; Stop 10/25/17 at 16:01; Status DC Warfarin Sodium (Coumadin - No Dose Today) 1 each 1X WARF ONCE MC Last administered on 10/26/17at 16:00; Start 10/26/17 at 16:00; Stop 10/26/17 at 16:01 ; Status DC Warfarin Sodium (Coumadin) 3 mg 1X WARF ONCE PO Last administered on at 15:08; Start 10/27/17 at 16:00; Stop 10/27/17 at 16:01; Status DC Warfarin Sodium (Coumadin) 3 mg 1X WARF ONCE PO Last administered on at 17:23; Start 10/28/17 at 16:00; Stop 10/28/17 at 16:01; Status DC Warfarin Sodium (Coumadin) 2 mg 1X WARF ONCE PO Last administered on at 17:03; Start 10/29/17 at 16:00; Stop 10/29/17 at 16:01; Status DC Warfarin Sodium (Coumadin) 2 mg 1X WARF ONCE PO Last administered on at 17:59; Start 10/30/17 at 16:00; Stop 10/30/17 at 16:01; Status DC Senna/Docusate Sodium (Senna Plus) 1 tab BID PO ; Start 10/31/17 at 12:00 Docusate Sodium (Colace) 100 mg BID PO ; Start 10/31/17 at 12:00 Magnesium Hydroxide (Milk Of Magnesia) 2,400 mg BID PO ; Start 10/31/17 at 12:00 Lactulose (Lactulose) 20 gm PRN Q12HR PRN PO CONSTIPATION; Start 10/31/17 at 12 :00 Bisacodyl (Dulcolax Supp) 10 mg PRN DAILY PRN AL CONSTIPATION; Start 10/31/17 at 12:00 Active Scripts Active Reported Alum-Mag Hydroxide-Simeth Liq (Mag Hydrox/Al Hydrox/Simeth) 360 Ml Oral.susp 5 Ml PO PRN Vitamin B-12 (Cyanocobalamin (Vitamin B-12)) 1,000 Mcg Tablet 1,250 Mcg SL DAILY Vitamin B-12 (Cyanocobalamin (Vitamin B-12)) 1,000 Mcg Tablet 1,000 Mcg PO Trazodone Hcl 100 Mg Tablet 1 Tab PO QHS Stivarga (Regorafenib) 40 Mg Tablet 40 Mg PO DAILY Senna S Tablet (Sennosides/Docusate Sodium) 1 Each Tablet 1 Each PO Multivitamins (Multivitamin) 1 Each Tablet 1 Tab PO DAILY Zofran (Ondansetron Hcl) 8 Mg Tablet 1 Tab PO Q8HRS PRN Naloxone Hcl 0.4 Mg/1 Ml Vial 0.4 Mg IJ Methadone Hcl 10 Mg Tablet 1 Tab PO Q12HR Mag-Oxide (Magnesium Oxide) 400 Mg Tablet 250 Mg PO BID [lidoderm] 5 Q12HR Lactulose 20 Gm/30 Ml Solution 20 Gm PO PRN Q3HRS PRN Imodium A-D (Loperamide HCl) 2 Mg Capsule 2 Mg PO PRN [place] 10-325 Tablet (Acetaminophen/Hydrocodone Bitart) 1 Each Tablet 1-2 Tab PO Q4-6HRS PRN Gabapentin 100 Mg Capsule 100 Mg PO Q8HRS Cymbalta (Duloxetine Hcl) 60 Mg Capsule.dr 1 Cap PO DAILY [magic mouthwash] 30 Ml TID PRN Cyclobenzaprine Hcl 10 Mg Tablet 1 Tab PO TID [place] Calcium-Vit D Tab (Calcium Carbonate/Vitamin D2) 1 Each Tablet 1 Each PO BID Vitals/I & O Vital Sign - Last 24 Hours 10/30/17 10/30/17 10/30/17 10/30/17 15:06 17:58 18:45 19:20 Temp 97.9 98.0 97.9 98.0 Pulse 105 91 Resp 18 18 B/P (MAP) 108/56 (73) 105/61 (76) Pulse Ox 96 96 97 O2 Delivery Room Air Room Air Room Air O2 Flow Rate 3.0 10/30/17 10/30/17 10/30/17 10/30/17 20:38 20:45 22:15 23:15 Temp 97.6 97.6 Pulse 91 81 Resp 18 22 B/P (MAP) 105/61 90/53 (65) Pulse Ox 97 94 O2 Delivery Room Air Room Air Room Air 10/30/17 10/31/17 10/31/17 10/31/17 23:16 03:13 06:20 07:00 Temp 98.1 98.0 98.1 98.0 Pulse 84 84 91 Resp 20 16 18 B/P (MAP) 110/60 (77) 110/60 90/58 (69) Pulse Ox 94 94 O2 Delivery Room Air 10/31/17 10/31/17 10/31/17 09:54 10:54 11:00 Temp 97.7 97.7 Pulse 104 Resp 19 B/P (MAP) 135/70 (91) Pulse Ox 94 99 99 O2 Delivery Room Air Room Air Room Air Intake and Output 10/30/17 10/30/17 10/31/17 15:00 23:00 07:00 Intake Total 480 ml 720 ml Output Total 775 ml 1050 ml 1350 ml Balance -775 ml -570 ml -630 ml MAURICE JENKINS MD Oct 31, 2017 14:18
[2017-10-31 15:01] VITALS: BP 91/58
[2017-10-31] MEDS ORDERED: WARFARIN 2 MG TABLET. PO SCH (16:00)
[2017-10-31 19:00] VITALS: BP 97/56
[2017-10-31 23:00] VITALS: BP 89/57
[2017-11-01] MEDS: traZODone 100 MG TABLET. PO SCH ×2 (00:44→21:34)
[2017-11-01 03:00] VITALS: BP 99/62
[2017-11-01 04:56] LABS: BASO % 1 % (0-3); EOS # 0.1 x10^3/uL (0.0-0.7); EOS % 2 % (0-3); HEMATOCRIT 24.9 % (39.0-53.0); HEMOGLOBIN 8.4 g/dL (13.0-17.5); LYMPH # 1.1 x10^3/uL (1.0-4.8); LYMPH % 16 % (24-48); MEAN CORPUSCULAR HEMOGLOBIN 32 pg (25-35); MEAN CORPUSCULAR HGB CONC 34 g/dL (31-37); MEAN CORPUSCULAR VOLUME 95 fL (79-100); MONO # 0.8 x10^3/uL (0.0-1.1); MONO % 11 % (0-9); NEUT # 5.2 x10^3uL (1.8-7.7); NEUT % 71 % (31-73); PLATELET COUNT 202 x10^3/uL (140-400); RED BLOOD COUNT 2.63 x10^6/uL (4.30-5.70); RED CELL DISTRIBUTION WIDTH 17.7 % (11.5-14.5); WHITE BLOOD COUNT 7.3 x10^3/uL (4.0-11.0)
[2017-11-01 05:15] LABS: PROTHROMBIN TIME PATIENT 24.9 SEC (11.7-14.0)
[2017-11-01 05:53] LABS: CALCIUM 8.7 mg/dL (8.5-10.1); CREATININE 0.9 mg/dL (0.7-1.3); GFR 86.7; POTASSIUM 3.9 mmol/L (3.5-5.1)
[2017-11-01] MEDS: GABAPENTIN 100 MG CAPSULE. PO SCH ×3 (06:30→21:35)
[2017-11-01 07:00] VITALS: BP 124/63
--- NOTE | 2017-11-01 08:45 | PDOC ---
PROGRESS NOTES Subjective Subjective HPI - f/u of Stage 4 colon cancer ROS - pain stable Objective Objective Vital Signs Date Time Temp Pulse Resp B/P (MAP) Pulse Ox O2 Delivery O2 Flow Rate FiO2 11/01/17 03:00 97.8 82 16 99/62 (74) 97 Room Air 97.8 10/30/17 18:45 3.0 Intake and Output 11/01/17 07:00 Intake Total 1020 ml Output Total 1600 ml Balance -580 ml Intake Oral 1020 ml Output Urine Total 1600 ml # Voids 2 Physical Exam General: Alert, Oriented X3, No acute distress Psych/Mental Status: Mental status NL Assessment Assessment Problems Medical Problems: (1) Comminuted fracture of right patella Status: Acute (2) Intertrochanteric fracture of right hip Status: Acute IMPRESSION AND PLAN: 1. Stage 4 colon cancer with progressively worsening lung metastases. He was recently started on a new medication called regorafenib on 10/15/2017 at 80 mg daily. He took it until 10/22/2017 and then he stopped because of a fall acquiring fracture as described above. I have advised him to continue to hold this medication until he recovers from the recent surgery. I have advised him to follow up with Dr. Cortney Harris who is his primary oncologist upon discharge. I have notified Dr Harris. CEA better at 7.5 on 10/25/17. 2. Anemia due to malignancy. Continue to monitor hemoglobin, currently worse due to recent surgery. Hb stable at 8.4. Monitor CBC. 3. Right hip and right patellar fracture, status post surgery on 10/23/2017. Continue management per Orthopedics. Pain under control. Comment Review of Relevant I have reviewed the following items francisco (where applicable) has been applied. Labs Laboratory Tests Test 10/31/17 05:50 11/01/17 04:10 White Blood Count 7.0 x10^3/uL (4.0-11.0) 7.3 x10^3/uL (4.0-11.0) Red Blood Count 2.44 x10^6/uL (4.30-5.70) 2.63 x10^6/uL (4.30-5.70) Hemoglobin 7.9 g/dL (13.0-17.5) 8.4 g/dL (13.0-17.5) Hematocrit 23.1 % (39.0-53.0) 24.9 % (39.0-53.0) Mean Corpuscular Volume 95 fL (79-100) 95 fL (79-100) Mean Corpuscular Hemoglobin 33 pg (25-35) 32 pg (25-35) Mean Corpuscular Hemoglobin Concent 34 g/dL (31-37) 34 g/dL (31-37) Red Cell Distribution Width 17.1 % (11.5-14.5) 17.7 % (11.5-14.5) Platelet Count 190 x10^3/uL (140-400) 202 x10^3/uL (140-400) Neutrophils (%) (Auto) 70 % (31-73) 71 % (31-73) Lymphocytes (%) (Auto) 16 % (24-48) 16 % (24-48) Monocytes (%) (Auto) 12 % (0-9) 11 % (0-9) Eosinophils (%) (Auto) 2 % (0-3) 2 % (0-3) Basophils (%) (Auto) 1 % (0-3) 1 % (0-3) Neutrophils # (Auto) 4.9 x10^3uL (1.8-7.7) 5.2 x10^3uL (1.8-7.7) Lymphocytes # (Auto) 1.1 x10^3/uL (1.0-4.8) 1.1 x10^3/uL (1.0-4.8) Monocytes # (Auto) 0.9 x10^3/uL (0.0-1.1) 0.8 x10^3/uL (0.0-1.1) Eosinophils # (Auto) 0.1 x10^3/uL (0.0-0.7) 0.1 x10^3/uL (0.0-0.7) Basophils # (Auto) 0.0 x10^3/uL (0.0-0.2) 0.0 x10^3/uL (0.0-0.2) Sodium Level 140 mmol/L (136-145) 140 mmol/L (136-145) Potassium Level 3.9 mmol/L (3.5-5.1) 3.9 mmol/L (3.5-5.1) Chloride Level 105 mmol/L (98-107) 105 mmol/L (98-107) Carbon Dioxide Level 30 mmol/L (21-32) 31 mmol/L (21-32) Anion Gap 5 (6-14) 4 (6-14) Blood Urea Nitrogen 16 mg/dL (8-26) 16 mg/dL (8-26) Creatinine 1.1 mg/dL (0.7-1.3) 0.9 mg/dL (0.7-1.3) Estimated GFR (Cockcroft-Gault) 68.8 86.7 Glucose Level 113 mg/dL (70-99) 108 mg/dL (70-99) Calcium Level 8.2 mg/dL (8.5-10.1) 8.7 mg/dL (8.5-10.1) Prothrombin Time 24.9 SEC (11.7-14.0) Prothromb Time International Ratio 2.3 (0.8-1.1) Iron Level 37 ug/dL (65-175) Total Iron Binding Capacity 221 ug/dL (250-450) Iron Saturation 17 % (15-34) Ferritin 199 ng/mL (26-388) Laboratory Tests Test 11/01/17 04:10 White Blood Count 7.3 x10^3/uL (4.0-11.0) Red Blood Count 2.63 x10^6/uL (4.30-5.70) Hemoglobin 8.4 g/dL (13.0-17.5) Hematocrit 24.9 % (39.0-53.0) Mean Corpuscular Volume 95 fL (79-100) Mean Corpuscular Hemoglobin 32 pg (25-35) Mean Corpuscular Hemoglobin Concent 34 g/dL (31-37) Red Cell Distribution Width 17.7 % (11.5-14.5) Platelet Count 202 x10^3/uL (140-400) Neutrophils (%) (Auto) 71 % (31-73) Lymphocytes (%) (Auto) 16 % (24-48) Monocytes (%) (Auto) 11 % (0-9) Eosinophils (%) (Auto) 2 % (0-3) Basophils (%) (Auto) 1 % (0-3) Neutrophils # (Auto) 5.2 x10^3uL (1.8-7.7) Lymphocytes # (Auto) 1.1 x10^3/uL (1.0-4.8) Monocytes # (Auto) 0.8 x10^3/uL (0.0-1.1) Eosinophils # (Auto) 0.1 x10^3/uL (0.0-0.7) Basophils # (Auto) 0.0 x10^3/uL (0.0-0.2) Prothrombin Time 24.9 SEC (11.7-14.0) Prothromb Time International Ratio 2.3 (0.8-1.1) Sodium Level 140 mmol/L (136-145) Potassium Level 3.9 mmol/L (3.5-5.1) Chloride Level 105 mmol/L (98-107) Carbon Dioxide Level 31 mmol/L (21-32) Anion Gap 4 (6-14) Blood Urea Nitrogen 16 mg/dL (8-26) Creatinine 0.9 mg/dL (0.7-1.3) Estimated GFR (Cockcroft-Gault) 86.7 Glucose Level 108 mg/dL (70-99) Calcium Level 8.7 mg/dL (8.5-10.1) Iron Level 37 ug/dL (65-175) Total Iron Binding Capacity 221 ug/dL (250-450) Iron Saturation 17 % (15-34) Ferritin 199 ng/mL (26-388) Medications Current Medications Fentanyl Citrate (Fentanyl 2ml Vial) 75 mcg 1X ONCE IV Last administered on at 03:00; Start 10/22/17 at 02:45; Stop 10/22/17 at 02:46; Status DC Ondansetron HCl (Zofran) 4 mg 1X ONCE IV Last administered on 10/22/17at 02:58 ; Start 10/22/17 at 02:45; Stop 10/22/17 at 02:46; Status DC Fentanyl Citrate (Fentanyl 2ml Vial) 50 mcg 1X ONCE IV Last administered on at 03:48; Start 10/22/17 at 03:30; Stop 10/22/17 at 03:31; Status DC Ondansetron HCl (Zofran) 4 mg PRN Q8HRS PRN IV NAUSEA/VOMITING; Start 10/22/17 at 03:45; Stop 10/22/17 at 07:53; Status DC Fentanyl Citrate (Fentanyl 2ml Vial) 50 mcg PRN Q1HR PRN IV PAIN Last administered on 10/22/17at 09:17; Start 10/22/17 at 03:45; Stop 10/23/17 at 03:44 ; Status DC Sodium Chloride 1,000 ml @ 125 mls/hr Q8H IV Last administered on 10/22/17at 22 :48; Start 10/22/17 at 03:33; Stop 10/23/17 at 03:32; Status DC Ondansetron HCl (Zofran) 4 mg PRN Q6HRS PRN IV NAUSEA/VOMITING; Start 10/22/17 at 08:00; Stop 10/23/17 at 12:52; Status DC Acetaminophen (Tylenol) 500 mg PRN Q6HRS PRN PO MILD PAIN / TEMP Last administered on 10/22/17at 11:36; Start 10/22/17 at 08:00 Labetalol HCl (Normodyne) 10 mg PRN Q2HR PRN IVP HYPERTENSION, SEE COMMENTS; Start 10/22/17 at 08:00 Potassium Chloride (Klor-Con) 40 meq 1X ONCE PO Last administered on at 11:35; Start 10/22/17 at 08:00; Stop 10/22/17 at 08:19; Status DC Clonidine HCl (Catapres) 0.1 mg Q8HRS PO Last administered on 10/24/17at 14:09; Start 10/22/17 at 10:00; Stop 10/24/17 at 15:22; Status DC Ropivacaine 53.3 ml/Epinephrine HCl 0.6 mg/ Morphine Sulfate 5 mg/Sodium Chloride 100 ml @ 100 mls/hr 1X PERIOP INT ART Last administered on at 09:57; Start 10/22/17 at 10:00; Stop 10/25/17 at 13:43; Status DC Clonidine HCl (Catapres) 0.1 mg PRN Q1HR PRN PO HYPERTENSION, SEE COMMENTS Last administered on 10/26/17at 14:29; Start 10/22/17 at 11:00 Oxycodone/ Acetaminophen (Percocet 10/325) 1 tab PRN Q4HRS PRN PO SEVERE PAIN 1ST CHOICE Last administered on 10/31/17at 18:34; Start 10/22/17 at 11:00 Acetaminophen/ Hydrocodone Bitart (Lortab 10/325) 1 tab PRN Q4HRS PRN PO MODERATE PAIN Last administered on 10/23/17at 07:58; Start 10/22/17 at 11:00; Stop 10/23/17 at 13:45; Status DC Cyclobenzaprine HCl (Flexeril) 10 mg PRN TID PRN PO MUSCLE SPASMS Last administered on 10/24/17at 05:54; Start 10/22/17 at 11:00; Stop 10/24/17 at 09:55 ; Status DC Loperamide HCl (Imodium) 2 mg TID PRN PRN PO DIARRHEA Last administered on 10/23at 02:57; Start 10/22/17 at 11:00; Stop 10/24/17 at 10:10; Status DC Fentanyl Citrate (Fentanyl 2ml Vial) 25 mcg PRN Q5MIN PRN IV MILD PAIN; Start 10/23/17 at 07:00; Stop 10/23/17 at 18:00; Status DC Fentanyl Citrate (Fentanyl 2ml Vial) 50 mcg PRN Q5MIN PRN IV MODERATE TO SEVERE PAIN Last administered on 10/23/17at 14:15; Start 10/23/17 at 07:00; Stop 10/23/17 at 18:00; Status DC Ringer's Solution 1,000 ml @ 30 mls/hr Q24H IV ; Start 10/23/17 at 07:00; Stop 10/23/17 at 18:59; Status DC Lidocaine HCl (Xylocaine-Mpf 1% Vial) 2 ml PRN 1X PRN ID IV START; Start at 07:00; Stop 10/23/17 at 18:00; Status DC Prochlorperazine Edisylate (Compazine) 5 mg PACU PRN PRN IV NAUSEA, MRX1; Start 10/23/17 at 07:00; Stop 10/23/17 at 18:00; Status DC Trazodone HCl (Desyrel) 100 mg QHS PO Last administered on 10/30/17at 22:14; Start 10/23/17 at 21:00 Trazodone HCl (Desyrel) 100 mg 1X ONCE PO Last administered on 10/22/17at 22:44 ; Start 10/22/17 at 22:45; Stop 10/22/17 at 22:46; Status DC Cefazolin Sodium/ Dextrose 50 ml @ 100 mls/hr 1X PREOP IV Last administered on 10/23/17at 10:34; Start 10/23/17 at 09:00; Stop 10/25/17 at 13:30; Status DC Lidocaine HCl (Lidocaine Pf 2% Vial) 5 ml STK-MED ONCE .ROUTE ; Start 10/23/17 at 09:01; Stop 10/23/17 at 09:02; Status DC Propofol 20 ml @ As Directed STK-MED ONCE IV ; Start 10/23/17 at 09:01; Stop at 09:02; Status DC Midazolam HCl (Versed) 2 mg STK-MED ONCE .ROUTE ; Start 10/23/17 at 09:01; Stop 10/23/17 at 09:02; Status DC Fentanyl Citrate (Fentanyl 2ml Vial) 100 mcg STK-MED ONCE .ROUTE ; Start at 09:01; Stop 10/23/17 at 09:02; Status DC Rocuronium Cheney (Zemuron) 50 mg STK-MED ONCE .ROUTE ; Start 10/23/17 at 09:04 ; Stop 10/23/17 at 09:05; Status DC Ephedrine Sulfate (ePHEDrine PF IN SALINE SYRINGE) 50 mg STK-MED ONCE IV ; Start 10/23/17 at 09:38; Stop 10/23/17 at 09:39; Status DC Phenylephrine HCl (PHENYLEPHRINE in 0.9% NACL PF) 1 mg STK-MED ONCE IV ; Start 10/23/17 at 10:04; Stop 10/23/17 at 10:06; Status DC Cefazolin Sodium (Ancef) 1 gm STK-MED ONCE .ROUTE ; Start 10/23/17 at 11:01; Stop 10/23/17 at 11:03; Status DC Ondansetron HCl (Zofran) 4 mg STK-MED ONCE .ROUTE ; Start 10/23/17 at 11:44; Stop 10/23/17 at 11:45; Status DC Fentanyl Citrate (Fentanyl 2ml Vial) 100 mcg STK-MED ONCE .ROUTE ; Start at 11:58; Stop 10/23/17 at 11:59; Status DC Sevoflurane (Ultane) 90 ml STK-MED ONCE IH ; Start 10/23/17 at 12:04; Stop 10/23 at 12:05; Status DC Oxycodone HCl (Roxicodone) 5 mg PRN Q3HRS PRN PO MODERATE PAIN 1ST CHOICE Last administered on 10/29/17at 17:02; Start 10/23/17 at 12:45 Morphine Sulfate (Morphine Sulfate) 2 mg PRN Q1HR PRN IV PAIN SEVERE 1ST CHOICE Last administered on 10/23/17at 20:52; Start 10/23/17 at 12:45 Fentanyl Citrate (Fentanyl 2ml Vial) 25 mcg PRN Q1HR PRN IV PAIN SEVERE 3RD CHOICE Last administered on 10/23/17at 15:31; Start 10/23/17 at 12:45 Senna/Docusate Sodium (Senna Plus) 1 tab DAILY PO Last administered on at 09:54; Start 10/24/17 at 09:00; Stop 10/31/17 at 11:51; Status DC Polyethylene Glycol (miraLAX PACKET) 17 gm PRN DAILY PRN PO CONSTIPATION, 1ST CHOICE Last administered on 10/29/17at 08:32; Start 10/23/17 at 12:45 Vitamin D (Vitamin D3) 5,000 unit DAILY PO Last administered on 10/23/17at 14:46 ; Start 10/23/17 at 13:00; Stop 10/24/17 at 08:39; Status DC Ondansetron HCl (Zofran) 4 mg PRN Q4HRS PRN IV NAUSEA/VOMITING 1ST CHOICE; Start 10/23/17 at 12:45 Warfarin Sodium (Coumadin) 7.5 mg 1X ONCE PO ; Start 10/23/17 at 16:00; Stop at 16:01; Status DC Warfarin Sodium (Coumadin Per Pharmacy) 1 each PRN DAILY PRN MC SEE COMMENTS Last administered on 10/31/17at 15:10; Start 10/24/17 at 12:45 Magnesium Hydroxide (Milk Of Magnesia) 2,400 mg 1X PRN PRN PO CONSTIPATION; Start 10/24/17 at 06:00; Stop 10/25/17 at 05:59; Status DC Bisacodyl (Dulcolax Supp) 10 mg 1X PRN PRN [place] CONSTIPATION; Start 10/24/17 at 16:00; Stop 10/25/17 at 15:59; Status DC Acetaminophen/ Hydrocodone Bitart (Lortab 7.5/325) 1 tab PRN Q4HRS PRN PO MODERATE PAIN 2ND CHOICE; Start 10/23/17 at 12:45; Stop 10/31/17 at 11:51; Status DC Morphine Sulfate (Morphine Sulfate) 4 mg PRN Q2HR PRN IV PAIN SEVERE 2ND CHOICE Last administered on 10/24/17at 14:08; Start 10/23/17 at 12:45 Acetaminophen/ Hydrocodone Bitart (Lortab 7.5/325) 2 tab PRN Q4HRS PRN PO SEVERE PAIN 2ND CHOICE Last administered on 10/29/17at 19:19; Start 10/23/17 at 12:45; Stop 10/31/17 at 11:51; Status DC Dextrose (Dextrose 50%-Water Syringe) 12.5 gm PRN Q15MIN PRN IV SEE COMMENTS; Start 10/23/17 at 12:45 Cefazolin Sodium 1 gm/Dextrose 50 ml @ 100 mls/hr Q6H IV ; Start 10/23/17 at 12 :45; Stop 10/23/17 at 12:54; Status DC Cefazolin Sodium (Ancef) 1 gm Q8H IVP Last administered on 10/24/17at 09:10; Start 10/23/17 at 16:00; Stop 10/24/17 at 08:01; Status DC Fentanyl Citrate (Fentanyl 2ml Vial) 100 mcg STK-MED ONCE .ROUTE ; Start at 13:19; Stop 10/23/17 at 13:20; Status DC Fentanyl Citrate (Fentanyl 2ml Vial) 100 mcg STK-MED ONCE .ROUTE ; Start at 13:40; Stop 10/23/17 at 13:41; Status DC Ergocalciferol (Vitamin D2) 50,000 unit WEEKLY PO Last administered on at 09:58; Start 10/24/17 at 09:00 Cyanocobalamin (Vitamin B-12) 1,000 mcg DAILY PO ; Start 10/24/17 at 11:00; Stop 10/24/17 at 11:00; Status DC Cyclobenzaprine HCl (Flexeril) 10 mg TID PO ; Start 10/24/17 at 14:00; Stop at 14:00; Status DC Gabapentin (Neurontin) 100 mg Q8HRS PO Last administered on 11/01/17 06:30; Start 10/24/17 at 14:00 Duloxetine HCl (Cymbalta) 60 mg DAILY PO Last administered on 10/31/17 09:53; Start 10/24/17 at 11:00 Multivitamins (Thera M Plus) 1 tab DAILY PO Last administered on 10/31/17 09: 54; Start 10/24/17 at 11:00 Cyclobenzaprine HCl (Flexeril) 10 mg TID PO Last administered on 10/31/17 20: 45; Start 10/24/17 at 14:00 Cyanocobalamin (Vitamin B-12) 1,000 mcg DAILY PO Last administered on 09:54; Start 10/24/17 at 11:00 Lactulose (Lactulose) 20 gm PRN Q3HRS PRN PO CONSTIPATION, 2ND CHOICE Last administered on 10/31/17 14:16; Start 10/24/17 at 10:00 Senna/Docusate Sodium (Senna Plus) 1 tab DAILY PO ; Start 10/24/17 at 11:00; Stop 10/24/17 at 13:41; Status DC Calcium/Vitamin D (Oscal D 500mg/ 200uts) 1 tab BIDWMEALS PO Last administered on 10/31/17 16:08; Start 10/24/17 at 17:00 Acetaminophen/ Hydrocodone Bitart (Lortab 10/325) 1 tab PRN Q4HRS PRN PO SEVERE PAIN, 3RD CHOICE Last administered on 10/28/17 08:08; Start 10/24/17 at 10:15; Stop 10/31/17 at 11:51; Status DC Magnesium Oxide (Magnesium Oxide) 400 mg BID PO Last administered on 10/31/17 20:45; Start 10/24/17 at 11:00 Methadone HCl (Dolophine) 10 mg BID PO ; Start 10/24/17 at 11:00; Stop 10/28/17 at 13:37; Status DC Ondansetron HCl (Zofran Odt) 8 mg PRN Q8HRS PRN PO NAUSEA/VOMITING; Start 10/24 at 10:30; Stop 10/31/17 at 14:15; Status DC Lidocaine (Lidoderm) 1 patch DAILY TD ; Start 10/24/17 at 10:00; Stop 10/28/17 at 13:37; Status DC Multi-Ingredient Mouthwash/Gargle (Magic Mouthwash) 30 ml PRN TID PRN PO MOUTH PAIN; Start 10/24/17 at 10:30 Loperamide HCl (Imodium) 2 mg PRN Q15MIN PRN PO DIARRHEA; Start 10/24/17 at 10: 00 Al Hydroxide/Mg Hydroxide (Mylanta Plus Xs) 30 ml PRN Q2HR PRN PO HEARTBURN / GAS; Start 10/24/17 at 10:00 Alprazolam (Xanax) 0.25 mg PRN Q8HRS PRN PO ANXIETY / AGITATION Last administered on 10/24/17at 11:41; Start 10/24/17 at 10:00 Warfarin Sodium (Coumadin) 5 mg 1X WARF ONCE PO Last administered on at 16:52; Start 10/24/17 at 16:00; Stop 10/24/17 at 16:01; Status DC Clonidine HCl (Catapres) 0.2 mg Q8HRS PO ; Start 10/24/17 at 22:00; Stop at 22:00; Status DC Alprazolam (Xanax) 0.5 mg BID PO Last administered on 10/31/17at 20:45; Start at 16:00 Clonidine HCl (Catapres) 0.2 mg Q8HRS PO Last administered on 10/31/17at 06:20; Start 10/24/17 at 20:35; Stop 10/31/17 at 11:51; Status DC Warfarin Sodium (Coumadin) 4 mg 1X WARF ONCE PO Last administered on at 16:54; Start 10/25/17 at 16:00; Stop 10/25/17 at 16:01; Status DC Warfarin Sodium (Coumadin - No Dose Today) 1 each 1X WARF ONCE MC Last administered on 10/26/17at 16:00; Start 10/26/17 at 16:00; Stop 10/26/17 at 16:01 ; Status DC Warfarin Sodium (Coumadin) 3 mg 1X WARF ONCE PO Last administered on at 15:08; Start 10/27/17 at 16:00; Stop 10/27/17 at 16:01; Status DC Warfarin Sodium (Coumadin) 3 mg 1X WARF ONCE PO Last administered on at 17:23; Start 10/28/17 at 16:00; Stop 10/28/17 at 16:01; Status DC Warfarin Sodium (Coumadin) 2 mg 1X WARF ONCE PO Last administered on at 17:03; Start 10/29/17 at 16:00; Stop 10/29/17 at 16:01; Status DC Warfarin Sodium (Coumadin) 2 mg 1X WARF ONCE PO Last administered on at 17:59; Start 10/30/17 at 16:00; Stop 10/30/17 at 16:01; Status DC Senna/Docusate Sodium (Senna Plus) 1 tab BID PO Last administered on 10/31/17at 20:45; Start 10/31/17 at 12:00 Docusate Sodium (Colace) 100 mg BID PO Last administered on 10/31/17at 20:45; Start 10/31/17 at 12:00 Magnesium Hydroxide (Milk Of Magnesia) 2,400 mg BID PO Last administered on at 20:45; Start 10/31/17 at 12:00 Lactulose (Lactulose) 20 gm PRN Q12HR PRN PO CONSTIPATION; Start 10/31/17 at 12 :00 Bisacodyl (Dulcolax Supp) 10 mg PRN DAILY PRN [place] CONSTIPATION; Start 10/31/17 at 12:00 Warfarin Sodium (Coumadin) 2 mg DAILY16 PO Last administered on 10/31/17at 16:07 ; Start 10/31/17 at 16:00 Active Scripts Active Reported Alum-Mag Hydroxide-Simeth Liq (Mag Hydrox/Al Hydrox/Simeth) 360 Ml Oral.susp 5 Ml PO PRN Vitamin B-12 (Cyanocobalamin (Vitamin B-12)) 1,000 Mcg Tablet 1,250 Mcg SL DAILY Vitamin B-12 (Cyanocobalamin (Vitamin B-12)) 1,000 Mcg Tablet 1,000 Mcg PO Trazodone Hcl 100 Mg Tablet 1 Tab PO QHS Stivarga (Regorafenib) 40 Mg Tablet 40 Mg PO DAILY Senna S Tablet (Sennosides/Docusate Sodium) 1 Each Tablet 1 Each PO Multivitamins (Multivitamin) 1 Each Tablet 1 Tab PO DAILY Zofran (Ondansetron Hcl) 8 Mg Tablet 1 Tab PO Q8HRS PRN Naloxone Hcl 0.4 Mg/1 Ml Vial 0.4 Mg IJ Methadone Hcl 10 Mg Tablet 1 Tab PO Q12HR Mag-Oxide (Magnesium Oxide) 400 Mg Tablet 250 Mg PO BID [lidoderm] 5 Q12HR Lactulose 20 Gm/30 Ml Solution 20 Gm PO PRN Q3HRS PRN Imodium A-D (Loperamide HCl) 2 Mg Capsule 2 Mg PO PRN [place] 10-325 Tablet (Acetaminophen/Hydrocodone Bitart) 1 Each Tablet 1-2 Tab PO Q4-6HRS PRN Gabapentin 100 Mg Capsule 100 Mg PO Q8HRS Cymbalta (Duloxetine Hcl) 60 Mg Capsule.dr 1 Cap PO DAILY [magic mouthwash] 30 Ml TID PRN Cyclobenzaprine Hcl 10 Mg Tablet 1 Tab PO TID Oyster Shell Calcium-Vit D Tab (Calcium Carbonate/Vitamin D2) 1 Each Tablet 1 Each PO BID Vitals/I & O Vital Sign - Last 24 Hours 10/31/17 10/31/17 10/31/17 10/31/17 09:54 11:00 15:01 18:34 Temp 97.7 98.4 97.7 98.4 Pulse 104 87 Resp 19 18 B/P (MAP) 135/70 (91) 91/58 (69) Pulse Ox 94 99 96 96 O2 Delivery Room Air Room Air Room Air Room Air 10/31/17 10/31/17 10/31/17 10/31/17 19:00 19:35 20:40 23:00 Temp 97.7 97.8 97.7 97.8 Pulse 96 86 Resp 17 18 17 B/P (MAP) 97/56 (70) 89/57 (68) Pulse Ox 95 95 96 O2 Delivery Room Air Room Air Room Air Room Air 11/01/17 03:00 Temp 97.8 97.8 Pulse 82 Resp 16 B/P (MAP) 99/62 (74) Pulse Ox 97 O2 Delivery Room Air Intake and Output 10/31/17 10/31/17 11/01/17 15:00 23:00 07:00 Intake Total 220 ml 800 ml Output Total 1600 ml Balance 220 ml 800 ml -1600 ml HAYLEY LESTER MD Nov 01, 2017 08:45
[2017-11-01] MEDS: CYANOCOBALAMIN (VITAMIN B-12) 1,000 MCG TABLET. PO SCH (08:55)
[2017-11-01] MEDS: MAGNESIUM OXIDE 400 MG TABLET PO SCH ×2 (08:55→21:35)
[2017-11-01] MEDS: CALCIUM CARB/VIT D3 500/200 TABLET. PO SCH ×2 (08:56→17:51)
[2017-11-01] MEDS: CYCLOBENZAPRINE 10 MG TABLET. PO SCH ×3 (08:56→21:35)
[2017-11-01] MEDS: oxyCODONE/APAP 10/325 1 TAB TABLET PO PRN ×2 (08:56→21:35)
[2017-11-01] MEDS: ALPRAZolam 0.5 MG TABLET PO SCH ×2 (08:56→21:35)
[2017-11-01] MEDS: DULoxetine HCL 30 MG CAPSULE.DR PO SCH (08:57)
[2017-11-01] MEDS: MULTIVITAMIN with MINERAL TABLET. PO SCH (08:57)
[2017-11-01] MEDS: DOCUSATE SODIUM 100 MG CAPSULE. PO SCH ×2 (08:57→21:00)
[2017-11-01] MEDS: SENNOSIDES/DOCUSATE 8.6/50MG TABLET. PO SCH (09:00)
[2017-11-01] MEDS: MAGNESIUM HYDROXIDE 2,400 MG/30 ML ORAL.SUSP. PO SCH (09:00)
[2017-11-01 11:00] VITALS: BP 108/63
[2017-11-01 12:21] LABS: FECAL OB PT NEGATIVE (NEG)
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
[2017-11-01 15:00] VITALS: BP 118/68
[2017-11-01] MEDS ORDERED: WARFARIN 1 MG TABLET. PO ONE (16:00)
[2017-11-01 19:15] VITALS: BP 116/64
[2017-11-01 23:38] VITALS: BP 116/67
[2017-11-02 03:09] VITALS: BP 118/62
[2017-11-02] MEDS: GABAPENTIN 100 MG CAPSULE. PO SCH ×2 (06:26→09:16)
[2017-11-02 07:00] VITALS: BP 119/69
[2017-11-02 07:59] LABS: PROTHROMBIN TIME PATIENT 21.2 SEC (11.7-14.0)
[2017-11-02] MEDS ORDERED: FERROUS SULFATE 325 MG TABLET. PO SCH (08:00)
--- NOTE | 2017-11-02 08:24 | PDOC ---
PROGRESS NOTES Subjective Subjective f/u of Stage 4 colon cancer ROS - rt leg pain stable/tolerable per pt Objective Objective Vital Signs Date Time Temp Pulse Resp B/P (MAP) Pulse Ox O2 Delivery O2 Flow Rate FiO2 11/02/17 03:09 98.3 82 18 118/62 (80) 96 Room Air 98.3 10/30/17 18:45 3.0 Intake and Output 11/02/17 07:00 Intake Total 1520 ml Output Total 3850 ml Balance -2330 ml Intake Oral 1520 ml Output Urine Total 3850 ml # Bowel Movements 1 Physical Exam Heart: Normal S1, Normal S2 General: Alert, Oriented X3 Lungs: Clear to auscultation Neuro: Normal speech Psych/Mental Status: Mental status NL Assessment Assessment Problems Medical Problems: (1) Comminuted fracture of right patella Status: Acute (2) Intertrochanteric fracture of right hip Status: Acute IMPRESSION AND PLAN: 1. Stage 4 colon cancer with progressively worsening lung metastases. He was recently started on a new medication called regorafenib on 10/15/2017 at 80 mg daily. He took it until 10/22/2017 and then he stopped because of a fall acquiring fracture as described above. I have advised him to continue to hold this medication until he recovers from the recent surgery. I have advised him to follow up with Dr. Cortney Harris who is his primary oncologist upon discharge. I have notified Dr Harris. He is being discharged today 11/02/17. CEA better at 7.5 on 10/25/17. 2. Anemia due to malignancy. Continue to monitor hemoglobin, currently worse due to recent surgery. Hb stable at 8.4. Monitor CBC. No evidence of bleeding. 3. Right hip and right patellar fracture, status post surgery on 10/23/2017. Continue management per Orthopedics. Pain under control. Comment Review of Relevant I have reviewed the following items francisco (where applicable) has been applied. Labs Laboratory Tests Test 11/01/17 04:10 11/01/17 09:05 11/02/17 07:20 White Blood Count 7.3 x10^3/uL (4.0-11.0) Red Blood Count 2.63 x10^6/uL (4.30-5.70) Hemoglobin 8.4 g/dL (13.0-17.5) Hematocrit 24.9 % (39.0-53.0) Mean Corpuscular Volume 95 fL (79-100) Mean Corpuscular Hemoglobin 32 pg (25-35) Mean Corpuscular Hemoglobin Concent 34 g/dL (31-37) Red Cell Distribution Width 17.7 % (11.5-14.5) Platelet Count 202 x10^3/uL (140-400) Neutrophils (%) (Auto) 71 % (31-73) Lymphocytes (%) (Auto) 16 % (24-48) Monocytes (%) (Auto) 11 % (0-9) Eosinophils (%) (Auto) 2 % (0-3) Basophils (%) (Auto) 1 % (0-3) Neutrophils # (Auto) 5.2 x10^3uL (1.8-7.7) Lymphocytes # (Auto) 1.1 x10^3/uL (1.0-4.8) Monocytes # (Auto) 0.8 x10^3/uL (0.0-1.1) Eosinophils # (Auto) 0.1 x10^3/uL (0.0-0.7) Basophils # (Auto) 0.0 x10^3/uL (0.0-0.2) Prothrombin Time 24.9 SEC (11.7-14.0) 21.2 SEC (11.7-14.0) Prothromb Time International Ratio 2.3 (0.8-1.1) 1.9 (0.8-1.1) Sodium Level 140 mmol/L (136-145) Potassium Level 3.9 mmol/L (3.5-5.1) Chloride Level 105 mmol/L (98-107) Carbon Dioxide Level 31 mmol/L (21-32) Anion Gap 4 (6-14) Blood Urea Nitrogen 16 mg/dL (8-26) Creatinine 0.9 mg/dL (0.7-1.3) Estimated GFR (Cockcroft-Gault) 86.7 Glucose Level 108 mg/dL (70-99) Calcium Level 8.7 mg/dL (8.5-10.1) Iron Level 37 ug/dL (65-175) Total Iron Binding Capacity 221 ug/dL (250-450) Iron Saturation 17 % (15-34) Ferritin 199 ng/mL (26-388) Vitamin B12 Level 345 pg/mL (247-911) Serum Folate 8.98 ng/ml (3.2-20.0) Stool Occult Blood Negative (NEG) Laboratory Tests Test 11/01/17 09:05 11/02/17 07:20 Stool Occult Blood Negative (NEG) Prothrombin Time 21.2 SEC (11.7-14.0) Prothromb Time International Ratio 1.9 (0.8-1.1) Medications Current Medications Fentanyl Citrate (Fentanyl 2ml Vial) 75 mcg 1X ONCE IV Last administered on at 03:00; Start 10/22/17 at 02:45; Stop 10/22/17 at 02:46; Status DC Ondansetron HCl (Zofran) 4 mg 1X ONCE IV Last administered on 10/22/17at 02:58 ; Start 10/22/17 at 02:45; Stop 10/22/17 at 02:46; Status DC Fentanyl Citrate (Fentanyl 2ml Vial) 50 mcg 1X ONCE IV Last administered on at 03:48; Start 10/22/17 at 03:30; Stop 10/22/17 at 03:31; Status DC Ondansetron HCl (Zofran) 4 mg PRN Q8HRS PRN IV NAUSEA/VOMITING; Start 10/22/17 at 03:45; Stop 10/22/17 at 07:53; Status DC Fentanyl Citrate (Fentanyl 2ml Vial) 50 mcg PRN Q1HR PRN IV PAIN Last administered on 10/22/17 09:17; Start 10/22/17 at 03:45; Stop 10/23/17 at 03:44 ; Status DC Sodium Chloride 1,000 ml @ 125 mls/hr Q8H IV Last administered on 10/22/17at 22 :48; Start 10/22/17 at 03:33; Stop 10/23/17 at 03:32; Status DC Ondansetron HCl (Zofran) 4 mg PRN Q6HRS PRN IV NAUSEA/VOMITING; Start 10/22/17 at 08:00; Stop 10/23/17 at 12:52; Status DC Acetaminophen (Tylenol) 500 mg PRN Q6HRS PRN PO MILD PAIN / TEMP Last administered on 10/22/17at 11:36; Start 10/22/17 at 08:00 Labetalol HCl (Normodyne) 10 mg PRN Q2HR PRN IVP HYPERTENSION, SEE COMMENTS; Start 10/22/17 at 08:00 Potassium Chloride (Klor-Con) 40 meq 1X ONCE PO Last administered on at 11:35; Start 10/22/17 at 08:00; Stop 10/22/17 at 08:19; Status DC Clonidine HCl (Catapres) 0.1 mg Q8HRS PO Last administered on 10/24/17at 14:09; Start 10/22/17 at 10:00; Stop 10/24/17 at 15:22; Status DC Ropivacaine 53.3 ml/Epinephrine HCl 0.6 mg/ Morphine Sulfate 5 mg/Sodium Chloride 100 ml @ 100 mls/hr 1X PERIOP INT ART Last administered on at 09:57; Start 10/22/17 at 10:00; Stop 10/25/17 at 13:43; Status DC Clonidine HCl (Catapres) 0.1 mg PRN Q1HR PRN PO HYPERTENSION, SEE COMMENTS Last administered on 10/26/17at 14:29; Start 10/22/17 at 11:00 Oxycodone/ Acetaminophen (Percocet 10/325) 1 tab PRN Q4HRS PRN PO SEVERE PAIN 1ST CHOICE Last administered on 11/01/17at 21:35; Start 10/22/17 at 11:00 Acetaminophen/ Hydrocodone Bitart (Lortab 10/325) 1 tab PRN Q4HRS PRN PO MODERATE PAIN Last administered on 10/23/17at 07:58; Start 10/22/17 at 11:00; Stop 10/23/17 at 13:45; Status DC Cyclobenzaprine HCl (Flexeril) 10 mg PRN TID PRN PO MUSCLE SPASMS Last administered on 10/24/17at 05:54; Start 10/22/17 at 11:00; Stop 10/24/17 at 09:55 ; Status DC Loperamide HCl (Imodium) 2 mg TID PRN PRN PO DIARRHEA Last administered on 10/23at 02:57; Start 10/22/17 at 11:00; Stop 10/24/17 at 10:10; Status DC Fentanyl Citrate (Fentanyl 2ml Vial) 25 mcg PRN Q5MIN PRN IV MILD PAIN; Start 10/23/17 at 07:00; Stop 10/23/17 at 18:00; Status DC Fentanyl Citrate (Fentanyl 2ml Vial) 50 mcg PRN Q5MIN PRN IV MODERATE TO SEVERE PAIN Last administered on 10/23/17at 14:15; Start 10/23/17 at 07:00; Stop 10/23/17 at 18:00; Status DC Ringer's Solution 1,000 ml @ 30 mls/hr Q24H IV ; Start 10/23/17 at 07:00; Stop 10/23/17 at 18:59; Status DC Lidocaine HCl (Xylocaine-Mpf 1% Vial) 2 ml PRN 1X PRN ID IV START; Start at 07:00; Stop 10/23/17 at 18:00; Status DC Prochlorperazine Edisylate (Compazine) 5 mg PACU PRN PRN IV NAUSEA, MRX1; Start 10/23/17 at 07:00; Stop 10/23/17 at 18:00; Status DC Trazodone HCl (Desyrel) 100 mg QHS PO Last administered on 11/01/17at 21:34; Start 10/23/17 at 21:00 Trazodone HCl (Desyrel) 100 mg 1X ONCE PO Last administered on 10/22/17at 22:44 ; Start 10/22/17 at 22:45; Stop 10/22/17 at 22:46; Status DC Cefazolin Sodium/ Dextrose 50 ml @ 100 mls/hr 1X PREOP IV Last administered on 10/23/17at 10:34; Start 10/23/17 at 09:00; Stop 10/25/17 at 13:30; Status DC Lidocaine HCl (Lidocaine Pf 2% Vial) 5 ml STK-MED ONCE .ROUTE ; Start 10/23/17 at 09:01; Stop 10/23/17 at 09:02; Status DC Propofol 20 ml @ As Directed STK-MED ONCE IV ; Start 10/23/17 at 09:01; Stop at 09:02; Status DC Midazolam HCl (Versed) 2 mg STK-MED ONCE .ROUTE ; Start 10/23/17 at 09:01; Stop 10/23/17 at 09:02; Status DC Fentanyl Citrate (Fentanyl 2ml Vial) 100 mcg STK-MED ONCE .ROUTE ; Start at 09:01; Stop 10/23/17 at 09:02; Status DC Rocuronium [place] (Zemuron) 50 mg STK-MED ONCE .ROUTE ; Start 10/23/17 at 09:04 ; Stop 10/23/17 at 09:05; Status DC Ephedrine Sulfate (ePHEDrine PF IN SALINE SYRINGE) 50 mg STK-MED ONCE IV ; Start 10/23/17 at 09:38; Stop 10/23/17 at 09:39; Status DC Phenylephrine HCl (PHENYLEPHRINE in 0.9% NACL PF) 1 mg STK-MED ONCE IV ; Start 10/23/17 at 10:04; Stop 10/23/17 at 10:06; Status DC Cefazolin Sodium (Ancef) 1 gm STK-MED ONCE .ROUTE ; Start 10/23/17 at 11:01; Stop 10/23/17 at 11:03; Status DC Ondansetron HCl (Zofran) 4 mg STK-MED ONCE .ROUTE ; Start 10/23/17 at 11:44; Stop 10/23/17 at 11:45; Status DC Fentanyl Citrate (Fentanyl 2ml Vial) 100 mcg STK-MED ONCE .ROUTE ; Start at 11:58; Stop 10/23/17 at 11:59; Status DC Sevoflurane (Ultane) 90 ml STK-MED ONCE IH ; Start 10/23/17 at 12:04; Stop 10/23 at 12:05; Status DC Oxycodone HCl (Roxicodone) 5 mg PRN Q3HRS PRN PO MODERATE PAIN 1ST CHOICE Last administered on 10/29/17at 17:02; Start 10/23/17 at 12:45 Morphine Sulfate (Morphine Sulfate) 2 mg PRN Q1HR PRN IV PAIN SEVERE 1ST CHOICE Last administered on 10/23/17at 20:52; Start 10/23/17 at 12:45 Fentanyl Citrate (Fentanyl 2ml Vial) 25 mcg PRN Q1HR PRN IV PAIN SEVERE 3RD CHOICE Last administered on 10/23/17at 15:31; Start 10/23/17 at 12:45 Senna/Docusate Sodium (Senna Plus) 1 tab DAILY PO Last administered on at 09:54; Start 10/24/17 at 09:00; Stop 10/31/17 at 11:51; Status DC Polyethylene Glycol (miraLAX PACKET) 17 gm PRN DAILY PRN PO CONSTIPATION, 1ST CHOICE Last administered on 10/29/17at 08:32; Start 10/23/17 at 12:45 Vitamin D (Vitamin D3) 5,000 unit DAILY PO Last administered on 10/23/17at 14:46 ; Start 10/23/17 at 13:00; Stop 10/24/17 at 08:39; Status DC Ondansetron HCl (Zofran) 4 mg PRN Q4HRS PRN IV NAUSEA/VOMITING 1ST CHOICE; Start 10/23/17 at 12:45 Warfarin Sodium (Coumadin) 7.5 mg 1X ONCE PO ; Start 10/23/17 at 16:00; Stop at 16:01; Status DC Warfarin Sodium (Coumadin Per Pharmacy) 1 each PRN DAILY PRN MC SEE COMMENTS Last administered on 11/01/17at 11:40; Start 10/24/17 at 12:45 Magnesium Hydroxide (Milk Of Magnesia) 2,400 mg 1X PRN PRN PO CONSTIPATION; Start 10/24/17 at 06:00; Stop 10/25/17 at 05:59; Status DC Bisacodyl (Dulcolax Supp) 10 mg 1X PRN PRN DE CONSTIPATION; Start 10/24/17 at 16:00; Stop 10/25/17 at 15:59; Status DC Acetaminophen/ Hydrocodone Bitart (Lortab 7.5/325) 1 tab PRN Q4HRS PRN PO MODERATE PAIN 2ND CHOICE; Start 10/23/17 at 12:45; Stop 10/31/17 at 11:51; Status DC Morphine Sulfate (Morphine Sulfate) 4 mg PRN Q2HR PRN IV PAIN SEVERE 2ND CHOICE Last administered on 10/24/17at 14:08; Start 10/23/17 at 12:45 Acetaminophen/ Hydrocodone Bitart (Lortab 7.5/325) 2 tab PRN Q4HRS PRN PO SEVERE PAIN 2ND CHOICE Last administered on 10/29/17at 19:19; Start 10/23/17 at 12:45; Stop 10/31/17 at 11:51; Status DC Dextrose (Dextrose 50%-Water Syringe) 12.5 gm PRN Q15MIN PRN IV SEE COMMENTS; Start 10/23/17 at 12:45 Cefazolin Sodium 1 gm/Dextrose 50 ml @ 100 mls/hr Q6H IV ; Start 10/23/17 at 12 :45; Stop 10/23/17 at 12:54; Status DC Cefazolin Sodium (Ancef) 1 gm Q8H IVP Last administered on 10/24/17at 09:10; Start 10/23/17 at 16:00; Stop 10/24/17 at 08:01; Status DC Fentanyl Citrate (Fentanyl 2ml Vial) 100 mcg STK-MED ONCE .ROUTE ; Start at 13:19; Stop 10/23/17 at 13:20; Status DC Fentanyl Citrate (Fentanyl 2ml Vial) 100 mcg STK-MED ONCE .ROUTE ; Start at 13:40; Stop 10/23/17 at 13:41; Status DC Ergocalciferol (Vitamin D2) 50,000 unit WEEKLY PO Last administered on at 09:58; Start 10/24/17 at 09:00 Cyanocobalamin (Vitamin B-12) 1,000 mcg DAILY PO ; Start 10/24/17 at 11:00; Stop 10/24/17 at 11:00; Status DC Cyclobenzaprine HCl (Flexeril) 10 mg TID PO ; Start 10/24/17 at 14:00; Stop at 14:00; Status DC Gabapentin (Neurontin) 100 mg Q8HRS PO Last administered on 11/02/17at 06:26; Start 10/24/17 at 14:00 Duloxetine HCl (Cymbalta) 60 mg DAILY PO Last administered on 11/01/17at 08:57; Start 10/24/17 at 11:00 Multivitamins (Thera M Plus) 1 tab DAILY PO Last administered on 11/01/17at 08: 57; Start 10/24/17 at 11:00 Cyclobenzaprine HCl (Flexeril) 10 mg TID PO Last administered on 11/01/17at 21: 35; Start 10/24/17 at 14:00 Cyanocobalamin (Vitamin B-12) 1,000 mcg DAILY PO Last administered on at 08:55; Start 10/24/17 at 11:00 Lactulose (Lactulose) 20 gm PRN Q3HRS PRN PO CONSTIPATION, 2ND CHOICE Last administered on 10/31/17at 14:16; Start 10/24/17 at 10:00 Senna/Docusate Sodium (Senna Plus) 1 tab DAILY PO ; Start 10/24/17 at 11:00; Stop 10/24/17 at 13:41; Status DC Calcium/Vitamin D (Oscal D 500mg/ 200uts) 1 tab BIDWMEALS PO Last administered on 11/01/17at 17:51; Start 10/24/17 at 17:00 Acetaminophen/ Hydrocodone Bitart (Lortab 10/325) 1 tab PRN Q4HRS PRN PO SEVERE PAIN, 3RD CHOICE Last administered on 10/28/17at 08:08; Start 10/24/17 at 10:15; Stop 10/31/17 at 11:51; Status DC Magnesium Oxide (Magnesium Oxide) 400 mg BID PO Last administered on 11/01/17at 21:35; Start 10/24/17 at 11:00 Methadone HCl (Dolophine) 10 mg BID PO ; Start 10/24/17 at 11:00; Stop 10/28/17 at 13:37; Status DC Ondansetron HCl (Zofran Odt) 8 mg PRN Q8HRS PRN PO NAUSEA/VOMITING; Start 10/24 at 10:30; Stop 10/31/17 at 14:15; Status DC Lidocaine (Lidoderm) 1 patch DAILY TD ; Start 10/24/17 at 10:00; Stop 10/28/17 at 13:37; Status DC Multi-Ingredient Mouthwash/Gargle (Magic Mouthwash) 30 ml PRN TID PRN PO MOUTH PAIN; Start 10/24/17 at 10:30 Loperamide HCl (Imodium) 2 mg PRN Q15MIN PRN PO DIARRHEA; Start 10/24/17 at 10: 00 Al Hydroxide/Mg Hydroxide (Mylanta Plus Xs) 30 ml PRN Q2HR PRN PO HEARTBURN / GAS; Start 10/24/17 at 10:00 Alprazolam (Xanax) 0.25 mg PRN Q8HRS PRN PO ANXIETY / AGITATION Last administered on 10/24/17at 11:41; Start 10/24/17 at 10:00 Warfarin Sodium (Coumadin) 5 mg 1X WARF ONCE PO Last administered on at 16:52; Start 10/24/17 at 16:00; Stop 10/24/17 at 16:01; Status DC Clonidine HCl (Catapres) 0.2 mg Q8HRS PO ; Start 10/24/17 at 22:00; Stop at 22:00; Status DC Alprazolam (Xanax) 0.5 mg BID PO Last administered on 11/01/17at 21:35; Start at 16:00 Clonidine HCl (Catapres) 0.2 mg Q8HRS PO Last administered on 10/31/17at 06:20; Start 10/24/17 at 20:35; Stop 10/31/17 at 11:51; Status DC Warfarin Sodium (Coumadin) 4 mg 1X WARF ONCE PO Last administered on at 16:54; Start 10/25/17 at 16:00; Stop 10/25/17 at 16:01; Status DC Warfarin Sodium (Coumadin - No Dose Today) 1 each 1X WARF ONCE MC Last administered on 10/26/17at 16:00; Start 10/26/17 at 16:00; Stop 10/26/17 at 16:01 ; Status DC Warfarin Sodium (Coumadin) 3 mg 1X WARF ONCE PO Last administered on at 15:08; Start 10/27/17 at 16:00; Stop 10/27/17 at 16:01; Status DC Warfarin Sodium (Coumadin) 3 mg 1X WARF ONCE PO Last administered on at 17:23; Start 10/28/17 at 16:00; Stop 10/28/17 at 16:01; Status DC Warfarin Sodium (Coumadin) 2 mg 1X WARF ONCE PO Last administered on at 17:03; Start 10/29/17 at 16:00; Stop 10/29/17 at 16:01; Status DC Warfarin Sodium (Coumadin) 2 mg 1X WARF ONCE PO Last administered on at 17:59; Start 10/30/17 at 16:00; Stop 10/30/17 at 16:01; Status DC Senna/Docusate Sodium (Senna Plus) 1 tab BID PO Last administered on 10/31/17at 20:45; Start 10/31/17 at 12:00; Stop 11/01/17 at 11:24; Status DC Docusate Sodium (Colace) 100 mg BID PO Last administered on 11/01/17at 08:57; Start 10/31/17 at 12:00 Magnesium Hydroxide (Milk Of Magnesia) 2,400 mg BID PO Last administered on at 20:45; Start 10/31/17 at 12:00; Stop 11/01/17 at 11:24; Status DC Lactulose (Lactulose) 20 gm PRN Q12HR PRN PO CONSTIPATION; Start 10/31/17 at 12 :00 Bisacodyl (Dulcolax Supp) 10 mg PRN DAILY PRN DE CONSTIPATION; Start 10/31/17 at 12:00 Warfarin Sodium (Coumadin) 2 mg DAILY16 PO Last administered on 10/31/17at 16:07 ; Start 10/31/17 at 16:00; Stop 11/01/17 at 11:26; Status DC Ferrous Sulfate (Feosol) 325 mg DAILYWBKFT PO ; Start 11/02/17 at 08:00 Warfarin Sodium (Coumadin) 1 mg 1X WARF ONCE PO Last administered on at 17:52; Start 11/01/17 at 16:00; Stop 11/01/17 at 16:01; Status DC Active Scripts Active Reported Alum-Mag Hydroxide-Simeth Liq (Mag Hydrox/Al Hydrox/Simeth) 360 Ml Oral.susp 5 Ml PO PRN Vitamin B-12 (Cyanocobalamin (Vitamin B-12)) 1,000 Mcg Tablet 1,250 Mcg SL DAILY Vitamin B-12 (Cyanocobalamin (Vitamin B-12)) 1,000 Mcg Tablet 1,000 Mcg PO Trazodone Hcl 100 Mg Tablet 1 Tab PO QHS Stivarga (Regorafenib) 40 Mg Tablet 40 Mg PO DAILY Senna S Tablet (Sennosides/Docusate Sodium) 1 Each Tablet 1 Each PO Multivitamins (Multivitamin) 1 Each Tablet 1 Tab PO DAILY Zofran (Ondansetron Hcl) 8 Mg Tablet 1 Tab PO Q8HRS PRN Naloxone Hcl 0.4 Mg/1 Ml Vial 0.4 Mg IJ Methadone Hcl 10 Mg Tablet 1 Tab PO Q12HR Mag-Oxide (Magnesium Oxide) 400 Mg Tablet 250 Mg PO BID [lidoderm] 5 Q12HR Lactulose 20 Gm/30 Ml Solution 20 Gm PO PRN Q3HRS PRN Imodium A-D (Loperamide HCl) 2 Mg Capsule 2 Mg PO PRN [place] 10-325 Tablet (Acetaminophen/Hydrocodone Bitart) 1 Each Tablet 1-2 Tab PO Q4-6HRS PRN Gabapentin 100 Mg Capsule 100 Mg PO Q8HRS Cymbalta (Duloxetine Hcl) 60 Mg Capsule.dr 1 Cap PO DAILY [magic mouthwash] 30 Ml TID PRN Cyclobenzaprine Hcl 10 Mg Tablet 1 Tab PO TID Oyster Shell Calcium-Vit D Tab (Calcium Carbonate/Vitamin D2) 1 Each Tablet 1 Each PO BID Vitals/I & O Vital Sign - Last 24 Hours 11/01/17 11/01/17 11/01/17 11/01/17 08:56 09:56 11:00 15:00 Temp 98.7 98.2 98.7 98.2 Pulse 97 98 Resp 22 18 16 B/P (MAP) 108/63 (78) 118/68 (85) Pulse Ox 99 98 O2 Delivery Room Air Room Air Room Air Room Air 11/01/17 11/01/17 11/01/17 11/01/17 19:15 20:00 21:35 22:35 Temp 98.7 98.7 Pulse 96 Resp 18 20 20 B/P (MAP) 116/64 (81) Pulse Ox 97 O2 Delivery Room Air Room Air 11/01/17 11/02/17 23:38 03:09 Temp 98.3 98.3 98.3 98.3 Pulse 89 82 Resp 18 B/P (MAP) 116/67 (83) 118/62 (80) Pulse Ox 95 96 O2 Delivery Room Air Room Air Intake and Output 11/01/17 11/01/17 11/02/17 15:00 23:00 07:00 Intake Total 800 ml 240 ml 480 ml Output Total 1200 ml 1200 ml 1450 ml Balance -400 ml -960 ml -970 ml HAYLEY LESTER MD Nov 02, 2017 08:24
[2017-11-02] MEDS: CYANOCOBALAMIN (VITAMIN B-12) 1,000 MCG TABLET. PO SCH (09:14)
[2017-11-02] MEDS: MAGNESIUM OXIDE 400 MG TABLET PO SCH (09:14)
[2017-11-02] MEDS: DULoxetine HCL 30 MG CAPSULE.DR PO SCH (09:15)
[2017-11-02] MEDS: DOCUSATE SODIUM 100 MG CAPSULE. PO SCH (09:16)
[2017-11-02] MEDS: CYCLOBENZAPRINE 10 MG TABLET. PO SCH (09:16)
[2017-11-02] MEDS: ALPRAZolam 0.5 MG TABLET PO SCH (09:17)
[2017-11-02] MEDS: MULTIVITAMIN with MINERAL TABLET. PO SCH (09:17)
[2017-11-02] MEDS: CALCIUM CARB/VIT D3 500/200 TABLET. PO SCH (09:17)
[2017-11-02 10:40] VITALS: BP 137/65
[2017-11-02] MEDS ORDERED: FERR325T72 PO (11:22)
[2017-11-02] MEDS ORDERED: HYDR-963 PO (11:22)
--- NOTE | 2017-11-02 13:31 | PDOC3 ---
Discharge Summary [facility] Date of Admission: Oct 22, 2017 Discharge Date: Nov 02, 2017 Admitting Diagnosis RT Patellar fracture, traumatic, closed s/p sx 10/23 - Right hip fracture s/p sx 10/23 Mechanical fall at home, Colon CA with mets to lungs on chemo held now Anemia of malignancy and post sx constipation Final Diagnosis CONSULTS ortho onco Brief Hospital Course Mr. Adams is a 57 old M, with h/o colon Ca mets to lung on chemo, came post fall, was found rt hip and knee fx, got sx repair. Pt stayed here for a long time waiting for his insurance approve to rehab, but enventually denies. Pt is doing better with PTOT, stable to dc home with hh. cont warfarin for dvt ppx for 1 month. iron po given. cont vib12, chemo held , pt talked to his own onco. dc time 35min. General: Alert, Oriented X3, No acute distress Heart: Normal S1, Normal S2 Lungs: Clear Abdomen: Normal bowel sounds, Soft, No tenderness Extremities: No clubbing, No cyanosis, Normal pulses Skin: No rashes, No breakdown, No significant lesion Disposition HH CONDITION AT DISCHARGE: Improved Scheduled Calcium Carbonate/Vitamin D2 (Oyster Shell Calcium-Vit D Tab), 1 EACH PO BID, ( Reported) Cyanocobalamin (Vitamin B-12) (Vitamin B-12), 1,250 MCG SL DAILY, (Reported) Cyclobenzaprine Hcl (Cyclobenzaprine Hcl), 1 TAB PO TID, (Reported) Duloxetine Hcl (Cymbalta), 1 CAP PO DAILY, (Reported) Ferrous Sulfate (Feosol), 325 MG PO DAILYWBKFT Gabapentin (Gabapentin), 100 MG PO Q8HRS, (Reported) Magnesium Oxide (Mag-Oxide), 250 MG PO BID, (Reported) Methadone Hcl (Methadone Hcl), 1 TAB PO Q12HR, (Reported) Multivitamin (Multivitamins), 1 TAB PO DAILY, (Reported) Trazodone Hcl (Trazodone Hcl), 1 TAB PO QHS, (Reported) [lidoderm], 5 Q12HR, (Reported) Scheduled PRN Hydrocodone/Apap 10-325 ([place] 10-325 Tablet), 1-2 TAB PO Q4-6HRS PRN for PAIN Lactulose (Lactulose), 20 GM PO PRN Q3HRS PRN for CONSTIPATION, (Reported) Loperamide HCl (Imodium A-D), 2 MG PO for DIARRHEA, (Reported) Mag Hydrox/Al Hydrox/Simeth (Alum-Mag Hydroxide-Simeth Liq), 5 ML PO for GAS / BLOATING, (Reported) Ondansetron Hcl (Zofran), 1 TAB PO Q8HRS PRN for NAUSEA, (Reported) [magic mouthwash], 30 ML TID PRN for ORAL PAIN, (Reported) Miscellaneous Medications Cyanocobalamin (Vitamin B-12) (Vitamin B-12), 1,000 MCG PO, (Reported) Naloxone Hcl (Naloxone Hcl), 0.4 MG IJ, (Reported) Sennosides/Docusate Sodium (Senna S Tablet), 1 EACH PO, (Reported) Discontinued Medications Regorafenib (Stivarga), 40 MG PO DAILY, (Reported) MAURICE JENKINS MD Nov 02, 2017 13:31
[2017-11-02] MEDS ORDERED: WARFARIN 2 MG TABLET. PO ONE (16:00)
== END 2017-11-02 15:36 | disposition home health service (06) | DRG 480 ==
LOC: ER 02:28 → 4 NORTH 03:38
PROVIDERS: ADMIT Internal Medicine; ATTEND Internal Medicine
PROC: 0QSD04Z Reposition Right Patella with Internal Fixation Device, Open Approach (ICD-10-PCS; principal; 2017-10-24)
PROC: 0QH606Z Insertion of Intramedullary Internal Fixation Device into Right Upper Femur, Open Approach (ICD-10-PCS; 2017-10-24)
PROC: BQ101ZZ Fluoroscopy of Right Hip using Low Osmolar Contrast (ICD-10-PCS; 2017-10-24)
PROC: BQ171ZZ Fluoroscopy of Right Knee using Low Osmolar Contrast (ICD-10-PCS; 2017-10-24)
PROC: 30233N1 Transfusion of Nonautologous Red Blood Cells into Peripheral Vein, Percutaneous Approach (ICD-10-PCS; 2017-10-25)
DX: S82.041A Displaced comminuted fracture of right patella, initial encounter for closed fracture (principal); S72.141A Displaced intertrochanteric fracture of right femur, initial encounter for closed fracture; C78.00 Secondary malignant neoplasm of unspecified lung; C18.9 Malignant neoplasm of colon, unspecified; D63.0 Anemia in neoplastic disease; K59.00 Constipation, unspecified; Z60.2 Problems related to living alone; W01.0XXA Fall on same level from slipping, tripping and stumbling without subsequent striking against object, initial encounter; Z87.442 Personal history of urinary calculi; Z88.6 Allergy status to analgesic agent; Z86.718 Personal history of other venous thrombosis and embolism; Y93.89 Activity, other specified; Y92.098 Other place in other non-institutional residence as the place of occurrence of the external cause; Y99.8 Other external cause status
CPT/HCPCS: 36415; 71045; 73502; 73560; 76000; 80048; 80053; 82274; 82306; 82378; 82607; 82728; 82746; 83540; 83550; 84443; 85007; 85014; 85018; 85025; 85610; 86850; 86900; 86901; 86920; 87641; 93005; 96374; 96375; 96376; A7015; C1713; C1769; C1887; J0171; J0690; J2001; J2250; J2270; J2370; J2405; J2704; J2795; J3010; J7030; J7120; P9016; 97110; 97116; 97530; 97535; 99285-25

== ENCOUNTER 2017-11-04 10:22 | Inpatient (IN) | payer OTHER ==
[~2017-11-04] VITALS: Ht 177.8 cm; Wt 80.7 kg
[~2017-11-04 10:22] MED LIST: CALC-304 PO; CYAN10005 PO; CYAN10005 SL; CYCL10TA2 PO; DULO60CA6 PO; FERR325T72 PO; GABA-585 PO; HYDR-963 PO; LACT20SO PO; LOPE2CAP88 PO; MAG360OR24 PO; MAGN400T22 PO; METH10TA2 PO; MULT1TAB52 PO; NALO0.4V14 IJ; ONDA8TAB9 PO; REGO40TA PO; SENN-82 PO; TRAZ-86 PO; lidoderm; magic mouthwash
[2017-11-04] MEDS ORDERED: LORazepam 1 MG TABLET PO ONE (10:30)
[2017-11-04] MEDS ORDERED: ONDANSETRON PF 4 MG/2 ML VIAL. IV ONE (10:30)
[2017-11-04] MEDS ORDERED: MORPHINE SULFATE 10 MG/ML VIAL. IV ONE (10:45)
[2017-11-04 10:54] LABS: BASO # 0.1 x10^3/uL (0.0-0.2); BASO % 1 % (0-3); EOS % 0 % (0-3); HEMATOCRIT 30.3 % (39.0-53.0); HEMOGLOBIN 10.1 g/dL (13.0-17.5); LYMPH # 0.9 x10^3/uL (1.0-4.8); LYMPH % 7 % (24-48); MEAN CORPUSCULAR HEMOGLOBIN 32 pg (25-35); MEAN CORPUSCULAR HGB CONC 33 g/dL (31-37); MEAN CORPUSCULAR VOLUME 96 fL (79-100); MONO # 1.2 x10^3/uL (0.0-1.1); MONO % 10 % (0-9); NEUT # 10.7 x10^3uL (1.8-7.7); NEUT % 83 % (31-73); PLATELET COUNT 258 x10^3/uL (140-400); RED BLOOD COUNT 3.16 x10^6/uL (4.30-5.70); RED CELL DISTRIBUTION WIDTH 17.8 % (11.5-14.5); WHITE BLOOD COUNT 12.9 x10^3/uL (4.0-11.0)
[2017-11-04 11:03] LABS: PROTHROMBIN TIME PATIENT 18.2 SEC (11.7-14.0)
[2017-11-04 11:05] LABS: CALCIUM 9.5 mg/dL (8.5-10.1); CREATININE 1.2 mg/dL (0.7-1.3); GFR 62.2; POTASSIUM 3.8 mmol/L (3.5-5.1)
[2017-11-04 11:10] LABS: ALBUMIN 3.1 g/dL (3.4-5.0); ALBUMIN/GLOBULIN RATIO 0.7 (1.0-1.7); TOTAL BILIRUBIN 1.4 mg/dL (0.2-1.0); TOTAL PROTEIN 7.4 g/dL (6.4-8.2)
[2017-11-04] MEDS ORDERED: IV NORMAL SALINE 1000ML BAG 1,000 ML IV ONE (11:30)
--- NOTE | 2017-11-04 11:58 | RAD ---
EXAM: Right knee, 3 views; right femur, 2 views. HISTORY: Pain. COMPARISON: None. FINDINGS: Frontal, lateral and oblique views of the right knee and frontal and lateral views of the right femur are obtained. There is internal fixation of a patellar fracture with 3 screws. There is a small knee effusion and there are anterior skin corinna due to recent surgery. There are fixation screws within the proximal tibial metaphysis traversing the anterior tibial tubercle. There is internal fixation of a left femoral intertrochanteric fracture. There are lateral skin corinna due to recent surgery. IMPRESSION: 1. Internal fixation of right patellar and right femoral intertrochanteric fractures and the proximal tibial metaphysis. There is surrounding soft tissue change and skin corinna due to recent surgery. 2. Small right knee effusion. Electronically signed by: Cortney Rose MD (11/04/2017 11:55 AM) [facility]
--- NOTE | 2017-11-04 12:38 | PHYS DOC ---
Past Medical History Past Medical History: Cancer Past Surgical History: Cancer Surgery, Tonsillectomy Additional Past Surgical Histo: HIP FRAC. RX, KNEE FRAC RX. Alcohol Use: None Drug Use: None Adult General Chief Complaint Chief Complaint: POST-OP PROBLEM HPI HPI Patient is a 57 year old male who was brought in by ambulance with severe leg pain, unable to care for self at home. He was just here for almost 2 weeks he has a history of stage IV lung cancer he had a femur fracture and a patella fracture he was trying to get into nursing facility but apparently according to his insurance denied it. He went home he has been unable to care for himself. He is been unable to walk to the kitchen. He is on an unable to walk to get his pills and that has increased his pain he is having an anxiety attack due to the severity of his pain as well. Review of Systems Review of Systems Constitutional: Denies fever or chills [] Eyes: Denies change in visual acuity, redness, or eye pain [] Respiratory: Denies cough or shortness of breath [] Cardiovascular: No additional information not addressed in HPI [] Integument: Denies rash or skin lesions [] Neurologic: Denies headache, focal weakness or sensory changes [] All other systems were reviewed and found to be within normal limits, except as documented in this note. Current Medications Current Medications Current Medications Medications (Trade) Dose Ordered Sig/Derrick Start Time Stop Time Status Last Admin Dose Admin Lorazepam (Ativan) 2 mg 1X ONCE 11/04/17 10:30 11/04/17 10:34 DC 11/04/17 10:49 2 MG Morphine Sulfate (Morphine Sulfate) 6 mg 1X ONCE 11/04/17 10:45 11/04/17 10:46 DC 11/04/17 10:54 6 MG Ondansetron HCl (Zofran) 4 mg 1X ONCE 11/04/17 10:30 11/04/17 10:34 DC 11/04/17 10:50 4 MG Sodium Chloride 1,000 ml @ 1,000 mls/hr 1X ONCE 11/04/17 11:30 11/04/17 12:29 DC 11/04/17 11:27 1,000 MLS/HR Allergies Allergies Allergies Coded Allergies Type Severity Reaction Last Updated Verified codeine Adverse Reaction Intermediate VERTIGO 10/22/17 Yes Physical Exam Physical Exam Constitutional: Well developed, well nourished, mild distress patient appears anxious he is shaking HENT: Normocephalic, atraumatic, bilateral external ears normal, oropharynx DRYt , no oral exudates, nose normal. [] Eyes: PERRLA, EOMI, conjunctiva normal, no discharge. [] Neck: Normal range of motion, no tenderness, supple, no stridor. [] Cardiovascular: Tachycardic no murmurs noted. Lungs & Thorax: Bilateral breath sounds clear to auscultation [] Abdomen: Bowel sounds normal, soft, no tenderness, no masses, no pulsatile masses. [] Skin: Warm, dry, no erythema, no rash. [] Back: No tenderness, no CVA tenderness. [] Extremities: There is some swelling and seemingly appropriate postop changes in the right leg. The surgical bandages are in place. There is a positive pedal pulse there is some ecchymosis dependently. Neurologic: Alert and oriented X 3, normal motor function, normal sensory function, no focal deficits noted. [] Psychologic: Affect normal, judgement normal, mood normal. [] Current Patient Data Vital Signs Vital Signs Date Time Temp Pulse Resp B/P (MAP) Pulse Ox O2 Delivery O2 Flow Rate FiO2 11/04/17 10:54 17 98 Room Air 11/04/17 10:23 99.7 116 137/62 (87) 99.7 Lab Values Laboratory Tests Test 11/04/17 10:42 White Blood Count 12.9 x10^3/uL (4.0-11.0) H Red Blood Count 3.16 x10^6/uL (4.30-5.70) L Hemoglobin 10.1 g/dL (13.0-17.5) L Hematocrit 30.3 % (39.0-53.0) L Mean Corpuscular Volume 96 fL (79-100) Mean Corpuscular Hemoglobin 32 pg (25-35) Mean Corpuscular Hemoglobin Concent 33 g/dL (31-37) Red Cell Distribution Width 17.8 % (11.5-14.5) H Platelet Count 258 x10^3/uL (140-400) Neutrophils (%) (Auto) 83 % (31-73) H Lymphocytes (%) (Auto) 7 % (24-48) L Monocytes (%) (Auto) 10 % (0-9) H Eosinophils (%) (Auto) 0 % (0-3) Basophils (%) (Auto) 1 % (0-3) Neutrophils # (Auto) 10.7 x10^3uL (1.8-7.7) H Lymphocytes # (Auto) 0.9 x10^3/uL (1.0-4.8) L Monocytes # (Auto) 1.2 x10^3/uL (0.0-1.1) H Eosinophils # (Auto) 0.0 x10^3/uL (0.0-0.7) Basophils # (Auto) 0.1 x10^3/uL (0.0-0.2) Prothrombin Time 18.2 SEC (11.7-14.0) H Prothrombin Time INR 1.6 (0.8-1.1) H Sodium Level 135 mmol/L (136-145) L Potassium Level 3.8 mmol/L (3.5-5.1) Chloride Level 102 mmol/L (98-107) Carbon Dioxide Level 22 mmol/L (21-32) Anion Gap 11 (6-14) Blood Urea Nitrogen 17 mg/dL (8-26) Creatinine 1.2 mg/dL (0.7-1.3) Estimated GFR (Cockcroft-Gault) 62.2 BUN/Creatinine Ratio 14 (6-20) Glucose Level 149 mg/dL (70-99) H Calcium Level 9.5 mg/dL (8.5-10.1) Total Bilirubin 1.4 mg/dL (0.2-1.0) H Aspartate Amino Transferase (AST) 16 U/L (15-37) Alanine Aminotransferase (ALT) 17 U/L (16-63) Alkaline Phosphatase 189 U/L (46-116) H Total Protein 7.4 g/dL (6.4-8.2) Albumin 3.1 g/dL (3.4-5.0) L Albumin/Globulin Ratio 0.7 (1.0-1.7) L Laboratory Tests 11/04/17 10:42 Laboratory Tests 11/04/17 10:42 EKG EKG [] Radiology/Procedures Radiology/Procedures [] Impressions: IMPRESSION: 1. Internal fixation of right patellar and right femoral intertrochanteric fractures and the proximal tibial metaphysis. There is surrounding soft tissue change and skin corinna due to recent surgery. 2. Small right knee effusion. Electronically signed by: Cortney Rose MD (11/04/2017 11:55 AM) [facility] DICTATED and SIGNED BY: CORTNEY ROSE MD DATE: 11/04/17 1153 Course & Med Decision Making Course & Med Decision Making Pertinent Labs and Imaging studies reviewed. (See chart for details) []This is a 57-year-old male with a prior history of stage IV lung cancer as well as a recent hip surgery and patella surgery was back here in the emergency room because his pain is out of control he has been unable to care for himself at home. Patient was given morphine in the emergency room with some improvement however he still has mild tachycardia he does look a little dehydrated I think that he warrants readmission for pain control and observation patient is agreeable to the plan. Admit to the service of Dr. ROSS Law Disclaimer Ani Disclaimer This electronic medical record was generated, in whole or in part, using a voice recognition dictation system. Departure Departure Impression: Primary Impression: Inadequate pain control Disposition: ADMITTED INPATIENT Condition: STABLE Referrals: NO PCP (PCP) RATNA KELLEY MD Nov 04, 2017 12:38
[2017-11-04] MEDS ORDERED: ACETAMINOPHEN 500 MG TABLET PO PRN (13:30)
[2017-11-04] MEDS ORDERED: LACTULOSE 20 GM/30 ML SOLUTION. PO PRN (13:30)
[2017-11-04] MEDS ORDERED: ONDANSETRON PF 4 MG/2 ML VIAL. IV PRN (13:30)
[2017-11-04] MEDS ORDERED: MORPHINE SULFATE 2 MG/ML VIAL. IV PRN (13:30)
[2017-11-04] MEDS ORDERED: TEMAZEPAM 7.5 MG CAPSULE PO PRN (13:30)
[2017-11-04] MEDS ORDERED: oxyCODONE/APAP 5/325 1 TAB TABLET PO PRN (13:30)
[2017-11-04] MEDS ORDERED: fentaNYL PF VIAL 100 MCG/2 ML VIAL IV PRN (13:30)
[2017-11-04] MEDS ORDERED: MAG HYDROX/ALUMINUM HYD/SIMETH 30 ML ORAL.SUSP PO PRN (13:30)
--- NOTE | 2017-11-04 14:10 | PDOC1 ---
History and Physical Date of Admission Date of Admission DATE: 11/04/17 TIME: 14:05 Identification/Chief Complaint Chief Complaint Unable to get up and care for himself after a patellar fracture post op, Source Source: Caregiver, Chart review, Patient History of Present Illness History of Present Illness 57-year-old male who is back again, after just being discharged 1 day prior to admission because of patellar fracture. His diagnosis was below: RT Patellar fracture, traumatic, closed s/p sx 10/23 - Right hip fracture s/p sx 10/23 - Mechanical fall at home, Colon CA with mets to lungs on daily chemo ANemia of Cancer His insurance will not cover for rehabilitation or maybe not even home health?. He has [employer] insurance. Was sent home, but unable to care for himself, in again because of intractable pain. X-rays of that knee shows expected postoperative findings no new acute pathology. Patient is admitted because of significant pain and unable to come to care for himself. He does have history of stage IV lung cancer came. Total bili mildly elevated 1.4 but he denies any abdominal pain. Sodium is 135, hemoglobin 10, WBC 12. He describes the pain as a shooting pain from his knee up to his toes, he is unable to do anything when this happens. Hence admitted Past Medical History Heme/Onc: Anemia NOS, Cancer Renal/: Other Past Surgical History Past Surgical History: Cholecystectomy, Colon Resection, Other Family History Family History: No Significant, Hypertension Social History Smoke: No ALCOHOL: none Drugs: None Current Medications Current Medications Current Medications Morphine Sulfate (Morphine Sulfate) 6 mg 1X ONCE IV Last administered on at 10:54; Start 11/04/17 at 10:45; Stop 11/04/17 at 10:46; Status DC Ondansetron HCl (Zofran) 4 mg 1X ONCE IV Last administered on 11/04/17at 10:50 ; Start 11/04/17 at 10:30; Stop 11/04/17 at 10:34; Status DC Lorazepam (Ativan) 2 mg 1X ONCE PO Last administered on 11/04/17at 10:49; Start 11/04/17 at 10:30; Stop 11/04/17 at 10:34; Status DC Sodium Chloride 1,000 ml @ 1,000 mls/hr 1X ONCE IV Last administered on at 11:27; Start 11/04/17 at 11:30; Stop 11/04/17 at 12:29; Status DC Morphine Sulfate (Morphine Sulfate) 2 mg PRN Q2HR PRN IV PAIN; Start 11/04/17 at 13:30 Fentanyl Citrate (Fentanyl 2ml Vial) 50 mcg PRN Q2HR PRN IV PAIN; Start at 13:30; Status UNV Acetaminophen (Tylenol) 500 mg PRN Q6HRS PRN PO MILD PAIN / TEMP; Start at 13:30 Ondansetron HCl (Zofran) 4 mg PRN Q6HRS PRN IV NAUSEA/VOMITING; Start 11/04/17 at 13:30; Status UNV Temazepam (Restoril) 7.5 mg PRN QHS PRN PO INSOMNIA; Start 11/04/17 at 13:30; Status UNV Alprazolam (Xanax) 0.5 mg PRN Q8HRS PRN PO ANXIETY / AGITATION; Start 11/04/17 at 13:30 Oxycodone/ Acetaminophen (Percocet 10/325) 1 tab PRN Q4HRS PRN PO pain; Start 11/04/17 at 13:30; Status UNV Oxycodone/ Acetaminophen (Percocet 5/325) 1 tab PRN Q4HRS PRN PO PAIN; Start at 13:30; Status UNV Cyanocobalamin (Vitamin B-12) 1,000 mcg DAILY PO ; Start 11/05/17 at 09:00; Status UNV Cyclobenzaprine HCl (Flexeril) 10 mg TID PO ; Start 11/04/17 at 14:00; Status UNV Ferrous Sulfate (Feosol) 325 mg DAILYWBKFT PO ; Start 11/05/17 at 08:00; Status UNV Gabapentin (Neurontin) 100 mg Q8HRS PO ; Start 11/04/17 at 14:00; Status UNV Lactulose (Lactulose) 20 gm PRN Q3HRS PRN PO CONSTIPATION; Start 11/04/17 at 13 :30; Status UNV Senna/Docusate Sodium (Senna Plus) 1 tab DAILY PO ; Start 11/05/17 at 09:00; Status UNV Trazodone HCl (Desyrel) 100 mg QHS PO ; Start 11/04/17 at 21:00; Status UNV Non-Formulary Medication (Calcium Carbonate/Vitamin D2 (Oyster Shell Calcium- Vit D Tab)) 1 each BID PO ; Start 11/04/17 at 21:00; Status UNV Non-Formulary Medication (Duloxetine Hcl (Cymbalta)) 1 cap DAILY PO ; Start at 09:00; Status UNV Non-Formulary Medication (Hydrocodone/ Apap 10-325 ([place] 10-325 Tablet)) 1 tab Q4-6HRS PRN PO PAIN; Start 11/04/17 at 13:30; Status UNV Non-Formulary Medication (Magnesium Oxide (Mag-Oxide)) 250 mg BID PO ; Start at 21:00; Status UNV Non-Formulary Medication (Methadone Hcl ) 1 tab Q12HR PO ; Start 11/04/17 at 21: 00; Status UNV Non-Formulary Medication (Multivitamin (Multivitamins)) 1 tab DAILY PO ; Start 11/05/17 at 09:00; Status UNV Non-Formulary Medication (Ondansetron Hcl (Zofran)) 1 tab Q8HRS PRN PO NAUSEA; Start 11/04/17 at 13:30; Status UNV Non-Formulary Medication ([lidoderm] ) 5 % Q12HR .ROUTE ; Start 11/04/17 at 21: 00; Status UNV Non-Formulary Medication ([magic mouthwash] ) 30 ml TID PRN .ROUTE ORAL PAIN; Start 11/04/17 at 13:30; Status UNV Cyanocobalamin (Vitamin B-12) 1,250 mcg DAILY PO ; Start 11/05/17 at 09:00; Status UNV Al Hydroxide/Mg Hydroxide (Mylanta Plus Xs) 30 ml PRN Q2HR PRN PO HEARTBURN / GAS; Start 11/04/17 at 13:30 Active Scripts Active Feosol (Ferrous Sulfate) 325 Mg Tablet 325 Mg PO DAILYWBKFT 30 Days [place] 10-325 Tablet (Acetaminophen/Hydrocodone Bitart) 1 Each Tablet 1-2 Tab PO Q4-6HRS PRN Reported Alum-Mag Hydroxide-Simeth Liq (Mag Hydrox/Al Hydrox/Simeth) 360 Ml Oral.susp 5 Ml PO PRN Vitamin B-12 (Cyanocobalamin (Vitamin B-12)) 1,000 Mcg Tablet 1,250 Mcg SL DAILY Vitamin B-12 (Cyanocobalamin (Vitamin B-12)) 1,000 Mcg Tablet 1,000 Mcg PO Trazodone Hcl 100 Mg Tablet 1 Tab PO QHS Senna S Tablet (Sennosides/Docusate Sodium) 1 Each Tablet 1 Each PO Multivitamins (Multivitamin) 1 Each Tablet 1 Tab PO DAILY Zofran (Ondansetron Hcl) 8 Mg Tablet 1 Tab PO Q8HRS PRN Naloxone Hcl 0.4 Mg/1 Ml Vial 0.4 Mg IJ Methadone Hcl 10 Mg Tablet 1 Tab PO Q12HR Mag-Oxide (Magnesium Oxide) 400 Mg Tablet 250 Mg PO BID [lidoderm] 5 Q12HR Lactulose 20 Gm/30 Ml Solution 20 Gm PO PRN Q3HRS PRN Imodium A-D (Loperamide HCl) 2 Mg Capsule 2 Mg PO PRN Gabapentin 100 Mg Capsule 100 Mg PO Q8HRS Cymbalta (Duloxetine Hcl) 60 Mg Capsule.dr 1 Cap PO DAILY [magic mouthwash] 30 Ml TID PRN Cyclobenzaprine Hcl 10 Mg Tablet 1 Tab PO TID Oyster Shell Calcium-Vit D Tab (Calcium Carbonate/Vitamin D2) 1 Each Tablet 1 Each PO BID Allergies Allergies: Coded Allergies: codeine (Verified Adverse Reaction, Intermediate, VERTIGO, 10/22/17) ROS Review of System as per history of present illness, the rest of ROS negative Physical Exam General: Alert, Oriented X3, Cooperative, mild distress, Other (from the knee pain) HEENT: PERRLA Lungs: Clear to auscultation, Normal air movement Heart: S1S2, RRR, no thrills, no rubs, no gallops, no murmurs Cardiovascular: S1, S2 Male Genitals Exam: normal genitalia, normal prostate Rectal Exam: not examined PELVIC: Nml ext genitalia Extremities: Other (knee dressing, expected alignment, limited flexion and movement because of pain) Skin: No rashes, No breakdown, No significant lesion Neuro: Normal gait, Normal speech, Strength at 5/5 X4 ext, Normal tone, Sensation intact, Cranial nerves 3-12 NL, Reflexes 2+ Psych/Mental Status: Mental status NL, Mood NL Vitals Vitals Vital Signs Date Time Temp Pulse Resp B/P (MAP) Pulse Ox O2 Delivery O2 Flow Rate FiO2 11/04/17 12:56 86 13 126/63 (84) 97 Room Air 11/04/17 10:23 99.7 99.7 Labs Labs Laboratory Tests Test 11/04/17 10:42 White Blood Count 12.9 x10^3/uL (4.0-11.0) Red Blood Count 3.16 x10^6/uL (4.30-5.70) Hemoglobin 10.1 g/dL (13.0-17.5) Hematocrit 30.3 % (39.0-53.0) Mean Corpuscular Volume 96 fL (79-100) Mean Corpuscular Hemoglobin 32 pg (25-35) Mean Corpuscular Hemoglobin Concent 33 g/dL (31-37) Red Cell Distribution Width 17.8 % (11.5-14.5) Platelet Count 258 x10^3/uL (140-400) Neutrophils (%) (Auto) 83 % (31-73) Lymphocytes (%) (Auto) 7 % (24-48) Monocytes (%) (Auto) 10 % (0-9) Eosinophils (%) (Auto) 0 % (0-3) Basophils (%) (Auto) 1 % (0-3) Neutrophils # (Auto) 10.7 x10^3uL (1.8-7.7) Lymphocytes # (Auto) 0.9 x10^3/uL (1.0-4.8) Monocytes # (Auto) 1.2 x10^3/uL (0.0-1.1) Eosinophils # (Auto) 0.0 x10^3/uL (0.0-0.7) Basophils # (Auto) 0.1 x10^3/uL (0.0-0.2) Prothrombin Time 18.2 SEC (11.7-14.0) Prothromb Time International Ratio 1.6 (0.8-1.1) Sodium Level 135 mmol/L (136-145) Potassium Level 3.8 mmol/L (3.5-5.1) Chloride Level 102 mmol/L (98-107) Carbon Dioxide Level 22 mmol/L (21-32) Anion Gap 11 (6-14) Blood Urea Nitrogen 17 mg/dL (8-26) Creatinine 1.2 mg/dL (0.7-1.3) Estimated GFR (Cockcroft-Gault) 62.2 BUN/Creatinine Ratio 14 (6-20) Glucose Level 149 mg/dL (70-99) Calcium Level 9.5 mg/dL (8.5-10.1) Total Bilirubin 1.4 mg/dL (0.2-1.0) Aspartate Amino Transf (AST/SGOT) 16 U/L (15-37) Alanine Aminotransferase (ALT/SGPT) 17 U/L (16-63) Alkaline Phosphatase 189 U/L (46-116) Total Protein 7.4 g/dL (6.4-8.2) Albumin 3.1 g/dL (3.4-5.0) Albumin/Globulin Ratio 0.7 (1.0-1.7) Laboratory Tests Test 11/04/17 10:42 White Blood Count 12.9 x10^3/uL (4.0-11.0) Red Blood Count 3.16 x10^6/uL (4.30-5.70) Hemoglobin 10.1 g/dL (13.0-17.5) Hematocrit 30.3 % (39.0-53.0) Mean Corpuscular Volume 96 fL (79-100) Mean Corpuscular Hemoglobin 32 pg (25-35) Mean Corpuscular Hemoglobin Concent 33 g/dL (31-37) Red Cell Distribution Width 17.8 % (11.5-14.5) Platelet Count 258 x10^3/uL (140-400) Neutrophils (%) (Auto) 83 % (31-73) Lymphocytes (%) (Auto) 7 % (24-48) Monocytes (%) (Auto) 10 % (0-9) Eosinophils (%) (Auto) 0 % (0-3) Basophils (%) (Auto) 1 % (0-3) Neutrophils # (Auto) 10.7 x10^3uL (1.8-7.7) Lymphocytes # (Auto) 0.9 x10^3/uL (1.0-4.8) Monocytes # (Auto) 1.2 x10^3/uL (0.0-1.1) Eosinophils # (Auto) 0.0 x10^3/uL (0.0-0.7) Basophils # (Auto) 0.1 x10^3/uL (0.0-0.2) Prothrombin Time 18.2 SEC (11.7-14.0) Prothromb Time International Ratio 1.6 (0.8-1.1) Sodium Level 135 mmol/L (136-145) Potassium Level 3.8 mmol/L (3.5-5.1) Chloride Level 102 mmol/L (98-107) Carbon Dioxide Level 22 mmol/L (21-32) Anion Gap 11 (6-14) Blood Urea Nitrogen 17 mg/dL (8-26) Creatinine 1.2 mg/dL (0.7-1.3) Estimated GFR (Cockcroft-Gault) 62.2 BUN/Creatinine Ratio 14 (6-20) Glucose Level 149 mg/dL (70-99) Calcium Level 9.5 mg/dL (8.5-10.1) Total Bilirubin 1.4 mg/dL (0.2-1.0) Aspartate Amino Transf (AST/SGOT) 16 U/L (15-37) Alanine Aminotransferase (ALT/SGPT) 17 U/L (16-63) Alkaline Phosphatase 189 U/L (46-116) Total Protein 7.4 g/dL (6.4-8.2) Albumin 3.1 g/dL (3.4-5.0) Albumin/Globulin Ratio 0.7 (1.0-1.7) VTE Prophylaxis Ordered VTE Prophylaxis Devices: Yes VTE Pharmacological Prophylaxi: Yes Assessment/Plan Assessment/Plan Postop knee pain, unable to care for oneself at home alone RT Patellar fracture, traumatic, closed s/p sx 10/23 - Right hip fracture s/p sx 10/23 - Mechanical fall at home, Colon CA with mets to lungs on daily chemo ANemia of Cancer Plan: Admit, PT OT I have reconciled home meds I have given by mouth and IV pain meds Social work consult again, I'm unsure if there is something different we can do for this gentleman? His next appointment with orthopedics is 2 weeks from now WES HAWKINS MD Nov 04, 2017 14:10
[2017-11-04] MEDS ORDERED: HYDROcodone/APAP 10/325 1 TAB TABLET PO PRN (15:15)
[2017-11-04] MEDS ORDERED: LIDO:MAALOX:BENADRYL 1:1:1 180 ML BOTTLE. PO PRN (15:15)
[2017-11-04] MEDS ORDERED: ONDANSETRON ODT 4 MG TAB.RAPDIS. PO PRN ×2 (15:15)
[2017-11-04] MEDS: CYANOCOBALAMIN (VITAMIN B-12) 1,000 MCG TABLET. PO SCH (15:30)
[2017-11-04] MEDS: DULoxetine HCL 30 MG CAPSULE.DR PO SCH (15:30)
[2017-11-04] MEDS: MULTIVITAMIN with MINERAL TABLET. PO SCH (15:30)
[2017-11-04] MEDS: GABAPENTIN 100 MG CAPSULE. PO SCH ×2 (16:58→22:27)
[2017-11-04] MEDS: CALCIUM CARB/VIT D3 500/200 TABLET. PO SCH (16:58)
[2017-11-04] MEDS: METHADONE 10 MG TABLET. PO SCH ×2 (16:58→22:27)
[2017-11-04] MEDS: CYCLOBENZAPRINE 10 MG TABLET. PO SCH ×2 (16:58→22:27)
[2017-11-04] MEDS: ALPRAZolam 0.5 MG TABLET PO PRN (16:58)
[2017-11-04] MEDS: PATCH REMOVAL. MC SCH (16:59)
[2017-11-04 19:35] VITALS: BP 100/61
[2017-11-04] MEDS: traZODone 100 MG TABLET. PO SCH (22:27)
[2017-11-04 22:50] VITALS: BP 107/54
[2017-11-05] MEDS: ALPRAZolam 0.5 MG TABLET PO PRN (01:06)
[2017-11-05 03:25] VITALS: BP 100/49
[2017-11-05] MEDS: GABAPENTIN 100 MG CAPSULE. PO SCH ×3 (05:16→22:00)
[2017-11-05] MEDS: oxyCODONE/APAP 10/325 1 TAB TABLET PO PRN ×3 (05:21→17:08)
[2017-11-05 07:00] VITALS: BP 102/57
[2017-11-05] MEDS: SENNOSIDES/DOCUSATE 8.6/50MG TABLET. PO SCH (08:28)
[2017-11-05] MEDS: CALCIUM CARB/VIT D3 500/200 TABLET. PO SCH ×2 (08:28→17:07)
[2017-11-05] MEDS: CYANOCOBALAMIN (VITAMIN B-12) 1,000 MCG TABLET. PO SCH (08:28)
[2017-11-05] MEDS: DULoxetine HCL 30 MG CAPSULE.DR PO SCH (08:28)
[2017-11-05] MEDS: CYCLOBENZAPRINE 10 MG TABLET. PO SCH ×3 (08:29→21:00)
[2017-11-05] MEDS: MAGNESIUM OXIDE 400 MG TABLET PO SCH (08:29)
[2017-11-05] MEDS: FERROUS SULFATE 325 MG TABLET. PO SCH (08:29)
[2017-11-05] MEDS: METHADONE 10 MG TABLET. PO SCH ×2 (08:29→21:00)
[2017-11-05] MEDS: MULTIVITAMIN with MINERAL TABLET. PO SCH (08:29)
[2017-11-05] MEDS: LIDOCAINE (700MG/PATCH) PATCH. TD SCH (08:32)
[2017-11-05] MEDS ORDERED: CYANOCOBALAMIN (VITAMIN B-12) 1,000 MCG TABLET. PO SCH (09:00)
[2017-11-05 10:52] VITALS: BP 104/60
--- NOTE | 2017-11-05 13:05 | PDOC ---
PROGRESS NOTES Chief Complaint Chief Complaint severe pain with recent RT Patellar fracture, traumatic, closed s/p sx 10/23 - Right hip fracture s/p sx 10/23 Mechanical fall at home, Colon CA with mets to lungs on chemo held now Anemia of malignancy and post sx constipation chronic pain on methadone plan: check inr daily ,need warfarin for dvt ppx cont home meds on percocet for pain control PTOT sw FOR rehab eval again this time xanax prn History of Present Illness History of Present Illness Mr. Adams is a 57 old M, with h/o colon Ca mets to lung on chemo, came post fall, was found rt hip and knee fx, got sx repaired, justed dced 2 ds ago home. his insurance denies him to rehab. pt came back since more pain, shaky wants xanax which he ran out of before. Vitals Vitals Vital Signs Date Time Temp Pulse Resp B/P (MAP) Pulse Ox O2 Delivery O2 Flow Rate FiO2 11/05/17 12:43 Room Air 11/05/17 10:52 98.5 105 14 104/60 (75) 100 98.5 Physical Exam Physical Exam rt leg stabilized very anxious c/o pain and shaky ext General: Alert, Oriented X3, Cooperative, mild distress, Other (from the knee pain) Heart: Regular rate, Normal S1, Normal S2 Lungs: Clear Abdomen: Normal bowel sounds, Soft Extremities: Other (knee dressing, expected alignment, limited flexion and movement because of pain) Skin: No rashes, No breakdown, No significant lesion Comment Review of Relevant I have reviewed the following items francisco (where applicable) has been applied. Labs Laboratory Tests Test 11/04/17 10:42 White Blood Count 12.9 x10^3/uL (4.0-11.0) Red Blood Count 3.16 x10^6/uL (4.30-5.70) Hemoglobin 10.1 g/dL (13.0-17.5) Hematocrit 30.3 % (39.0-53.0) Mean Corpuscular Volume 96 fL (79-100) Mean Corpuscular Hemoglobin 32 pg (25-35) Mean Corpuscular Hemoglobin Concent 33 g/dL (31-37) Red Cell Distribution Width 17.8 % (11.5-14.5) Platelet Count 258 x10^3/uL (140-400) Neutrophils (%) (Auto) 83 % (31-73) Lymphocytes (%) (Auto) 7 % (24-48) Monocytes (%) (Auto) 10 % (0-9) Eosinophils (%) (Auto) 0 % (0-3) Basophils (%) (Auto) 1 % (0-3) Neutrophils # (Auto) 10.7 x10^3uL (1.8-7.7) Lymphocytes # (Auto) 0.9 x10^3/uL (1.0-4.8) Monocytes # (Auto) 1.2 x10^3/uL (0.0-1.1) Eosinophils # (Auto) 0.0 x10^3/uL (0.0-0.7) Basophils # (Auto) 0.1 x10^3/uL (0.0-0.2) Prothrombin Time 18.2 SEC (11.7-14.0) Prothromb Time International Ratio 1.6 (0.8-1.1) Sodium Level 135 mmol/L (136-145) Potassium Level 3.8 mmol/L (3.5-5.1) Chloride Level 102 mmol/L (98-107) Carbon Dioxide Level 22 mmol/L (21-32) Anion Gap 11 (6-14) Blood Urea Nitrogen 17 mg/dL (8-26) Creatinine 1.2 mg/dL (0.7-1.3) Estimated GFR (Cockcroft-Gault) 62.2 BUN/Creatinine Ratio 14 (6-20) Glucose Level 149 mg/dL (70-99) Calcium Level 9.5 mg/dL (8.5-10.1) Total Bilirubin 1.4 mg/dL (0.2-1.0) Aspartate Amino Transf (AST/SGOT) 16 U/L (15-37) Alanine Aminotransferase (ALT/SGPT) 17 U/L (16-63) Alkaline Phosphatase 189 U/L (46-116) Total Protein 7.4 g/dL (6.4-8.2) Albumin 3.1 g/dL (3.4-5.0) Albumin/Globulin Ratio 0.7 (1.0-1.7) Medications Current Medications Morphine Sulfate (Morphine Sulfate) 6 mg 1X ONCE IV Last administered on at 10:54; Start 11/04/17 at 10:45; Stop 11/04/17 at 10:46; Status DC Ondansetron HCl (Zofran) 4 mg 1X ONCE IV Last administered on 11/04/17at 10:50 ; Start 11/04/17 at 10:30; Stop 11/04/17 at 10:34; Status DC Lorazepam (Ativan) 2 mg 1X ONCE PO Last administered on 11/04/17at 10:49; Start 11/04/17 at 10:30; Stop 11/04/17 at 10:34; Status DC Sodium Chloride 1,000 ml @ 1,000 mls/hr 1X ONCE IV Last administered on at 11:27; Start 11/04/17 at 11:30; Stop 11/04/17 at 12:29; Status DC Morphine Sulfate (Morphine Sulfate) 2 mg PRN Q2HR PRN IV MODERATE PAIN; Start 11/04/17 at 13:30 Fentanyl Citrate (Fentanyl 2ml Vial) 50 mcg PRN Q2HR PRN IV SEVERE PAIN; Start 11/04/17 at 13:30 Acetaminophen (Tylenol) 500 mg PRN Q6HRS PRN PO FEVER; Start 11/04/17 at 13:30 Ondansetron HCl (Zofran) 4 mg PRN Q6HRS PRN IV NAUSEA/VOMITING; Start 11/04/17 at 13:30 Temazepam (Restoril) 7.5 mg PRN QHS PRN PO INSOMNIA Last administered on at 22:52; Start 11/04/17 at 13:30 Alprazolam (Xanax) 0.5 mg PRN Q8HRS PRN PO ANXIETY / AGITATION Last administered on 11/05/17at 01:06; Start 11/04/17 at 13:30 Oxycodone/ Acetaminophen (Percocet 10/325) 1 tab PRN Q4HRS PRN PO SEVERE PAIN Last administered on 11/05/17at 12:43; Start 11/04/17 at 13:30 Oxycodone/ Acetaminophen (Percocet 5/325) 1 tab PRN Q4HRS PRN PO PAIN; Start at 13:30 Cyanocobalamin (Vitamin B-12) 1,000 mcg DAILY PO Last administered on 08:28; Start 11/04/17 at 15:30 Cyclobenzaprine HCl (Flexeril) 10 mg TID PO Last administered on 11/05/17 08: 29; Start 11/04/17 at 14:00 Ferrous Sulfate (Feosol) 325 mg DAILYWBKFT PO Last administered on 11/05/17 08 :29; Start 11/05/17 at 08:00 Gabapentin (Neurontin) 100 mg Q8HRS PO Last administered on 11/05/17at 05:16; Start 11/04/17 at 14:00 Lactulose (Lactulose) 20 gm PRN Q3HRS PRN PO CONSTIPATION; Start 11/04/17 at 13 :30 Senna/Docusate Sodium (Senna Plus) 1 tab DAILY PO Last administered on 08:28; Start 11/05/17 at 09:00 Trazodone HCl (Desyrel) 100 mg QHS PO Last administered on 11/04/17 22:27; Start 11/04/17 at 21:00 Calcium/Vitamin D (Oscal D 500mg/ 200uts) 1 tab BIDWMEALS PO Last administered on 11/05/17 08:28; Start 11/04/17 at 17:00 Duloxetine HCl (Cymbalta) 60 mg DAILY PO Last administered on 11/05/17 08:28; Start 11/04/17 at 15:30 Acetaminophen/ Hydrocodone Bitart (Lortab 10/325) 1 tab PRN Q4HRS PRN PO MODERATE PAIN; Start 11/04/17 at 15:15 Magnesium Oxide (Magnesium Oxide) 400 mg DAILY PO Last administered on at 08:29; Start 11/05/17 at 09:00 Methadone HCl (Dolophine) 10 mg BID PO Last administered on 11/05/17 08:29; Start 11/04/17 at 15:30 Multivitamins (Thera M Plus) 1 tab DAILY PO Last administered on 11/05/17at 08: 29; Start 11/04/17 at 15:30 Ondansetron HCl (Zofran Odt) 4 mg PRN Q8HRS PRN PO NAUSEA/VOMITING; Start 11/04 at 15:15; Stop 8/26/18 at 15:15; Status DC Lidocaine (Lidoderm) 1 patch DAILY TD ; Start 11/05/17 at 09:00 Multi-Ingredient Mouthwash/Gargle (Magic Mouthwash) 10 ml PRN TID PRN PO MOUTH PAIN; Start 11/04/17 at 15:15 Cyanocobalamin (Vitamin B-12) 1,250 mcg DAILY PO ; Start 11/05/17 at 09:00; Status UNV Al Hydroxide/Mg Hydroxide (Mylanta Plus Xs) 30 ml PRN Q2HR PRN PO HEARTBURN / GAS; Start 11/04/17 at 13:30 Ondansetron HCl (Zofran Odt) 8 mg PRN Q8HRS PRN PO NAUSEA/VOMITING; Start 11/04 at 15:15 Miscellaneous (Lidoderm Patch Removal) 1 ea QHS MC ; Start 11/04/17 at 21:00 Warfarin Sodium (Coumadin) 2 mg DAILY16 PO ; Start 11/05/17 at 16:00 Warfarin Sodium (Coumadin Per Physician) 1 each PRN DAILY PRN MC SEE COMMENTS; Start 11/05/17 at 11:00 Active Scripts Active Feosol (Ferrous Sulfate) 325 Mg Tablet 325 Mg PO DAILYWBKFT 30 Days [place] 10-325 Tablet (Acetaminophen/Hydrocodone Bitart) 1 Each Tablet 1-2 Tab PO Q4-6HRS PRN Reported Alum-Mag Hydroxide-Simeth Liq (Mag Hydrox/Al Hydrox/Simeth) 360 Ml Oral.susp 5 Ml PO PRN Vitamin B-12 (Cyanocobalamin (Vitamin B-12)) 1,000 Mcg Tablet 1,250 Mcg SL DAILY Vitamin B-12 (Cyanocobalamin (Vitamin B-12)) 1,000 Mcg Tablet 1,000 Mcg PO Trazodone Hcl 100 Mg Tablet 1 Tab PO QHS Senna S Tablet (Sennosides/Docusate Sodium) 1 Each Tablet 1 Each PO Multivitamins (Multivitamin) 1 Each Tablet 1 Tab PO DAILY Zofran (Ondansetron Hcl) 8 Mg Tablet 1 Tab PO Q8HRS PRN Naloxone Hcl 0.4 Mg/1 Ml Vial 0.4 Mg IJ Methadone Hcl 10 Mg Tablet 1 Tab PO Q12HR Mag-Oxide (Magnesium Oxide) 400 Mg Tablet 250 Mg PO BID [lidoderm] 5 Q12HR Lactulose 20 Gm/30 Ml Solution 20 Gm PO PRN Q3HRS PRN Imodium A-D (Loperamide HCl) 2 Mg Capsule 2 Mg PO PRN Gabapentin 100 Mg Capsule 100 Mg PO Q8HRS Cymbalta (Duloxetine Hcl) 60 Mg Capsule. 1 Cap PO DAILY [magic mouthwash] 30 Ml TID PRN Cyclobenzaprine Hcl 10 Mg Tablet 1 Tab PO TID Oyster Shell Calcium-Vit D Tab (Calcium Carbonate/Vitamin D2) 1 Each Tablet 1 Each PO BID Vitals/I & O Vital Sign - Last 24 Hours 11/04/17 11/04/17 11/04/17 11/04/17 13:26 13:56 14:26 14:56 Pulse 84 86 84 82 Resp 17 15 15 14 B/P (MAP) 136/65 (88) 130/64 (86) 136/65 (88) 131/70 (90) Pulse Ox 99 98 99 100 O2 Delivery Room Air Room Air Room Air Room Air 11/04/17 11/04/17 11/04/17 11/04/17 15:26 19:35 20:00 22:50 Temp 98.3 98.5 98.3 98.5 Pulse 86 94 96 Resp 17 20 18 B/P (MAP) 135/63 (87) 100/61 (74) 107/54 (71) Pulse Ox 99 97 95 O2 Delivery Room Air Room Air Room Air Room Air 11/05/17 11/05/17 11/05/17 11/05/17 03:25 07:00 08:00 10:52 Temp 97.9 98.2 98.5 97.9 98.2 98.5 Pulse 86 89 105 Resp 18 14 14 B/P (MAP) 100/49 (66) 102/57 (72) 104/60 (75) Pulse Ox 98 99 100 O2 Delivery Room Air Room Air Room Air Room Air 11/05/17 12:43 O2 Delivery Room Air Intake and Output 11/04/17 11/04/17 11/05/17 15:00 23:00 07:00 Intake Total 1000 ml 400 ml Output Total 500 ml 700 ml Balance 500 ml -300 ml MAURICE JENKINS MD Nov 05, 2017 13:05
[2017-11-05 14:01] LABS: PROTHROMBIN TIME PATIENT 16.6 SEC (11.7-14.0)
[2017-11-05 15:00] VITALS: BP 99/56
[2017-11-05] MEDS: WARFARIN 2 MG TABLET. PO SCH (17:07)
[2017-11-05 19:00] VITALS: BP 104/62
[2017-11-05] MEDS: PATCH REMOVAL. MC SCH (21:00)
[2017-11-05] MEDS: traZODone 100 MG TABLET. PO SCH (21:00)
[2017-11-05 23:00] VITALS: BP 88/48
[2017-11-06 03:00] VITALS: BP 108/55
[2017-11-06] MEDS: GABAPENTIN 100 MG CAPSULE. PO SCH ×3 (05:57→21:09)
[2017-11-06 06:57] LABS: PROTHROMBIN TIME PATIENT 15.3 SEC (11.7-14.0)
[2017-11-06 07:00] VITALS: BP 105/58
[2017-11-06] MEDS: METHADONE 10 MG TABLET. PO SCH ×2 (08:54→21:15)
[2017-11-06] MEDS: SENNOSIDES/DOCUSATE 8.6/50MG TABLET. PO SCH (08:54)
[2017-11-06] MEDS: CYANOCOBALAMIN (VITAMIN B-12) 1,000 MCG TABLET. PO SCH (08:54)
[2017-11-06] MEDS: DULoxetine HCL 30 MG CAPSULE.DR PO SCH (08:55)
[2017-11-06] MEDS: CALCIUM CARB/VIT D3 500/200 TABLET. PO SCH ×2 (08:55→16:46)
[2017-11-06] MEDS: MAGNESIUM OXIDE 400 MG TABLET PO SCH (08:55)
[2017-11-06] MEDS: ALPRAZolam 0.5 MG TABLET PO PRN ×2 (08:55→21:09)
[2017-11-06] MEDS: MULTIVITAMIN with MINERAL TABLET. PO SCH (08:55)
[2017-11-06] MEDS: FERROUS SULFATE 325 MG TABLET. PO SCH (08:55)
[2017-11-06] MEDS: LIDOCAINE (700MG/PATCH) PATCH. TD SCH (08:56)
[2017-11-06] MEDS: CYCLOBENZAPRINE 10 MG TABLET. PO SCH ×3 (08:58→21:09)
[2017-11-06 11:00] VITALS: BP 114/58
--- NOTE | 2017-11-06 12:29 | PDOC ---
PROGRESS NOTES Chief Complaint Chief Complaint severe pain with recent RT Patellar fracture, traumatic, closed s/p sx 10/23 - Right hip fracture s/p sx 10/23 Mechanical fall at home, Colon CA with mets to lungs on chemo held now Anemia of malignancy and post sx constipation chronic pain on methadone normocytic anemia plan: check inr daily ,need warfarin for dvt ppx home meds percocet for pain control PTOT sw FOR rehab referral xanax prn sparingly History of Present Illness History of Present Illness Mr. Adams is a 57 old M, with h/o colon Ca mets to lung on chemo, came post fall, was found rt hip and knee fx, got sx repaired, justed dced 2 ds ago home. his insurance denies him to rehab. pt came back since more pain, shaky wants xanax which he ran out of before. Vitals Vitals Vital Signs Date Time Temp Pulse Resp B/P (MAP) Pulse Ox O2 Delivery O2 Flow Rate FiO2 11/06/17 11:00 98.4 108 18 114/58 (76) 93 Room Air 98.4 Physical Exam Physical Exam rt leg stabilized very anxious c/o pain and shaky ext General: Alert, Oriented X3, Cooperative, mild distress, Other (from the knee pain) Heart: Regular rate, Normal S1, Normal S2 Lungs: Clear Abdomen: Normal bowel sounds, Soft Extremities: Other (knee dressing, expected alignment, limited flexion and movement because of pain) Skin: No rashes, No breakdown, No significant lesion Labs LABS Laboratory Tests Test 11/05/17 13:40 11/06/17 05:15 Prothrombin Time 16.6 SEC (11.7-14.0) 15.3 SEC (11.7-14.0) Prothromb Time International Ratio 1.4 (0.8-1.1) 1.3 (0.8-1.1) Assessment and Plan Assessmemt and Plan t/caregiver agrees with plan of care/goals * Yes Patient condition at conclusion of therapy * Pt in chair * Call light in reach * Phone in reach * PtIn no apparent distress * Pt denies further needs Communicated Patient Care With (Name, Title) * TAEGAN Chase Goal 1 - Bed Mobility Assistance Required * Independent Goal 1 Assessment * Appropriate - Continue Goal 2 - Transfers Assistance Required * Independent Goal 2 - Transfer Type * Sit to Stand Goal 2 Assessment * Appropriate - Continue Goal 3 - Ambulation Assistance Required * Independent Goal 3 - Ambulation Distance * 250' Goal 3 - Ambulation Device * Roller Walker Goal 3 Assessment * Appropriate - Continue Treatment Plan * Therapeutic Exercise * Bed Mobility Training * Transfer training * Gait Training * Dynamic Balance Training Frequency of Treatment Expected * 10 visits/week Duration of Treatment Expected * 2 weeks Discharge Recommendations * Acute Rehab facility Discharge Recommendation Comments * Pt would greatly benefit from acute rehab to improve strength/endurance Comment Review of Relevant I have reviewed the following items francisco (where applicable) has been applied. Labs Laboratory Tests Test 11/05/17 13:40 11/06/17 05:15 Prothrombin Time 16.6 SEC (11.7-14.0) 15.3 SEC (11.7-14.0) Prothromb Time International Ratio 1.4 (0.8-1.1) 1.3 (0.8-1.1) Laboratory Tests Test 11/05/17 13:40 11/06/17 05:15 Prothrombin Time 16.6 SEC (11.7-14.0) 15.3 SEC (11.7-14.0) Prothromb Time International Ratio 1.4 (0.8-1.1) 1.3 (0.8-1.1) Medications Current Medications Morphine Sulfate (Morphine Sulfate) 6 mg 1X ONCE IV Last administered on at 10:54; Start 11/04/17 at 10:45; Stop 11/04/17 at 10:46; Status DC Ondansetron HCl (Zofran) 4 mg 1X ONCE IV Last administered on 11/04/17at 10:50 ; Start 11/04/17 at 10:30; Stop 11/04/17 at 10:34; Status DC Lorazepam (Ativan) 2 mg 1X ONCE PO Last administered on 11/04/17at 10:49; Start 11/04/17 at 10:30; Stop 11/04/17 at 10:34; Status DC Sodium Chloride 1,000 ml @ 1,000 mls/hr 1X ONCE IV Last administered on at 11:27; Start 11/04/17 at 11:30; Stop 11/04/17 at 12:29; Status DC Morphine Sulfate (Morphine Sulfate) 2 mg PRN Q2HR PRN IV MODERATE PAIN; Start 11/04/17 at 13:30 Fentanyl Citrate (Fentanyl 2ml Vial) 50 mcg PRN Q2HR PRN IV SEVERE PAIN; Start 11/04/17 at 13:30 Acetaminophen (Tylenol) 500 mg PRN Q6HRS PRN PO FEVER; Start 11/04/17 at 13:30 Ondansetron HCl (Zofran) 4 mg PRN Q6HRS PRN IV NAUSEA/VOMITING; Start 11/04/17 at 13:30 Temazepam (Restoril) 7.5 mg PRN QHS PRN PO INSOMNIA Last administered on at 22:52; Start 11/04/17 at 13:30 Alprazolam (Xanax) 0.5 mg PRN Q8HRS PRN PO ANXIETY / AGITATION Last administered on 11/06/17 08:55; Start 11/04/17 at 13:30 Oxycodone/ Acetaminophen (Percocet 10/325) 1 tab PRN Q4HRS PRN PO SEVERE PAIN Last administered on 11/05/17at 17:08; Start 11/04/17 at 13:30 Oxycodone/ Acetaminophen (Percocet 5/325) 1 tab PRN Q4HRS PRN PO PAIN; Start at 13:30 Cyanocobalamin (Vitamin B-12) 1,000 mcg DAILY PO Last administered on 08:54; Start 11/04/17 at 15:30 Cyclobenzaprine HCl (Flexeril) 10 mg TID PO Last administered on 11/06/17 08: 58; Start 11/04/17 at 14:00 Ferrous Sulfate (Feosol) 325 mg DAILYWBKFT PO Last administered on 11/06/17 08 :55; Start 11/05/17 at 08:00 Gabapentin (Neurontin) 100 mg Q8HRS PO Last administered on 11/06/17at 05:57; Start 11/04/17 at 14:00 Lactulose (Lactulose) 20 gm PRN Q3HRS PRN PO CONSTIPATION; Start 11/04/17 at 13 :30 Senna/Docusate Sodium (Senna Plus) 1 tab DAILY PO Last administered on at 08:54; Start 11/05/17 at 09:00 Trazodone HCl (Desyrel) 100 mg QHS PO Last administered on 11/04/17at 22:27; Start 11/04/17 at 21:00 Calcium/Vitamin D (Oscal D 500mg/ 200uts) 1 tab BIDWMEALS PO Last administered on 11/06/17at 08:55; Start 11/04/17 at 17:00 Duloxetine HCl (Cymbalta) 60 mg DAILY PO Last administered on 11/06/17 08:55; Start 11/04/17 at 15:30 Acetaminophen/ Hydrocodone Bitart (Lortab 10/325) 1 tab PRN Q4HRS PRN PO MODERATE PAIN; Start 11/04/17 at 15:15 Magnesium Oxide (Magnesium Oxide) 400 mg DAILY PO Last administered on at 08:55; Start 11/05/17 at 09:00 Methadone HCl (Dolophine) 10 mg BID PO Last administered on 11/06/17at 08:54; Start 11/04/17 at 15:30 Multivitamins (Thera M Plus) 1 tab DAILY PO Last administered on 11/06/17at 08: 55; Start 11/04/17 at 15:30 Ondansetron HCl (Zofran Odt) 4 mg PRN Q8HRS PRN PO NAUSEA/VOMITING; Start 11/04 at 15:15; Stop 11/04/17 at 15:15; Status DC Lidocaine (Lidoderm) 1 patch DAILY TD ; Start 11/05/17 at 09:00 Multi-Ingredient Mouthwash/Gargle (Magic Mouthwash) 10 ml PRN TID PRN PO MOUTH PAIN; Start 11/04/17 at 15:15 Cyanocobalamin (Vitamin B-12) 1,250 mcg DAILY PO ; Start 11/05/17 at 09:00; Status UNV Al Hydroxide/Mg Hydroxide (Mylanta Plus Xs) 30 ml PRN Q2HR PRN PO HEARTBURN / GAS; Start 11/04/17 at 13:30 Ondansetron HCl (Zofran Odt) 8 mg PRN Q8HRS PRN PO NAUSEA/VOMITING; Start 11/04 at 15:15 Miscellaneous (Lidoderm Patch Removal) 1 ea QHS MC ; Start 11/04/17 at 21:00 Warfarin Sodium (Coumadin) 2 mg DAILY16 PO Last administered on 11/05/17at 17:07 ; Start 11/05/17 at 16:00 Warfarin Sodium (Coumadin Per Physician) 1 each PRN DAILY PRN MC SEE COMMENTS Last administered on 11/06/17at 11:21; Start 11/05/17 at 11:00 Active Scripts Active Feosol (Ferrous Sulfate) 325 Mg Tablet 325 Mg PO DAILYWBKFT 30 Days [place] 10-325 Tablet (Acetaminophen/Hydrocodone Bitart) 1 Each Tablet 1-2 Tab PO Q4-6HRS PRN Reported Alum-Mag Hydroxide-Simeth Liq (Mag Hydrox/Al Hydrox/Simeth) 360 Ml Oral.susp 5 Ml PO PRN Vitamin B-12 (Cyanocobalamin (Vitamin B-12)) 1,000 Mcg Tablet 1,250 Mcg SL DAILY Vitamin B-12 (Cyanocobalamin (Vitamin B-12)) 1,000 Mcg Tablet 1,000 Mcg PO Trazodone Hcl 100 Mg Tablet 1 Tab PO QHS Senna S Tablet (Sennosides/Docusate Sodium) 1 Each Tablet 1 Each PO Multivitamins (Multivitamin) 1 Each Tablet 1 Tab PO DAILY Zofran (Ondansetron Hcl) 8 Mg Tablet 1 Tab PO Q8HRS PRN Naloxone Hcl 0.4 Mg/1 Ml Vial 0.4 Mg IJ Methadone Hcl 10 Mg Tablet 1 Tab PO Q12HR Mag-Oxide (Magnesium Oxide) 400 Mg Tablet 250 Mg PO BID [lidoderm] 5 Q12HR Lactulose 20 Gm/30 Ml Solution 20 Gm PO PRN Q3HRS PRN Imodium A-D (Loperamide HCl) 2 Mg Capsule 2 Mg PO PRN Gabapentin 100 Mg Capsule 100 Mg PO Q8HRS Cymbalta (Duloxetine Hcl) 60 Mg Capsule.dr 1 Cap PO DAILY [magic mouthwash] 30 Ml TID PRN Cyclobenzaprine Hcl 10 Mg Tablet 1 Tab PO TID Oyster Shell Calcium-Vit D Tab (Calcium Carbonate/Vitamin D2) 1 Each Tablet 1 Each PO BID Vitals/I & O Vital Sign - Last 24 Hours 11/05/17 11/05/17 11/05/17 11/05/17 12:43 15:00 17:08 19:00 Temp 98.3 98.3 Pulse 89 Resp 14 B/P (MAP) 99/56 (70) Pulse Ox 97 O2 Delivery Room Air Room Air Room Air Room Air 11/05/17 11/05/17 11/05/17 11/06/17 19:00 20:42 23:00 03:00 Temp 98.4 98.2 98.3 98.4 98.2 98.3 Pulse 102 81 63 Resp 14 14 14 B/P (MAP) 104/62 (76) 88/48 (61) 108/55 (72) Pulse Ox 95 96 97 O2 Delivery Room Air Room Air Room Air Room Air 11/06/17 11/06/17 11/06/17 07:00 08:00 11:00 Temp 98.3 98.4 98.3 98.4 Pulse 94 108 Resp 18 18 B/P (MAP) 105/58 (74) 114/58 (76) Pulse Ox 96 93 O2 Delivery Room Air Room Air Room Air Intake and Output 11/05/17 11/05/17 11/06/17 15:00 23:00 07:00 Intake Total 360 ml Output Total 100 ml 900 ml Balance 360 ml -100 ml -900 ml KALI CUETO MD Nov 06, 2017 12:29
[2017-11-06] MEDS: oxyCODONE/APAP 10/325 1 TAB TABLET PO PRN (13:44)
[2017-11-06 15:00] VITALS: BP 86/52
[2017-11-06] MEDS: WARFARIN 2 MG TABLET. PO SCH (16:46)
[2017-11-06 19:25] VITALS: BP 105/64
[2017-11-06] MEDS: traZODone 100 MG TABLET. PO SCH (21:08)
[2017-11-06 23:29] VITALS: BP 93/57
[2017-11-07 03:25] VITALS: BP 92/43
[2017-11-07] MEDS: GABAPENTIN 100 MG CAPSULE. PO SCH ×3 (06:12→21:35)
[2017-11-07 06:25] LABS: PROTHROMBIN TIME PATIENT 14.8 SEC (11.7-14.0)
[2017-11-07 07:00] VITALS: BP 88/58
[2017-11-07 08:18] LABS: BASO # 0.1 x10^3/uL (0.0-0.2); BASO % 1 % (0-3); EOS # 0.1 x10^3/uL (0.0-0.7); EOS % 2 % (0-3); HEMATOCRIT 24.2 % (39.0-53.0); HEMOGLOBIN 7.9 g/dL (13.0-17.5); LYMPH % 31 % (24-48); MEAN CORPUSCULAR HEMOGLOBIN 32 pg (25-35); MEAN CORPUSCULAR HGB CONC 33 g/dL (31-37); MEAN CORPUSCULAR VOLUME 99 fL (79-100); MONO # 0.9 x10^3/uL (0.0-1.1); MONO % 14 % (0-9); NEUT # 3.4 x10^3uL (1.8-7.7); NEUT % 52 % (31-73); PLATELET COUNT 186 x10^3/uL (140-400); RED BLOOD COUNT 2.45 x10^6/uL (4.30-5.70); WHITE BLOOD COUNT 6.6 x10^3/uL (4.0-11.0)
[2017-11-07 08:35] LABS: CALCIUM 8.2 mg/dL (8.5-10.1); CREATININE 1.3 mg/dL (0.7-1.3); GFR 56.7; POTASSIUM 4.2 mmol/L (3.5-5.1)
[2017-11-07] MEDS: SENNOSIDES/DOCUSATE 8.6/50MG TABLET. PO SCH (09:37)
[2017-11-07] MEDS: CYANOCOBALAMIN (VITAMIN B-12) 1,000 MCG TABLET. PO SCH (09:37)
[2017-11-07] MEDS: DULoxetine HCL 30 MG CAPSULE.DR PO SCH (09:37)
[2017-11-07] MEDS: MAGNESIUM OXIDE 400 MG TABLET PO SCH (09:37)
[2017-11-07] MEDS: CALCIUM CARB/VIT D3 500/200 TABLET. PO SCH ×2 (09:38→17:36)
[2017-11-07] MEDS: CYCLOBENZAPRINE 10 MG TABLET. PO SCH ×3 (09:38→21:35)
[2017-11-07] MEDS: MULTIVITAMIN with MINERAL TABLET. PO SCH (09:38)
[2017-11-07] MEDS: METHADONE 10 MG TABLET. PO SCH ×2 (09:39→21:33)
[2017-11-07] MEDS: FERROUS SULFATE 325 MG TABLET. PO SCH (09:39)
[2017-11-07] MEDS: ALPRAZolam 0.5 MG TABLET PO PRN ×2 (09:39→21:35)
[2017-11-07 11:00] VITALS: BP 103/63
[2017-11-07 15:00] VITALS: BP 112/58
--- NOTE | 2017-11-07 15:38 | PDOC ---
PROGRESS NOTES Chief Complaint Chief Complaint CC: Severe pain, recent R patellar fracture R hip fracture Mechanical fall at home Colon CA with mets to lungs Anemia of malignancy Constipation Chronic pain Normocytic anemia History of Present Illness History of Present Illness Pt. seen and examined Pt. awake and oriented Pt. in mild pain VSS Pt. 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 Vitals Vital Signs Date Time Temp Pulse Resp B/P (MAP) Pulse Ox O2 Delivery O2 Flow Rate FiO2 11/07/17 15:00 98.1 85 18 112/58 (76) 96 Room Air 98.1 Physical Exam Physical Exam rt leg stabilized very anxious c/o pain and shaky ext General: Alert, Oriented X3, Cooperative, mild distress, Other (from the knee pain) Heart: Regular rate, Normal S1, Normal S2 Lungs: Clear Abdomen: Normal bowel sounds, Soft Extremities: No clubbing, No cyanosis, No edema, Other (knee dressing, expected alignment, limited flexion and movement because of pain) Skin: No rashes, No breakdown, No significant lesion Labs LABS Laboratory Tests Test 11/07/17 05:00 White Blood Count 6.6 x10^3/uL (4.0-11.0) Red Blood Count 2.45 x10^6/uL (4.30-5.70) Hemoglobin 7.9 g/dL (13.0-17.5) Hematocrit 24.2 % (39.0-53.0) Mean Corpuscular Volume 99 fL (79-100) Mean Corpuscular Hemoglobin 32 pg (25-35) Mean Corpuscular Hemoglobin Concent 33 g/dL (31-37) Red Cell Distribution Width 18.0 % (11.5-14.5) Platelet Count 186 x10^3/uL (140-400) Neutrophils (%) (Auto) 52 % (31-73) Lymphocytes (%) (Auto) 31 % (24-48) Monocytes (%) (Auto) 14 % (0-9) Eosinophils (%) (Auto) 2 % (0-3) Basophils (%) (Auto) 1 % (0-3) Neutrophils # (Auto) 3.4 x10^3uL (1.8-7.7) Lymphocytes # (Auto) 2.0 x10^3/uL (1.0-4.8) Monocytes # (Auto) 0.9 x10^3/uL (0.0-1.1) Eosinophils # (Auto) 0.1 x10^3/uL (0.0-0.7) Basophils # (Auto) 0.1 x10^3/uL (0.0-0.2) Prothrombin Time 14.8 SEC (11.7-14.0) Prothromb Time International Ratio 1.2 (0.8-1.1) Sodium Level 141 mmol/L (136-145) Potassium Level 4.2 mmol/L (3.5-5.1) Chloride Level 105 mmol/L (98-107) Carbon Dioxide Level 32 mmol/L (21-32) Anion Gap 4 (6-14) Blood Urea Nitrogen 18 mg/dL (8-26) Creatinine 1.3 mg/dL (0.7-1.3) Estimated GFR (Cockcroft-Gault) 56.7 Glucose Level 104 mg/dL (70-99) Calcium Level 8.2 mg/dL (8.5-10.1) Review of Systems Review of Systems C/O pain Pt. denies weakness Assessment and Plan Assessmemt and Plan CC: Severe pain, recent R patellar fracture R hip fracture Mechanical fall at home Colon CA with mets to lungs Anemia of malignancy Constipation Chronic pain Normocytic anemia Assessment: Severe pain, recent R patellar fracture R hip fracture Mechanical fall at home Colon CA with mets to lungs Anemia of malignancy Constipation Chronic pain Normocytic anemia Plan: Monitor labs Continue wound care Continue meds; narcotics prn PT/OT Discharge planning in progress Comment Review of Relevant I have reviewed the following items francisco (where applicable) has been applied. Labs Laboratory Tests Test 11/06/17 05:15 11/07/17 05:00 Prothrombin Time 15.3 SEC (11.7-14.0) 14.8 SEC (11.7-14.0) Prothromb Time International Ratio 1.3 (0.8-1.1) 1.2 (0.8-1.1) White Blood Count 6.6 x10^3/uL (4.0-11.0) Red Blood Count 2.45 x10^6/uL (4.30-5.70) Hemoglobin 7.9 g/dL (13.0-17.5) Hematocrit 24.2 % (39.0-53.0) Mean Corpuscular Volume 99 fL (79-100) Mean Corpuscular Hemoglobin 32 pg (25-35) Mean Corpuscular Hemoglobin Concent 33 g/dL (31-37) Red Cell Distribution Width 18.0 % (11.5-14.5) Platelet Count 186 x10^3/uL (140-400) Neutrophils (%) (Auto) 52 % (31-73) Lymphocytes (%) (Auto) 31 % (24-48) Monocytes (%) (Auto) 14 % (0-9) Eosinophils (%) (Auto) 2 % (0-3) Basophils (%) (Auto) 1 % (0-3) Neutrophils # (Auto) 3.4 x10^3uL (1.8-7.7) Lymphocytes # (Auto) 2.0 x10^3/uL (1.0-4.8) Monocytes # (Auto) 0.9 x10^3/uL (0.0-1.1) Eosinophils # (Auto) 0.1 x10^3/uL (0.0-0.7) Basophils # (Auto) 0.1 x10^3/uL (0.0-0.2) Sodium Level 141 mmol/L (136-145) Potassium Level 4.2 mmol/L (3.5-5.1) Chloride Level 105 mmol/L (98-107) Carbon Dioxide Level 32 mmol/L (21-32) Anion Gap 4 (6-14) Blood Urea Nitrogen 18 mg/dL (8-26) Creatinine 1.3 mg/dL (0.7-1.3) Estimated GFR (Cockcroft-Gault) 56.7 Glucose Level 104 mg/dL (70-99) Calcium Level 8.2 mg/dL (8.5-10.1) Laboratory Tests Test 11/07/17 05:00 White Blood Count 6.6 x10^3/uL (4.0-11.0) Red Blood Count 2.45 x10^6/uL (4.30-5.70) Hemoglobin 7.9 g/dL (13.0-17.5) Hematocrit 24.2 % (39.0-53.0) Mean Corpuscular Volume 99 fL (79-100) Mean Corpuscular Hemoglobin 32 pg (25-35) Mean Corpuscular Hemoglobin Concent 33 g/dL (31-37) Red Cell Distribution Width 18.0 % (11.5-14.5) Platelet Count 186 x10^3/uL (140-400) Neutrophils (%) (Auto) 52 % (31-73) Lymphocytes (%) (Auto) 31 % (24-48) Monocytes (%) (Auto) 14 % (0-9) Eosinophils (%) (Auto) 2 % (0-3) Basophils (%) (Auto) 1 % (0-3) Neutrophils # (Auto) 3.4 x10^3uL (1.8-7.7) Lymphocytes # (Auto) 2.0 x10^3/uL (1.0-4.8) Monocytes # (Auto) 0.9 x10^3/uL (0.0-1.1) Eosinophils # (Auto) 0.1 x10^3/uL (0.0-0.7) Basophils # (Auto) 0.1 x10^3/uL (0.0-0.2) Prothrombin Time 14.8 SEC (11.7-14.0) Prothromb Time International Ratio 1.2 (0.8-1.1) Sodium Level 141 mmol/L (136-145) Potassium Level 4.2 mmol/L (3.5-5.1) Chloride Level 105 mmol/L (98-107) Carbon Dioxide Level 32 mmol/L (21-32) Anion Gap 4 (6-14) Blood Urea Nitrogen 18 mg/dL (8-26) Creatinine 1.3 mg/dL (0.7-1.3) Estimated GFR (Cockcroft-Gault) 56.7 Glucose Level 104 mg/dL (70-99) Calcium Level 8.2 mg/dL (8.5-10.1) Medications Current Medications Morphine Sulfate (Morphine Sulfate) 6 mg 1X ONCE IV Last administered on at 10:54; Start 11/04/17 at 10:45; Stop 11/04/17 at 10:46; Status DC Ondansetron HCl (Zofran) 4 mg 1X ONCE IV Last administered on 11/04/17at 10:50 ; Start 11/04/17 at 10:30; Stop 11/04/17 at 10:34; Status DC Lorazepam (Ativan) 2 mg 1X ONCE PO Last administered on 11/04/17at 10:49; Start 11/04/17 at 10:30; Stop 11/04/17 at 10:34; Status DC Sodium Chloride 1,000 ml @ 1,000 mls/hr 1X ONCE IV Last administered on at 11:27; Start 11/04/17 at 11:30; Stop 11/04/17 at 12:29; Status DC Morphine Sulfate (Morphine Sulfate) 2 mg PRN Q2HR PRN IV MODERATE PAIN; Start 11/04/17 at 13:30 Fentanyl Citrate (Fentanyl 2ml Vial) 50 mcg PRN Q2HR PRN IV SEVERE PAIN; Start 11/04/17 at 13:30 Acetaminophen (Tylenol) 500 mg PRN Q6HRS PRN PO FEVER; Start 11/04/17 at 13:30 Ondansetron HCl (Zofran) 4 mg PRN Q6HRS PRN IV NAUSEA/VOMITING 1ST CHOICE; Start 11/04/17 at 13:30 Temazepam (Restoril) 7.5 mg PRN QHS PRN PO INSOMNIA 1ST CHOICE Last administered on 11/04/17at 22:52; Start 11/04/17 at 13:30 Alprazolam (Xanax) 0.5 mg PRN Q8HRS PRN PO ANXIETY / AGITATION 1ST CHOICE Last administered on 11/07/17at 09:39; Start 11/04/17 at 13:30 Oxycodone/ Acetaminophen (Percocet 10/325) 1 tab PRN Q4HRS PRN PO SEVERE PAIN ( 2nd Choice) Last administered on 11/06/17at 13:44; Start 11/04/17 at 13:30 Oxycodone/ Acetaminophen (Percocet 5/325) 1 tab PRN Q4HRS PRN PO SEVERE PAIN ( 1st Choice); Start 11/04/17 at 13:30 Cyanocobalamin (Vitamin B-12) 1,000 mcg DAILY PO Last administered on at 09:37; Start 11/04/17 at 15:30 Cyclobenzaprine HCl (Flexeril) 10 mg TID PO Last administered on 11/07/17at 14: 44; Start 11/04/17 at 14:00 Ferrous Sulfate (Feosol) 325 mg DAILYWBKFT PO Last administered on 11/07/17 09 :39; Start 11/05/17 at 08:00 Gabapentin (Neurontin) 100 mg Q8HRS PO Last administered on 11/07/17 14:44; Start 11/04/17 at 14:00 Lactulose (Lactulose) 20 gm PRN Q3HRS PRN PO CONSTIPATION 1ST CHOICE; Start at 13:30 Senna/Docusate Sodium (Senna Plus) 1 tab DAILY PO Last administered on 09:37; Start 11/05/17 at 09:00 Trazodone HCl (Desyrel) 100 mg QHS PO Last administered on 11/06/17 21:08; Start 11/04/17 at 21:00 Calcium/Vitamin D (Oscal D 500mg/ 200uts) 1 tab BIDWMEALS PO Last administered on 11/07/17 09:38; Start 11/04/17 at 17:00 Duloxetine HCl (Cymbalta) 60 mg DAILY PO Last administered on 11/07/17 09:37; Start 11/04/17 at 15:30 Acetaminophen/ Hydrocodone Bitart (Lortab 10/325) 1 tab PRN Q4HRS PRN PO MODERATE PAIN; Start 11/04/17 at 15:15 Magnesium Oxide (Magnesium Oxide) 400 mg DAILY PO Last administered on 09:37; Start 11/05/17 at 09:00 Methadone HCl (Dolophine) 10 mg BID PO Last administered on 11/07/17 09:39; Start 11/04/17 at 15:30 Multivitamins (Thera M Plus) 1 tab DAILY PO Last administered on 11/07/17 09: 38; Start 11/04/17 at 15:30 Ondansetron HCl (Zofran Odt) 4 mg PRN Q8HRS PRN PO NAUSEA/VOMITING; Start 11/04 at 15:15; Stop 11/04/17 at 15:15; Status DC Lidocaine (Lidoderm) 1 patch DAILY TD ; Start 11/05/17 at 09:00; Stop 11/06/17 at 17:39; Status DC Multi-Ingredient Mouthwash/Gargle (Magic Mouthwash) 10 ml PRN TID PRN PO MOUTH PAIN; Start 11/04/17 at 15:15 Cyanocobalamin (Vitamin B-12) 1,250 mcg DAILY PO ; Start 11/05/17 at 09:00; Status UNV Al Hydroxide/Mg Hydroxide (Mylanta Plus Xs) 30 ml PRN Q2HR PRN PO HEARTBURN / GAS; Start 11/04/17 at 13:30 Ondansetron HCl (Zofran Odt) 8 mg PRN Q8HRS PRN PO NAUSEA/VOMITING 1ST CHOICE; Start 11/04/17 at 15:15 Miscellaneous (Lidoderm Patch Removal) 1 ea QHS MC ; Start 11/04/17 at 21:00; Stop 11/06/17 at 19:19; Status DC Warfarin Sodium (Coumadin) 2 mg DAILY16 PO Last administered on 11/06/17at 16:46 ; Start 11/05/17 at 16:00 Warfarin Sodium (Coumadin Per Physician) 1 each PRN DAILY PRN MC SEE COMMENTS Last administered on 11/07/17at 12:24; Start 11/05/17 at 11:00 Active Scripts Active Feosol (Ferrous Sulfate) 325 Mg Tablet 325 Mg PO DAILYWBKFT 30 Days [place] 10-325 Tablet (Acetaminophen/Hydrocodone Bitart) 1 Each Tablet 1-2 Tab PO Q4-6HRS PRN Reported Alum-Mag Hydroxide-Simeth Liq (Mag Hydrox/Al Hydrox/Simeth) 360 Ml Oral.susp 5 Ml PO PRN Vitamin B-12 (Cyanocobalamin (Vitamin B-12)) 1,000 Mcg Tablet 1,250 Mcg SL DAILY Vitamin B-12 (Cyanocobalamin (Vitamin B-12)) 1,000 Mcg Tablet 1,000 Mcg PO Trazodone Hcl 100 Mg Tablet 1 Tab PO QHS Senna S Tablet (Sennosides/Docusate Sodium) 1 Each Tablet 1 Each PO Multivitamins (Multivitamin) 1 Each Tablet 1 Tab PO DAILY Zofran (Ondansetron Hcl) 8 Mg Tablet 1 Tab PO Q8HRS PRN Naloxone Hcl 0.4 Mg/1 Ml Vial 0.4 Mg IJ Methadone Hcl 10 Mg Tablet 1 Tab PO Q12HR Mag-Oxide (Magnesium Oxide) 400 Mg Tablet 250 Mg PO BID [lidoderm] 5 Q12HR Lactulose 20 Gm/30 Ml Solution 20 Gm PO PRN Q3HRS PRN Imodium A-D (Loperamide HCl) 2 Mg Capsule 2 Mg PO PRN Gabapentin 100 Mg Capsule 100 Mg PO Q8HRS Cymbalta (Duloxetine Hcl) 60 Mg Capsule. 1 Cap PO DAILY [magic mouthwash] 30 Ml TID PRN Cyclobenzaprine Hcl 10 Mg Tablet 1 Tab PO TID Oyster [place] Calcium-Vit D Tab (Calcium Carbonate/Vitamin D2) 1 Each Tablet 1 Each PO BID Vitals/I & O Vital Sign - Last 24 Hours 11/06/17 11/06/17 11/06/17 11/07/17 19:25 20:20 23:29 03:25 Temp 98.1 98.4 98.5 98.1 98.4 98.5 Pulse 101 94 87 Resp 18 B/P (MAP) 105/64 (78) 93/57 (69) 92/43 (59) Pulse Ox 96 95 93 O2 Delivery Room Air Room Air Room Air Room Air 11/07/17 11/07/17 11/07/17 11/07/17 07:00 08:00 11:00 15:00 Temp 98.2 98.2 98.1 98.2 98.2 98.1 Pulse 78 108 85 Resp 18 B/P (MAP) 88/58 (68) 103/63 (76) 112/58 (76) Pulse Ox 98 99 96 O2 Delivery Room Air Room Air Room Air Room Air Intake and Output 11/06/17 11/06/17 11/07/17 15:00 23:00 07:00 Intake Total 1900 ml 720 ml Output Total 625 ml 1050 ml Balance 1275 ml -330 ml MARY DELGADILLO III DO Nov 07, 2017 15:38
[2017-11-07] MEDS: WARFARIN 2 MG TABLET. PO SCH (17:36)
[2017-11-07 19:00] VITALS: BP 86/54
[2017-11-07] MEDS: traZODone 100 MG TABLET. PO SCH (21:36)
[2017-11-07 23:00] VITALS: BP 93/46
[2017-11-08 03:00] VITALS: BP 81/46
[2017-11-08 04:59] LABS: BASO % 1 % (0-3); EOS # 0.1 x10^3/uL (0.0-0.7); EOS % 2 % (0-3); HEMATOCRIT 22.4 % (39.0-53.0); HEMOGLOBIN 7.6 g/dL (13.0-17.5); LYMPH # 1.8 x10^3/uL (1.0-4.8); LYMPH % 32 % (24-48); MEAN CORPUSCULAR HEMOGLOBIN 33 pg (25-35); MEAN CORPUSCULAR HGB CONC 34 g/dL (31-37); MEAN CORPUSCULAR VOLUME 97 fL (79-100); MONO # 0.7 x10^3/uL (0.0-1.1); MONO % 12 % (0-9); NEUT # 3.1 x10^3uL (1.8-7.7); NEUT % 54 % (31-73); PLATELET COUNT 164 x10^3/uL (140-400); WHITE BLOOD COUNT 5.8 x10^3/uL (4.0-11.0)
[2017-11-08 05:07] LABS: PROTHROMBIN TIME PATIENT 15.4 SEC (11.7-14.0)
[2017-11-08 05:17] LABS: CALCIUM 8.1 mg/dL (8.5-10.1); CREATININE 0.9 mg/dL (0.7-1.3); GFR 86.7; POTASSIUM 3.7 mmol/L (3.5-5.1)
[2017-11-08] MEDS: GABAPENTIN 100 MG CAPSULE. PO SCH ×2 (05:26→14:18)
[2017-11-08 07:00] VITALS: BP 95/44
[2017-11-08] MEDS: CALCIUM CARB/VIT D3 500/200 TABLET. PO SCH (09:58)
[2017-11-08] MEDS: CYCLOBENZAPRINE 10 MG TABLET. PO SCH ×2 (10:13→14:18)
[2017-11-08] MEDS: CYANOCOBALAMIN (VITAMIN B-12) 1,000 MCG TABLET. PO SCH (10:13)
[2017-11-08] MEDS: FERROUS SULFATE 325 MG TABLET. PO SCH (10:13)
[2017-11-08] MEDS: SENNOSIDES/DOCUSATE 8.6/50MG TABLET. PO SCH (10:14)
[2017-11-08] MEDS: METHADONE 10 MG TABLET. PO SCH (10:14)
[2017-11-08] MEDS: MAGNESIUM OXIDE 400 MG TABLET PO SCH (10:14)
[2017-11-08] MEDS: DULoxetine HCL 30 MG CAPSULE.DR PO SCH (10:15)
[2017-11-08] MEDS: MULTIVITAMIN with MINERAL TABLET. PO SCH (10:16)
[2017-11-08 11:00] VITALS: BP 94/53
--- NOTE | 2017-11-08 12:52 | PDOC ---
PROGRESS NOTES Chief Complaint Chief Complaint CC Pain control: severe pain, recent R patellar fracture R hip fracture Mechanical fall at home Colon CA with mets to lungs Anemia of malignancy Constipation Chronic pain Normocytic anemia History of Present Illness History of Present Illness Pt. seen and examined Pt. 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 Vitals Vital Signs Date Time Temp Pulse Resp B/P (MAP) Pulse Ox O2 Delivery O2 Flow Rate FiO2 11/08/17 11:00 98.2 86 18 94/53 (67) 98 Room Air 98.2 Physical Exam Physical Exam rt leg stabilized very anxious c/o pain and shaky ext General: Alert, Oriented X3, Cooperative, mild distress, Other (from the knee pain) Heart: Regular rate, Normal S1, Normal S2 Lungs: Clear Abdomen: Normal bowel sounds, Soft Extremities: No clubbing, No cyanosis, No edema, Other (knee dressing, expected alignment, limited flexion and movement because of pain) Skin: No rashes, No breakdown, No significant lesion Labs LABS Laboratory Tests Test 11/08/17 04:10 White Blood Count 5.8 x10^3/uL (4.0-11.0) Red Blood Count 2.30 x10^6/uL (4.30-5.70) Hemoglobin 7.6 g/dL (13.0-17.5) Hematocrit 22.4 % (39.0-53.0) Mean Corpuscular Volume 97 fL (79-100) Mean Corpuscular Hemoglobin 33 pg (25-35) Mean Corpuscular Hemoglobin Concent 34 g/dL (31-37) Red Cell Distribution Width 18.0 % (11.5-14.5) Platelet Count 164 x10^3/uL (140-400) Neutrophils (%) (Auto) 54 % (31-73) Lymphocytes (%) (Auto) 32 % (24-48) Monocytes (%) (Auto) 12 % (0-9) Eosinophils (%) (Auto) 2 % (0-3) Basophils (%) (Auto) 1 % (0-3) Neutrophils # (Auto) 3.1 x10^3uL (1.8-7.7) Lymphocytes # (Auto) 1.8 x10^3/uL (1.0-4.8) Monocytes # (Auto) 0.7 x10^3/uL (0.0-1.1) Eosinophils # (Auto) 0.1 x10^3/uL (0.0-0.7) Basophils # (Auto) 0.0 x10^3/uL (0.0-0.2) Prothrombin Time 15.4 SEC (11.7-14.0) Prothromb Time International Ratio 1.3 (0.8-1.1) Sodium Level 139 mmol/L (136-145) Potassium Level 3.7 mmol/L (3.5-5.1) Chloride Level 105 mmol/L (98-107) Carbon Dioxide Level 29 mmol/L (21-32) Anion Gap 5 (6-14) Blood Urea Nitrogen 19 mg/dL (8-26) Creatinine 0.9 mg/dL (0.7-1.3) Estimated GFR (Cockcroft-Gault) 86.7 Glucose Level 105 mg/dL (70-99) Calcium Level 8.1 mg/dL (8.5-10.1) Review of Systems Review of Systems Pt. denies significant pain Pt. denies weakness Assessment and Plan Assessmemt and Plan CC: Pain control: severe pain, recent R patellar fracture R hip fracture Assessment: Pain control: severe pain, recent R patellar fracture R hip fracture Mechanical fall at home Colon CA with mets to lungs Anemia of malignancy Constipation Chronic pain Normocytic anemia Plan: Pt. at baseline, will discharge to [facility] PT/OT Continue home meds Continue current diet Monitor labs Comment Review of Relevant I have reviewed the following items francisco (where applicable) has been applied. Labs Laboratory Tests Test 11/07/17 05:00 11/08/17 04:10 White Blood Count 6.6 x10^3/uL (4.0-11.0) 5.8 x10^3/uL (4.0-11.0) Red Blood Count 2.45 x10^6/uL (4.30-5.70) 2.30 x10^6/uL (4.30-5.70) Hemoglobin 7.9 g/dL (13.0-17.5) 7.6 g/dL (13.0-17.5) Hematocrit 24.2 % (39.0-53.0) 22.4 % (39.0-53.0) Mean Corpuscular Volume 99 fL (79-100) 97 fL (79-100) Mean Corpuscular Hemoglobin 32 pg (25-35) 33 pg (25-35) Mean Corpuscular Hemoglobin Concent 33 g/dL (31-37) 34 g/dL (31-37) Red Cell Distribution Width 18.0 % (11.5-14.5) 18.0 % (11.5-14.5) Platelet Count 186 x10^3/uL (140-400) 164 x10^3/uL (140-400) Neutrophils (%) (Auto) 52 % (31-73) 54 % (31-73) Lymphocytes (%) (Auto) 31 % (24-48) 32 % (24-48) Monocytes (%) (Auto) 14 % (0-9) 12 % (0-9) Eosinophils (%) (Auto) 2 % (0-3) 2 % (0-3) Basophils (%) (Auto) 1 % (0-3) 1 % (0-3) Neutrophils # (Auto) 3.4 x10^3uL (1.8-7.7) 3.1 x10^3uL (1.8-7.7) Lymphocytes # (Auto) 2.0 x10^3/uL (1.0-4.8) 1.8 x10^3/uL (1.0-4.8) Monocytes # (Auto) 0.9 x10^3/uL (0.0-1.1) 0.7 x10^3/uL (0.0-1.1) Eosinophils # (Auto) 0.1 x10^3/uL (0.0-0.7) 0.1 x10^3/uL (0.0-0.7) Basophils # (Auto) 0.1 x10^3/uL (0.0-0.2) 0.0 x10^3/uL (0.0-0.2) Prothrombin Time 14.8 SEC (11.7-14.0) 15.4 SEC (11.7-14.0) Prothromb Time International Ratio 1.2 (0.8-1.1) 1.3 (0.8-1.1) Sodium Level 141 mmol/L (136-145) 139 mmol/L (136-145) Potassium Level 4.2 mmol/L (3.5-5.1) 3.7 mmol/L (3.5-5.1) Chloride Level 105 mmol/L (98-107) 105 mmol/L (98-107) Carbon Dioxide Level 32 mmol/L (21-32) 29 mmol/L (21-32) Anion Gap 4 (6-14) 5 (6-14) Blood Urea Nitrogen 18 mg/dL (8-26) 19 mg/dL (8-26) Creatinine 1.3 mg/dL (0.7-1.3) 0.9 mg/dL (0.7-1.3) Estimated GFR (Cockcroft-Gault) 56.7 86.7 Glucose Level 104 mg/dL (70-99) 105 mg/dL (70-99) Calcium Level 8.2 mg/dL (8.5-10.1) 8.1 mg/dL (8.5-10.1) Laboratory Tests Test 11/08/17 04:10 White Blood Count 5.8 x10^3/uL (4.0-11.0) Red Blood Count 2.30 x10^6/uL (4.30-5.70) Hemoglobin 7.6 g/dL (13.0-17.5) Hematocrit 22.4 % (39.0-53.0) Mean Corpuscular Volume 97 fL (79-100) Mean Corpuscular Hemoglobin 33 pg (25-35) Mean Corpuscular Hemoglobin Concent 34 g/dL (31-37) Red Cell Distribution Width 18.0 % (11.5-14.5) Platelet Count 164 x10^3/uL (140-400) Neutrophils (%) (Auto) 54 % (31-73) Lymphocytes (%) (Auto) 32 % (24-48) Monocytes (%) (Auto) 12 % (0-9) Eosinophils (%) (Auto) 2 % (0-3) Basophils (%) (Auto) 1 % (0-3) Neutrophils # (Auto) 3.1 x10^3uL (1.8-7.7) Lymphocytes # (Auto) 1.8 x10^3/uL (1.0-4.8) Monocytes # (Auto) 0.7 x10^3/uL (0.0-1.1) Eosinophils # (Auto) 0.1 x10^3/uL (0.0-0.7) Basophils # (Auto) 0.0 x10^3/uL (0.0-0.2) Prothrombin Time 15.4 SEC (11.7-14.0) Prothromb Time International Ratio 1.3 (0.8-1.1) Sodium Level 139 mmol/L (136-145) Potassium Level 3.7 mmol/L (3.5-5.1) Chloride Level 105 mmol/L (98-107) Carbon Dioxide Level 29 mmol/L (21-32) Anion Gap 5 (6-14) Blood Urea Nitrogen 19 mg/dL (8-26) Creatinine 0.9 mg/dL (0.7-1.3) Estimated GFR (Cockcroft-Gault) 86.7 Glucose Level 105 mg/dL (70-99) Calcium Level 8.1 mg/dL (8.5-10.1) Medications Current Medications Morphine Sulfate (Morphine Sulfate) 6 mg 1X ONCE IV Last administered on at 10:54; Start 11/04/17 at 10:45; Stop 11/04/17 at 10:46; Status DC Ondansetron HCl (Zofran) 4 mg 1X ONCE IV Last administered on 11/04/17at 10:50 ; Start 11/04/17 at 10:30; Stop 11/04/17 at 10:34; Status DC Lorazepam (Ativan) 2 mg 1X ONCE PO Last administered on 11/04/17at 10:49; Start 11/04/17 at 10:30; Stop 11/04/17 at 10:34; Status DC Sodium Chloride 1,000 ml @ 1,000 mls/hr 1X ONCE IV Last administered on at 11:27; Start 11/04/17 at 11:30; Stop 11/04/17 at 12:29; Status DC Morphine Sulfate (Morphine Sulfate) 2 mg PRN Q2HR PRN IV MODERATE PAIN; Start 11/04/17 at 13:30 Fentanyl Citrate (Fentanyl 2ml Vial) 50 mcg PRN Q2HR PRN IV SEVERE PAIN; Start 11/04/17 at 13:30 Acetaminophen (Tylenol) 500 mg PRN Q6HRS PRN PO FEVER; Start 11/04/17 at 13:30 Ondansetron HCl (Zofran) 4 mg PRN Q6HRS PRN IV NAUSEA/VOMITING 1ST CHOICE; Start 11/04/17 at 13:30 Temazepam (Restoril) 7.5 mg PRN QHS PRN PO INSOMNIA 1ST CHOICE Last administered on 11/04/17 22:52; Start 11/04/17 at 13:30 Alprazolam (Xanax) 0.5 mg PRN Q8HRS PRN PO ANXIETY / AGITATION 1ST CHOICE Last administered on 11/07/17 21:35; Start 11/04/17 at 13:30 Oxycodone/ Acetaminophen (Percocet 10/325) 1 tab PRN Q4HRS PRN PO SEVERE PAIN ( 2nd Choice) Last administered on 11/06/17 13:44; Start 11/04/17 at 13:30 Oxycodone/ Acetaminophen (Percocet 5/325) 1 tab PRN Q4HRS PRN PO SEVERE PAIN ( 1st Choice); Start 11/04/17 at 13:30 Cyanocobalamin (Vitamin B-12) 1,000 mcg DAILY PO Last administered on 10:13; Start 11/04/17 at 15:30 Cyclobenzaprine HCl (Flexeril) 10 mg TID PO Last administered on 11/08/17 10: 13; Start 11/04/17 at 14:00 Ferrous Sulfate (Feosol) 325 mg DAILYWBKFT PO Last administered on 11/08/17 10 :13; Start 11/05/17 at 08:00 Gabapentin (Neurontin) 100 mg Q8HRS PO Last administered on 11/08/17 05:26; Start 11/04/17 at 14:00 Lactulose (Lactulose) 20 gm PRN Q3HRS PRN PO CONSTIPATION 1ST CHOICE; Start at 13:30 Senna/Docusate Sodium (Senna Plus) 1 tab DAILY PO Last administered on 10:14; Start 11/05/17 at 09:00 Trazodone HCl (Desyrel) 100 mg QHS PO Last administered on 11/07/17 21:36; Start 11/04/17 at 21:00 Calcium/Vitamin D (Oscal D 500mg/ 200uts) 1 tab BIDWMEALS PO Last administered on 11/08/17 09:58; Start 11/04/17 at 17:00 Duloxetine HCl (Cymbalta) 60 mg DAILY PO Last administered on 11/08/17 10:15; Start 11/04/17 at 15:30 Acetaminophen/ Hydrocodone Bitart (Lortab 10/325) 1 tab PRN Q4HRS PRN PO MODERATE PAIN; Start 11/04/17 at 15:15 Magnesium Oxide (Magnesium Oxide) 400 mg DAILY PO Last administered on at 10:14; Start 11/05/17 at 09:00 Methadone HCl (Dolophine) 10 mg BID PO Last administered on 11/08/17 10:14; Start 11/04/17 at 15:30 Multivitamins (Thera M Plus) 1 tab DAILY PO Last administered on 11/08/17 10: 16; Start 11/04/17 at 15:30 Ondansetron HCl (Zofran Odt) 4 mg PRN Q8HRS PRN PO NAUSEA/VOMITING; Start 11/04 at 15:15; Stop 11/04/17 at 15:15; Status DC Lidocaine (Lidoderm) 1 patch DAILY TD ; Start 11/05/17 at 09:00; Stop 11/06/17 at 17:39; Status DC Multi-Ingredient Mouthwash/Gargle (Magic Mouthwash) 10 ml PRN TID PRN PO MOUTH PAIN; Start 11/04/17 at 15:15 Cyanocobalamin (Vitamin B-12) 1,250 mcg DAILY PO ; Start 11/05/17 at 09:00; Status UNV Al Hydroxide/Mg Hydroxide (Mylanta Plus Xs) 30 ml PRN Q2HR PRN PO HEARTBURN / GAS; Start 11/04/17 at 13:30 Ondansetron HCl (Zofran Odt) 8 mg PRN Q8HRS PRN PO NAUSEA/VOMITING 1ST CHOICE; Start 11/04/17 at 15:15 Miscellaneous (Lidoderm Patch Removal) 1 ea QHS MC ; Start 11/04/17 at 21:00; Stop 11/06/17 at 19:19; Status DC Warfarin Sodium (Coumadin) 2 mg DAILY16 PO Last administered on 11/07/17at 17:36 ; Start 11/05/17 at 16:00 Warfarin Sodium (Coumadin Per Physician) 1 each PRN DAILY PRN MC SEE COMMENTS Last administered on 11/07/17at 12:24; Start 11/05/17 at 11:00 Active Scripts Active Feosol (Ferrous Sulfate) 325 Mg Tablet 325 Mg PO [id number] 30 Days [place] 10-325 Tablet (Acetaminophen/Hydrocodone Bitart) 1 Each Tablet 1-2 Tab PO Q4-6HRS PRN Reported Alum-Mag Hydroxide-Simeth Liq (Mag Hydrox/Al Hydrox/Simeth) 360 Ml Oral.susp 5 Ml PO PRN Vitamin B-12 (Cyanocobalamin (Vitamin B-12)) 1,000 Mcg Tablet 1,250 Mcg SL DAILY Vitamin B-12 (Cyanocobalamin (Vitamin B-12)) 1,000 Mcg Tablet 1,000 Mcg PO Trazodone Hcl 100 Mg Tablet 1 Tab PO QHS Senna S Tablet (Sennosides/Docusate Sodium) 1 Each Tablet 1 Each PO Multivitamins (Multivitamin) 1 Each Tablet 1 Tab PO DAILY Zofran (Ondansetron Hcl) 8 Mg Tablet 1 Tab PO Q8HRS PRN Naloxone Hcl 0.4 Mg/1 Ml Vial 0.4 Mg IJ Methadone Hcl 10 Mg Tablet 1 Tab PO Q12HR Mag-Oxide (Magnesium Oxide) 400 Mg Tablet 250 Mg PO BID [lidoderm] 5 Q12HR Lactulose 20 Gm/30 Ml Solution 20 Gm PO PRN Q3HRS PRN Imodium A-D (Loperamide HCl) 2 Mg Capsule 2 Mg PO PRN Gabapentin 100 Mg Capsule 100 Mg PO Q8HRS Cymbalta (Duloxetine Hcl) 60 Mg Capsule.dr 1 Cap PO DAILY [magic mouthwash] 30 Ml TID PRN Cyclobenzaprine Hcl 10 Mg Tablet 1 Tab PO TID Oyster Shell Calcium-Vit D Tab (Calcium Carbonate/Vitamin D2) 1 Each Tablet 1 Each PO BID Vitals/I & O Vital Sign - Last 24 Hours 11/07/17 11/07/17 11/07/17 11/07/17 15:00 19:00 20:00 23:00 Temp 98.1 98.8 97.7 98.1 98.8 97.7 Pulse 85 88 82 Resp 18 18 18 B/P (MAP) 112/58 (76) 86/54 (65) 93/46 (62) Pulse Ox 96 94 95 O2 Delivery Room Air Room Air Room Air Room Air 11/08/17 11/08/17 11/08/17 11/08/17 03:00 07:00 08:30 11:00 Temp 97.9 98.7 98.2 97.9 98.7 98.2 Pulse 79 88 86 Resp 16 18 18 B/P (MAP) 81/46 (58) 95/44 (61) 94/53 (67) Pulse Ox 95 97 98 O2 Delivery Room Air Room Air Room Air Room Air Intake and Output 11/07/17 11/07/17 11/08/17 15:00 23:00 07:00 Output Total 0 ml Balance 0 ml MARY DELGADILLO III DO Nov 08, 2017 12:52
[2017-11-08] MEDS ORDERED: HEPARIN PF 500 UNIT/5 ML DISP.SYRIN. IV ONE (13:30)
[2017-11-09] MEDS ORDERED: METH10TA2 PO (03:51)
--- NOTE | 2017-11-09 19:04 | DS ---
DATE OF DISCHARGE: 11/08/2017 ADMISSION DIAGNOSES: 1. Fall with recurrent trauma to his leg. 2. Recent lower extremity fracture with surgical repair. 3. History of colon cancer. DISCHARGE DIAGNOSIS: Resolving pain. HOSPITAL COURSE: The patient is a pleasant 57-year-old male who had fallen recently and broke extremity. He actually went for [facility]. We want this time skilled, but his insurance probably would not cover. We ended up getting him home with home health, but he fell 1 upstairs, bumped his leg. He had intractable pain. We readmitted him, then tried him over to skilled. DISPOSITION: Skilled. ACTIVITY: As tolerated. DIET: Low sodium. MEDICATIONS: Please see MRAD. TOTAL TIME: 34 minutes. MARY DELGADILLO DO DR: STACY/asha JOB#: [id number] / [id number]
== END 2017-11-08 14:45 | DRG 948 ==
LOC: ER 10:22 → ED HOLD 11:30 → 5 SOUTH 14:58 → 4 NORTH 15:00
PROVIDERS: ADMIT Internal Medicine; ATTEND Internal Medicine
DX: G89.18 Other acute postprocedural pain (principal); C78.00 Secondary malignant neoplasm of unspecified lung; D63.0 Anemia in neoplastic disease; G89.29 Other chronic pain; M25.561 Pain in right knee; Z85.118 Personal history of other malignant neoplasm of bronchus and lung; Z88.6 Allergy status to analgesic agent; Z82.49 Family history of ischemic heart disease and other diseases of the circulatory system; Z90.49 Acquired absence of other specified parts of digestive tract; K59.00 Constipation, unspecified; Z79.891 Long term (current) use of opiate analgesic
CPT/HCPCS: 36415; 73552; 73560; 80048; 80053; 85025; 85610; 96361; 96374; 96375; J2270; J2405; J7030; 97110; 97116; 97535; 99285-25

== ENCOUNTER 2017-11-09 01:57 | Emergency (ER) | payer OTHER ==
[~2017-11-09] VITALS: Ht 177.8 cm; Wt 88.9 kg
--- NOTE | 2017-11-09 03:06 | PHYS DOC ---
Past Medical History Past Medical History: Other Additional Past Medical Histor: COLON CANCER MET TO LUNG, KIDNEY STONE, BACK PAIN Past Surgical History: Other Additional Past Surgical Histo: KNEE, HIP, FEMUR, GALLBLADDER Alcohol Use: None Drug Use: None Adult General Chief Complaint Chief Complaint: PAIN CONTROL HPI HPI Patient is a 57-year-old male who arrives in the emergency department via EMS from his nursing home facility. He was just discharged from this hospital less than 24 hours ago after being readmitted for pain control after recent hip and patellar surgeries. He is in a knee immobilizer. He states his reason for coming to the emergency department was that when he went to the facility he was under the impression that he was going to be getting his methadone twice a day, 10 mg. However, the facility, in calling report, stated that they did not have methadone on hand, and it would be later today until they were able to get a dose. The patient did not want to take the alternative opiate medications that were offered to him and he chose to be transported to the facility here for pain control. The patient is agreeable to go back after he gets a dose of methadone, with the understanding that his methadone will be continued later today. He denies any other complaints at this time. Review of Systems Review of Systems Constitutional: Denies fever or chills [] Eyes: Denies change in visual acuity, redness, or eye pain [] Respiratory: Denies cough or shortness of breath [] Cardiovascular: The patient denies any shortness of breath, chest pain, palpitations, or orthopnea [] Musculoskeletal: Denies back pain or joint pain, other than postsurgical pain from his recent surgery. [] Neurologic: Denies headache, focal weakness or sensory changes [] Allergies Allergies Allergies Coded Allergies Type Severity Reaction Last Updated Verified codeine Adverse Reaction Intermediate VERTIGO 10/22/17 Yes Physical Exam Physical Exam PHYSICAL EXAM: CONSTITUTIONAL: Well developed, well nourished HEAD: normocephalic, atraumatic EENT: PERRL, EOMI. Conjunctivae normal color, sclerae non-icteric; moist mucous membranes. NECK: Supple, non-tender; no meningismus. LUNGS: Lungs CTA, breathing even and unlabored. Normal air movement. HEART: Regular rate and rhythm, no murmur CHEST: No deformity; non-tender ABDOMEN: The abdomen is soft, and non-tender, no masses or bruits. EXTREM: Normal ROM; no deformity, no calf tenderness. Normal pulses palpable in all extremities. There is no pedal edema. There is a knee immobilizer on the right leg. SKIN: No rash; no diaphoresis NEURO: Alert; normal speech and cognition; CN's grossly intact; strength grossly intact without focal deficit. BACK: No CVA TTP. Current Patient Data Vital Signs Vital Signs Date Time Temp Pulse Resp B/P (MAP) Pulse Ox O2 Delivery O2 Flow Rate FiO2 11/09/17 02:19 98.8 105 16 121/71 (88) 97 Room Air 98.8 EKG EKG [] Radiology/Procedures Radiology/Procedures [] Dragon Disclaimer Dragon Disclaimer This electronic medical record was generated, in whole or in part, using a voice recognition dictation system. Departure Departure Impression: Primary Impression: Postoperative pain Additional Impressions: Chronic pain Opiate dependence Disposition: 03 TRANSFER SNF Condition: STABLE Referrals: NO PCP (PCP) Problem Qualifiers PAOLA BRUCE MD Nov 09, 2017 03:06
[2017-11-09] MEDS ORDERED: METHADONE 10 MG TABLET. PO ONE (03:30)
[2017-11-09] MEDS ORDERED: METH10TA2 PO (03:51)
[2017-11-09 03:52] VITALS: BP 106/58
== END 2017-11-09 03:54 | disposition home or self-care (01) ==
LOC: ER 01:57
DX: G89.18 Other acute postprocedural pain (principal); G89.29 Other chronic pain; F11.20 Opioid dependence, uncomplicated; M25.551 Pain in right hip; M25.561 Pain in right knee; Z98.890 Other specified postprocedural states; Z88.5 Allergy status to narcotic agent
CPT/HCPCS: 99283